=== PATIENT | female | born 1950 | race Caucasian/White ===

== ENCOUNTER 2017-12-29 07:53 | Inpatient (IN) | payer MEDICARE, MEDICAID ==
[~2017-12-29] VITALS: Ht 165.1 cm; Wt 67.0 kg
[~2017-12-29 07:53] MED LIST: BACL10TA14 PO; BECL8.7A7 INH; DOCU-28 PO; FLUT16SP26; GLIM1TAB46 PO; LEVO500T2 PO; LORA10TA7 PO; METF-438 PO; METO25TA6 PO; OMEP-50 PO; ONDA4TAB6 PO; ROSU20TA PO; TICA90TA PO
[2017-12-29] MEDS ORDERED: normal saline 1000ML IV soln IVB ONE (08:35)
[2017-12-29] MEDS ORDERED: ondansetron/PF 4mg/2ml inj IV ONE (08:35)
[2017-12-29] MEDS ORDERED: morphine 4 MG/ML inj SYRINge IV PRN (08:35)
[2017-12-29] MEDS ORDERED: methylPREDNISolone sod succ 125mg/2ml vial IV ONE (08:40)
[2017-12-29 08:54] LABS: BASOPHILS % (AUTO) 0.2 % (0-1); EOSINOPHILS # (AUTO) 0.1 X10'3 (0-0.9); EOSINOPHILS % (AUTO) 0.7 % (0-6); HEMATOCRIT 25.3 % (35.0-45.0); HEMOGLOBIN 7.9 g/dl (12.0-16.0); LYMPHOCYTES # (AUTO) 1.1 X10'3 (1.1-4.8); LYMPHOCYTES % (AUTO) 14.7 % (21-51); MEAN CORPUSCULAR HEMOGLOBIN 24.7 PG (27.0-31.0); MEAN CORPUSCULAR HGB CONC 31.2 % (33.0-36.5); MEAN CORPUSCULAR VOLUME 79.1 FL (78-98); MEAN PLATELET VOLUME 7.8 FL (7.4-10.4); MONOCYTES # (AUTO) 0.5 X10'3 (0-0.9); MONOCYTES % (AUTO) 7.2 % (2-12); NEUTROPHILS # (AUTO) 5.8 X10'3 (1.8-7.7); NEUTROPHILS % (AUTO) 77.2 % (42-75); PLATELET COUNT 230 X10'3 (140-440); WHITE BLOOD COUNT 7.5 X10'3 (4.5-11.0)
[2017-12-29] MEDS ORDERED: diphenhydrAMINE 50 mg/ml inj IV ONE (09:00)
[2017-12-29 09:02] LABS: INR 1.3 INR; PARTIAL THROMBOPLASTIN TIME 27 SECONDS (22-32); PROTHROMBIN TIME 13.4 SECONDS (9.0-12.0)
[2017-12-29 09:05] LABS: ALANINE AMINOTRANSFERASE 25 U/L (12-78); ALBUMIN 3.6 G/DL (3.4-5.0); ALKALINE PHOSPHATASE 78 IU/L (46-116); ANION GAP 14 (8-16); ASPARTATE AMINO TRANSFERASE 36 U/L (10-37); BILIRUBIN,TOTAL 1.2 MG/DL (0.1-1.0); BLOOD UREA NITROGEN 4 MG/DL (7-18); BUN/CREATININE RATIO 4.8 (6.6-38.0); CALCIUM 8.6 MG/DL (8.5-10.1); CHLORIDE 99 MMOL/L (99-107); CREATININE 0.83 MG/DL (0.40-0.90); GLUCOSE 102 MG/DL (70-104); POTASSIUM 3.3 MMOL/L (3.5-5.1); SODIUM 136 MMOL/L (135-145); TOTAL CARBON DIOXIDE 22.6 MMOL/L (24-32); TOTAL PROTEIN 7.3 G/DL (6.4-8.2); eGFR 69 ML/MIN
[2017-12-29 09:11] LABS: MAGNESIUM 1.2 MG/DL (1.5-2.4)
[2017-12-29] MEDS ORDERED: iohexol 350MG/ML 100ml bottle IV ONE (09:16)
[2017-12-29] MEDS: MESSAGE TO NURSING PO NR (10:00)
[2017-12-29] MEDS ORDERED: ASPI-611 PO (11:48)
[2017-12-29] MEDS ORDERED: METO-395 PO (11:48)
[2017-12-29] MEDS ORDERED: FENO160T13 PO (11:48)
[2017-12-29] MEDS ORDERED: ROSU20TA PO (11:48)
[2017-12-29] MEDS ORDERED: METH2.5T PO (11:48)
[2017-12-29] MEDS ORDERED: NITR0.4T SL (11:48)
[2017-12-29] MEDS ORDERED: ALBU18HF2 INH (11:52)
[2017-12-29] MEDS ORDERED: FLUT50BL NAS (11:52)
[2017-12-29] MEDS ORDERED: NITR0.4T51 SL (11:52)
[2017-12-29] MEDS ORDERED: LANTUS SQ (11:54)
[2017-12-29] MEDS ORDERED: LISI-642 PO (11:54)
[2017-12-29] MEDS ORDERED: TIOT4MIS3 INH (11:57)
[2017-12-29] MEDS ORDERED: CHOL50004 PO (11:57)
[2017-12-29] MEDS ORDERED: BACL10TA PO (11:57)
[2017-12-29] MEDS ORDERED: OMEP20TA5 PO (11:57)
[2017-12-29] MEDS ORDERED: dextrose ORAL solution 15 GM/59 ML bottle PO PRN ×2 (12:35)
[2017-12-29] MEDS ORDERED: magnesium Cl slow-release 64mg tablet PO PRN (12:35)
[2017-12-29] MEDS ORDERED: HYDROcodone/acetaminophen 5mg/325mg tablet PO PRN (12:35)
[2017-12-29] MEDS ORDERED: dextrose 50%-water 50ml dispensing syringe IV PRN ×2 (12:35)
[2017-12-29] MEDS ORDERED: acetaminophen 325mg tablet PO PRN (12:35)
[2017-12-29] MEDS ORDERED: MESSAGE TO PHARMACY PO ONE (12:35)
[2017-12-29] MEDS ORDERED: potassium Cl 20 mEq SR tablet PO PRN ×2 (12:35)
[2017-12-29] MEDS ORDERED: mag hydrox/Alum hydrox/simeth 30ml oral suspension PO PRN (12:35)
[2017-12-29] MEDS ORDERED: glucagon, human recombinant 1mg kit SUBCUT PRN (12:35)
[2017-12-29] MEDS ORDERED: magnesium 4gm in 100ml NS 100 ML IV PRN (12:35)
[2017-12-29] MEDS ORDERED: potassium Cl 40MEQ/NS 500ml 500 ML IV PRN ×2 (12:35)
[2017-12-29] MEDS ORDERED: magnesium hydroxide 30ml (MOM) UD suspension PO PRN (12:35)
[2017-12-29] MEDS ORDERED: magnesium 1gm/100ml D5W IVPB 100 ML IV PRN (12:35)
[2017-12-29] MEDS ORDERED: ondansetron/PF 4mg/2ml inj IV PRN (12:35)
[2017-12-29] MEDS ORDERED: nitroGLYCERIN 0.4mg SUBLingual tab SL PRN (12:40)
[2017-12-29] MEDS ORDERED: baclofen 10mg tablet PO PRN (12:40)
[2017-12-29] MEDS ORDERED: magnesium 2GM in 50ml NS 50 ML IV ONE (12:45)
[2017-12-29] MEDS: ROSUVASTATIN CALCIUM 20 MG PO SCH (13:15)
[2017-12-29 13:53] LABS: ANISOCYTOSIS 3+; PLATELET ESTIMATE NORMAL
[2017-12-29 13:54] LABS: POLYCHROMASIA 1+
[2017-12-29 13:55] LABS: HYPOCHROMASIA 3+; TARGET CELLS 1+
[2017-12-29 14:37] LABS: HEMOGLOBIN A1C 6.2 % (4.5-6.2)
[2017-12-29 16:12] VITALS: BP 151/55
[2017-12-29 19:00] VITALS: BP 135/75
[2017-12-29] MEDS: insulin Lispro (HumaLOG) vial - multi-dose SQ SCH ×2 (19:47→22:27)
[2017-12-29] MEDS: BUDESONIDE 0.25 MG/2 ML AMPUL.NEB IH SCH (20:00)
[2017-12-29] MEDS: insulin glargine (Lantus) pen - multi-dose SQ SCH ×2 (21:00→22:29)
[2017-12-29 23:00] VITALS: BP 121/68
[2017-12-30 03:00] VITALS: BP 128/73
[2017-12-30 06:14] LABS: BASOPHILS % (AUTO) 0.2 % (0-1); EOSINOPHILS # (AUTO) 0.1 X10'3 (0-0.9); EOSINOPHILS % (AUTO) 0.9 % (0-6); HEMATOCRIT 27.3 % (35.0-45.0); HEMOGLOBIN 8.4 g/dl (12.0-16.0); LYMPHOCYTES % (AUTO) 11.7 % (21-51); MEAN CORPUSCULAR HEMOGLOBIN 24.7 PG (27.0-31.0); MEAN CORPUSCULAR HGB CONC 30.9 % (33.0-36.5); MEAN PLATELET VOLUME 7.9 FL (7.4-10.4); MONOCYTES # (AUTO) 1.1 X10'3 (0-0.9); MONOCYTES % (AUTO) 12.6 % (2-12); NEUTROPHILS # (AUTO) 6.3 X10'3 (1.8-7.7); NEUTROPHILS % (AUTO) 74.6 % (42-75); PLATELET COUNT 241 X10'3 (140-440); RED BLOOD COUNT 3.41 X10'6 (4.20-5.60); RED CELL DISTRIBUTION WIDTH 27.6 % (11.5-14.5); WHITE BLOOD COUNT 8.4 X10'3 (4.5-11.0)
[2017-12-30 06:29] LABS: ALANINE AMINOTRANSFERASE 22 U/L (12-78); ALBUMIN 3.6 G/DL (3.4-5.0); ALBUMIN/GLOBULIN RATIO 0.9 (1.1-1.5); ALKALINE PHOSPHATASE 76 IU/L (46-116); ANION GAP 12 (8-16); ASPARTATE AMINO TRANSFERASE 43 U/L (10-37); BLOOD UREA NITROGEN 12 MG/DL (7-18); BUN/CREATININE RATIO 9.4 (6.6-38.0); CALCIUM 8.7 MG/DL (8.5-10.1); CHLORIDE 99 MMOL/L (99-107); CREATININE 1.27 MG/DL (0.40-0.90); GLUCOSE 204 MG/DL (70-104); MAGNESIUM 1.7 MG/DL (1.5-2.4); POTASSIUM 4.1 MMOL/L (3.5-5.1); SODIUM 135 MMOL/L (135-145); TOTAL CARBON DIOXIDE 24.4 MMOL/L (24-32); TOTAL PROTEIN 7.4 G/DL (6.4-8.2); eGFR 42 ML/MIN
[2017-12-30 06:56] VITALS: BP 118/53
[2017-12-30 07:27] LABS: PLATELET ESTIMATE NORMAL
[2017-12-30 07:28] LABS: ANISOCYTOSIS 3+; HYPOCHROMASIA 2+; POLYCHROMASIA 1+; TARGET CELLS FEW
[2017-12-30] MEDS: lisinopril 5mg tablet PO SCH (07:37)
[2017-12-30] MEDS: loratadine 10mg tablet PO SCH (07:37)
[2017-12-30] MEDS: aspirin 81mg tab.chew PO SCH (07:37)
[2017-12-30] MEDS: pantoprazole 40mg Tablet.DR PO SCH (07:37)
[2017-12-30] MEDS: enoxaparin 40mg/0.4ml syringe SUBCUT SCH (07:38)
[2017-12-30] MEDS: K and/or MAG REPLACEMENT MC SCH (08:00)
[2017-12-30] MEDS ORDERED: metoprolol succinate 25mg (24-HOUR) SR. Tablet PO SCH (08:00)
[2017-12-30] MEDS: BUDESONIDE 0.25 MG/2 ML AMPUL.NEB IH SCH ×2 (08:00→20:30)
[2017-12-30] MEDS ORDERED: fenofibrate 145mg tablet PO SCH (08:30)
[2017-12-30] MEDS: morphine 2 MG/ML inj. syringe IV PRN ×2 (09:01→18:05)
[2017-12-30] MEDS: ROSUVASTATIN CALCIUM 20 MG PO SCH (09:07)
[2017-12-30] MEDS: insulin Lispro (HumaLOG) vial - multi-dose SQ SCH (09:11)
[2017-12-30] MEDS: MESSAGE TO NURSING PO NR (10:19)
[2017-12-30 11:00] VITALS: BP 94/55
[2017-12-30] MEDS ORDERED: regadenoson 0.4mg/5ml syringe IV PRN (12:20)
[2017-12-30] MEDS ORDERED: aminophylline 250mg/10ml inj. IV PRN (12:20)
[2017-12-30 15:58] VITALS: BP 98/59
[2017-12-30 19:00] VITALS: BP 109/54
[2017-12-30] MEDS: insulin glargine (Lantus) pen - multi-dose SQ SCH ×2 (21:00→21:08)
[2017-12-30 23:00] VITALS: BP 93/57
[2017-12-31] VITALS (15 sets, daily range): BP systolic 84–116; BP diastolic 39–66
[2017-12-31] MEDS: morphine 2 MG/ML inj. syringe IV PRN ×2 (02:06→13:19)
[2017-12-31] MEDS ORDERED: metoprolol tartrate 25mg tablet PO ONE (02:35)
[2017-12-31] MEDS: metoprolol tartrate 25mg tablet PO SCH ×3 (02:42→20:51)
[2017-12-31 06:35] LABS: BASOPHILS % (AUTO) 0 % (0-1); EOSINOPHILS # (AUTO) 0.1 X10'3 (0-0.9); HEMATOCRIT 26.6 % (35.0-45.0); HEMOGLOBIN 8.2 g/dl (12.0-16.0); LYMPHOCYTES # (AUTO) 2.3 X10'3 (1.1-4.8); LYMPHOCYTES % (AUTO) 23.6 % (21-51); MEAN CORPUSCULAR HEMOGLOBIN 24.4 PG (27.0-31.0); MEAN CORPUSCULAR HGB CONC 30.9 % (33.0-36.5); MEAN CORPUSCULAR VOLUME 78.7 FL (78-98); MEAN PLATELET VOLUME 8.3 FL (7.4-10.4); MONOCYTES # (AUTO) 1.5 X10'3 (0-0.9); NEUTROPHILS # (AUTO) 5.9 X10'3 (1.8-7.7); NEUTROPHILS % (AUTO) 60.4 % (42-75); PLATELET COUNT 225 X10'3 (140-440); RED BLOOD COUNT 3.38 X10'6 (4.20-5.60); RED CELL DISTRIBUTION WIDTH 26.9 % (11.5-14.5); WHITE BLOOD COUNT 9.7 X10'3 (4.5-11.0)
[2017-12-31 06:52] LABS: ALANINE AMINOTRANSFERASE 201 U/L (12-78); ALBUMIN 3.4 G/DL (3.4-5.0); ALBUMIN/GLOBULIN RATIO 0.9 (1.1-1.5); ALKALINE PHOSPHATASE 78 IU/L (46-116); ANION GAP 8 (8-16); ASPARTATE AMINO TRANSFERASE 718 U/L (10-37); BILIRUBIN,TOTAL 1.3 MG/DL (0.1-1.0); BLOOD UREA NITROGEN 20 MG/DL (7-18); BUN/CREATININE RATIO 17.9 (6.6-38.0); CALCIUM 8.7 MG/DL (8.5-10.1); CHLORIDE 100 MMOL/L (99-107); CREATININE 1.12 MG/DL (0.40-0.90); GLUCOSE 64 MG/DL (70-104); MAGNESIUM 1.8 MG/DL (1.5-2.4); POTASSIUM 4.5 MMOL/L (3.5-5.1); SODIUM 133 MMOL/L (135-145); TOTAL CARBON DIOXIDE 24.8 MMOL/L (24-32); eGFR 49 ML/MIN
[2017-12-31 07:05] LABS: NUCLEATED RED BLOOD CELLS 1 /100WBC (0-0); TOTAL CELLS COUNTED 100
[2017-12-31 07:06] LABS: ANISOCYTOSIS 3+; ELLIPTOCYTES FEW; HYPOCHROMASIA 2+; PLATELET ESTIMATE NORMAL; POLYCHROMASIA 1+; TARGET CELLS FEW
[2017-12-31] MEDS ORDERED: metoprolol tartrate 25mg tablet PO SCH (08:00)
[2017-12-31] MEDS: K and/or MAG REPLACEMENT MC SCH (08:00)
[2017-12-31] MEDS: albuterol 2.5 MG/3 ML nebule NEB PRN (08:05)
[2017-12-31] MEDS: BUDESONIDE 0.25 MG/2 ML AMPUL.NEB IH SCH ×2 (08:05→20:27)
[2017-12-31 08:56] LABS: BILIRUBIN,DIRECT 0.9 MG/DL (0-0.3)
[2017-12-31] MEDS ORDERED: regadenoson 0.4mg/5ml syringe IV ONE (10:02)
[2017-12-31] MEDS ORDERED: aminophylline inj. 0 ML IV ONE (10:02)
[2017-12-31] MEDS: lisinopril 5mg tablet PO SCH (11:52)
[2017-12-31] MEDS: loratadine 10mg tablet PO SCH (11:52)
[2017-12-31] MEDS: pantoprazole 40mg Tablet.DR PO SCH (11:52)
[2017-12-31] MEDS: aspirin 81mg tab.chew PO SCH (11:52)
[2017-12-31] MEDS: enoxaparin 40mg/0.4ml syringe SUBCUT SCH (11:54)
[2017-12-31] MEDS: ROSUVASTATIN CALCIUM 20 MG PO SCH (11:56)
[2017-12-31 12:15] LABS: ALANINE AMINOTRANSFERASE 235 U/L (12-78); ALBUMIN 3.5 G/DL (3.4-5.0); ALKALINE PHOSPHATASE 84 IU/L (46-116); ASPARTATE AMINO TRANSFERASE 774 U/L (10-37); BILIRUBIN,TOTAL 1.4 MG/DL (0.1-1.0)
[2017-12-31] MEDS: insulin Lispro (HumaLOG) vial - multi-dose SQ SCH ×2 (15:15→18:53)
[2017-12-31] MEDS: insulin glargine (Lantus) pen - multi-dose SQ SCH (20:54)
[2018-01-01 03:00] VITALS: BP 90/43
[2018-01-01 06:00] VITALS: BP 120/59
[2018-01-01 07:25] LABS: BASOPHILS % (AUTO) 0.3 % (0-1); EOSINOPHILS # (AUTO) 0.1 X10'3 (0-0.9); EOSINOPHILS % (AUTO) 1.1 % (0-6); HEMATOCRIT 24.6 % (35.0-45.0); HEMOGLOBIN 7.6 g/dl (12.0-16.0); LYMPHOCYTES # (AUTO) 1.5 X10'3 (1.1-4.8); LYMPHOCYTES % (AUTO) 15.1 % (21-51); MEAN CORPUSCULAR HEMOGLOBIN 24.4 PG (27.0-31.0); MEAN CORPUSCULAR HGB CONC 30.9 % (33.0-36.5); MEAN CORPUSCULAR VOLUME 79.2 FL (78-98); MEAN PLATELET VOLUME 8.4 FL (7.4-10.4); MONOCYTES # (AUTO) 1.5 X10'3 (0-0.9); NEUTROPHILS # (AUTO) 6.8 X10'3 (1.8-7.7); NEUTROPHILS % (AUTO) 68.5 % (42-75); PLATELET COUNT 197 X10'3 (140-440); RED BLOOD COUNT 3.11 X10'6 (4.20-5.60); RED CELL DISTRIBUTION WIDTH 26.7 % (11.5-14.5)
[2018-01-01 07:52] LABS: ALANINE AMINOTRANSFERASE 319 U/L (12-78); ALBUMIN 3.1 G/DL (3.4-5.0); ALKALINE PHOSPHATASE 87 IU/L (46-116); ANION GAP 12 (8-16); ASPARTATE AMINO TRANSFERASE 908 U/L (10-37); BILIRUBIN,TOTAL 1.3 MG/DL (0.1-1.0); BLOOD UREA NITROGEN 19 MG/DL (7-18); BUN/CREATININE RATIO 18.1 (6.6-38.0); CALCIUM 8.4 MG/DL (8.5-10.1); CHLORIDE 98 MMOL/L (99-107); CREATININE 1.05 MG/DL (0.40-0.90); GLUCOSE 53 MG/DL (70-104); MAGNESIUM 1.6 MG/DL (1.5-2.4); SODIUM 135 MMOL/L (135-145); TOTAL CARBON DIOXIDE 25.1 MMOL/L (24-32); TOTAL PROTEIN 6.2 G/DL (6.4-8.2); eGFR 52 ML/MIN
[2018-01-01] MEDS: K and/or MAG REPLACEMENT MC SCH (08:00)
[2018-01-01] MEDS: BUDESONIDE 0.25 MG/2 ML AMPUL.NEB IH SCH ×2 (08:28→19:30)
[2018-01-01] MEDS: albuterol 2.5 MG/3 ML nebule NEB PRN ×2 (08:30→19:30)
[2018-01-01 08:38] LABS: ANISOCYTOSIS 3+; HYPOCHROMASIA 2+; PLATELET ESTIMATE NORMAL
[2018-01-01] MEDS: metoprolol tartrate 25mg tablet PO SCH ×2 (08:38→19:53)
[2018-01-01] MEDS: lisinopril 5mg tablet PO SCH (08:38)
[2018-01-01] MEDS: loratadine 10mg tablet PO SCH (08:38)
[2018-01-01 08:39] LABS: ELLIPTOCYTES FEW; POLYCHROMASIA 1+; TARGET CELLS FEW
[2018-01-01] MEDS: enoxaparin 40mg/0.4ml syringe SUBCUT SCH (08:39)
[2018-01-01] MEDS: pantoprazole 40mg Tablet.DR PO SCH (08:39)
[2018-01-01] MEDS: aspirin 81mg tab.chew PO SCH (08:39)
[2018-01-01] MEDS: ROSUVASTATIN CALCIUM 20 MG PO SCH (08:40)
[2018-01-01] MEDS: morphine 2 MG/ML inj. syringe IV PRN ×2 (08:41→14:59)
[2018-01-01 11:00] VITALS: BP 101/42
[2018-01-01 12:19] LABS: ACETAMINOPHEN < 2.0 UG/ML (10-30)
[2018-01-01 12:47] LABS: % IRON SATURATION 4 % (11-46); IRON 15 UG/DL (49-151); TOTAL IRON BINDING CAPACITY 421 UG/DL (259-388)
[2018-01-01 15:00] VITALS: BP 114/57
[2018-01-01 18:00] VITALS: BP 129/67
[2018-01-01] MEDS: insulin Lispro (HumaLOG) vial - multi-dose SQ SCH (18:33)
[2018-01-01 18:43] LABS: ALANINE AMINOTRANSFERASE 313 U/L (12-78); ALBUMIN 3.2 G/DL (3.4-5.0); ALKALINE PHOSPHATASE 93 IU/L (46-116); ASPARTATE AMINO TRANSFERASE 747 U/L (10-37); BILIRUBIN,TOTAL 1.2 MG/DL (0.1-1.0); TOTAL PROTEIN 6.3 G/DL (6.4-8.2)
[2018-01-01 18:45] LABS: BILIRUBIN,DIRECT 0.8 MG/DL (0-0.3)
[2018-01-01] MEDS: insulin glargine (Lantus) pen - multi-dose SQ SCH (20:42)
[2018-01-01 22:00] VITALS: BP 91/48
[2018-01-01] MEDS: diltiazem-NS 100mg/100ml 100 ML IV SCH (23:45)
[2018-01-02] VITALS (12 sets, daily range): BP systolic 102–134; BP diastolic 44–84
[2018-01-02 06:37] LABS: ALANINE AMINOTRANSFERASE 294 U/L (12-78); ALBUMIN 3.2 G/DL (3.4-5.0); ALBUMIN/GLOBULIN RATIO 0.9 (1.1-1.5); ALKALINE PHOSPHATASE 96 IU/L (46-116); ANION GAP 7 (8-16); ASPARTATE AMINO TRANSFERASE 546 U/L (10-37); BILIRUBIN,TOTAL 1.3 MG/DL (0.1-1.0); BLOOD UREA NITROGEN 14 MG/DL (7-18); BUN/CREATININE RATIO 14.4 (6.6-38.0); CALCIUM 8.4 MG/DL (8.5-10.1); CHLORIDE 98 MMOL/L (99-107); CREATININE 0.97 MG/DL (0.40-0.90); GLUCOSE 108 MG/DL (70-104); MAGNESIUM 1.6 MG/DL (1.5-2.4); SODIUM 132 MMOL/L (135-145); TOTAL CARBON DIOXIDE 26.6 MMOL/L (24-32); TOTAL PROTEIN 6.6 G/DL (6.4-8.2); eGFR 57 ML/MIN
[2018-01-02 06:40] LABS: ALANINE AMINOTRANSFERASE 299 U/L (12-78); ALBUMIN 3.2 G/DL (3.4-5.0); ALBUMIN/GLOBULIN RATIO 0.9 (1.1-1.5); ALKALINE PHOSPHATASE 94 IU/L (46-116); ASPARTATE AMINO TRANSFERASE 549 U/L (10-37); BILIRUBIN,DIRECT 0.9 MG/DL (0-0.3); BILIRUBIN,TOTAL 1.3 MG/DL (0.1-1.0); TOTAL PROTEIN 6.6 G/DL (6.4-8.2)
[2018-01-02 06:43] LABS: BASOPHILS % (AUTO) 0.3 % (0-1); EOSINOPHILS # (AUTO) 0.1 X10'3 (0-0.9); EOSINOPHILS % (AUTO) 1.3 % (0-6); HEMOGLOBIN 7.7 g/dl (12.0-16.0); LYMPHOCYTES # (AUTO) 1.1 X10'3 (1.1-4.8); LYMPHOCYTES % (AUTO) 15.3 % (21-51); MEAN CORPUSCULAR HEMOGLOBIN 24.2 PG (27.0-31.0); MEAN CORPUSCULAR HGB CONC 30.9 % (33.0-36.5); MEAN CORPUSCULAR VOLUME 78.3 FL (78-98); MEAN PLATELET VOLUME 8.6 FL (7.4-10.4); MONOCYTES # (AUTO) 0.6 X10'3 (0-0.9); MONOCYTES % (AUTO) 8.2 % (2-12); NEUTROPHILS # (AUTO) 5.2 X10'3 (1.8-7.7); NEUTROPHILS % (AUTO) 74.9 % (42-75); PLATELET COUNT 201 X10'3 (140-440); RED BLOOD COUNT 3.19 X10'6 (4.20-5.60); RED CELL DISTRIBUTION WIDTH 26.5 % (11.5-14.5)
[2018-01-02] MEDS: loratadine 10mg tablet PO SCH (07:21)
[2018-01-02] MEDS: pantoprazole 40mg Tablet.DR PO SCH (07:22)
[2018-01-02] MEDS: lisinopril 5mg tablet PO SCH (07:22)
[2018-01-02] MEDS: metoprolol tartrate 25mg tablet PO SCH ×2 (07:23→20:45)
[2018-01-02] MEDS: ROSUVASTATIN CALCIUM 20 MG PO SCH (07:25)
[2018-01-02] MEDS: enoxaparin 40mg/0.4ml syringe SUBCUT SCH (07:26)
[2018-01-02] MEDS: aspirin 81mg tab.chew PO SCH (07:30)
[2018-01-02 07:59] LABS: PLATELET ESTIMATE NORMAL
[2018-01-02 08:00] LABS: ANISOCYTOSIS 3+; HYPOCHROMASIA 1+; MICROCYTOSIS 1+; POLYCHROMASIA FEW
[2018-01-02] MEDS: K and/or MAG REPLACEMENT MC SCH (08:00)
[2018-01-02 08:01] LABS: TARGET CELLS FEW
[2018-01-02] MEDS: albuterol 2.5 MG/3 ML nebule NEB PRN ×2 (08:26→19:08)
[2018-01-02] MEDS: BUDESONIDE 0.25 MG/2 ML AMPUL.NEB IH SCH ×2 (08:26→19:09)
[2018-01-02] MEDS: insulin Lispro (HumaLOG) vial - multi-dose SQ SCH ×2 (09:15→12:44)
[2018-01-02] MEDS: morphine 2 MG/ML inj. syringe IV PRN (12:45)
[2018-01-02 18:00] LABS: ALANINE AMINOTRANSFERASE 234 U/L (12-78); ALBUMIN 3.2 G/DL (3.4-5.0); ALBUMIN/GLOBULIN RATIO 0.9 (1.1-1.5); ALKALINE PHOSPHATASE 98 IU/L (46-116); ASPARTATE AMINO TRANSFERASE 377 U/L (10-37); BILIRUBIN,DIRECT 0.9 MG/DL (0-0.3); BILIRUBIN,TOTAL 1.2 MG/DL (0.1-1.0); TOTAL PROTEIN 6.7 G/DL (6.4-8.2)
[2018-01-02] MEDS: diltiazem-NS 100mg/100ml 100 ML IV SCH (20:44)
[2018-01-02] MEDS: ferrous sulfate ER tablet 140 MG TABLET.ER PO SCH (20:45)
[2018-01-02] MEDS: insulin glargine (Lantus) pen - multi-dose SQ SCH (21:09)
[2018-01-03 01:00] VITALS: BP 110/61
[2018-01-03 02:00] VITALS: BP 119/62
[2018-01-03 03:00] VITALS: BP 114/88
[2018-01-03 04:00] VITALS: BP 110/68
[2018-01-03 07:00] VITALS: BP 119/53
[2018-01-03] MEDS: loratadine 10mg tablet PO SCH (07:07)
[2018-01-03] MEDS: pantoprazole 40mg Tablet.DR PO SCH (07:07)
[2018-01-03] MEDS: ferrous sulfate ER tablet 140 MG TABLET.ER PO SCH (07:08)
[2018-01-03 07:09] LABS: BASOPHILS % (AUTO) 0.3 % (0-1); EOSINOPHILS # (AUTO) 0.1 X10'3 (0-0.9); EOSINOPHILS % (AUTO) 1.8 % (0-6); HEMATOCRIT 25.4 % (35.0-45.0); LYMPHOCYTES # (AUTO) 1.1 X10'3 (1.1-4.8); LYMPHOCYTES % (AUTO) 17.7 % (21-51); MEAN CORPUSCULAR HEMOGLOBIN 24.5 PG (27.0-31.0); MEAN CORPUSCULAR HGB CONC 31.4 % (33.0-36.5); MEAN PLATELET VOLUME 8.4 FL (7.4-10.4); MONOCYTES # (AUTO) 0.6 X10'3 (0-0.9); MONOCYTES % (AUTO) 9.8 % (2-12); NEUTROPHILS # (AUTO) 4.3 X10'3 (1.8-7.7); NEUTROPHILS % (AUTO) 70.4 % (42-75); PLATELET COUNT 210 X10'3 (140-440); RED BLOOD COUNT 3.25 X10'6 (4.20-5.60); RED CELL DISTRIBUTION WIDTH 27.1 % (11.5-14.5); WHITE BLOOD COUNT 6.1 X10'3 (4.5-11.0)
[2018-01-03] MEDS: metoprolol tartrate 25mg tablet PO SCH (07:09)
[2018-01-03] MEDS: ROSUVASTATIN CALCIUM 20 MG PO SCH (07:09)
[2018-01-03] MEDS: enoxaparin 40mg/0.4ml syringe SUBCUT SCH (07:13)
[2018-01-03 07:39] LABS: ALANINE AMINOTRANSFERASE 200 U/L (12-78); ALBUMIN 3.4 G/DL (3.4-5.0); ALBUMIN/GLOBULIN RATIO 0.9 (1.1-1.5); ALKALINE PHOSPHATASE 96 IU/L (46-116); ANION GAP 10 (8-16); ASPARTATE AMINO TRANSFERASE 258 U/L (10-37); BILIRUBIN,TOTAL 1.6 MG/DL (0.1-1.0); BLOOD UREA NITROGEN 11 MG/DL (7-18); BUN/CREATININE RATIO 11.5 (6.6-38.0); CALCIUM 8.7 MG/DL (8.5-10.1); CHLORIDE 97 MMOL/L (99-107); CREATININE 0.96 MG/DL (0.40-0.90); GLUCOSE 105 MG/DL (70-104); MAGNESIUM 1.6 MG/DL (1.5-2.4); POTASSIUM 4.5 MMOL/L (3.5-5.1); SODIUM 133 MMOL/L (135-145); TOTAL CARBON DIOXIDE 26.2 MMOL/L (24-32); eGFR 58 ML/MIN
[2018-01-03] MEDS: K and/or MAG REPLACEMENT MC SCH ×2 (08:00→08:17)
[2018-01-03] MEDS: BUDESONIDE 0.25 MG/2 ML AMPUL.NEB IH SCH (08:24)
[2018-01-03] MEDS: albuterol 2.5 MG/3 ML nebule NEB PRN (08:24)
[2018-01-03] MEDS: aspirin 81mg tab.chew PO SCH (08:50)
[2018-01-03] MEDS: lisinopril 5mg tablet PO SCH (08:50)
[2018-01-03] MEDS: insulin Lispro (HumaLOG) vial - multi-dose SQ SCH (08:51)
[2018-01-03 09:00] VITALS: BP 122/51
[2018-01-03] MEDS ORDERED: FERR140T2 PO (10:16)
[2018-01-05 17:30] LABS: OCCULT BLOOD STOOL NEGATIVE (Neg)
== END 2018-01-03 12:05 | disposition home or self-care (01) | DRG 280 ==
LOC: ER 07:54 → ED HOLD 12:34 → EDBEDREQ 15:07 → PCU 3S 16:51
PROVIDERS: ADMIT Internal Medicine; ATTEND Internal Medicine
PROC: B32T1ZZ Computerized Tomography (CT Scan) of Left Pulmonary Artery using Low Osmolar Contrast (ICD-10-PCS; 2017-12-29)
PROC: B3201ZZ Computerized Tomography (CT Scan) of Thoracic Aorta using Low Osmolar Contrast (ICD-10-PCS; 2017-12-29)
PROC: B32S1ZZ Computerized Tomography (CT Scan) of Right Pulmonary Artery using Low Osmolar Contrast (ICD-10-PCS; 2017-12-29)
PROC: 4A02XM4 Measurement of Cardiac Total Activity, External Approach (ICD-10-PCS; principal; 2017-12-31)
PROC: 3E033HZ Introduction of Radioactive Substance into Peripheral Vein, Percutaneous Approach (ICD-10-PCS; 2017-12-31)
DX: I21.4 Non-ST elevation (NSTEMI) myocardial infarction (principal); I50.23 Acute on chronic systolic (congestive) heart failure; E11.9 Type 2 diabetes mellitus without complications; D50.9 Iron deficiency anemia, unspecified; E78.00 Pure hypercholesterolemia, unspecified; E78.5 Hyperlipidemia, unspecified; F17.210 Nicotine dependence, cigarettes, uncomplicated; I11.0 Hypertensive heart disease with heart failure; I25.10 Atherosclerotic heart disease of native coronary artery without angina pectoris; M79.3 Panniculitis, unspecified; G89.29 Other chronic pain; K64.4 Residual hemorrhoidal skin tags; R94.5 Abnormal results of liver function studies; T46.6X5A Adverse effect of antihyperlipidemic and antiarteriosclerotic drugs, initial encounter; J44.9 Chronic obstructive pulmonary disease, unspecified; I25.2 Old myocardial infarction; Z90.49 Acquired absence of other specified parts of digestive tract; Z90.710 Acquired absence of both cervix and uterus; Z88.0 Allergy status to penicillin; Z88.8 Allergy status to other drugs, medicaments and biological substances; Z91.041 Radiographic dye allergy status; Z79.899 Other long term (current) drug therapy; Z79.4 Long term (current) use of insulin; Z79.82 Long term (current) use of aspirin; Z86.73 Personal history of transient ischemic attack (TIA), and cerebral infarction without residual deficits; Z71.6 Tobacco abuse counseling; Y92.89 Other specified places as the place of occurrence of the external cause
CPT/HCPCS: 36415; 71045; 71275; 76700; 78452; 80053; 80076; 80329; 82248; 82272; 82948; 83036; 83540; 83550; 83735; 83880; 84484; 85025; 85610; 85730; 87070; 93005; 93017; 93306; 94640; 94760; 96374; 96375; 99285; A9500; J0280; J1200; J1650; J1815; J2270; J2405; J2930; J3475; J3490; J8610; Q9967

== ENCOUNTER 2019-01-02 13:17 | Outpatient (CLI) | payer OTHER, MEDICAID ==
[~2019-01-02 13:17] MED LIST changes: +ALBU18HF2 INH; +ASPI-611 PO; +BACL10TA PO; -BACL10TA14 PO; -DOCU-28 PO; +FERR140T2 PO; -FLUT16SP26; +FLUT50BL NAS; -GLIM1TAB46 PO; +LANTUS SQ; -LEVO500T2 PO; +LISI-642 PO; -METF-438 PO; +METH2.5T PO; +METO-395 PO; -METO25TA6 PO; +NITR0.4T51 SL; -OMEP-50 PO; +OMEP20TA5 PO; -ONDA4TAB6 PO; -ROSU20TA PO; -TICA90TA PO; +TIOT4MIS3 INH
== END 2019-01-02 23:59 | disposition home or self-care (01) ==
LOC: CARD DIAG 13:17
PROVIDERS: ATTEND Internal Medicine
DX: I08.3 Combined rheumatic disorders of mitral, aortic and tricuspid valves (principal); J90 Pleural effusion, not elsewhere classified; J96.01 Acute respiratory failure with hypoxia; I70.0 Atherosclerosis of aorta; I31.3 Pericardial effusion (noninflammatory); R18.8 Other ascites
CPT/HCPCS: 93306

== ENCOUNTER 2019-01-20 17:33 | Inpatient (IN) | payer MEDICARE, MEDICAID ==
[~2019-01-20] VITALS: Ht 162.6 cm; Wt 70.1 kg
[2019-01-20 19:02] LABS: BASOPHILS # (AUTO) 0.1 X10'3 (0-0.2); BASOPHILS % (AUTO) 0.8 % (0-1); EOSINOPHILS # (AUTO) 0.1 X10'3 (0-0.9); EOSINOPHILS % (AUTO) 1.6 % (0-6); HEMOGLOBIN 7.1 g/dl (12.0-16.0); LYMPHOCYTES # (AUTO) 0.7 X10'3 (1.1-4.8); LYMPHOCYTES % (AUTO) 10.6 % (21-51); MEAN CORPUSCULAR HGB CONC 33.1 g/dL (33.0-36.5); MEAN CORPUSCULAR VOLUME 93.6 FL (78-98); MEAN PLATELET VOLUME 5.7 FL (7.4-10.4); MONOCYTES # (AUTO) 0.4 X10'3 (0-0.9); MONOCYTES % (AUTO) 5.4 % (2-12); NEUTROPHILS # (AUTO) 5.3 X10'3 (1.8-7.7); NEUTROPHILS % (AUTO) 81.6 % (42-75); PLATELET COUNT 154 X10'3 (140-440); RED BLOOD COUNT 2.29 X10'6 (4.20-5.60); RED CELL DISTRIBUTION WIDTH 18.1 % (11.5-14.5); WHITE BLOOD COUNT 6.5 X10'3 (4.5-11.0)
[2019-01-20 19:13] LABS: HEMATOCRIT 21.5 % (35.0-45.0)
[2019-01-20 19:16] LABS: ALANINE AMINOTRANSFERASE 30 U/L (12-78); ALBUMIN 2.4 G/DL (3.4-5.0); ALBUMIN/GLOBULIN RATIO 0.5 (1.1-1.5); ALKALINE PHOSPHATASE 137 IU/L (46-116); ANION GAP 7 (8-16); ASPARTATE AMINO TRANSFERASE 24 U/L (10-37); BILIRUBIN,TOTAL 0.8 MG/DL (0.1-1.0); BLOOD UREA NITROGEN 16 MG/DL (7-18); BUN/CREATININE RATIO 20.5 (6.6-38.0); CALCIUM 8.2 MG/DL (8.5-10.1); CHLORIDE 91 MMOL/L (99-107); CREATININE 0.78 MG/DL (0.40-0.90); GLUCOSE 86 MG/DL (70-104); POTASSIUM 4.6 MMOL/L (3.5-5.1); SODIUM 124 MMOL/L (135-145); TOTAL CARBON DIOXIDE 26.1 MMOL/L (24-32); TOTAL PROTEIN 6.8 G/DL (6.4-8.2); eGFR 74 ML/MIN
--- NOTE | 2019-01-20 20:08 | NUR ---
in and out cath done with sterile technique, pt garcia well, 200ml of urine out, pt is wearing depends as she is incontinent of urine
--- NOTE | 2019-01-20 20:14 | NUR ---
spoke to dr. weiss, pt has 2 antibodies, tamie from lab working on getting blood, it will take a couple hours, MARCO castle notified as well.
[2019-01-20 20:32] LABS: OCCULT BLOOD STOOL NEGATIVE (Neg)
[2019-01-20] MEDS ORDERED: FERR142T14 (20:33)
[2019-01-20] MEDS ORDERED: POTA20TA19 PO (20:49)
[2019-01-20] MEDS ORDERED: METF-438 PO (20:49)
[2019-01-20] MEDS ORDERED: FURO-149 PO (20:49)
[2019-01-20] MEDS ORDERED: IPRA3AMP31 IH (20:49)
[2019-01-20] MEDS ORDERED: GABA-532 PO (20:49)
[2019-01-20] MEDS ORDERED: DOCU100C40 PO (20:49)
[2019-01-20] MEDS ORDERED: ASCO500C15 PO (20:49)
[2019-01-20] MEDS ORDERED: FERR325T32 PO (20:49)
[2019-01-20] MEDS ORDERED: FOLI1CAP7 PO (20:49)
[2019-01-20] MEDS ORDERED: ATOR40TA71 PO (20:49)
[2019-01-20] MEDS ORDERED: MELA3TAB64 PO (20:50)
[2019-01-20] MEDS ORDERED: magnesium 4gm in 100ml NS 100 ML IV PRN (21:15)
[2019-01-20] MEDS ORDERED: acetaminophen 325mg tablet PO PRN (21:15)
[2019-01-20] MEDS ORDERED: potassium Cl 20 mEq SR tablet PO PRN ×2 (21:15)
[2019-01-20] MEDS ORDERED: magnesium Cl slow-release 64mg tablet PO PRN (21:15)
[2019-01-20] MEDS ORDERED: potassium CL 10mEq/100ml bag 100 ML IV PRN ×2 (21:15)
[2019-01-20] MEDS ORDERED: magnesium 2GM in 50ml NS 50 ML IV PRN (21:15)
[2019-01-20] MEDS ORDERED: ondansetron/PF 4mg/2ml inj IV PRN (21:15)
[2019-01-20] MEDS ORDERED: nitroGLYCERIN 0.4mg SUBLingual tab SL PRN (21:30)
[2019-01-20] MEDS ORDERED: furosemide 10 MG/1 ML 10ml inj IV ONE (21:40)
--- NOTE | 2019-01-20 21:50 | NUR ---
Dr. Carpenter talking with pt and daughter about admission and reasons behind need for admission. pt currently on 8 liters o2 with rr 18. pt to have 1 unit prbcs transfused. Blood is delayed as pt has antibodies.
[2019-01-20 22:00] VITALS: BP 121/58
[2019-01-20 22:00] LABS: CLARITY,URINE CLEAR (Clear); COLOR,URINE YELLOW (Yellow); GLUCOSE, URINE NEGATIVE (Neg); KETONES,URINE NEGATIVE (Neg); LEUKOCYTE ESTERASE ,URINE NEGATIVE (Neg); NITRITES, URINE NEGATIVE (Neg); OCCULT BLOOD,URINE NEGATIVE (Neg); PROTEIN,URINE NEGATIVE (Neg); UROBILINOGEN,URINE 0.2 E.U/dL (0.2-1.0)
[2019-01-20 22:01] LABS: UA COLLECTION TYPE STRAIGHT CATH
--- NOTE | 2019-01-20 22:16 | NUR ---
Patient in room ED 15 to be transferred to [facility]. I have received report from MARCO Cabrera and had the opportunity to ask questions and assume patient care.
--- NOTE | 2019-01-20 22:49 | NUR ---
PAGER ID: [phone] MESSAGE: Patient Svetlana Hickman in room 3251S is requesting PRN Tylenol and gabapentin for pain. [facility] Beatriz [phone]
--- NOTE | 2019-01-20 23:30 | NUR ---
Patient's caregiver/daughter declined to complete DART admission assessment due to late night. Daughter stated she will return tomorrow and be able to complete assessment questions. Daughter also stated that she will return with specified home medication inhaler to be given as ordered.
[2019-01-20] MEDS ORDERED: gabapentin 300mg capsule PO ONE (23:50)
[2019-01-21] VITALS (18 sets, daily range): BP systolic 90–127; BP diastolic 42–86
[2019-01-21] MEDS: acetaminophen 325mg tablet PO PRN (00:44)
[2019-01-21 05:52] LABS: ALBUMIN 2.5 G/DL (3.4-5.0); ANION GAP 5 (8-16); BLOOD UREA NITROGEN 18 MG/DL (7-18); BUN/CREATININE RATIO 22.8 (6.6-38.0); CALCIUM 8.5 MG/DL (8.5-10.1); CHLORIDE 92 MMOL/L (99-107); CREATININE 0.79 MG/DL (0.40-0.90); GLUCOSE 136 MG/DL (70-104); MAGNESIUM 1.6 MG/DL (1.5-2.4); POTASSIUM 4.9 MMOL/L (3.5-5.1); SODIUM 125 MMOL/L (135-145); TOTAL CARBON DIOXIDE 27.6 MMOL/L (24-32); eGFR 73 ML/MIN
[2019-01-21 05:55] LABS: BASOPHILS % (AUTO) 0.4 % (0-1); EOSINOPHILS # (AUTO) 0.1 X10'3 (0-0.9); EOSINOPHILS % (AUTO) 1.9 % (0-6); HEMOGLOBIN 7.2 g/dl (12.0-16.0); LYMPHOCYTES # (AUTO) 0.6 X10'3 (1.1-4.8); LYMPHOCYTES % (AUTO) 9.9 % (21-51); MEAN CORPUSCULAR HEMOGLOBIN 31.3 PG (27.0-31.0); MEAN CORPUSCULAR HGB CONC 33.3 g/dL (33.0-36.5); MEAN PLATELET VOLUME 5.8 FL (7.4-10.4); MONOCYTES # (AUTO) 0.3 X10'3 (0-0.9); MONOCYTES % (AUTO) 5.8 % (2-12); NEUTROPHILS # (AUTO) 4.8 X10'3 (1.8-7.7); PLATELET COUNT 152 X10'3 (140-440); RED BLOOD COUNT 2.29 X10'6 (4.20-5.60); RED CELL DISTRIBUTION WIDTH 18.9 % (11.5-14.5); WHITE BLOOD COUNT 5.9 X10'3 (4.5-11.0)
[2019-01-21 06:13] LABS: HEMATOCRIT 21.5 % (35.0-45.0)
--- NOTE | 2019-01-21 06:14 | NUR ---
Problems reprioritized. Patient report given, questions answered & plan of care reviewed with MARCO Argueta.
--- NOTE | 2019-01-21 07:01 | NUR ---
Patient in room PCU 3028. I have received report from MARCO Henderson and had the opportunity to ask questions and assume patient care. Patient currently resting in bed, daughter at bedside, no acute distress, will continue to monitor.
--- NOTE | 2019-01-21 07:12 | NUR ---
PAGER ID: [phone] MESSAGE: MARCO Argueta, ext [phone], [phone], Gist, patient is diabetic but diabetic protocol has not been ordered, can I put it in? She is on metformin at home per daughter.
[2019-01-21] MEDS ORDERED: pantoprazole 40mg Tablet.DR PO SCH (07:30)
[2019-01-21] MEDS ORDERED: MESSAGE TO PHARMACY PO ONE (07:35)
[2019-01-21] MEDS ORDERED: dextrose 50%-water 50ml dispensing syringe IV PRN ×2 (07:35)
[2019-01-21] MEDS ORDERED: dextrose ORAL solution 15 GM/59 ML bottle PO PRN ×2 (07:35)
[2019-01-21] MEDS ORDERED: glucagon, human recombinant 1mg kit SUBCUT PRN (07:35)
[2019-01-21] MEDS: metoprolol succinate 25mg (24-HOUR) SR. Tablet PO SCH (07:49)
[2019-01-21] MEDS: lisinopril 10 MG tablet PO SCH (07:56)
[2019-01-21] MEDS: K and/or MAG REPLACEMENT MC SCH (07:56)
[2019-01-21] MEDS: furosemide 40mg/4ml inj IV SCH ×2 (07:58→21:22)
[2019-01-21 08:16] LABS: HEMOGLOBIN A1C 5.1 % (4.5-6.2)
[2019-01-21 09:37] LABS: % IRON SATURATION 11 % (11-46); IRON 34 UG/DL (49-151); TOTAL IRON BINDING CAPACITY 307 UG/DL (259-388)
[2019-01-21] MEDS ORDERED: ipratropium/albuterol 3ml nebule NEB PRN (10:00)
[2019-01-21] MEDS: iron sucrose complex injection 100 MG in normal saline 100ml IV soln 95 ML IV SCH (10:05)
[2019-01-21] MEDS: pantoprazole 40MG/NS 100ML BAG 100 ML IV SCH ×3 (11:00→23:08)
[2019-01-21] MEDS: morphine 2 MG/ML inj. syringe IV PRN (11:17)
--- NOTE | 2019-01-21 14:32 | NUR ---
PAGER ID: [phone] MESSAGE: MARCO Argueta, ext [phone], [phone], [facility], med rec completed, please address. Patient requesting her gabapentin
[2019-01-21] MEDS: ipratropium/albuterol 3ml nebule NEB SCH ×2 (15:38→20:24)
[2019-01-21] MEDS ORDERED: fentaNYL/PF 50MCG/1 ML 2ML syringe ONE (16:01)
[2019-01-21] MEDS ORDERED: MIDAZolam 5mg/5ml vial ONE (16:01)
[2019-01-21] MEDS ORDERED: LIDOcaine Viscous 15ml cup ONE (16:01)
[2019-01-21] MEDS ORDERED: baclofen 10mg tablet PO PRN (16:05)
--- NOTE | 2019-01-21 16:38 | NUR ---
patient to GI lab
--- NOTE | 2019-01-21 18:23 | NUR ---
Received report from GI lab, patient received 2 of versed and 25 of fentanyl during procedure, patient has gastritis but no active bleed, duodenum sample taken to send to pathology.
--- NOTE | 2019-01-21 18:29 | NUR ---
Problems reprioritized. Patient report given, questions answered & plan of care reviewed with MARCO Mosqueda. Patient not yet back on unit.
--- NOTE | 2019-01-21 19:01 | NUR ---
Patient in room PCU 3028. I have received report from Ellie LARA and had the opportunity to ask questions and assume patient care. pt just got back from GI lab, AAOx4, vitals sign WNL
[2019-01-21] MEDS: budesonide 0.5mg/2ml UD nebule IH SCH (20:24)
[2019-01-21] MEDS: insulin glargine (Lantus) pen - multi-dose SQ SCH (21:00)
[2019-01-21] MEDS: ascorbic acid 500mg tablet PO SCH (21:23)
[2019-01-21] MEDS: atorvastatin 20mg tablet PO SCH (21:23)
[2019-01-21] MEDS: Melatonin 3mg tablet PO SCH (21:23)
[2019-01-21] MEDS: gabapentin 300mg capsule PO SCH (23:06)
[2019-01-22] VITALS (10 sets, daily range): BP systolic 98–120; BP diastolic 41–99
[2019-01-22] MEDS: pantoprazole 40MG/NS 100ML BAG 100 ML IV SCH ×2 (01:00→06:28)
--- NOTE | 2019-01-22 02:20 | NUR ---
Started tranfusing 1 unit of blood, pt tolerating fine, Bp prior to transfusion was 91/41, after transfusion was 110/60
--- NOTE | 2019-01-22 04:29 | NUR ---
Left pupil did not react to light pt stated that due to stroke Addendum: 01/22/19 at 0431 by Jaylin Carrillo RN Amended: Links added.
--- NOTE | 2019-01-22 04:30 | NUR ---
pt Left eye did not react to light, pt stated that due to stroke she had in the past. pt has really bad vision Addendum: 01/22/19 at 0431 by Jaylin Carrillo RN Amended: Links added.
--- NOTE | 2019-01-22 06:33 | NUR ---
Problems reprioritized. Patient report given, questions answered & plan of care reviewed with Estephania LARA.
--- NOTE | 2019-01-22 06:41 | NUR ---
Patient in room PCU 3028. I have received report from Jaylin LARA and had the opportunity to ask questions and assume patient care. Patient awake in bed. No complaints at this time. All immediate needs met.
[2019-01-22] MEDS: ipratropium/albuterol 3ml nebule NEB SCH ×4 (06:57→20:55)
[2019-01-22] MEDS: budesonide 0.5mg/2ml UD nebule IH SCH ×2 (06:57→20:55)
[2019-01-22 07:03] LABS: BASOPHILS % (AUTO) 0.3 % (0-1); EOSINOPHILS # (AUTO) 0.1 X10'3 (0-0.9); EOSINOPHILS % (AUTO) 1.1 % (0-6); HEMATOCRIT 22.3 % (35.0-45.0); HEMOGLOBIN 7.6 g/dl (12.0-16.0); LYMPHOCYTES # (AUTO) 0.4 X10'3 (1.1-4.8); MEAN CORPUSCULAR HEMOGLOBIN 32.1 PG (27.0-31.0); MEAN CORPUSCULAR HGB CONC 34.3 g/dL (33.0-36.5); MEAN CORPUSCULAR VOLUME 93.4 FL (78-98); MEAN PLATELET VOLUME 5.9 FL (7.4-10.4); MONOCYTES # (AUTO) 0.3 X10'3 (0-0.9); MONOCYTES % (AUTO) 4.9 % (2-12); NEUTROPHILS # (AUTO) 5.6 X10'3 (1.8-7.7); NEUTROPHILS % (AUTO) 87.7 % (42-75); PLATELET COUNT 129 X10'3 (140-440); RED BLOOD COUNT 2.38 X10'6 (4.20-5.60); RED CELL DISTRIBUTION WIDTH 17.4 % (11.5-14.5); WHITE BLOOD COUNT 6.4 X10'3 (4.5-11.0)
[2019-01-22 07:09] LABS: ALBUMIN 2.4 G/DL (3.4-5.0); ANION GAP 5 (8-16); BLOOD UREA NITROGEN 21 MG/DL (7-18); BUN/CREATININE RATIO 29.2 (6.6-38.0); CALCIUM 8.4 MG/DL (8.5-10.1); CHLORIDE 93 MMOL/L (99-107); CREATININE 0.72 MG/DL (0.40-0.90); GLUCOSE 109 MG/DL (70-104); MAGNESIUM 1.5 MG/DL (1.5-2.4); POTASSIUM 5.1 MMOL/L (3.5-5.1); SODIUM 125 MMOL/L (135-145); TOTAL CARBON DIOXIDE 26.7 MMOL/L (24-32); eGFR 81 ML/MIN
[2019-01-22] MEDS ORDERED: VITAMIN B COMP W C PO SCH (08:00)
[2019-01-22] MEDS: K and/or MAG REPLACEMENT MC SCH (08:00)
[2019-01-22] MEDS ORDERED: atorvastatin 20mg tablet PO SCH (08:00)
[2019-01-22] MEDS ORDERED: FOLIC ACID PO SCH (08:00)
[2019-01-22] MEDS: metoprolol succinate 25mg (24-HOUR) SR. Tablet PO SCH (09:28)
[2019-01-22] MEDS: ascorbic acid 500mg tablet PO SCH ×2 (09:28→20:16)
[2019-01-22] MEDS: loratadine 10mg tablet PO SCH (09:29)
[2019-01-22] MEDS: gabapentin 300mg capsule PO SCH ×2 (09:29→17:26)
[2019-01-22] MEDS: lisinopril 10 MG tablet PO SCH (09:30)
--- NOTE | 2019-01-22 10:13 | NUR ---
Paged Dr. Porter: PAGER ID: [phone] MESSAGE: RE: Gist, Svetlana [phone]. Patient only has 1 IV and is a hard stick. Has protonix gtt. Needs IV iron. Is it ok to hold protonix for 30 minutes? Thank you. Estephania [phone]
--- NOTE | 2019-01-22 10:39 | NUR ---
Per Dr. Porter, discontinue protonix gtt. Protonix 40 mg PO daily. Start now.
--- NOTE | 2019-01-22 11:27 | NUR ---
DM consult: Patient's A1c is 5.1; no DM education warranted at this time. Will continue to follow. Addendum: 01/22/19 at [address] Amended: Links added.
[2019-01-22] MEDS: iron sucrose complex injection 100 MG in normal saline 100ml IV soln 95 ML IV SCH (12:35)
[2019-01-22] MEDS: pantoprazole 40mg Tablet.DR PO SCH (12:35)
[2019-01-22] MEDS: acetaminophen 325mg tablet PO PRN (14:55)
--- NOTE | 2019-01-22 18:13 | NUR ---
Patient in room PCU 3028. I have received report from luke LARA and had the opportunity to ask questions and assume patient care. pt eating dinner, sitting at the bed, IV SL, O2 on 2L
--- NOTE | 2019-01-22 18:15 | NUR ---
Problems reprioritized. Patient report given, questions answered & plan of care reviewed with Jaylin LARA. Patient stable at transfer of care.
[2019-01-22] MEDS: atorvastatin 20mg tablet PO SCH (20:17)
[2019-01-22] MEDS: Melatonin 3mg tablet PO SCH (20:17)
[2019-01-22] MEDS: insulin glargine (Lantus) pen - multi-dose SQ SCH (21:00)
[2019-01-23] VITALS (8 sets, daily range): BP systolic 90–117; BP diastolic 39–61
[2019-01-23] MEDS: gabapentin 300mg capsule PO SCH ×4 (00:49→23:57)
[2019-01-23 05:32] LABS: ALBUMIN 2.5 G/DL (3.4-5.0); ANION GAP 6 (8-16); BASOPHILS % (AUTO) 0.4 % (0-1); BLOOD UREA NITROGEN 23 MG/DL (7-18); CALCIUM 8.2 MG/DL (8.5-10.1); CHLORIDE 91 MMOL/L (99-107); CREATININE 0.82 MG/DL (0.40-0.90); EOSINOPHILS # (AUTO) 0.1 X10'3 (0-0.9); GLUCOSE 108 MG/DL (70-104); HEMATOCRIT 23.6 % (35.0-45.0); LYMPHOCYTES # (AUTO) 0.5 X10'3 (1.1-4.8); LYMPHOCYTES % (AUTO) 9.7 % (21-51); MAGNESIUM 1.5 MG/DL (1.5-2.4); MEAN CORPUSCULAR HEMOGLOBIN 31.6 PG (27.0-31.0); MEAN CORPUSCULAR HGB CONC 33.8 g/dL (33.0-36.5); MEAN CORPUSCULAR VOLUME 93.5 FL (78-98); MEAN PLATELET VOLUME 6.1 FL (7.4-10.4); MONOCYTES # (AUTO) 0.4 X10'3 (0-0.9); MONOCYTES % (AUTO) 8.1 % (2-12); NEUTROPHILS # (AUTO) 4.4 X10'3 (1.8-7.7); NEUTROPHILS % (AUTO) 79.8 % (42-75); PLATELET COUNT 125 X10'3 (140-440); POTASSIUM 5.7 MMOL/L (3.5-5.1); RED BLOOD COUNT 2.52 X10'6 (4.20-5.60); RED CELL DISTRIBUTION WIDTH 17.6 % (11.5-14.5); SODIUM 122 MMOL/L (135-145); WHITE BLOOD COUNT 5.5 X10'3 (4.5-11.0); eGFR 70 ML/MIN
--- NOTE | 2019-01-23 06:34 | NUR ---
Patient in room PCU 3028. I have received report from Jaylin LARA and had the opportunity to ask questions and assume patient care. Patient awake, sitting up, all needs met at this time.
--- NOTE | 2019-01-23 06:45 | NUR ---
Problems reprioritized. Patient report given, questions answered & plan of care reviewed with Ellie LARA.
--- NOTE | 2019-01-23 07:16 | NUR ---
Paged Dr Porter MESSAGE: Re: [facility] [id number], c/o chest pain, did stat EKG, ER signed okay, still c/o of chest pain, I will give a Nitro that is already ordered. Thank you Ellie
[2019-01-23] MEDS: loratadine 10mg tablet PO SCH (07:24)
[2019-01-23] MEDS: lisinopril 10 MG tablet PO SCH ×2 (07:32→08:00)
[2019-01-23] MEDS: metoprolol succinate 25mg (24-HOUR) SR. Tablet PO SCH (07:32)
[2019-01-23] MEDS: furosemide 40mg/4ml inj IV SCH (07:32)
[2019-01-23] MEDS: pantoprazole 40mg Tablet.DR PO SCH (07:32)
[2019-01-23] MEDS: ascorbic acid 500mg tablet PO SCH ×2 (07:51→21:14)
[2019-01-23] MEDS: K and/or MAG REPLACEMENT MC SCH (08:00)
[2019-01-23] MEDS: ipratropium/albuterol 3ml nebule NEB SCH ×4 (08:28→20:29)
[2019-01-23] MEDS: budesonide 0.5mg/2ml UD nebule IH SCH ×2 (08:28→20:29)
[2019-01-23] MEDS: iron sucrose complex injection 100 MG in normal saline 100ml IV soln 95 ML IV SCH (10:02)
[2019-01-23] MEDS ORDERED: albumin (human) 25% 100 ML IV solution IV ONE (12:25)
[2019-01-23 13:27] LABS: GLUCOSE,BODY FLUID 127 MG/DL; LDH,BODY FLUID 118 U/L; TOTAL PROTEIN,BODY FLUID 3.5 G/DL
[2019-01-23 13:33] LABS: LYMPHOCYTES,BODY FLUID 26 %; MONOCYTES,BODY FLUID 40 %; NEUTROPHILS,BODY FLUID 34 %
[2019-01-23 13:35] LABS: BF MESOTHELIAL CELLS FEW; BF RBC COUNT 264 /CU MM; BF WBC COUNT 146 /CU MM (0-1000); BFAPPEAR HAZY; BFCOLOR YELLOW; BFVOLUME 60 ML
[2019-01-23 14:32] LABS: ALANINE AMINOTRANSFERASE 21 U/L (12-78); ALBUMIN 3.2 G/DL (3.4-5.0); ALBUMIN/GLOBULIN RATIO 0.8 (1.1-1.5); ALKALINE PHOSPHATASE 117 IU/L (46-116); ANION GAP 7 (8-16); ASPARTATE AMINO TRANSFERASE 19 U/L (10-37); BILIRUBIN,TOTAL 0.9 MG/DL (0.1-1.0); BLOOD UREA NITROGEN 22 MG/DL (7-18); BUN/CREATININE RATIO 26.5 (6.6-38.0); CALCIUM 8.3 MG/DL (8.5-10.1); CHLORIDE 89 MMOL/L (99-107); CREATININE 0.83 MG/DL (0.40-0.90); GLUCOSE 142 MG/DL (70-104); POTASSIUM 5.4 MMOL/L (3.5-5.1); SODIUM 123 MMOL/L (135-145); TOTAL CARBON DIOXIDE 27.2 MMOL/L (24-32); TOTAL PROTEIN 7.4 G/DL (6.4-8.2); eGFR 69 ML/MIN
[2019-01-23] MEDS: acetaminophen 325mg tablet PO PRN (17:12)
--- NOTE | 2019-01-23 18:42 | NUR ---
Problems reprioritized. Patient report given, questions answered & plan of care reviewed with Jaylin LARA. All patient's needs met at this time.
[2019-01-23] MEDS: insulin Lispro (HumaLOG) vial - multi-dose SQ SCH (18:58)
[2019-01-23] MEDS: insulin glargine (Lantus) pen - multi-dose SQ SCH (21:00)
[2019-01-23] MEDS: atorvastatin 20mg tablet PO SCH (21:14)
[2019-01-23] MEDS: Melatonin 3mg tablet PO SCH (21:14)
[2019-01-24 03:00] VITALS: BP 95/46
[2019-01-24 05:04] LABS: BASOPHILS % (AUTO) 0.5 % (0-1); EOSINOPHILS # (AUTO) 0.1 X10'3 (0-0.9); EOSINOPHILS % (AUTO) 1.5 % (0-6); HEMATOCRIT 22.2 % (35.0-45.0); HEMOGLOBIN 7.5 g/dl (12.0-16.0); LYMPHOCYTES # (AUTO) 0.6 X10'3 (1.1-4.8); MEAN CORPUSCULAR HEMOGLOBIN 31.7 PG (27.0-31.0); MEAN CORPUSCULAR HGB CONC 33.7 g/dL (33.0-36.5); MEAN CORPUSCULAR VOLUME 93.8 FL (78-98); MONOCYTES # (AUTO) 0.5 X10'3 (0-0.9); MONOCYTES % (AUTO) 7.9 % (2-12); NEUTROPHILS # (AUTO) 4.5 X10'3 (1.8-7.7); NEUTROPHILS % (AUTO) 79.1 % (42-75); PLATELET COUNT 115 X10'3 (140-440); RED BLOOD COUNT 2.36 X10'6 (4.20-5.60); WHITE BLOOD COUNT 5.7 X10'3 (4.5-11.0)
[2019-01-24 05:22] LABS: ALBUMIN 2.5 G/DL (3.4-5.0); ANION GAP 6 (8-16); BLOOD UREA NITROGEN 27 MG/DL (7-18); BUN/CREATININE RATIO 27.8 (6.6-38.0); CHLORIDE 92 MMOL/L (99-107); CREATININE 0.97 MG/DL (0.40-0.90); GLUCOSE 82 MG/DL (70-104); MAGNESIUM 1.4 MG/DL (1.5-2.4); POTASSIUM 5.6 MMOL/L (3.5-5.1); SODIUM 124 MMOL/L (135-145); TOTAL CARBON DIOXIDE 25.9 MMOL/L (24-32); eGFR 57 ML/MIN
--- NOTE | 2019-01-24 06:20 | NUR ---
Patient in room PCU 3028. I have received report from MARCO Mosqueda and had the opportunity to ask questions and assume patient care.
--- NOTE | 2019-01-24 06:37 | NUR ---
Problems reprioritized. Patient report given, questions answered & plan of care reviewed with dae LARA.
[2019-01-24 07:00] VITALS: BP 90/40
[2019-01-24] MEDS: K and/or MAG REPLACEMENT MC SCH (08:00)
[2019-01-24] MEDS: budesonide 0.5mg/2ml UD nebule IH SCH ×2 (08:00→20:28)
[2019-01-24] MEDS: ipratropium/albuterol 3ml nebule NEB SCH ×4 (08:24→20:31)
[2019-01-24] MEDS ORDERED: albuterol 2.5 MG/3 ML nebule NEB ONE (08:30)
[2019-01-24] MEDS ORDERED: insulin regular, human 10 units/0.1 ml syringe IV ONE (08:30)
[2019-01-24] MEDS ORDERED: dextrose 50%-water 50ml dispensing syringe IV ONE (08:30)
[2019-01-24] MEDS: gabapentin 300mg capsule PO SCH ×3 (08:44→23:44)
[2019-01-24] MEDS: pantoprazole 40mg Tablet.DR PO SCH (08:44)
[2019-01-24] MEDS: furosemide 40mg/4ml inj IV SCH (08:44)
[2019-01-24] MEDS: metoprolol succinate 25mg (24-HOUR) SR. Tablet PO SCH (08:45)
[2019-01-24] MEDS: ascorbic acid 500mg tablet PO SCH ×2 (08:45→20:55)
[2019-01-24] MEDS: loratadine 10mg tablet PO SCH (08:45)
[2019-01-24] MEDS: iron sucrose complex injection 100 MG in normal saline 100ml IV soln 95 ML IV SCH (08:54)
[2019-01-24] MEDS ORDERED: sodium bicarbonate (0.9mEq/ml) 44.6 mEq/50ml syringe IV ONE (09:00)
[2019-01-24] MEDS ORDERED: calcium gluconate inj. 1 GM in normal saline 100ml IV soln 90 ML IV ONE (09:30)
[2019-01-24 13:34] LABS: ALBUMIN 2.7 G/DL (3.4-5.0); ANION GAP 4 (8-16); BLOOD UREA NITROGEN 30 MG/DL (7-18); BUN/CREATININE RATIO 36.6 (6.6-38.0); CALCIUM 8.6 MG/DL (8.5-10.1); CHLORIDE 92 MMOL/L (99-107); CREATININE 0.82 MG/DL (0.40-0.90); GLUCOSE 62 MG/DL (70-104); SODIUM 124 MMOL/L (135-145); TOTAL CARBON DIOXIDE 27.7 MMOL/L (24-32); eGFR 70 ML/MIN
--- NOTE | 2019-01-24 13:40 | NUR ---
Paged Dr. Porter regarding patients Mg level to place back on protocol. PAGER ID: [phone] MESSAGE: Rm [id number]. Gist. Mg was 1.4 this morning, can we place her back on the protocol? Her BMP results are in as well. Thank you. Mckenzie LARA x [phone]
[2019-01-24] MEDS ORDERED: magnesium 4gm in 100ml NS 100 ML IV PRN (13:45)
[2019-01-24] MEDS ORDERED: normal saline 1000ml 1,000 ML IV SCH (13:45)
[2019-01-24 15:00] VITALS: BP 93/41
--- NOTE | 2019-01-24 18:15 | NUR ---
Patient in room PCU 3028. I have received report from Lizette Ricks RN and had the opportunity to ask questions and assume patient care.
--- NOTE | 2019-01-24 18:43 | NUR ---
Problems reprioritized. Patient report given, questions answered & plan of care reviewed with MARCO Arellano and MARCO Christopher.
[2019-01-24 19:00] VITALS: BP 128/78
[2019-01-24] MEDS: Melatonin 3mg tablet PO SCH (20:55)
--- NOTE | 2019-01-24 20:55 | NUR ---
the patient requested 11 units instead of the 14 units of lantus.
[2019-01-24] MEDS: atorvastatin 20mg tablet PO SCH (20:56)
[2019-01-24] MEDS: insulin glargine (Lantus) pen - multi-dose SQ SCH (21:00)
[2019-01-24] MEDS: acetaminophen 325mg tablet PO PRN (21:04)
[2019-01-24 23:00] VITALS: BP 94/41
[2019-01-25 03:00] VITALS: BP 112/79
[2019-01-25 05:58] LABS: BASOPHILS % (AUTO) 0.6 % (0-1); EOSINOPHILS % (AUTO) 0.7 % (0-6); HEMATOCRIT 22.2 % (35.0-45.0); HEMOGLOBIN 7.5 g/dl (12.0-16.0); LYMPHOCYTES # (AUTO) 0.5 X10'3 (1.1-4.8); LYMPHOCYTES % (AUTO) 8.6 % (21-51); MEAN CORPUSCULAR HEMOGLOBIN 31.7 PG (27.0-31.0); MEAN CORPUSCULAR HGB CONC 33.6 g/dL (33.0-36.5); MEAN CORPUSCULAR VOLUME 94.6 FL (78-98); MEAN PLATELET VOLUME 6.1 FL (7.4-10.4); MONOCYTES # (AUTO) 0.5 X10'3 (0-0.9); MONOCYTES % (AUTO) 7.8 % (2-12); NEUTROPHILS # (AUTO) 5.1 X10'3 (1.8-7.7); NEUTROPHILS % (AUTO) 82.3 % (42-75); PLATELET COUNT 134 X10'3 (140-440); RED BLOOD COUNT 2.35 X10'6 (4.20-5.60); RED CELL DISTRIBUTION WIDTH 18.2 % (11.5-14.5); WHITE BLOOD COUNT 6.2 X10'3 (4.5-11.0)
[2019-01-25 06:02] LABS: ALBUMIN 2.5 G/DL (3.4-5.0); ANION GAP 5 (8-16); BLOOD UREA NITROGEN 31 MG/DL (7-18); BUN/CREATININE RATIO 33.3 (6.6-38.0); CALCIUM 8.2 MG/DL (8.5-10.1); CHLORIDE 92 MMOL/L (99-107); CREATININE 0.93 MG/DL (0.40-0.90); GLUCOSE 130 MG/DL (70-104); MAGNESIUM 2.1 MG/DL (1.5-2.4); POTASSIUM 5.3 MMOL/L (3.5-5.1); SODIUM 124 MMOL/L (135-145); eGFR 60 ML/MIN
--- NOTE | 2019-01-25 06:25 | NUR ---
Patient in room PCU 3028. I have received report from Eileen LARA and Candi LARA and had the opportunity to ask questions and assume patient care.
--- NOTE | 2019-01-25 06:40 | NUR ---
Problems reprioritized. Patient report given, questions answered & plan of care reviewed with MARCO Dennison and MARCO Bartlett orienteer.
[2019-01-25 07:00] VITALS: BP 102/40
[2019-01-25] MEDS: K and/or MAG REPLACEMENT MC SCH (07:08)
[2019-01-25] MEDS: ipratropium/albuterol 3ml nebule NEB SCH ×4 (07:28→20:09)
[2019-01-25] MEDS: budesonide 0.5mg/2ml UD nebule IH SCH ×2 (07:29→20:10)
[2019-01-25] MEDS ORDERED: furosemide 40mg tablet PO SCH (08:00)
[2019-01-25] MEDS: iron sucrose complex injection 100 MG in normal saline 100ml IV soln 95 ML IV SCH (08:53)
[2019-01-25] MEDS: metoprolol succinate 25mg (24-HOUR) SR. Tablet PO SCH (08:54)
[2019-01-25] MEDS: pantoprazole 40mg Tablet.DR PO SCH (08:55)
[2019-01-25] MEDS: gabapentin 300mg capsule PO SCH ×2 (08:55→16:29)
[2019-01-25] MEDS: ascorbic acid 500mg tablet PO SCH ×2 (08:55→20:05)
[2019-01-25] MEDS: loratadine 10mg tablet PO SCH (08:55)
[2019-01-25] MEDS: acetaminophen 325mg tablet PO PRN ×2 (09:08→21:08)
[2019-01-25 09:17] LABS: SODIUM,URINE RANDOM 18 MEQ/L
[2019-01-25 09:31] LABS: OSMOLALITY UA 198 MOSM/K (50-1400)
[2019-01-25] MEDS: insulin Lispro (HumaLOG) vial - multi-dose SQ SCH ×3 (09:33→19:17)
[2019-01-25 11:00] VITALS: BP 99/41
--- NOTE | 2019-01-25 11:32 | NUR ---
Initial: Pt admit with anemia with an unclear etiology and possible ascites. Pt s/p EGD which did not show any reason for the anemia per MD notes. Pt s/p paracentesis 01/23 with 4050 mL fluid removed. Pt with elevated potassium and hyponatremia even after receiving NS per MD note, nephrology consulted who suggests fluid restriction with salt liberalization. Heart healthy diet has been d/c'ed and pt on CHO controlled diet with 1.5L fluid restriction. Pt previously averaging 50-75% however most recent meal up to 75-100% meeting nutrient needs. LBM 01/24. No nutrition diagnosis at this time. Will continue to follow. Recommendations: 1) Continue CHO controlled diet with 1.5L fluid restrict per MD 2) Bowel care 3) Wt per rx Addendum: 01/25/19 at [address] Amended: Links added.
[2019-01-25 15:00] VITALS: BP 121/54
--- NOTE | 2019-01-25 18:10 | NUR ---
Problems reprioritized. Patient report given, questions answered & plan of care reviewed with MARCO Klein and MARCO Ring.
[2019-01-25 18:30] VITALS: BP 110/46
--- NOTE | 2019-01-25 18:31 | NUR ---
Patient in room PCU 3028. I have received report from Lizette LARA and Kailee LARA and had the opportunity to ask questions and assume patient care.
[2019-01-25] MEDS: Melatonin 3mg tablet PO SCH (20:05)
[2019-01-25] MEDS: atorvastatin 20mg tablet PO SCH (20:06)
[2019-01-25] MEDS: insulin glargine (Lantus) pen - multi-dose SQ SCH (21:00)
--- NOTE | 2019-01-25 21:15 | NUR ---
held 2100 Suha, 2100 BG 88 0700 bg 01/25/19 was 104
[2019-01-25 22:30] VITALS: BP 121/60
[2019-01-26] MEDS: gabapentin 300mg capsule PO SCH ×3 (00:05→16:15)
[2019-01-26 02:30] VITALS: BP 111/59
[2019-01-26 05:56] LABS: BASOPHILS % (AUTO) 0.5 % (0-1); EOSINOPHILS # (AUTO) 0.1 X10'3 (0-0.9); EOSINOPHILS % (AUTO) 1.1 % (0-6); HEMATOCRIT 22.9 % (35.0-45.0); HEMOGLOBIN 7.6 g/dl (12.0-16.0); LYMPHOCYTES # (AUTO) 0.5 X10'3 (1.1-4.8); LYMPHOCYTES % (AUTO) 10.7 % (21-51); MEAN CORPUSCULAR HEMOGLOBIN 31.5 PG (27.0-31.0); MEAN CORPUSCULAR HGB CONC 33.1 g/dL (33.0-36.5); MEAN CORPUSCULAR VOLUME 95.3 FL (78-98); MEAN PLATELET VOLUME 5.9 FL (7.4-10.4); MONOCYTES # (AUTO) 0.4 X10'3 (0-0.9); MONOCYTES % (AUTO) 8.9 % (2-12); NEUTROPHILS % (AUTO) 78.8 % (42-75); PLATELET COUNT 135 X10'3 (140-440); RED CELL DISTRIBUTION WIDTH 18.4 % (11.5-14.5)
[2019-01-26 06:00] VITALS: BP 113/50
[2019-01-26 06:08] LABS: ALANINE AMINOTRANSFERASE 17 U/L (12-78); ALBUMIN 2.5 G/DL (3.4-5.0); ALBUMIN/GLOBULIN RATIO 0.7 (1.1-1.5); ALKALINE PHOSPHATASE 101 IU/L (46-116); ANION GAP 7 (8-16); ASPARTATE AMINO TRANSFERASE 18 U/L (10-37); BILIRUBIN,TOTAL 0.7 MG/DL (0.1-1.0); BLOOD UREA NITROGEN 33 MG/DL (7-18); BUN/CREATININE RATIO 41.8 (6.6-38.0); CALCIUM 8.2 MG/DL (8.5-10.1); CHLORIDE 93 MMOL/L (99-107); CREATININE 0.79 MG/DL (0.40-0.90); GLUCOSE 88 MG/DL (70-104); POTASSIUM 5.5 MMOL/L (3.5-5.1); SODIUM 125 MMOL/L (135-145); TOTAL CARBON DIOXIDE 25.4 MMOL/L (24-32); TOTAL PROTEIN 6.2 G/DL (6.4-8.2); eGFR 73 ML/MIN
--- NOTE | 2019-01-26 06:12 | NUR ---
Problems reprioritized. Patient report given, questions answered & plan of care reviewed with Jesus Alberto LARA.
--- NOTE | 2019-01-26 06:27 | NUR ---
Patient in room PCU 3028. I have received report from MARCO Colin and had the opportunity to ask questions and assume patient care.
--- NOTE | 2019-01-26 06:28 | NUR ---
Orientee documentation: I have reviewed and agree with all interventions, assessments performed and documented by Jhonathan LARA.
[2019-01-26] MEDS: ipratropium/albuterol 3ml nebule NEB SCH ×4 (06:56→20:14)
[2019-01-26] MEDS: budesonide 0.5mg/2ml UD nebule IH SCH ×2 (06:57→20:15)
[2019-01-26] MEDS: K and/or MAG REPLACEMENT MC SCH (07:02)
[2019-01-26] MEDS: loratadine 10mg tablet PO SCH (07:18)
[2019-01-26] MEDS: pantoprazole 40mg Tablet.DR PO SCH (07:18)
[2019-01-26] MEDS: ascorbic acid 500mg tablet PO SCH ×2 (07:18→20:25)
[2019-01-26] MEDS: metoprolol succinate 25mg (24-HOUR) SR. Tablet PO SCH (07:18)
[2019-01-26] MEDS: iron sucrose complex injection 100 MG in normal saline 100ml IV soln 95 ML IV SCH (07:19)
[2019-01-26] MEDS ORDERED: albuterol 2.5 MG/3 ML nebule NEB ONE (09:20)
[2019-01-26] MEDS ORDERED: calcium gluconate inj. 1 GM in normal saline 100ml IV soln 90 ML IV ONE (09:20)
[2019-01-26] MEDS ORDERED: sodium bicarbonate (0.9mEq/ml) 44.6 mEq/50ml syringe IV ONE (09:20)
[2019-01-26] MEDS ORDERED: dextrose 50%-water 50ml dispensing syringe IV ONE (09:20)
[2019-01-26] MEDS ORDERED: insulin Lispro (HumaLOG) vial - multi-dose SQ SCH (09:20)
[2019-01-26] MEDS ORDERED: sodium bicarbonate (8.4%) inj. 1 MEQ/ML ML IV ONE (09:35)
--- NOTE | 2019-01-26 09:40 | NUR ---
PAGER ID: [phone] MESSAGE: [id number] [place] Gist: Were you also wanting her to receive to receive some insulin for her hyperkalemia? MARCO Granda Ext [phone]
[2019-01-26] MEDS ORDERED: insulin Lispro (HumaLOG) vial - multi-dose SQ STA (09:42)
[2019-01-26 11:00] VITALS: BP 106/44
--- NOTE | 2019-01-26 11:58 | NUR ---
Student documentation: I have reviewed interventions, assessments performed and documented by Remi Holliday [facility].
[2019-01-26] MEDS: sodium chloride 1gm tablet PO SCH ×3 (12:58→20:25)
[2019-01-26 15:00] VITALS: BP 114/47
[2019-01-26] MEDS: morphine 2 MG/ML inj. syringe IV PRN (16:32)
--- NOTE | 2019-01-26 18:14 | NUR ---
Problems reprioritized. Patient report given, questions answered & plan of care reviewed with MARCO Colin.
--- NOTE | 2019-01-26 18:29 | NUR ---
Patient in room PCU 3028. I have received report from Jesus Alberto LARA and had the opportunity to ask questions and assume patient care.
[2019-01-26 18:30] VITALS: BP 123/55
[2019-01-26] MEDS: Melatonin 3mg tablet PO SCH (20:25)
[2019-01-26] MEDS: furosemide 20MG tablet PO SCH (20:25)
[2019-01-26] MEDS: atorvastatin 20mg tablet PO SCH (20:25)
[2019-01-26] MEDS: insulin glargine (Lantus) pen - multi-dose SQ SCH (21:00)
[2019-01-26 22:30] VITALS: BP 132/56
[2019-01-27] MEDS: gabapentin 300mg capsule PO SCH ×2 (00:05→07:38)
[2019-01-27 02:46] VITALS: BP 116/54
[2019-01-27 05:29] LABS: BASOPHILS % (AUTO) 0.3 % (0-1); EOSINOPHILS % (AUTO) 0.6 % (0-6); HEMOGLOBIN 7.3 g/dl (12.0-16.0); LYMPHOCYTES # (AUTO) 0.4 X10'3 (1.1-4.8); LYMPHOCYTES % (AUTO) 8.3 % (21-51); MEAN CORPUSCULAR HEMOGLOBIN 32.1 PG (27.0-31.0); MEAN CORPUSCULAR HGB CONC 33.9 g/dL (33.0-36.5); MEAN CORPUSCULAR VOLUME 94.7 FL (78-98); MONOCYTES # (AUTO) 0.5 X10'3 (0-0.9); MONOCYTES % (AUTO) 10.6 % (2-12); NEUTROPHILS # (AUTO) 4.1 X10'3 (1.8-7.7); NEUTROPHILS % (AUTO) 80.2 % (42-75); PLATELET COUNT 133 X10'3 (140-440); RED BLOOD COUNT 2.29 X10'6 (4.20-5.60); RED CELL DISTRIBUTION WIDTH 19.3 % (11.5-14.5)
[2019-01-27 05:34] LABS: HEMATOCRIT 21.7 % (35.0-45.0)
[2019-01-27 05:53] LABS: ALANINE AMINOTRANSFERASE 20 U/L (12-78); ALBUMIN 2.6 G/DL (3.4-5.0); ALBUMIN/GLOBULIN RATIO 0.7 (1.1-1.5); ALKALINE PHOSPHATASE 100 IU/L (46-116); ANION GAP 8 (8-16); ASPARTATE AMINO TRANSFERASE 21 U/L (10-37); BILIRUBIN,TOTAL 0.7 MG/DL (0.1-1.0); BLOOD UREA NITROGEN 29 MG/DL (7-18); BUN/CREATININE RATIO 35.4 (6.6-38.0); CALCIUM 8.3 MG/DL (8.5-10.1); CHLORIDE 97 MMOL/L (99-107); CREATININE 0.82 MG/DL (0.40-0.90); GLUCOSE 126 MG/DL (70-104); MAGNESIUM 1.8 MG/DL (1.5-2.4); POTASSIUM 4.9 MMOL/L (3.5-5.1); SODIUM 131 MMOL/L (135-145); TOTAL CARBON DIOXIDE 26.2 MMOL/L (24-32); TOTAL PROTEIN 6.3 G/DL (6.4-8.2); eGFR 70 ML/MIN
[2019-01-27 06:00] VITALS: BP 100/50
--- NOTE | 2019-01-27 06:21 | NUR ---
Problems reprioritized. Patient report given, questions answered & plan of care reviewed with Jesi LARA.
--- NOTE | 2019-01-27 06:21 | NUR ---
Orientee documentation: I have reviewed and agree with all interventions, assessments performed and documented by Jhonathan LARA.
[2019-01-27 06:32] LABS: ANISOCYTOSIS 2+; HYPOCHROMASIA 1+; PLATELET ESTIMATE DECREASED; POLYCHROMASIA 1+
[2019-01-27 06:33] LABS: POIKILOCYTOSIS FEW
--- NOTE | 2019-01-27 06:40 | NUR ---
Patient in room PCU 3028. I have received report from Jhonathan LARA and Dixie RN and had the opportunity to ask questions and assume patient care.
[2019-01-27] MEDS: ipratropium/albuterol 3ml nebule NEB SCH ×2 (07:24→10:45)
[2019-01-27] MEDS: budesonide 0.5mg/2ml UD nebule IH SCH (07:24)
[2019-01-27] MEDS: metoprolol succinate 25mg (24-HOUR) SR. Tablet PO SCH (07:37)
[2019-01-27] MEDS: furosemide 20MG tablet PO SCH (07:37)
[2019-01-27] MEDS: ascorbic acid 500mg tablet PO SCH (07:37)
[2019-01-27] MEDS: loratadine 10mg tablet PO SCH (07:38)
[2019-01-27] MEDS: sodium chloride 1gm tablet PO SCH (07:38)
[2019-01-27] MEDS: pantoprazole 40mg Tablet.DR PO SCH (07:38)
[2019-01-27] MEDS: iron sucrose complex injection 100 MG in normal saline 100ml IV soln 95 ML IV SCH (07:42)
[2019-01-27] MEDS: K and/or MAG REPLACEMENT MC SCH (08:00)
--- NOTE | 2019-01-27 13:53 | NUR ---
PAGER ID: [phone] MESSAGE: [id number] [place], [place]: Pt is requesting for a prescription for sodium tablets for discharge. Thanks Jesi [phone] Addendum: 01/27/19 at 1418 by Nannette Nunez RN [phone] Received return call from Dr Hinkle, will place order for sodium tab prescription.
[2019-01-27] MEDS ORDERED: SODI1TAB2 PO (14:14)
--- NOTE | 2019-01-27 14:30 | NUR ---
pt is stable for discharge per md order, discharge instructions reviewed w/ pt and daughter and all questions answered, new medication prescription called into [facility] on [address] per pt preference, tele monitor 54 removed and returned, piv dc'ed and clean dry dressing in place, pt discharges from unit at 1420 to home w/ home health rn and pt, pt wheeled down to lobby with hospital staff and daughter to private vehicle, all belongings w/ pt at time of discharge.
[2019-01-29] MEDS ORDERED: POTA20TA19 PO (20:44)
== END 2019-01-27 14:13 | disposition home health service (06) | DRG 291 ==
LOC: ER 17:35 → ED HOLD 21:38 → EDBEDREQ 21:57 → PCU 3S 22:20
PROVIDERS: ADMIT Internal Medicine; ATTEND Family Medicine
PROC: 0DB98ZX Excision of Duodenum, Via Natural or Artificial Opening Endoscopic, Diagnostic (ICD-10-PCS; principal; 2019-01-21)
PROC: 30233N1 Transfusion of Nonautologous Red Blood Cells into Peripheral Vein, Percutaneous Approach (ICD-10-PCS; 2019-01-22)
PROC: 0W9G3ZZ Drainage of Peritoneal Cavity, Percutaneous Approach (ICD-10-PCS; 2019-01-23)
DX: I11.0 Hypertensive heart disease with heart failure (principal); J96.21 Acute and chronic respiratory failure with hypoxia; E87.1 Hypo-osmolality and hyponatremia; I48.20 Chronic atrial fibrillation, unspecified; R18.8 Other ascites; I50.23 Acute on chronic systolic (congestive) heart failure; D50.9 Iron deficiency anemia, unspecified; G89.29 Other chronic pain; M54.9 Dorsalgia, unspecified; J44.9 Chronic obstructive pulmonary disease, unspecified; E11.42 Type 2 diabetes mellitus with diabetic polyneuropathy; E78.00 Pure hypercholesterolemia, unspecified; E78.5 Hyperlipidemia, unspecified; E87.5 Hyperkalemia; Z90.49 Acquired absence of other specified parts of digestive tract; Z90.710 Acquired absence of both cervix and uterus; Z99.81 Dependence on supplemental oxygen; Z79.84 Long term (current) use of oral hypoglycemic drugs; Z88.8 Allergy status to other drugs, medicaments and biological substances; Z88.0 Allergy status to penicillin; Z79.899 Other long term (current) drug therapy; Z79.82 Long term (current) use of aspirin
CPT/HCPCS: 36415; 43239; 49083; 71045; 76700; 80048; 80053; 81003; 82088; 82272; 82945; 82948; 83036; 83540; 83550; 83615; 83735; 83880; 83930; 83935; 84132; 84133; 84157; 84300; 84484; 85025; 86870; 86885; 86900; 86901; 86902; 86905; 86920; 86922; 87070; 87075; 87081; 87102; 88108; 88305; 89051; 93005; 94640; 94760; 97110; 97112; 97116; 97162; 97530; 99152; 99291; A4620; C9113; G0378; J0610; J1756; J1815; J1940; J2250; J2270; J2405; J3010; J3475; J7030; J7040; J7626; P9016; P9047

== ENCOUNTER 2019-02-24 12:11 | Emergency (ER) | payer MEDICARE, MEDICAID ==
[~2019-02-24] VITALS: Ht 166.4 cm; Wt 66.0 kg
[~2019-02-24 12:11] MED LIST changes: +ASCO500C15 PO; +ATOR40TA71 PO; -FERR140T2 PO; +FERR142T14; +FOLI1CAP7 PO; +FURO-149 PO; +GABA-532 PO; +IPRA3AMP31 IH; -LANTUS SQ; -LISI-642 PO; +MELA3TAB64 PO; +METF-438 PO; -METH2.5T PO; +POTA20TA19 PO; +SODI1TAB2 PO
[2019-02-24] MEDS ORDERED: furosemide 40mg/4ml inj IV ONE (13:50)
[2019-02-24 14:15] LABS: BASOPHILS # (AUTO) 0.1 X10'3 (0-0.2); EOSINOPHILS % (AUTO) 0.1 % (0-6); HEMATOCRIT 29.2 % (35.0-45.0); HEMOGLOBIN 9.6 g/dl (12.0-16.0); LYMPHOCYTES # (AUTO) 0.9 X10'3 (1.1-4.8); LYMPHOCYTES % (AUTO) 17.8 % (21-51); MEAN CORPUSCULAR HEMOGLOBIN 30.1 PG (27.0-31.0); MEAN CORPUSCULAR HGB CONC 32.9 g/dL (33.0-36.5); MEAN CORPUSCULAR VOLUME 91.6 FL (78-98); MEAN PLATELET VOLUME 6.4 FL (7.4-10.4); MONOCYTES # (AUTO) 0.5 X10'3 (0-0.9); MONOCYTES % (AUTO) 9.7 % (2-12); NEUTROPHILS # (AUTO) 3.5 X10'3 (1.8-7.7); NEUTROPHILS % (AUTO) 71.4 % (42-75); PLATELET COUNT 164 X10'3 (140-440); RED BLOOD COUNT 3.19 X10'6 (4.20-5.60); RED CELL DISTRIBUTION WIDTH 17.3 % (11.5-14.5); WHITE BLOOD COUNT 4.9 X10'3 (4.5-11.0)
[2019-02-24 14:28] LABS: PARTIAL THROMBOPLASTIN TIME 29 SECONDS (22-32)
[2019-02-24 14:36] LABS: ALANINE AMINOTRANSFERASE 17 U/L (12-78); ALBUMIN 2.9 G/DL (3.4-5.0); ALBUMIN/GLOBULIN RATIO 0.7 (1.1-1.5); ALKALINE PHOSPHATASE 108 IU/L (46-116); ANION GAP 7 (8-16); ASPARTATE AMINO TRANSFERASE 18 U/L (10-37); BILIRUBIN,TOTAL 0.8 MG/DL (0.1-1.0); BLOOD UREA NITROGEN 14 MG/DL (7-18); BUN/CREATININE RATIO 16.3 (6.6-38.0); CALCIUM 8.9 MG/DL (8.5-10.1); CHLORIDE 101 MMOL/L (99-107); CREATININE 0.86 MG/DL (0.40-0.90); GLUCOSE 113 MG/DL (70-104); POTASSIUM 4.4 MMOL/L (3.5-5.1); SODIUM 136 MMOL/L (135-145); TOTAL CARBON DIOXIDE 27.9 MMOL/L (24-32); eGFR 66 ML/MIN
--- NOTE | 2019-02-24 17:13 | NUR ---
Paracentesis started by Dr. Blevins. Monitoring VS. Pt tolerating procedure well.
[2019-02-24 17:36] VITALS: BP 130/67
--- NOTE | 2019-02-24 17:36 | NUR ---
2.5 liters output from paracentesis. Dr. Blevins informed. Catheter removed, okayed by Dr. Blevins. Occlusive dressing placed after pressure held for a couple minutes.
--- NOTE | 2019-02-24 17:41 | NUR ---
PUIV dc'd and dressed. Pt getting dressed awaiting dc.
== END 2019-02-24 18:22 | disposition home or self-care (01) ==
LOC: ER 12:12
DX: R18.8 Other ascites (principal); I50.9 Heart failure, unspecified; I48.91 Unspecified atrial fibrillation; I11.0 Hypertensive heart disease with heart failure; E78.00 Pure hypercholesterolemia, unspecified; J44.9 Chronic obstructive pulmonary disease, unspecified; E11.9 Type 2 diabetes mellitus without complications; G89.29 Other chronic pain; F10.99 Alcohol use, unspecified with unspecified alcohol-induced disorder; Z90.49 Acquired absence of other specified parts of digestive tract; Z90.710 Acquired absence of both cervix and uterus; Z98.890 Other specified postprocedural states; Z88.0 Allergy status to penicillin; Z88.6 Allergy status to analgesic agent; Z88.8 Allergy status to other drugs, medicaments and biological substances; Z79.84 Long term (current) use of oral hypoglycemic drugs; Z79.899 Other long term (current) drug therapy; Z79.82 Long term (current) use of aspirin; Y90.9 Presence of alcohol in blood, level not specified
CPT/HCPCS: 36415; 49082; 71045; 80053; 82948; 83880; 84484; 85025; 85610; 85730; 93005; 96374; 99285; J1940; 99284

== ENCOUNTER 2019-03-20 08:20 | Day surgery (SDC) | payer MEDICARE, MEDICAID ==
[~2019-03-20] VITALS: Ht 165.1 cm; Wt 60.9 kg
[~2019-03-20 08:20] MED LIST changes: -POTA20TA19 PO; -SODI1TAB2 PO
[2019-03-20 08:32] VITALS: BP 123/61
[2019-03-20] MEDS ORDERED: normal saline 1000ml 1,000 ML IV PRN (08:50)
[2019-03-20] MEDS ORDERED: albumin 25% 100mL bottle x 1 IV PRN (08:50)
[2019-03-20] MEDS ORDERED: ACET325C6 PO (08:57)
[2019-03-20] MEDS ORDERED: POTA10TA19 PO (08:57)
[2019-03-20] MEDS ORDERED: MAGN500C16 PO (08:57)
[2019-03-20 09:17] VITALS: BP 128/84
[2019-03-20 09:30] VITALS: BP 123/68
[2019-03-20 09:45] VITALS: BP 115/69
== END 2019-03-20 09:53 | disposition home or self-care (01) ==
LOC: SSTAY O 08:20
PROVIDERS: ATTEND Radiology Vascular & Interventional Radiology
DX: R18.8 Other ascites (principal)
CPT/HCPCS: 49083; C1729; J7030

== ENCOUNTER 2019-03-30 06:41 | Day surgery (SDC) | payer MEDICARE, MEDICAID ==
[~2019-03-30] VITALS: Ht 166.4 cm; Wt 62.6 kg
[2019-03-30] VITALS (8 sets, daily range): BP systolic 120–132; BP diastolic 66–74
[~2019-03-30 06:41] MED LIST changes: +ACET325C6 PO; -IPRA3AMP31 IH; +MAGN500C16 PO; +POTA10TA19 PO
[2019-03-30] MEDS ORDERED: CLOP75TA15 PO (08:10)
[2019-03-30] MEDS ORDERED: ACET-812 PO (08:12)
[2019-03-30] MEDS ORDERED: albumin (human) 25% 100ml IV 100 ML IV ONE (09:22)
[2019-03-30] MEDS ORDERED: albumin 25% 100mL bottle x 1 IV PRN (09:30)
== END 2019-03-30 10:15 | disposition home or self-care (01) ==
LOC: SSTAY O 06:41
PROVIDERS: ATTEND Radiology Vascular & Interventional Radiology
DX: R18.8 Other ascites (principal); Z79.899 Other long term (current) drug therapy; Z79.82 Long term (current) use of aspirin
CPT/HCPCS: 49083; C1729; P9047

== ENCOUNTER 2019-04-13 06:29 | Day surgery (SDC) | payer MEDICARE, MEDICAID ==
[2019-04-13] VITALS (7 sets, daily range): BP systolic 119–138; BP diastolic 66–80
[~2019-04-13] VITALS: Ht 165.1 cm; Wt 63.9 kg
[~2019-04-13 06:29] MED LIST changes: +ACET-812 PO; -ACET325C6 PO; +CLOP75TA15 PO
[2019-04-13] MEDS ORDERED: albumin 25% 100mL bottle x 1 IV PRN (07:15)
[2019-04-13] MEDS ORDERED: normal saline 1000ml 1,000 ML IV PRN (07:15)
== END 2019-04-13 09:50 | disposition home or self-care (01) ==
LOC: SSTAY O 06:29
PROVIDERS: ATTEND Radiology Vascular & Interventional Radiology
DX: R18.8 Other ascites (principal)
CPT/HCPCS: 49083; C1729; P9047

== ENCOUNTER 2019-04-25 07:07 | Day surgery (SDC) | payer MEDICARE, MEDICAID ==
[~2019-04-25] VITALS: Ht 165.1 cm; Wt 63.9 kg
[2019-04-25 07:23] VITALS: BP 137/73
[2019-04-25 09:00] VITALS: BP 138/83
[2019-04-25 09:15] VITALS: BP 129/72
[2019-04-25] MEDS ORDERED: albumin 25% 100mL bottle x 1 IV PRN (09:20)
[2019-04-25 09:30] VITALS: BP 128/71
[2019-04-25 09:45] VITALS: BP 132/77
[2019-04-25 10:00] VITALS: BP 128/71
== END 2019-04-25 10:05 | disposition home or self-care (01) ==
LOC: SSTAY O 07:07
PROVIDERS: ATTEND Radiology Vascular & Interventional Radiology
DX: R18.8 Other ascites (principal); I48.91 Unspecified atrial fibrillation; I11.0 Hypertensive heart disease with heart failure; I50.9 Heart failure, unspecified; E78.00 Pure hypercholesterolemia, unspecified; J44.9 Chronic obstructive pulmonary disease, unspecified; E11.9 Type 2 diabetes mellitus without complications; G89.29 Other chronic pain; Z90.710 Acquired absence of both cervix and uterus; Z98.890 Other specified postprocedural states; Z72.89 Other problems related to lifestyle; Z88.8 Allergy status to other drugs, medicaments and biological substances; Z88.0 Allergy status to penicillin; Z79.899 Other long term (current) drug therapy; Z79.84 Long term (current) use of oral hypoglycemic drugs; Z79.82 Long term (current) use of aspirin
CPT/HCPCS: 49083; C1729; J2001; P9047

== ENCOUNTER 2019-05-09 07:44 | Day surgery (SDC) | payer MEDICARE, MEDICAID ==
[~2019-05-09] VITALS: Ht 165.1 cm; Wt 65.1 kg
[2019-05-09 08:35] VITALS: BP 158/87
[2019-05-09] MEDS ORDERED: albumin 25% 100mL bottle x 1 IV PRN (08:35)
[2019-05-09] MEDS ORDERED: normal saline 1000ml 1,000 ML IV PRN (08:40)
[2019-05-09] MEDS ORDERED: CHLO4TAB36 PO (08:53)
[2019-05-09] MEDS ORDERED: MV-M1TAB19 PO (08:53)
[2019-05-09] MEDS ORDERED: OXYGEN NASALCANN (08:53)
[2019-05-09 09:08] VITALS: BP 138/107
[2019-05-09 09:15] VITALS: BP 100/63
[2019-05-09 09:30] VITALS: BP 145/78
[2019-05-09 09:45] VITALS: BP 149/75
[2019-05-09 10:00] VITALS: BP 119/53
== END 2019-05-09 10:40 | disposition home or self-care (01) ==
LOC: SSTAY O 07:44
PROVIDERS: ATTEND Radiology Vascular & Interventional Radiology
DX: R18.8 Other ascites (principal); I48.91 Unspecified atrial fibrillation; I50.9 Heart failure, unspecified; E78.00 Pure hypercholesterolemia, unspecified; I11.0 Hypertensive heart disease with heart failure; J44.9 Chronic obstructive pulmonary disease, unspecified; E11.9 Type 2 diabetes mellitus without complications; G89.29 Other chronic pain; Z90.710 Acquired absence of both cervix and uterus; Z98.890 Other specified postprocedural states; Z72.89 Other problems related to lifestyle; Z88.8 Allergy status to other drugs, medicaments and biological substances; Z88.0 Allergy status to penicillin; Z79.84 Long term (current) use of oral hypoglycemic drugs; Z79.82 Long term (current) use of aspirin; Z79.899 Other long term (current) drug therapy
CPT/HCPCS: 49083; C1729; J2001; P9047

== ENCOUNTER 2019-05-18 07:03 | Day surgery (SDC) | payer MEDICARE, MEDICAID ==
[~2019-05-18] VITALS: Ht 165.1 cm; Wt 65.0 kg
[2019-05-18] VITALS (9 sets, daily range): BP systolic 119–137; BP diastolic 65–78
[~2019-05-18 07:03] MED LIST changes: -BECL8.7A7 INH; +CHLO4TAB36 PO; +MV-M1TAB19 PO; +OXYGEN NASALCANN
[2019-05-18] MEDS ORDERED: normal saline 1000ml 1,000 ML IV SCH (09:35)
[2019-05-18] MEDS ORDERED: albumin 25% 100mL bottle x 1 IV PRN (09:35)
== END 2019-05-18 10:30 | disposition home or self-care (01) ==
LOC: SSTAY O 07:03
PROVIDERS: ATTEND Radiology Vascular & Interventional Radiology
DX: R18.8 Other ascites (principal); R14.0 Abdominal distension (gaseous); I48.91 Unspecified atrial fibrillation; I11.0 Hypertensive heart disease with heart failure; I50.9 Heart failure, unspecified; E78.00 Pure hypercholesterolemia, unspecified; J44.9 Chronic obstructive pulmonary disease, unspecified; E11.9 Type 2 diabetes mellitus without complications; G89.29 Other chronic pain; Z98.890 Other specified postprocedural states; Z90.710 Acquired absence of both cervix and uterus; Z72.89 Other problems related to lifestyle; Z88.8 Allergy status to other drugs, medicaments and biological substances; Z88.0 Allergy status to penicillin; Z79.01 Long term (current) use of anticoagulants; Z79.84 Long term (current) use of oral hypoglycemic drugs; Z79.899 Other long term (current) drug therapy
CPT/HCPCS: 49083; C1729; J2001; P9047

== ENCOUNTER 2019-05-30 07:39 | Day surgery (SDC) | payer MEDICARE, MEDICAID ==
[~2019-05-30] VITALS: Ht 165.1 cm; Wt 62.4 kg
[~2019-05-30 07:39] MED LIST changes: +MELA3TAB39 PO; -MELA3TAB64 PO
[2019-05-30] MEDS ORDERED: normal saline 1000ml 1,000 ML IV PRN (08:15)
[2019-05-30] MEDS ORDERED: albumin 25% 100mL bottle x 1 IV PRN (08:15)
[2019-05-30 08:40] VITALS: BP 138/78
== END 2019-05-30 11:55 | disposition home or self-care (01) ==
LOC: SSTAY O 07:39
PROVIDERS: ATTEND Radiology Diagnostic Radiology
DX: R18.8 Other ascites (principal); I11.0 Hypertensive heart disease with heart failure; I50.9 Heart failure, unspecified; I48.91 Unspecified atrial fibrillation; E78.00 Pure hypercholesterolemia, unspecified; J44.9 Chronic obstructive pulmonary disease, unspecified; E11.9 Type 2 diabetes mellitus without complications; G89.29 Other chronic pain; M54.5 Low back pain; Z72.89 Other problems related to lifestyle; Z98.890 Other specified postprocedural states; Z90.710 Acquired absence of both cervix and uterus; Z88.0 Allergy status to penicillin; Z91.041 Radiographic dye allergy status; Z79.899 Other long term (current) drug therapy
CPT/HCPCS: 49083; C1729; P9047

== ENCOUNTER 2019-06-12 07:46 | Day surgery (SDC) | payer MEDICARE, MEDICAID ==
[~2019-06-12] VITALS: Ht 165.1 cm; Wt 60.4 kg
[2019-06-12] VITALS (9 sets, daily range): BP systolic 127–143; BP diastolic 69–81
[2019-06-12] MEDS ORDERED: normal saline 1000ml 1,000 ML IV PRN (08:05)
[2019-06-12] MEDS ORDERED: albumin 25% 100mL bottle x 1 IV PRN (08:05)
== END 2019-06-12 10:40 | disposition home or self-care (01) ==
LOC: SSTAY O 07:46 → MED 3N 07:50 → SSTAY O 10:40
PROVIDERS: ATTEND Radiology Diagnostic Radiology
DX: R18.8 Other ascites (principal); I48.91 Unspecified atrial fibrillation; E78.00 Pure hypercholesterolemia, unspecified; I11.0 Hypertensive heart disease with heart failure; I50.9 Heart failure, unspecified; E11.9 Type 2 diabetes mellitus without complications; J44.9 Chronic obstructive pulmonary disease, unspecified; G89.29 Other chronic pain; Z90.710 Acquired absence of both cervix and uterus; Z98.890 Other specified postprocedural states; Z72.89 Other problems related to lifestyle; Z88.8 Allergy status to other drugs, medicaments and biological substances; Z88.0 Allergy status to penicillin; Z79.01 Long term (current) use of anticoagulants; Z79.899 Other long term (current) drug therapy; Z79.82 Long term (current) use of aspirin
CPT/HCPCS: 49083; C1729; P9047; GO378

== ENCOUNTER 2019-06-26 07:28 | Day surgery (SDC) | payer MEDICARE, MEDICAID ==
[~2019-06-26] VITALS: Ht 165.1 cm; Wt 57.7 kg
[2019-06-26] VITALS (8 sets, daily range): BP systolic 128–144; BP diastolic 64–77
[~2019-06-26 07:28] MED LIST changes: -BACL10TA PO
[2019-06-26] MEDS ORDERED: albumin 25% 100mL bottle x 1 IV PRN (08:00)
[2019-06-26] MEDS ORDERED: SPIR50TA5 PO (08:14)
[2019-06-26 10:03] LABS: ALBUMIN,BODY FLUID 1.3 G/DL; LDH,BODY FLUID 96 U/L; TOTAL PROTEIN,BODY FLUID 3.2 G/DL
[2019-06-26 11:46] LABS: BF RBC COUNT 190 /CU MM; BF WBC COUNT 196 /CU MM (0-1000); BFAPPEAR HAZY; BFCOLOR YELLOW; BFVOLUME 50 ML; LYMPHOCYTES,BODY FLUID 27 %; MONOCYTES,BODY FLUID 39 %; NEUTROPHILS,BODY FLUID 34 %
[2019-06-26 11:47] LABS: BF MESOTHELIAL CELLS FEW
== END 2019-06-26 10:55 | disposition home or self-care (01) ==
LOC: SSTAY O 07:28 → MED 3N 07:35 → SSTAY O 10:55
PROVIDERS: ATTEND Radiology Diagnostic Radiology
DX: R18.8 Other ascites (principal); I48.91 Unspecified atrial fibrillation; I50.9 Heart failure, unspecified; E78.00 Pure hypercholesterolemia, unspecified; I11.0 Hypertensive heart disease with heart failure; J44.9 Chronic obstructive pulmonary disease, unspecified; E11.9 Type 2 diabetes mellitus without complications; G89.29 Other chronic pain; M54.9 Dorsalgia, unspecified; Z98.890 Other specified postprocedural states; Z90.710 Acquired absence of both cervix and uterus; Z72.89 Other problems related to lifestyle; Z79.899 Other long term (current) drug therapy; Z88.0 Allergy status to penicillin; Z79.82 Long term (current) use of aspirin; Z91.041 Radiographic dye allergy status
CPT/HCPCS: 49083; 82042; 83615; 84157; 87070; 89051; C1729; P9047; 88108; 88305

== ENCOUNTER 2019-07-14 06:40 | Day surgery (SDC) | payer MEDICARE, MEDICAID ==
[~2019-07-14] VITALS: Ht 165.1 cm; Wt 54.2 kg
[~2019-07-14 06:40] MED LIST changes: +SPIR50TA5 PO
[2019-07-14] MEDS ORDERED: albumin 25% 100mL bottle x 1 IV PRN (07:10)
[2019-07-14] MEDS ORDERED: normal saline 1000ml 1,000 ML IV PRN (07:15)
[2019-07-14 07:24] VITALS: BP 122/71
--- NOTE | 2019-07-14 09:30 | NUR ---
Ultrasound showed minimal fluid, patient procedure was cancelled per ANNE-MARIE Barroso. Patient left with daughter in stable condition, left using walker.
== END 2019-07-14 09:00 | disposition home or self-care (01) ==
LOC: U 06:40 → MED 3N 06:41 → U 09:00
PROVIDERS: ATTEND Radiology Vascular & Interventional Radiology
DX: R18.8 Other ascites (principal); R14.0 Abdominal distension (gaseous); I48.91 Unspecified atrial fibrillation; E78.00 Pure hypercholesterolemia, unspecified; I11.0 Hypertensive heart disease with heart failure; I50.9 Heart failure, unspecified; J44.9 Chronic obstructive pulmonary disease, unspecified; E11.9 Type 2 diabetes mellitus without complications; G89.29 Other chronic pain; Z98.890 Other specified postprocedural states; Z90.710 Acquired absence of both cervix and uterus; Z72.89 Other problems related to lifestyle; Z88.8 Allergy status to other drugs, medicaments and biological substances; Z88.0 Allergy status to penicillin; Z79.899 Other long term (current) drug therapy; Z79.01 Long term (current) use of anticoagulants; Z79.84 Long term (current) use of oral hypoglycemic drugs; Z79.82 Long term (current) use of aspirin
CPT/HCPCS: 76705

== ENCOUNTER 2019-09-01 06:20 | Day surgery (SDC) | payer MEDICARE, MEDICAID ==
[2019-09-01] VITALS (9 sets, daily range): BP systolic 120–161; BP diastolic 68–86
[~2019-09-01] VITALS: Ht 165.1 cm; Wt 61.7 kg
[2019-09-01] MEDS ORDERED: albumin 25% 100mL bottle x 1 IV PRN (06:35)
== END 2019-09-01 10:20 | disposition home or self-care (01) ==
LOC: SSTAY O 06:20
PROVIDERS: ATTEND Radiology Vascular & Interventional Radiology
DX: R18.8 Other ascites (principal); R14.0 Abdominal distension (gaseous); I48.91 Unspecified atrial fibrillation; E78.00 Pure hypercholesterolemia, unspecified; I11.0 Hypertensive heart disease with heart failure; I50.9 Heart failure, unspecified; J44.9 Chronic obstructive pulmonary disease, unspecified; E11.9 Type 2 diabetes mellitus without complications; G89.29 Other chronic pain; Z90.710 Acquired absence of both cervix and uterus; Z98.890 Other specified postprocedural states; Z72.89 Other problems related to lifestyle; Z88.8 Allergy status to other drugs, medicaments and biological substances; Z88.0 Allergy status to penicillin; Z79.01 Long term (current) use of anticoagulants; Z79.84 Long term (current) use of oral hypoglycemic drugs; Z79.82 Long term (current) use of aspirin; Z79.899 Other long term (current) drug therapy
CPT/HCPCS: 49083; P9047

== ENCOUNTER 2019-10-23 07:29 | Day surgery (SDC) | payer MEDICARE, MEDICAID ==
[2019-10-23] VITALS (9 sets, daily range): BP systolic 118–132; BP diastolic 61–71
[~2019-10-23] VITALS: Ht 165.1 cm; Wt 59.9 kg
[2019-10-23] MEDS ORDERED: albumin 25% 100mL bottle x 1 IV PRN (08:00)
[2019-10-23] MEDS ORDERED: normal saline 1000ml 1,000 ML IV PRN (08:00)
== END 2019-10-23 11:00 | disposition home or self-care (01) ==
LOC: SSTAY O 07:29
PROVIDERS: ATTEND Radiology Vascular & Interventional Radiology
DX: R18.8 Other ascites (principal); I11.0 Hypertensive heart disease with heart failure; I50.9 Heart failure, unspecified; E78.00 Pure hypercholesterolemia, unspecified; I48.91 Unspecified atrial fibrillation; J44.9 Chronic obstructive pulmonary disease, unspecified; E11.9 Type 2 diabetes mellitus without complications; G89.29 Other chronic pain; Z90.710 Acquired absence of both cervix and uterus; Z98.890 Other specified postprocedural states; Z72.89 Other problems related to lifestyle; Z79.82 Long term (current) use of aspirin; Z79.84 Long term (current) use of oral hypoglycemic drugs; Z79.899 Other long term (current) drug therapy; Z88.8 Allergy status to other drugs, medicaments and biological substances; Z88.0 Allergy status to penicillin
CPT/HCPCS: 49083; P9047

== ENCOUNTER 2019-12-08 08:02 | Day surgery (SDC) | payer MEDICARE, MEDICAID ==
[~2019-12-08] VITALS: Ht 165.1 cm; Wt 57.2 kg
[2019-12-08] VITALS (8 sets, daily range): BP systolic 107–122; BP diastolic 49–65
[2019-12-08] MEDS ORDERED: normal saline 1000ml 1,000 ML IV PRN (08:30)
[2019-12-08] MEDS ORDERED: albumin 25% 100mL bottle x 1 IV PRN (08:30)
== END 2019-12-08 11:35 | disposition home or self-care (01) ==
LOC: SSTAY O 08:02
PROVIDERS: ATTEND Radiology Diagnostic Radiology
DX: R18.8 Other ascites (principal); R14.0 Abdominal distension (gaseous); I48.91 Unspecified atrial fibrillation; I11.0 Hypertensive heart disease with heart failure; I50.9 Heart failure, unspecified; E78.00 Pure hypercholesterolemia, unspecified; J44.9 Chronic obstructive pulmonary disease, unspecified; E11.9 Type 2 diabetes mellitus without complications; G89.29 Other chronic pain; Z90.710 Acquired absence of both cervix and uterus; Z98.890 Other specified postprocedural states; Z72.89 Other problems related to lifestyle; Z88.8 Allergy status to other drugs, medicaments and biological substances; Z88.0 Allergy status to penicillin; Z79.82 Long term (current) use of aspirin; Z79.899 Other long term (current) drug therapy
CPT/HCPCS: 49083; P9047

== ENCOUNTER 2020-01-04 07:42 | Day surgery (SDC) | payer MEDICARE, MEDICAID ==
[~2020-01-04] VITALS: Ht 165.1 cm; Wt 58.9 kg
[2020-01-04] VITALS (8 sets, daily range): BP systolic 109–130; BP diastolic 56–70
[~2020-01-04 07:42] MED LIST changes: -ASCO500C15 PO; +ASCO500C18 PO
[2020-01-04] MEDS ORDERED: albumin 25% 100mL bottle x 1 IV PRN (08:05)
[2020-01-04] MEDS ORDERED: acetaminophen 325mg tablet PO PRN (08:20)
== END 2020-01-04 11:22 | disposition home or self-care (01) ==
LOC: SSTAY O 07:42
PROVIDERS: ATTEND Radiology Vascular & Interventional Radiology
DX: R18.8 Other ascites (principal); R14.0 Abdominal distension (gaseous); I48.91 Unspecified atrial fibrillation; I11.0 Hypertensive heart disease with heart failure; I50.9 Heart failure, unspecified; E78.00 Pure hypercholesterolemia, unspecified; J44.9 Chronic obstructive pulmonary disease, unspecified; E11.9 Type 2 diabetes mellitus without complications; G89.29 Other chronic pain; Z90.710 Acquired absence of both cervix and uterus; Z98.890 Other specified postprocedural states; Z79.899 Other long term (current) drug therapy; Z72.89 Other problems related to lifestyle; Z88.8 Allergy status to other drugs, medicaments and biological substances; Z88.0 Allergy status to penicillin; Z79.84 Long term (current) use of oral hypoglycemic drugs
CPT/HCPCS: 49083

== ENCOUNTER 2020-02-19 07:05 | Day surgery (SDC) | payer MEDICARE, MEDICAID ==
[~2020-02-19] VITALS: Ht 165.1 cm; Wt 60.6 kg
[2020-02-19 07:40] VITALS: BP 123/83
[2020-02-19] MEDS ORDERED: albumin 25% 100mL bottle x 1 IV PRN (07:45)
[2020-02-19 08:17] VITALS: BP 137/76
[2020-02-19 08:32] VITALS: BP 134/60
[2020-02-19 08:47] VITALS: BP 128/73
[2020-02-19] MEDS ORDERED: FLU VACC QS2020-21(6MOS UP)/PF 60 MCG/0.5 ML SYRINGE IMVAC ONE (09:11)
[2020-02-19 09:15] VITALS: BP 133/78
== END 2020-02-19 09:30 | disposition home or self-care (01) ==
LOC: SSTAY O 07:05
PROVIDERS: ATTEND Radiology Diagnostic Radiology
DX: R18.8 Other ascites (principal); Z23 Encounter for immunization; I48.91 Unspecified atrial fibrillation; I11.0 Hypertensive heart disease with heart failure; I50.9 Heart failure, unspecified; E78.00 Pure hypercholesterolemia, unspecified; J44.9 Chronic obstructive pulmonary disease, unspecified; E11.9 Type 2 diabetes mellitus without complications; G89.29 Other chronic pain; Z98.890 Other specified postprocedural states; Z90.710 Acquired absence of both cervix and uterus; Z72.89 Other problems related to lifestyle; Z88.0 Allergy status to penicillin; Z88.8 Allergy status to other drugs, medicaments and biological substances; Z79.899 Other long term (current) drug therapy; Z79.01 Long term (current) use of anticoagulants; Z79.82 Long term (current) use of aspirin
CPT/HCPCS: 49083; G0008; Q2039

== ENCOUNTER 2020-05-10 06:37 | Day surgery (SDC) | payer MEDICARE, MEDICAID ==
[~2020-05-10] VITALS: Ht 165.1 cm; Wt 57.0 kg
[2020-05-10] MEDS ORDERED: albumin 25% 100mL bottle x 1 IV PRN (07:05)
[2020-05-10 07:14] VITALS: BP 124/67
[2020-05-10 08:20] VITALS: BP 116/61
[2020-05-10 08:30] VITALS: BP 133/59
[2020-05-10 08:45] VITALS: BP 112/56
[2020-05-10 09:00] VITALS: BP 121/63
== END 2020-05-10 09:06 | disposition home or self-care (01) ==
LOC: SSTAY O 06:37
PROVIDERS: ATTEND Radiology Diagnostic Radiology
DX: R18.8 Other ascites (principal); I48.91 Unspecified atrial fibrillation; I11.0 Hypertensive heart disease with heart failure; I50.9 Heart failure, unspecified; E78.00 Pure hypercholesterolemia, unspecified; J44.9 Chronic obstructive pulmonary disease, unspecified; E11.9 Type 2 diabetes mellitus without complications; G89.29 Other chronic pain; Z90.710 Acquired absence of both cervix and uterus; Z98.890 Other specified postprocedural states; Z72.89 Other problems related to lifestyle; Z88.0 Allergy status to penicillin; Z88.8 Allergy status to other drugs, medicaments and biological substances; Z79.01 Long term (current) use of anticoagulants; Z79.899 Other long term (current) drug therapy; Z79.84 Long term (current) use of oral hypoglycemic drugs; Z79.82 Long term (current) use of aspirin; Z95.0 Presence of cardiac pacemaker
CPT/HCPCS: 49083

== ENCOUNTER 2020-09-20 15:06 | Inpatient (IN) | payer MEDICARE, MEDICAID ==
[~2020-09-20] VITALS: Ht 162.6 cm; Wt 68.9 kg
[2020-09-20] VITALS (7 sets, daily range): BP systolic 87–111; BP diastolic 28–47
[~2020-09-20 15:06] MED LIST changes: -FERR142T14; +FERR142T14 PO; +FLUT50BL IH; -FLUT50BL NAS
[2020-09-20] MEDS: normal saline 1000ML IV soln IVB ONE (15:55)
[2020-09-20] MEDS ORDERED: TETanus/Pertussis (Acell)/Diphther VAC/PF (Tdap-Adult) 0.5ml syringe IMVAC ONE (15:55)
[2020-09-20 16:25] LABS: BASOPHILS # (AUTO) 0.2 X10'3 (0-0.2); BASOPHILS % (AUTO) 1.7 % (0-1); EOSINOPHILS % (AUTO) 0 % (0-6); LYMPHOCYTES % (AUTO) 9.3 % (21-51); MEAN CORPUSCULAR HEMOGLOBIN 32.3 PG (27.0-31.0); MEAN CORPUSCULAR HGB CONC 33.9 g/dL (33.0-36.5); MEAN CORPUSCULAR VOLUME 95.2 FL (78-98); MEAN PLATELET VOLUME 6.6 FL (7.4-10.4); MONOCYTES # (AUTO) 0.5 X10'3 (0-0.9); MONOCYTES % (AUTO) 4.7 % (2-12); NEUTROPHILS # (AUTO) 9.1 X10'3 (1.8-7.7); NEUTROPHILS % (AUTO) 84.3 % (42-75); PLATELET COUNT 188 X10'3 (140-440); RED BLOOD COUNT 1.26 X10'6 (4.20-5.60); WHITE BLOOD COUNT 10.7 X10'3 (4.5-11.0)
[2020-09-20 16:32] LABS: HEMOGLOBIN 4.1 g/dl (12.0-16.0)
[2020-09-20 16:36] LABS: ALANINE AMINOTRANSFERASE 13 U/L (12-78); ALBUMIN 2.7 G/DL (3.4-5.0); ALBUMIN/GLOBULIN RATIO 0.8 (1.1-1.5); ALKALINE PHOSPHATASE 95 IU/L (46-116); ANION GAP 13 (8-16); ASPARTATE AMINO TRANSFERASE 12 U/L (10-37); BILIRUBIN,TOTAL 0.4 MG/DL (0.1-1.0); BLOOD UREA NITROGEN 58 MG/DL (7-18); BUN/CREATININE RATIO 36.9 (6.6-38.0); CALCIUM 7.8 MG/DL (8.5-10.1); CHLORIDE 91 MMOL/L (99-107); CREATININE 1.57 MG/DL (0.40-0.90); GLUCOSE 194 MG/DL (70-104); POTASSIUM 5.5 MMOL/L (3.5-5.1); SODIUM 125 MMOL/L (135-145); TOTAL CARBON DIOXIDE 20.8 MMOL/L (24-32); TOTAL PROTEIN 6.1 G/DL (6.4-8.2); eGFR 33 ML/MIN
[2020-09-20] MEDS ORDERED: octreotide 100mcg/1 ml ampule IV ONE (16:40)
[2020-09-20 16:42] LABS: LACTIC SEPSIS 5.8 MMOL/L (0.4-2.0)
[2020-09-20 16:42] LABS: CLARITY,URINE CLEAR (Clear); COLOR,URINE STRAW (Yellow); GLUCOSE, URINE NEGATIVE (Neg); KETONES,URINE NEGATIVE (Neg); LEUKOCYTE ESTERASE ,URINE NEGATIVE (Neg); NITRITES, URINE NEGATIVE (Neg); OCCULT BLOOD,URINE NEGATIVE (Neg); PROTEIN,URINE NEGATIVE (Neg); UA COLLECTION TYPE FOLEY CATH; UROBILINOGEN,URINE 0.2 E.U/dL (0.2-1.0)
[2020-09-20] MEDS ORDERED: tranexamic acid inj. 570 MG in normal saline 100ml IV soln 100 ML IV ONE (16:45)
--- NOTE | 2020-09-20 16:46 | NUR ---
ONE LITER OF NS GIVEN IN THE FIELD. SPOKE WITH DR. GONZALEZ, IF BP SYST DROPS BELOW 90 GIVE THE ONE LITER THAT HAS BEEN ORDERED.
--- NOTE | 2020-09-20 16:50 | NUR ---
RUBÉN DAUGHTER STATED, " PT FELL YESTERDAY AT HOME, WITNESSED FALL. DID NOT HIT HEAD, FELL ON KNEES AND HIT CHIN ON CARPET. " SKIN TEAR RIGHT ELBOW. PT ON BLOOD THINNERS, PLAVIX AND ASA.
[2020-09-20] MEDS ORDERED: phytonadione inj. 10 MG in normal saline 100ml IV soln 100 ML IV ONE (16:55)
--- NOTE | 2020-09-20 16:56 | NUR ---
INFORMED DR. GONZALEZ OF FALL YESTERDAY, PLEASE SEE NEW ORDERS.
[2020-09-20] MEDS ORDERED: human prothrombin complex-PCC 500 UNIT/20 ML VIAL IV ONE (17:00)
[2020-09-20 17:01] LABS: OCCULT BLOOD STOOL POSITIVE (Neg)
[2020-09-20] MEDS ORDERED: HUMAN PROTHROMBIN COMPLEX PCC IV ONE (17:05)
[2020-09-20 17:08] LABS: ANISOCYTOSIS 1+; PLATELET ESTIMATE NORMAL; POLYCHROMASIA 2+
[2020-09-20 17:11] LABS: PARTIAL THROMBOPLASTIN TIME 22 SECONDS (22-32)
--- NOTE | 2020-09-20 17:15 | NUR ---
PT VOMIT BRIGHT RED BLOOD WITH LARGE CLOTS. 200CC IN VOLUME. DR. GONZALEZ INFORMED.
[2020-09-20] MEDS ORDERED: pantoprazole 40MG/NS 100ML BAG 100 ML IV ONE (17:30)
[2020-09-20] MEDS ORDERED: magnesium Cl slow-release 64mg tablet PO PRN (17:35)
[2020-09-20] MEDS ORDERED: magnesium 4gm in 100ml NS 100 ML IV PRN (17:35)
[2020-09-20] MEDS ORDERED: sodium phosphate inj. 30 MMOL in dextrose 5%-water 250 ML IV PRN (17:35)
[2020-09-20] MEDS ORDERED: sodium phosphate inj. 15 MMOL in dextrose 5%-water 250 ML IV PRN (17:35)
[2020-09-20] MEDS ORDERED: magnesium hydroxide 30ml (MOM) UD suspension PO PRN (17:35)
[2020-09-20] MEDS: K, MAG and/or Phos replacement - Verify level? MC SCH (17:35)
[2020-09-20] MEDS ORDERED: LIDOcaine 2% 10ml TOPICAL JELLY (Urojet) TP ONE (17:35)
[2020-09-20] MEDS ORDERED: potassium Cl 20 mEq SR tablet PO PRN (17:35)
[2020-09-20] MEDS ORDERED: magnesium 2GM in 50ml NS 50 ML IV PRN (17:35)
--- NOTE | 2020-09-20 17:45 | NUR ---
TO CT SCAN WITH NURSE AND SUPERVISOR GRAIN AND YEAST [employer]ANTS VIA LYUBOV
--- NOTE | 2020-09-20 17:50 | NUR ---
TO CT VIA LYUBOV WITH RN
--- NOTE | 2020-09-20 18:04 | NUR ---
[address] SCAN
--- NOTE | 2020-09-20 18:15 | NUR ---
Patient in ER. I have received report from Margarita Pitts RN and had the opportunity to ask questions. Patient is still receiving care in the ER, awaiting call from ER for transfer.
--- NOTE | 2020-09-20 18:18 | NUR ---
DR GONZALEZ AT BEDSIDE FOR CENTRAL LINE PLACEMENT
[2020-09-20] MEDS ORDERED: midazolam 1 mg/ML 2ml injection ONE (18:58)
[2020-09-20] MEDS ORDERED: etomidate 2mg/ml inj. IV ONE ×2 (19:00→19:10)
[2020-09-20] MEDS ORDERED: methylPREDNISolone sod succ/PF 40mg inj. IV ONE (19:00)
[2020-09-20] MEDS ORDERED: diphenhydrAMINE 50 mg/ml inj IV ONE (19:00)
--- NOTE | 2020-09-20 19:02 | NUR ---
INTUBATION 20MG ETOMIDATE 1900 2 VERSED 1903 20MG ETOMIDATE 190
[2020-09-20] MEDS ORDERED: midazolam 1 mg/ML 2ml injection IV ONE (19:10)
[2020-09-20] MEDS ORDERED: midazolam 100mg in NS 100ml 100 ML IV PRN ×2 (19:10→19:12)
[2020-09-20] MEDS ORDERED: midazolam 1 mg/ML 2ml injection IV PRN (19:10)
--- NOTE | 2020-09-20 19:10 | NUR ---
UNABLE TO GET O2 READING
[2020-09-20] MEDS ORDERED: fentaNYL/PF 50MCG/1 ML 2ML syringe ONE (19:40)
[2020-09-20] MEDS ORDERED: LIDOcaine Viscous 15ml cup ONE (19:41)
[2020-09-20] MEDS ORDERED: MIDAZolam 1 MG/ML 5ML VIAL ONE (19:41)
--- NOTE | 2020-09-20 19:50 | NUR ---
GI LAB AT BEDSIDE FOR PROCEDURE
[2020-09-20 19:52] LABS: ABG HCO3 16.9 mmol/L (22.0-26.0); ABG PCO2 (T) 31.3 mmHg (32.0-45.0); ABG PO2 (T) 222.1 mmHg (75.0-100.0); ALLEN'S TEST POSITIVE; PATIENT TEMPERATURE 35.9; PEEP 5 cm H2O; RESPIRATORY RATE 16 b/min; TIDAL VOLUME 350 mL; TOTAL HEMOGLOBIN < 4.7 G/dl (12.0-16.0)
[2020-09-20] MEDS: midazolam 1 mg/ML 2ml injection IV PRN ×3 (19:55→21:49)
[2020-09-20] MEDS: mineral oil/petrolatum ophthal oint EACHEYE SCH (20:00)
--- NOTE | 2020-09-20 21:30 | NUR ---
Patient arrived via gurney with LITHOGRAPHIC ARTIST and RT at bedside. Patient transferred to ICU bed with slide board. Patient placed on conveyor monitor showing normal sinus rhythm with at rate in the 70's. Patient vital signs assessed. OG tube placed with positive placement. Patient with right IJ quad lumen central line. 18 ga IV saline lock to bilateral wrists. Pérez catheter in place. Core temp probe placed. 2 RN skin check completed. Foam dressing placed on coccyx. Pillows in place to off load pressure. SCD's placed. Patient is currently on the ventilator A/C VC FiO2 30% PEEP 5, respiratory rate 20, Patient has a 7.[address] secured at 22cm at the teeth. CVP zeroed and transduced to central line.
[2020-09-20] MEDS: ipratropium/albuterol 3ml nebule NEB SCH (23:15)
[2020-09-21] VITALS (34 sets, daily range): BP systolic 69–136; BP diastolic 33–73
[2020-09-21] MEDS: pantoprazole 40MG/NS 100ML BAG 100 ML IV SCH ×5 (01:07→20:42)
[2020-09-21] MEDS: mineral oil/petrolatum ophthal oint EACHEYE SCH ×4 (02:26→20:39)
[2020-09-21] MEDS: ipratropium/albuterol 3ml nebule NEB SCH ×5 (02:47→22:59)
[2020-09-21] MEDS: phenylephrine inj 50 MG in normal saline 250ml IV soln 245 ML IV SCH (02:50)
[2020-09-21 02:59] LABS: ABG BASE EXCESS -5.3 mmol/L (-2.0-2.0); ABG HCO3 19.9 mmol/L (22.0-26.0); ABG OXYGEN SATURATION 96.7 % (94-97); ABG PCO2 (T) 37.5 mmHg (32.0-45.0); ABG PO2 (T) 95.5 mmHg (75.0-100.0); ALLEN'S TEST POSITIVE; FCOHb 0.3 % (0.0-3.9); FMetHb 0.4 % (0.0-1.5); PATIENT TEMPERATURE 37.2; PEEP 5 cm H2O; RESPIRATORY RATE 16 b/min; TIDAL VOLUME 350 mL; TOTAL HEMOGLOBIN 7.9 G/dl (12.0-16.0)
[2020-09-21 03:36] LABS: BASOPHILS % (AUTO) 0.2 % (0-1); EOSINOPHILS % (AUTO) 0.1 % (0-6); LYMPHOCYTES # (AUTO) 0.7 X10'3 (1.1-4.8); LYMPHOCYTES % (AUTO) 7.2 % (21-51); MEAN CORPUSCULAR HEMOGLOBIN 30.3 PG (27.0-31.0); MEAN CORPUSCULAR HGB CONC 33.9 g/dL (33.0-36.5); MEAN CORPUSCULAR VOLUME 89.4 FL (78-98); MEAN PLATELET VOLUME 6.4 FL (7.4-10.4); MONOCYTES # (AUTO) 0.2 X10'3 (0-0.9); MONOCYTES % (AUTO) 1.8 % (2-12); NEUTROPHILS # (AUTO) 8.4 X10'3 (1.8-7.7); NEUTROPHILS % (AUTO) 90.7 % (42-75); PLATELET COUNT 157 X10'3 (140-440); RED BLOOD COUNT 2.32 X10'6 (4.20-5.60); RED CELL DISTRIBUTION WIDTH 15.2 % (11.5-14.5); WHITE BLOOD COUNT 9.3 X10'3 (4.5-11.0)
[2020-09-21 03:40] LABS: HEMATOCRIT 20.7 % (35.0-45.0)
[2020-09-21 03:49] LABS: PARTIAL THROMBOPLASTIN TIME 22 SECONDS (22-32)
[2020-09-21 04:02] LABS: ALANINE AMINOTRANSFERASE 23 U/L (12-78); ALBUMIN 2.9 G/DL (3.4-5.0); ALBUMIN/GLOBULIN RATIO 0.9 (1.1-1.5); ALKALINE PHOSPHATASE 91 IU/L (46-116); ANION GAP 12 (8-16); ASPARTATE AMINO TRANSFERASE 34 U/L (10-37); BILIRUBIN,TOTAL 0.7 MG/DL (0.1-1.0); BLOOD UREA NITROGEN 74 MG/DL (7-18); BUN/CREATININE RATIO 44.8 (6.6-38.0); CALCIUM 7.6 MG/DL (8.5-10.1); CHLORIDE 93 MMOL/L (99-107); CREATININE 1.65 MG/DL (0.40-0.90); GLUCOSE 233 MG/DL (70-104); MAGNESIUM 3.3 MG/DL (1.5-2.4); PHOSPHORUS 6.4 MG/DL (2.3-4.5); POTASSIUM 5.4 MMOL/L (3.5-5.1); SODIUM 126 MMOL/L (135-145); TOTAL CARBON DIOXIDE 20.6 MMOL/L (24-32); TOTAL PROTEIN 6.2 G/DL (6.4-8.2); eGFR 31 ML/MIN
[2020-09-21] MEDS ORDERED: glucagon, human recombinant 1mg kit SUBCUT PRN (04:25)
[2020-09-21] MEDS ORDERED: dextrose ORAL solution 15 GM/59 ML bottle PO PRN ×2 (04:25)
[2020-09-21] MEDS ORDERED: dextrose 50%-water 50ml dispensing syringe IV PRN ×2 (04:25)
--- NOTE | 2020-09-21 04:39 | NUR ---
Rounds with Dr. Bay: AM labs, ABG and care plan reviewed with MD. Current ventilator settings and vital signs reviewed. No additional blood transfusion at this time. Hgb 7 Hct 20.7. Will repeat labs at 0700: CBC, BMP, PHOS, Troponin. MD to place order for Hyperglycemic protocol, Blood glucose 237 with history of diabetes.
[2020-09-21] MEDS: dexmedetomidine inj. 400 MCG in normal saline 100ml IV soln 96 ML IV SCH ×2 (04:52→14:50)
--- NOTE | 2020-09-21 06:30 | NUR ---
Problems reprioritized. Patient report given, questions answered & plan of care reviewed with MARCO Pineda.
[2020-09-21] MEDS: K, MAG and/or Phos replacement - Verify level? MC SCH (07:25)
[2020-09-21 07:28] LABS: BASOPHILS % (AUTO) 0.1 % (0-1); EOSINOPHILS % (AUTO) 0 % (0-6); LYMPHOCYTES # (AUTO) 0.6 X10'3 (1.1-4.8); LYMPHOCYTES % (AUTO) 7.2 % (21-51); MEAN CORPUSCULAR HEMOGLOBIN 30.8 PG (27.0-31.0); MEAN CORPUSCULAR HGB CONC 34.2 g/dL (33.0-36.5); MEAN CORPUSCULAR VOLUME 90.2 FL (78-98); MEAN PLATELET VOLUME 6.5 FL (7.4-10.4); MONOCYTES # (AUTO) 0.2 X10'3 (0-0.9); MONOCYTES % (AUTO) 2.5 % (2-12); NEUTROPHILS % (AUTO) 90.2 % (42-75); PLATELET COUNT 154 X10'3 (140-440); RED BLOOD COUNT 2.19 X10'6 (4.20-5.60); RED CELL DISTRIBUTION WIDTH 15.4 % (11.5-14.5); WHITE BLOOD COUNT 8.9 X10'3 (4.5-11.0)
[2020-09-21 07:42] LABS: HEMATOCRIT 19.7 % (35.0-45.0); HEMOGLOBIN 6.7 g/dl (12.0-16.0)
[2020-09-21 08:29] LABS: ALBUMIN 2.8 G/DL (3.4-5.0); ANION GAP 14 (8-16); BLOOD UREA NITROGEN 75 MG/DL (7-18); BUN/CREATININE RATIO 45.7 (6.6-38.0); CALCIUM 7.5 MG/DL (8.5-10.1); CHLORIDE 94 MMOL/L (99-107); CREATININE 1.64 MG/DL (0.40-0.90); GLUCOSE 251 MG/DL (70-104); POTASSIUM 5.1 MMOL/L (3.5-5.1); SODIUM 127 MMOL/L (135-145); TOTAL CARBON DIOXIDE 19.3 MMOL/L (24-32); TROPONIN I 0.17 NG/ML (0.0-0.05); eGFR 31 ML/MIN
--- NOTE | 2020-09-21 09:42 | NUR ---
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 Pt intubated to protect airway d/t risk of hematemesis with aspiration per MD note. Pt documented with an OG tube in place, no TF consult at this time. TF recommendations below for if expected prolonged intubation and to receive nutrition support. IBW was used to calculate estimated nutrient needs as patient's weight likely fluctuates d/t ascites with h/o paracentesis. Pt with a low Koko of 12. Per physical assessment pt with no edema and an abrasion/skin tear to right elbow. Will continue to follow closely and make recommendations as appropriate. Recommendations: 1) IF TF, continuous Vital AF with goal rate of 55 mL/hr. To begin at 25 mL/hr and advance by 30 mL Q8H as tolerated to goal rate 2) IF TF, additional water flush per MD given low serum Na and fluid status with ascites/liver cirrhosis 3) IF TF, prealbumin q Wednesday/, daily weights 4) Routine bowel care 5) Once extubated advance to heart healthy diet as medically indicated; consider CHO controlled diet if BG levels remain elevated; Pt with h/o T2DM, most recent A1c in EMR is 5.1% 01/21/19 Addendum: 09/21/20 at [address]rade RD Amended: Links added.
[2020-09-21] MEDS: albuterol 2.5 MG/3 ML nebule NEB PRN ×2 (12:21→12:22)
[2020-09-21 12:51] LABS: HEMATOCRIT 25.2 % (35.0-45.0); HEMOGLOBIN 8.7 g/dl (12.0-16.0); MEAN CORPUSCULAR HEMOGLOBIN 31.6 PG (27.0-31.0); MEAN CORPUSCULAR HGB CONC 34.7 g/dL (33.0-36.5); MEAN CORPUSCULAR VOLUME 90.8 FL (78-98); MEAN PLATELET VOLUME 6.6 FL (7.4-10.4); PLATELET COUNT 150 X10'3 (140-440); RED BLOOD COUNT 2.77 X10'6 (4.20-5.60); RED CELL DISTRIBUTION WIDTH 15.7 % (11.5-14.5); WHITE BLOOD COUNT 10.4 X10'3 (4.5-11.0)
[2020-09-21] MEDS ORDERED: ALBUTEROL INHALER 1 PUFF/90 MCG INHALER IH PRN (13:55)
[2020-09-21] MEDS ORDERED: gabapentin 300mg capsule PO PRN (13:55)
[2020-09-21] MEDS ORDERED: normal saline 1000ml 1,000 ML IV ONE (14:50)
--- NOTE | 2020-09-21 15:00 | NUR ---
Dr. Greenwood asked for the Precedex to be turned off so that we can attempt to get weaning parameters on the patient. Primary RN alerted RT about the plan and the Precedex was turned off. RT placed the patient on Spontaneous at about 1345. Patient tolerated it for a short period of time however, around 1400 patient became tachycardic in the 120s, shortly after that patient went into afib RVR with rate in the 140s-150s. Precedex was turned back on and patient was put back on a rate on the vent at about 1415. Dr. Greenwood came to CICU and was alerted of the turn of events. Orders received to bolus patient 1L NS and to start Cardizem.
[2020-09-21] MEDS ORDERED: diltiazem-D5W 125mg/125ml 125 ML IV SCH (15:15)
[2020-09-21] MEDS: diltiazem-NS 100mg/100ml 100 ML IV SCH (16:02)
[2020-09-21 16:53] LABS: HEMATOCRIT 24.7 % (35.0-45.0); HEMOGLOBIN 8.4 g/dl (12.0-16.0); MEAN CORPUSCULAR HEMOGLOBIN 31.2 PG (27.0-31.0); MEAN CORPUSCULAR HGB CONC 34.1 g/dL (33.0-36.5); MEAN CORPUSCULAR VOLUME 91.6 FL (78-98); MEAN PLATELET VOLUME 6.4 FL (7.4-10.4); PLATELET COUNT 146 X10'3 (140-440); RED CELL DISTRIBUTION WIDTH 15.6 % (11.5-14.5)
[2020-09-21] MEDS ORDERED: sodium bicarbonate (8.4%) inj. 100 MEQ in sodium chloride 0.45% 1,000 ML IV ONE ×2 (16:55→18:00)
[2020-09-21] MEDS ORDERED: sodium bicarbonate (8.4%) inj. 100 MEQ in dextrose 5%-water 1,000 ML IV SCH (17:00)
[2020-09-21 17:09] LABS: OXYGEN SATURATION (MIXED VEN) 88.4 % (60-80); PO2 MIXED VENOUS (TEMP COR) 57.5 mmHg (35-46)
[2020-09-21 17:12] LABS: ABG BASE EXCESS -7.5 mmol/L (-2.0-2.0); ABG HCO3 17.3 mmol/L (22.0-26.0); ABG OXYGEN SATURATION 94.5 % (94-97); ABG PCO2 (T) 32.7 mmHg (32.0-45.0); ABG PO2 (T) 78.2 mmHg (75.0-100.0); ALLEN'S TEST POSITIVE; FCOHb 0.3 % (0.0-3.9); FLOW 35 L/min; FMetHb 0.4 % (0.0-1.5); FO2Hb 93.8 % (94-97); PATIENT TEMPERATURE 37.2; PEEP 30 cm H2O; RESPIRATORY RATE 18 b/min; TIDAL VOLUME 350 mL; TOTAL HEMOGLOBIN 10.3 G/dl (12.0-16.0)
--- NOTE | 2020-09-21 17:17 | NUR ---
Patient was started on the Cardizem however, her blood pressure could not tolerate it and was maintaining SBP in 70s and map of about 55. Patient heart rate still remained anywhere from 130-150. Precedex was reduced to help maintain the blood pressure however, this didn't have much effect. Dr. Greenwood called again regarding the current orders not helping. Orders to redraw electrolytes, H/H, ABG and mixed venous as well as bolus 2L 1/2 NS with 2 amp of bicarb.
[2020-09-21] MEDS: insulin Lispro (HumaLOG) vial - multi-dose SQ SCH (17:27)
[2020-09-21 17:37] LABS: ALBUMIN 2.6 G/DL (3.4-5.0); ANION GAP 12 (8-16); BLOOD UREA NITROGEN 71 MG/DL (7-18); BUN/CREATININE RATIO 47.3 (6.6-38.0); CALCIUM 7.1 MG/DL (8.5-10.1); CHLORIDE 98 MMOL/L (99-107); GLUCOSE 237 MG/DL (70-104); MAGNESIUM 3.1 MG/DL (1.5-2.4); PHOSPHORUS 5.7 MG/DL (2.3-4.5); POTASSIUM 4.2 MMOL/L (3.5-5.1); SODIUM 130 MMOL/L (135-145); TOTAL CARBON DIOXIDE 20.5 MMOL/L (24-32); eGFR 34 ML/MIN
--- NOTE | 2020-09-21 18:24 | NUR ---
Problems reprioritized. Patient report given, questions answered & plan of care reviewed with MARCO Jean Baptiste.
[2020-09-21] MEDS ORDERED: phenylephrine inj 50 MG in normal saline 250ml IV soln 250 ML IV SCH (18:45)
[2020-09-21] MEDS: budesonide 0.5mg/2ml UD nebule IH SCH (19:52)
[2020-09-21] MEDS: atorvastatin 20mg tablet PO SCH ×2 (20:38→21:02)
[2020-09-21] MEDS: ascorbic acid 500mg tablet PO SCH (20:39)
[2020-09-21] MEDS: FERROUS SULFATE 142 MG TABLET.ER (45mg elemental) PO SCH (20:40)
[2020-09-21] MEDS ORDERED: chlorpheniramine 4mg tablet PO SCH (21:00)
[2020-09-22] VITALS (24 sets, daily range): BP systolic 97–116; BP diastolic 40–65
[2020-09-22] MEDS: dexmedetomidine inj. 400 MCG in normal saline 100ml IV soln 96 ML IV SCH ×3 (02:54→20:08)
[2020-09-22] MEDS: pantoprazole 40MG/NS 100ML BAG 100 ML IV SCH ×5 (02:55→20:08)
[2020-09-22] MEDS: mineral oil/petrolatum ophthal oint EACHEYE SCH ×4 (02:57→20:09)
[2020-09-22] MEDS: ipratropium/albuterol 3ml nebule NEB SCH ×6 (03:01→23:00)
[2020-09-22 03:10] LABS: BASOPHILS % (AUTO) 0.1 % (0-1); EOSINOPHILS % (AUTO) 0 % (0-6); HEMATOCRIT 27.5 % (35.0-45.0); HEMOGLOBIN 9.5 g/dl (12.0-16.0); LYMPHOCYTES # (AUTO) 1.1 X10'3 (1.1-4.8); LYMPHOCYTES % (AUTO) 6.4 % (21-51); MEAN CORPUSCULAR HEMOGLOBIN 31.5 PG (27.0-31.0); MEAN CORPUSCULAR HGB CONC 34.4 g/dL (33.0-36.5); MEAN CORPUSCULAR VOLUME 91.6 FL (78-98); MEAN PLATELET VOLUME 6.4 FL (7.4-10.4); MONOCYTES # (AUTO) 1.6 X10'3 (0-0.9); MONOCYTES % (AUTO) 8.7 % (2-12); NEUTROPHILS # (AUTO) 15.3 X10'3 (1.8-7.7); NEUTROPHILS % (AUTO) 84.8 % (42-75); PLATELET COUNT 210 X10'3 (140-440); RED BLOOD COUNT 3.01 X10'6 (4.20-5.60); RED CELL DISTRIBUTION WIDTH 15.4 % (11.5-14.5); WHITE BLOOD COUNT 18.1 X10'3 (4.5-11.0)
[2020-09-22] MEDS ORDERED: acetaminophen 325mg/10.15ml oral unit dose solution PO PRN (03:10)
[2020-09-22 03:27] LABS: PARTIAL THROMBOPLASTIN TIME 20 SECONDS (22-32)
[2020-09-22 03:48] LABS: ALANINE AMINOTRANSFERASE 38 U/L (12-78); ALBUMIN 2.7 G/DL (3.4-5.0); ALBUMIN/GLOBULIN RATIO 0.8 (1.1-1.5); ALKALINE PHOSPHATASE 81 IU/L (46-116); ANION GAP 10 (8-16); ASPARTATE AMINO TRANSFERASE 45 U/L (10-37); BILIRUBIN,TOTAL 0.6 MG/DL (0.1-1.0); BLOOD UREA NITROGEN 58 MG/DL (7-18); BUN/CREATININE RATIO 47.9 (6.6-38.0); CALCIUM 7.4 MG/DL (8.5-10.1); CHLORIDE 100 MMOL/L (99-107); CREATININE 1.21 MG/DL (0.40-0.90); GLUCOSE 217 MG/DL (70-104); MAGNESIUM 2.6 MG/DL (1.5-2.4); POTASSIUM 3.4 MMOL/L (3.5-5.1); SODIUM 135 MMOL/L (135-145); TOTAL CARBON DIOXIDE 24.8 MMOL/L (24-32); eGFR 44 ML/MIN
[2020-09-22 04:09] LABS: ABG BASE EXCESS 1.6 mmol/L (-2.0-2.0); ABG HCO3 25.4 mmol/L (22.0-26.0); ABG OXYGEN SATURATION 92.7 % (94-97); ABG PCO2 (T) 38.2 mmHg (32.0-45.0); ABG PO2 (T) 68.1 mmHg (75.0-100.0); FCOHb 0.3 % (0.0-3.9); FMetHb 0.4 % (0.0-1.5); FO2Hb 92.1 % (94-97); PATIENT TEMPERATURE 37.8; PEEP 5 cm H2O; RESPIRATORY RATE 18 b/min; TIDAL VOLUME 350 mL; TOTAL HEMOGLOBIN 10.3 G/dl (12.0-16.0)
--- NOTE | 2020-09-22 06:00 | NUR ---
Patient in room CICU 2013. I have received report from Markel LARA and had the opportunity to ask questions and assume patient care.
[2020-09-22] MEDS: budesonide 0.5mg/2ml UD nebule IH SCH ×2 (07:48→19:03)
[2020-09-22] MEDS: ascorbic acid 500mg tablet PO SCH ×2 (08:00→20:09)
[2020-09-22] MEDS: loratadine 10mg tablet PO SCH (08:00)
[2020-09-22] MEDS: K, MAG and/or Phos replacement - Verify level? MC SCH (08:00)
[2020-09-22] MEDS: FERROUS SULFATE 142 MG TABLET.ER (45mg elemental) PO SCH ×2 (08:00→23:19)
[2020-09-22] MEDS: folic acid/vitamin B complex w/vitamin C 0.8mg tablet PO SCH (08:00)
[2020-09-22] MEDS: insulin Lispro (HumaLOG) vial - multi-dose SQ SCH ×3 (08:25→23:18)
[2020-09-22] MEDS: diltiazem-NS 100mg/100ml 100 ML IV SCH ×4 (08:33→20:07)
[2020-09-22] MEDS: potassium Cl 40MEQ/250ML bag 270 ML IV PRN (09:38)
[2020-09-22] MEDS ORDERED: amiodarone 150mg/dext, iso-os 100 ML IV ONE (11:05)
[2020-09-22] MEDS: amiodarone/D5 360MG/200ML BAG 200 ML IV SCH ×3 (11:54→20:06)
[2020-09-22] MEDS ORDERED: NORepinephrine 8mg/ 250ml NS 250 ML IV ONE (15:01)
[2020-09-22] MEDS: phenylephrine inj 50 MG in normal saline 250ml IV soln 245 ML IV SCH ×2 (15:13→20:09)
[2020-09-22] MEDS: cefepime 1GM/NS ADD-VANTAGE 100 ML IV SCH ×2 (17:14→20:08)
[2020-09-22] MEDS: vancomycin/NS 1 GM ADD-VANTAGE 250 ML IV SCH (17:53)
--- NOTE | 2020-09-22 18:25 | NUR ---
Problems reprioritized. Patient report given, questions answered & plan of care reviewed with MADDISON RN.
--- NOTE | 2020-09-22 18:30 | NUR ---
I have received report and assumed care of pt, Pt resting in bed Daughter at bedside.
[2020-09-23] VITALS (24 sets, daily range): BP systolic 87–123; BP diastolic 31–86
[2020-09-23] MEDS: mineral oil/petrolatum ophthal oint EACHEYE SCH ×4 (02:33→20:50)
[2020-09-23 02:51] LABS: BASOPHILS % (AUTO) 0.1 % (0-1); EOSINOPHILS % (AUTO) 0 % (0-6); HEMATOCRIT 27.9 % (35.0-45.0); HEMOGLOBIN 9.4 g/dl (12.0-16.0); LYMPHOCYTES # (AUTO) 0.9 X10'3 (1.1-4.8); LYMPHOCYTES % (AUTO) 5.5 % (21-51); MEAN CORPUSCULAR HEMOGLOBIN 31.1 PG (27.0-31.0); MEAN CORPUSCULAR HGB CONC 33.6 g/dL (33.0-36.5); MEAN CORPUSCULAR VOLUME 92.4 FL (78-98); MEAN PLATELET VOLUME 6.3 FL (7.4-10.4); MONOCYTES # (AUTO) 1.7 X10'3 (0-0.9); MONOCYTES % (AUTO) 10.6 % (2-12); NEUTROPHILS # (AUTO) 13.6 X10'3 (1.8-7.7); NEUTROPHILS % (AUTO) 83.8 % (42-75); PLATELET COUNT 216 X10'3 (140-440); RED BLOOD COUNT 3.02 X10'6 (4.20-5.60); WHITE BLOOD COUNT 16.3 X10'3 (4.5-11.0)
[2020-09-23 03:03] LABS: PARTIAL THROMBOPLASTIN TIME 26 SECONDS (22-32)
[2020-09-23 03:08] LABS: ALANINE AMINOTRANSFERASE 54 U/L (12-78); ALBUMIN 2.2 G/DL (3.4-5.0); ALBUMIN/GLOBULIN RATIO 0.6 (1.1-1.5); ALKALINE PHOSPHATASE 69 IU/L (46-116); ANION GAP 11 (8-16); ASPARTATE AMINO TRANSFERASE 51 U/L (10-37); BILIRUBIN,TOTAL 0.6 MG/DL (0.1-1.0); BLOOD UREA NITROGEN 38 MG/DL (7-18); BUN/CREATININE RATIO 36.9 (6.6-38.0); CALCIUM 7.6 MG/DL (8.5-10.1); CHLORIDE 109 MMOL/L (99-107); CREATININE 1.03 MG/DL (0.40-0.90); GLUCOSE 197 MG/DL (70-104); MAGNESIUM 2.3 MG/DL (1.5-2.4); PHOSPHORUS 2.9 MG/DL (2.3-4.5); POTASSIUM 3.7 MMOL/L (3.5-5.1); SODIUM 141 MMOL/L (135-145); TOTAL CARBON DIOXIDE 20.9 MMOL/L (24-32); TOTAL PROTEIN 5.6 G/DL (6.4-8.2); eGFR 53 ML/MIN
[2020-09-23] MEDS: ipratropium/albuterol 3ml nebule NEB SCH ×6 (03:16→22:52)
[2020-09-23] MEDS: insulin Lispro (HumaLOG) vial - multi-dose SQ SCH (03:17)
[2020-09-23] MEDS: pantoprazole 40MG/NS 100ML BAG 100 ML IV SCH ×2 (03:19→08:37)
[2020-09-23 04:36] LABS: ABG BASE EXCESS -4.1 mmol/L (-2.0-2.0); ABG OXYGEN SATURATION 89.8 % (94-97); ABG PCO2 (T) 29.7 mmHg (32.0-45.0); ABG PO2 (T) 62.1 mmHg (75.0-100.0); ALLEN'S TEST n; FCOHb 0.3 % (0.0-3.9); FMetHb 0.5 % (0.0-1.5); FO2Hb 89.1 % (94-97); PEEP 5 cm H2O; RESPIRATORY RATE 18 b/min; TIDAL VOLUME 350 mL; TOTAL HEMOGLOBIN 10.7 G/dl (12.0-16.0)
[2020-09-23] MEDS: amiodarone/D5 360MG/200ML BAG 200 ML IV SCH ×3 (05:17→17:25)
--- NOTE | 2020-09-23 06:15 | NUR ---
Patient in room CICU 2013. I have received report from MADDISON ,RN and had the opportunity to ask questions and assume patient care.
[2020-09-23] MEDS: diltiazem-NS 100mg/100ml 100 ML IV SCH ×3 (07:01→22:19)
[2020-09-23] MEDS: phenylephrine inj 50 MG in normal saline 250ml IV soln 245 ML IV SCH (07:01)
[2020-09-23] MEDS: budesonide 0.5mg/2ml UD nebule IH SCH ×2 (07:15→18:55)
[2020-09-23] MEDS: K, MAG and/or Phos replacement - Verify level? MC SCH (08:00)
[2020-09-23] MEDS: cefepime 1GM/NS ADD-VANTAGE 100 ML IV SCH ×2 (08:38→20:51)
[2020-09-23] MEDS: ascorbic acid 500mg tablet PO SCH (08:38)
[2020-09-23] MEDS: loratadine 10mg tablet PO SCH (08:38)
[2020-09-23] MEDS: vancomycin/NS 1 GM ADD-VANTAGE 250 ML IV SCH (08:38)
[2020-09-23] MEDS: folic acid/vitamin B complex w/vitamin C 0.8mg tablet PO SCH (08:43)
[2020-09-23] MEDS: FERROUS SULFATE 142 MG TABLET.ER (45mg elemental) PO SCH ×2 (08:43→20:49)
[2020-09-23 11:17] LABS: ISTAT K 5.4 mmol/L (3.5-5.1); ISTAT NA 122 mmol/L (135-145)
[2020-09-23 11:18] LABS: ISTAT ANION GAP 13 (8-12); ISTAT BUN 71 mg/dL (7-18); ISTAT CL 90 mmol/L (99-107); ISTAT CREATININE 1.6 mg/dL (0.6-1.1); ISTAT IONIZED CALCIUM 1.07 mmol/L (1.03-1.32); ISTAT TOTAL CO2 19 mmol/L (24-32); ISTAT eGFR 32 ML/MIN; POC BUN/CREATININE RATIO 44.4 (6.6-38.0)
--- NOTE | 2020-09-23 11:46 | NUR ---
TF Consult: Pt remains intubated w/ TF to start today per tube sizer and cutter operator. TF recs below using IBW to optimize nutrition status. Noted +12kg wt gain two day period w/ fluid balance not correlating; likely error w/ initial 49.1kg wt most accurate making BMI 19. No BM yet s/p endoscopy w/ old clot removal and cautery of recent bleed site per EMR. Will monitor for TF tolerance and adjustment needs. Recommendations: 1) Continuous TF per MD using Vital AF at 55 mL/hr goal; to provide 1320ml volume, 1584kcals, 1069ml free water, and 99g protein. 2) additional water flush per tube sizer and cutter operator given hx cirrhosis/ascites w/ paracentesis 3) prealbumin q Wednesday/, daily weights 4) Routine bowel care 5) Once extubated advance to heart healthy diet as medically indicated; consider CHO controlled diet if BG levels remain elevated; Pt with h/o T2DM, most recent A1c in EMR is 5.1% 01/21/19 Addendum: 09/23/20 at [address] Amended: Links added.
[2020-09-23] MEDS: dexmedetomidine inj. 400 MCG in normal saline 100ml IV soln 96 ML IV SCH ×2 (12:07→20:33)
[2020-09-23] MEDS: NORepinephrine 8mg/ 250ml NS 250 ML IV SCH (12:13)
[2020-09-23 13:12] LABS: PREALBUMIN 14.9 MG/DL (19-36)
[2020-09-23] MEDS ORDERED: dextrose ORAL solution 15 GM/59 ML bottle OGT PRN ×2 (13:14→13:15)
[2020-09-23] MEDS ORDERED: magnesium hydroxide 30ml (MOM) UD suspension OGT PRN (13:16)
[2020-09-23 15:12] LABS: H PYLORI ANTIBODY NEGATIVE (Neg)
[2020-09-23] MEDS: gabapentin 300mg capsule OGT PRN (17:02)
[2020-09-23] MEDS: metoprolol tartrate 1mg/ml inj IV PRN (17:39)
--- NOTE | 2020-09-23 18:19 | NUR ---
Problems reprioritized. Patient report given, questions answered & plan of care reviewed with MARCO Henderson.
--- NOTE | 2020-09-23 18:20 | NUR ---
Problems reprioritized. Patient report given, questions answered & plan of care reviewed with Beatriz LARA.
[2020-09-23] MEDS: pantoprazole 40 MG vial IV SCH (20:49)
[2020-09-23] MEDS: lactobacillus rhamnosus 10,000 MMU CELLS/CAPSULE OGT SCH (20:49)
[2020-09-23] MEDS: ascorbic acid 500mg tablet OGT SCH (20:49)
[2020-09-23] MEDS: atorvastatin 20mg tablet OGT SCH (20:50)
[2020-09-23] MEDS: insulin regular, human U-100 3ml vial - multi-dose SQ SCH (22:59)
[2020-09-24] VITALS (23 sets, daily range): BP systolic 93–143; BP diastolic 39–61
[2020-09-24] MEDS: amiodarone/D5 360MG/200ML BAG 200 ML IV SCH ×5 (00:39→22:43)
[2020-09-24] MEDS: mineral oil/petrolatum ophthal oint EACHEYE SCH ×4 (02:01→21:06)
[2020-09-24] MEDS: metoprolol tartrate 1mg/ml inj IV PRN (02:04)
[2020-09-24] MEDS: ipratropium/albuterol 3ml nebule NEB SCH ×6 (02:37→22:41)
[2020-09-24] MEDS: diltiazem-NS 100mg/100ml 100 ML IV SCH ×4 (03:23→22:33)
[2020-09-24] MEDS: NORepinephrine 8mg/ 250ml NS 250 ML IV SCH ×2 (03:23→18:25)
[2020-09-24] MEDS: insulin regular, human U-100 3ml vial - multi-dose SQ SCH ×4 (03:57→21:40)
[2020-09-24 04:00] LABS: ABG BASE EXCESS -5.2 mmol/L (-2.0-2.0); ABG HCO3 17.4 mmol/L (22.0-26.0); ABG OXYGEN SATURATION 93.3 % (94-97); ABG PCO2 (T) 25.9 mmHg (32.0-45.0); ABG PO2 (T) 69.3 mmHg (75.0-100.0); FCOHb 0.3 % (0.0-3.9); FMetHb 0.3 % (0.0-1.5); FO2Hb 92.7 % (94-97); PATIENT TEMPERATURE 38.3; PEEP 5 cm H2O; RESPIRATORY RATE 18 b/min; TIDAL VOLUME 350 mL; TOTAL HEMOGLOBIN 9.5 G/dl (12.0-16.0)
[2020-09-24 04:09] LABS: BASOPHILS % (AUTO) 0.1 % (0-1); EOSINOPHILS % (AUTO) 0 % (0-6); HEMATOCRIT 26.1 % (35.0-45.0); HEMOGLOBIN 8.7 g/dl (12.0-16.0); LYMPHOCYTES # (AUTO) 0.8 X10'3 (1.1-4.8); LYMPHOCYTES % (AUTO) 5.6 % (21-51); MEAN CORPUSCULAR HEMOGLOBIN 31.5 PG (27.0-31.0); MEAN CORPUSCULAR HGB CONC 33.1 g/dL (33.0-36.5); MEAN CORPUSCULAR VOLUME 95.1 FL (78-98); MEAN PLATELET VOLUME 6.7 FL (7.4-10.4); MONOCYTES # (AUTO) 1.6 X10'3 (0-0.9); MONOCYTES % (AUTO) 10.8 % (2-12); NEUTROPHILS % (AUTO) 83.5 % (42-75); PLATELET COUNT 173 X10'3 (140-440); RED BLOOD COUNT 2.75 X10'6 (4.20-5.60); RED CELL DISTRIBUTION WIDTH 16.9 % (11.5-14.5); WHITE BLOOD COUNT 14.3 X10'3 (4.5-11.0)
[2020-09-24 04:16] LABS: PARTIAL THROMBOPLASTIN TIME 27 SECONDS (22-32)
[2020-09-24 04:17] LABS: ALANINE AMINOTRANSFERASE 45 U/L (12-78); ALBUMIN/GLOBULIN RATIO 0.6 (1.1-1.5); ALKALINE PHOSPHATASE 69 IU/L (46-116); ANION GAP 11 (8-16); ASPARTATE AMINO TRANSFERASE 36 U/L (10-37); BILIRUBIN,TOTAL 0.8 MG/DL (0.1-1.0); BLOOD UREA NITROGEN 29 MG/DL (7-18); BUN/CREATININE RATIO 26.9 (6.6-38.0); CALCIUM 7.5 MG/DL (8.5-10.1); CHLORIDE 110 MMOL/L (99-107); CREATININE 1.08 MG/DL (0.40-0.90); GLUCOSE 290 MG/DL (70-104); MAGNESIUM 1.8 MG/DL (1.5-2.4); PHOSPHORUS 2.9 MG/DL (2.3-4.5); POTASSIUM 3.7 MMOL/L (3.5-5.1); SODIUM 141 MMOL/L (135-145); TOTAL CARBON DIOXIDE 20.2 MMOL/L (24-32); TOTAL PROTEIN 5.2 G/DL (6.4-8.2); eGFR 50 ML/MIN
[2020-09-24] MEDS ORDERED: potassium Cl 10 mEq/100mL bag IV ONE (04:40)
[2020-09-24] MEDS ORDERED: PHENYLephrine 10mg/ml inj. 100 MG in normal saline 250ml IV soln 240 ML IV SCH (04:40)
[2020-09-24] MEDS ORDERED: magnesium 2GM in 50ml NS 50 ML IV ONE (04:40)
[2020-09-24] MEDS: dexmedetomidine inj. 400 MCG in normal saline 100ml IV soln 96 ML IV SCH ×3 (04:50→21:07)
[2020-09-24] MEDS: acetaminophen 325mg/10.15ml oral unit dose solution OGT PRN ×2 (05:27→17:39)
[2020-09-24] MEDS: phenylephrine inj 50 MG in normal saline 250ml IV soln 245 ML IV SCH (05:50)
--- NOTE | 2020-09-24 06:20 | NUR ---
Patient in room CICU 2013. I have received report from Beatriz and had the opportunity to ask questions and assume patient care.
--- NOTE | 2020-09-24 06:20 | NUR ---
Patient in room CICU 2013. I have received report from MARCO Henderson and had the opportunity to ask questions and assume patient care.
--- NOTE | 2020-09-24 06:25 | NUR ---
Problems reprioritized. Patient report given, questions answered & plan of care reviewed with MARCO French.
[2020-09-24] MEDS: budesonide 0.5mg/2ml UD nebule IH SCH ×2 (07:19→19:17)
[2020-09-24] MEDS: FERROUS SULFATE 142 MG TABLET.ER (45mg elemental) PO SCH (08:00)
[2020-09-24] MEDS: K, MAG and/or Phos replacement - Verify level? MC SCH (08:00)
[2020-09-24] MEDS: cefepime 1GM/NS ADD-VANTAGE 100 ML IV SCH ×2 (08:47→21:06)
[2020-09-24] MEDS: vancomycin/NS 1 GM ADD-VANTAGE 250 ML IV SCH (08:47)
[2020-09-24] MEDS: pantoprazole 40 MG vial IV SCH ×2 (08:48→21:08)
[2020-09-24] MEDS: folic acid/vitamin B complex w/vitamin C 0.8mg tablet OGT SCH (08:48)
[2020-09-24] MEDS: lactobacillus rhamnosus 10,000 MMU CELLS/CAPSULE OGT SCH ×2 (08:49→21:08)
[2020-09-24] MEDS: ascorbic acid 500mg tablet OGT SCH ×2 (08:49→21:08)
[2020-09-24] MEDS: loratadine 10mg tablet OGT SCH (08:49)
[2020-09-24] MEDS ORDERED: ferrous sulfate 300mg/5ml UD oral liquid PO SCH ×2 (11:30→12:11)
[2020-09-24] MEDS: sennosides/docusate sodium tablet PO SCH ×2 (12:30→21:08)
[2020-09-24] MEDS: ferrous sulfate 300mg/5ml UD oral liquid NG SCH ×2 (12:31→21:16)
[2020-09-24] MEDS: gabapentin 300mg capsule OGT PRN (14:33)
--- NOTE | 2020-09-24 17:22 | NUR ---
0800 opens eyes when spoke to. not following commands 1000- critical care rounds, no patricia use levo, check ammonia level. 1100- squeezing hands and nodding appropriately to commands 1500- Dr Corona huang, patients daughter here. Patient remains febrile at 38.4, tylenol ordered for mild pain, patient has cirrhosis, refrain from using tylenol as much as possible. 1700- remains febrile, trying passive cooling, cool rags, fan and removed scd's.
[2020-09-24] MEDS: atorvastatin 20mg tablet OGT SCH (21:16)
[2020-09-24] MEDS: polyethylene glycol 3350 17gm powd pack PO SCH (21:18)
[2020-09-25] VITALS (24 sets, daily range): BP systolic 99–131; BP diastolic 48–62
[2020-09-25] MEDS: mineral oil/petrolatum ophthal oint EACHEYE SCH ×4 (02:11→20:55)
[2020-09-25] MEDS: insulin regular, human U-100 3ml vial - multi-dose SQ SCH ×4 (02:14→21:38)
[2020-09-25] MEDS: dexmedetomidine inj. 400 MCG in normal saline 100ml IV soln 96 ML IV SCH ×3 (02:31→21:39)
[2020-09-25] MEDS: gabapentin 300mg capsule OGT PRN (02:32)
[2020-09-25] MEDS: diltiazem-NS 100mg/100ml 100 ML IV SCH ×4 (02:32→21:51)
[2020-09-25] MEDS: ipratropium/albuterol 3ml nebule NEB SCH ×6 (02:40→23:24)
[2020-09-25 03:12] LABS: BASOPHILS % (AUTO) 0.2 % (0-1); EOSINOPHILS % (AUTO) 0.1 % (0-6); HEMATOCRIT 24.2 % (35.0-45.0); LYMPHOCYTES # (AUTO) 0.7 X10'3 (1.1-4.8); LYMPHOCYTES % (AUTO) 5.3 % (21-51); MEAN CORPUSCULAR HEMOGLOBIN 30.9 PG (27.0-31.0); MEAN CORPUSCULAR HGB CONC 33.2 g/dL (33.0-36.5); MEAN CORPUSCULAR VOLUME 92.8 FL (78-98); MEAN PLATELET VOLUME 6.7 FL (7.4-10.4); MONOCYTES # (AUTO) 1.3 X10'3 (0-0.9); MONOCYTES % (AUTO) 9.7 % (2-12); NEUTROPHILS # (AUTO) 11.4 X10'3 (1.8-7.7); NEUTROPHILS % (AUTO) 84.7 % (42-75); PLATELET COUNT 161 X10'3 (140-440); RED BLOOD COUNT 2.61 X10'6 (4.20-5.60); RED CELL DISTRIBUTION WIDTH 16.4 % (11.5-14.5); WHITE BLOOD COUNT 13.4 X10'3 (4.5-11.0)
[2020-09-25 03:14] LABS: PARTIAL THROMBOPLASTIN TIME 27 SECONDS (22-32)
[2020-09-25 03:22] LABS: ALANINE AMINOTRANSFERASE 114 U/L (12-78); ALBUMIN 1.8 G/DL (3.4-5.0); ALBUMIN/GLOBULIN RATIO 0.5 (1.1-1.5); ALKALINE PHOSPHATASE 74 IU/L (46-116); ANION GAP 11 (8-16); ASPARTATE AMINO TRANSFERASE 161 U/L (10-37); BILIRUBIN,TOTAL 0.7 MG/DL (0.1-1.0); BLOOD UREA NITROGEN 21 MG/DL (7-18); BUN/CREATININE RATIO 21.4 (6.6-38.0); CALCIUM 7.2 MG/DL (8.5-10.1); CHLORIDE 112 MMOL/L (99-107); CREATININE 0.98 MG/DL (0.40-0.90); GLUCOSE 209 MG/DL (70-104); MAGNESIUM 1.9 MG/DL (1.5-2.4); POTASSIUM 3.3 MMOL/L (3.5-5.1); SODIUM 142 MMOL/L (135-145); TOTAL CARBON DIOXIDE 19.4 MMOL/L (24-32); TOTAL PROTEIN 5.1 G/DL (6.4-8.2); eGFR 56 ML/MIN
[2020-09-25 03:56] LABS: ABG BASE EXCESS -5.7 mmol/L (-2.0-2.0); ABG HCO3 17.2 mmol/L (22.0-26.0); ABG OXYGEN SATURATION 94.5 % (94-97); ABG PCO2 (T) 26.3 mmHg (32.0-45.0); ABG PO2 (T) 75.2 mmHg (75.0-100.0); ALLEN'S TEST Modified; FCOHb 0.3 % (0.0-3.9); FMetHb 0.4 % (0.0-1.5); FO2Hb 93.8 % (94-97); PATIENT TEMPERATURE 37.9; PEEP 5 cm H2O; RESPIRATORY RATE 18 b/min; TIDAL VOLUME 350 mL; TOTAL HEMOGLOBIN 9.2 G/dl (12.0-16.0)
[2020-09-25] MEDS: amiodarone/D5 360MG/200ML BAG 200 ML IV SCH ×2 (05:49→09:32)
--- NOTE | 2020-09-25 06:30 | NUR ---
Patient in room CICU 2012. I have received report from the morning nurse and had the opportunity to ask questions and assume patient care.
--- NOTE | 2020-09-25 06:34 | NUR ---
Problems reprioritized. Patient report given, questions answered & plan of care reviewed with MARCO Otero and MARCO Abdalla.
[2020-09-25] MEDS ORDERED: VANCOMYCIN LEVEL IV ONE (07:30)
[2020-09-25] MEDS: budesonide 0.5mg/2ml UD nebule IH SCH ×2 (07:43→23:23)
[2020-09-25] MEDS ORDERED: spironolactone 25 MG tablet PO SCH (08:10)
[2020-09-25] MEDS: ferrous sulfate 300mg/5ml UD oral liquid NG SCH ×2 (08:19→21:00)
[2020-09-25] MEDS: ascorbic acid 500mg tablet OGT SCH ×2 (08:19→20:55)
[2020-09-25] MEDS: sennosides/docusate sodium tablet PO SCH ×2 (08:19→20:55)
[2020-09-25] MEDS: folic acid/vitamin B complex w/vitamin C 0.8mg tablet OGT SCH (08:20)
[2020-09-25] MEDS: furosemide 40mg/4ml inj IV SCH ×2 (08:20→20:55)
[2020-09-25] MEDS: pantoprazole 40 MG vial IV SCH ×2 (08:20→20:55)
[2020-09-25] MEDS: Neutra Phos packet PO PRN ×4 (08:20→17:31)
[2020-09-25] MEDS: potassium Cl 20 mEq SR tablet PO PRN ×2 (08:20→14:02)
[2020-09-25] MEDS: lactobacillus rhamnosus 10,000 MMU CELLS/CAPSULE OGT SCH ×2 (08:20→20:55)
[2020-09-25] MEDS: loratadine 10mg tablet OGT SCH (08:20)
[2020-09-25] MEDS: cefepime 1GM/NS ADD-VANTAGE 100 ML IV SCH ×2 (08:21→20:54)
[2020-09-25] MEDS: K, MAG and/or Phos replacement - Verify level? MC SCH (08:22)
[2020-09-25] MEDS: vancomycin/NS 1 GM ADD-VANTAGE 250 ML IV SCH (09:34)
--- NOTE | 2020-09-25 10:30 | NUR ---
1030- Rounds Tien LOWRY order hold on Statin due to liver function, Paracentesis due to ascites and distended abd. Start lantus per hyper/hypoglycemia protocol.
[2020-09-25] MEDS: amiodarone 200mg tablet PO SCH ×2 (11:57→20:55)
[2020-09-25] MEDS: enoxaparin 40mg/0.4ml syringe SQ SCH (11:58)
[2020-09-25 12:38] LABS: ISTAT GLUCOSE 188 mg/dL (70-105); ISTAT Hct < 15 %PCV (35-48)
[2020-09-25] MEDS: acetaminophen 325mg/10.15ml oral unit dose solution OGT PRN (14:03)
--- NOTE | 2020-09-25 15:40 | NUR ---
Tylenol 650mg dose given for temperature 38.1 post 80 minutes temperature 38.4 passive cooling initiated fan on, cool compress to forehead placed. Will continue to monitor.
--- NOTE | 2020-09-25 16:17 | NUR ---
MD ortiz notified of pt's temperature unresolved with fan and tylenol prn. telephone orders given for UA, sputuim culture, and blood cultures x2.
[2020-09-25 17:24] LABS: CLARITY,URINE CLOUDY (Clear); COLOR,URINE YELLOW (Yellow); GLUCOSE, URINE NEGATIVE (Neg); KETONES,URINE NEGATIVE (Neg); LEUKOCYTE ESTERASE ,URINE NEGATIVE (Neg); NITRITES, URINE NEGATIVE (Neg); OCCULT BLOOD,URINE TRACE-INTACT (Neg); PH,URINE 5.5 (4.8-8.0); PROTEIN,URINE 30 mg/dl (Neg); UA COLLECTION TYPE FOLEY CATH
[2020-09-25 17:45] LABS: BACTERIA,URINE 1+ /HPF (Neg); MUCUS STRANDS FEW /LPF (Neg); RBC,URINE 0-2 /HPF (0-2); SQUAMOUS EPITHELIAL CELL,UR FEW /LPF (FEW); WBC,URINE 0-4 /HPF (0-4)
[2020-09-25 17:46] LABS: COARSE GRANULAR CAST 0-3 /LPF (NEGATIVE); HYALINE CASTS 0-3 /LPF (NEGATIVE)
--- NOTE | 2020-09-25 18:15 | NUR ---
Patient in room CICU 2013. I have received report from Rm LARA and had the opportunity to ask questions and assume patient care.
--- NOTE | 2020-09-25 18:31 | NUR ---
Problems reprioritized. Patient report given, questions answered & plan of care reviewed with Mayte Stanley.
--- NOTE | 2020-09-25 20:18 | NUR ---
Patient's bllod sugar 61 and 69, 1/2 amp of D5 given, RN at bedside
[2020-09-25] MEDS: polyethylene glycol 3350 17gm powd pack PO SCH (20:56)
[2020-09-25] MEDS: spironolactone 25 MG tablet OGT SCH (20:56)
--- NOTE | 2020-09-25 23:00 | NUR ---
Received phone call from daughter Lily requesting update on patient's condition.
[2020-09-26] VITALS (24 sets, daily range): BP systolic 88–121; BP diastolic 44–60
[2020-09-26] MEDS: VANCOmycin 1250MG/NS 250ml Bag 250 ML IV SCH (01:27)
[2020-09-26] MEDS: mineral oil/petrolatum ophthal oint EACHEYE SCH ×4 (01:27→20:00)
[2020-09-26] MEDS: dexmedetomidine inj. 400 MCG in normal saline 100ml IV soln 96 ML IV SCH ×3 (02:20→22:44)
[2020-09-26] MEDS: ipratropium/albuterol 3ml nebule NEB SCH ×6 (03:06→23:24)
[2020-09-26 03:17] LABS: BASOPHILS % (AUTO) 0.2 % (0-1); EOSINOPHILS # (AUTO) 0.1 X10'3 (0-0.9); EOSINOPHILS % (AUTO) 0.5 % (0-6); HEMATOCRIT 23.7 % (35.0-45.0); HEMOGLOBIN 7.7 g/dl (12.0-16.0); LYMPHOCYTES # (AUTO) 0.6 X10'3 (1.1-4.8); LYMPHOCYTES % (AUTO) 4.7 % (21-51); MEAN CORPUSCULAR HEMOGLOBIN 30.4 PG (27.0-31.0); MEAN CORPUSCULAR HGB CONC 32.6 g/dL (33.0-36.5); MEAN CORPUSCULAR VOLUME 93.3 FL (78-98); MEAN PLATELET VOLUME 7.3 FL (7.4-10.4); MONOCYTES # (AUTO) 1.1 X10'3 (0-0.9); MONOCYTES % (AUTO) 8.3 % (2-12); NEUTROPHILS # (AUTO) 11.6 X10'3 (1.8-7.7); NEUTROPHILS % (AUTO) 86.3 % (42-75); PLATELET COUNT 145 X10'3 (140-440); RED BLOOD COUNT 2.54 X10'6 (4.20-5.60); RED CELL DISTRIBUTION WIDTH 16.6 % (11.5-14.5); WHITE BLOOD COUNT 13.4 X10'3 (4.5-11.0)
[2020-09-26 03:33] LABS: PARTIAL THROMBOPLASTIN TIME 23 SECONDS (22-32)
[2020-09-26 03:39] LABS: ALANINE AMINOTRANSFERASE 339 U/L (12-78); ALBUMIN 1.7 G/DL (3.4-5.0); ALBUMIN/GLOBULIN RATIO 0.5 (1.1-1.5); ALKALINE PHOSPHATASE 105 IU/L (46-116); ANION GAP 14 (8-16); ASPARTATE AMINO TRANSFERASE 491 U/L (10-37); BLOOD UREA NITROGEN 21 MG/DL (7-18); BUN/CREATININE RATIO 21.4 (6.6-38.0); CALCIUM 7.4 MG/DL (8.5-10.1); CHLORIDE 110 MMOL/L (99-107); CREATININE 0.98 MG/DL (0.40-0.90); GLUCOSE 113 MG/DL (70-104); MAGNESIUM 1.5 MG/DL (1.5-2.4); PHOSPHORUS 2.9 MG/DL (2.3-4.5); POTASSIUM 3.8 MMOL/L (3.5-5.1); PREALBUMIN 9.9 MG/DL (19-36); SODIUM 142 MMOL/L (135-145); TOTAL CARBON DIOXIDE 18.3 MMOL/L (24-32); TOTAL PROTEIN 5.3 G/DL (6.4-8.2); eGFR 56 ML/MIN
[2020-09-26 03:40] LABS: ABG BASE EXCESS -5.1 mmol/L (-2.0-2.0); ABG HCO3 18.1 mmol/L (22.0-26.0); ABG OXYGEN SATURATION 87.4 % (94-97); ABG PCO2 (T) 27.5 mmHg (32.0-45.0); ABG PO2 (T) 52.5 mmHg (75.0-100.0); ALLEN'S TEST POSITIVE; FCOHb 0.1 % (0.0-3.9); FMetHb 0.2 % (0.0-1.5); FO2Hb 87.1 % (94-97); PATIENT TEMPERATURE 37.5; PEEP 5 cm H2O; RESPIRATORY RATE 18 b/min; TIDAL VOLUME 350 mL; TOTAL HEMOGLOBIN 8.7 G/dl (12.0-16.0)
[2020-09-26] MEDS: insulin regular, human U-100 3ml vial - multi-dose SQ SCH ×4 (03:44→21:07)
[2020-09-26] MEDS: diltiazem-NS 100mg/100ml 100 ML IV SCH ×4 (03:49→20:27)
[2020-09-26] MEDS: phenylephrine inj 50 MG in normal saline 250ml IV soln 245 ML IV SCH (04:23)
--- NOTE | 2020-09-26 04:48 | NUR ---
Received phone call from daughter Lily requesting update on patient condition.
--- NOTE | 2020-09-26 06:20 | NUR ---
Problems reprioritized. Patient report given, questions answered & plan of care reviewed with Bubba LARA and Rm.
--- NOTE | 2020-09-26 06:49 | NUR ---
Patient in room CICU 2013. I have received report from Mayte Stanley and had the opportunity to ask questions and assume patient care.
[2020-09-26] MEDS: budesonide 0.5mg/2ml UD nebule IH SCH ×2 (07:18→18:50)
[2020-09-26] MEDS: folic acid/vitamin B complex w/vitamin C 0.8mg tablet OGT SCH (07:49)
[2020-09-26] MEDS: sennosides/docusate sodium tablet PO SCH ×2 (07:49→20:31)
[2020-09-26] MEDS: loratadine 10mg tablet OGT SCH (07:49)
[2020-09-26] MEDS: amiodarone 200mg tablet PO SCH ×2 (07:49→20:32)
[2020-09-26] MEDS: lactobacillus rhamnosus 10,000 MMU CELLS/CAPSULE OGT SCH ×2 (07:49→20:31)
[2020-09-26] MEDS: spironolactone 25 MG tablet OGT SCH ×2 (07:49→20:32)
[2020-09-26] MEDS: ascorbic acid 500mg tablet OGT SCH ×2 (07:49→20:32)
[2020-09-26] MEDS: ferrous sulfate 300mg/5ml UD oral liquid NG SCH (07:50)
[2020-09-26] MEDS: furosemide 40mg/4ml inj IV SCH ×3 (07:50→20:31)
[2020-09-26] MEDS: pantoprazole 40 MG vial IV SCH ×2 (07:50→20:31)
[2020-09-26] MEDS: cefepime 1GM/NS ADD-VANTAGE 100 ML IV SCH ×2 (07:50→20:31)
[2020-09-26] MEDS: K, MAG and/or Phos replacement - Verify level? MC SCH (07:51)
[2020-09-26] MEDS: NORepinephrine 8mg/ 250ml NS 250 ML IV SCH (09:20)
--- NOTE | 2020-09-26 09:45 | NUR ---
IR team arrived at bedside. Valentin phoned daughter Lily Parks at [phone] and obtained consent for paracentesis. Patient was scanned by Valentin, not enough fluid to safely drain. Primary RN aware.
[2020-09-26] MEDS: enoxaparin 40mg/0.4ml syringe SQ SCH (10:02)
[2020-09-26] MEDS: gabapentin 300mg capsule OGT PRN ×2 (10:07→22:32)
--- NOTE | 2020-09-26 11:30 | NUR ---
Pt's daughter called and this typewriter tester updated related to pt's paracentesis not being performed.
[2020-09-26 12:40] LABS: % IRON SATURATION 11 % (11-46); IRON 16 UG/DL (49-151)
[2020-09-26 12:42] LABS: TOTAL IRON BINDING CAPACITY 152 UG/DL (259-388)
[2020-09-26 12:52] LABS: FERRITIN 528 NG/ML (8-252)
--- NOTE | 2020-09-26 13:33 | NUR ---
Called MD Chauhan to report Lab values Iron 16, TIBC 152, Saturation 11% Ferritin 528. Orders given over the Phone Stop Ferrous sulfate oral, start Venofer 200mg IV piggyback daily x 5 days.
[2020-09-26] MEDS ORDERED: iron sucrose complex injection 200 MG in normal saline 100ml IV soln 100 ML IV ONE (14:00)
--- NOTE | 2020-09-26 18:16 | NUR ---
Problems reprioritized. Patient report given, questions answered & plan of care reviewed with Dipika Stanley.
--- NOTE | 2020-09-26 18:34 | NUR ---
[facility] I have received report from Rm LARA and had the opportunity to ask questions and assume patient care. Patient awake and alert, nods head appropriately to questions. Patient's daughter at bedside. Addendum: 09/26/20 at 1836 by Dipika Burrell RN Amended: Links added.
[2020-09-26] MEDS: polyethylene glycol 3350 17gm powd pack PO SCH (20:32)
[2020-09-27] VITALS (24 sets, daily range): BP systolic 100–123; BP diastolic 43–75
[2020-09-27] MEDS: diltiazem-NS 100mg/100ml 100 ML IV SCH ×5 (01:27→22:50)
[2020-09-27] MEDS: mineral oil/petrolatum ophthal oint EACHEYE SCH ×2 (01:42→07:14)
[2020-09-27] MEDS: furosemide 40mg/4ml inj IV SCH ×2 (01:48→07:13)
[2020-09-27] MEDS: VANCOmycin 1250MG/NS 250ml Bag 250 ML IV SCH (01:49)
[2020-09-27] MEDS: insulin regular, human U-100 3ml vial - multi-dose SQ SCH ×2 (02:14→08:23)
--- NOTE | 2020-09-27 02:26 | NUR ---
Patient appears to be resting comfortably. Tolerating SPONT setting on the ventilator. Sats maintained at 98% on 45% FiO2.
[2020-09-27] MEDS: ipratropium/albuterol 3ml nebule NEB SCH ×2 (02:52→06:57)
[2020-09-27 03:10] LABS: BASOPHILS % (AUTO) 0.2 % (0-1); EOSINOPHILS # (AUTO) 0.1 X10'3 (0-0.9); EOSINOPHILS % (AUTO) 0.8 % (0-6); HEMOGLOBIN 7.5 g/dl (12.0-16.0); LYMPHOCYTES # (AUTO) 0.8 X10'3 (1.1-4.8); LYMPHOCYTES % (AUTO) 6.3 % (21-51); MEAN CORPUSCULAR HEMOGLOBIN 30.1 PG (27.0-31.0); MEAN CORPUSCULAR HGB CONC 32.6 g/dL (33.0-36.5); MEAN CORPUSCULAR VOLUME 92.1 FL (78-98); MEAN PLATELET VOLUME 7.4 FL (7.4-10.4); MONOCYTES % (AUTO) 7.6 % (2-12); NEUTROPHILS # (AUTO) 10.7 X10'3 (1.8-7.7); NEUTROPHILS % (AUTO) 85.1 % (42-75); PLATELET COUNT 179 X10'3 (140-440); RED CELL DISTRIBUTION WIDTH 16.6 % (11.5-14.5); WHITE BLOOD COUNT 12.6 X10'3 (4.5-11.0)
[2020-09-27 03:13] LABS: ABG BASE EXCESS -3.8 mmol/L (-2.0-2.0); ABG HCO3 19.4 mmol/L (22.0-26.0); ABG OXYGEN SATURATION 94.8 % (94-97); ABG PCO2 (T) 29.3 mmHg (32.0-45.0); ABG PO2 (T) 75.1 mmHg (75.0-100.0); ALLEN'S TEST POSITIVE; FCOHb 0.3 % (0.0-3.9); FMetHb 0.4 % (0.0-1.5); FO2Hb 94.1 % (94-97); PATIENT TEMPERATURE 37.7; PEEP 5 cm H2O; TOTAL HEMOGLOBIN 8.9 G/dl (12.0-16.0)
[2020-09-27 03:22] LABS: PARTIAL THROMBOPLASTIN TIME 31 SECONDS (22-32)
[2020-09-27 03:28] LABS: ALANINE AMINOTRANSFERASE 285 U/L (12-78); ALBUMIN 1.7 G/DL (3.4-5.0); ALBUMIN/GLOBULIN RATIO 0.5 (1.1-1.5); ALKALINE PHOSPHATASE 193 IU/L (46-116); ANION GAP 15 (8-16); ASPARTATE AMINO TRANSFERASE 268 U/L (10-37); BILIRUBIN,TOTAL 0.8 MG/DL (0.1-1.0); BLOOD UREA NITROGEN 25 MG/DL (7-18); CALCIUM 7.6 MG/DL (8.5-10.1); CHLORIDE 107 MMOL/L (99-107); CREATININE 0.96 MG/DL (0.40-0.90); GLUCOSE 114 MG/DL (70-104); MAGNESIUM 1.2 MG/DL (1.5-2.4); PHOSPHORUS 2.8 MG/DL (2.3-4.5); POTASSIUM 3.4 MMOL/L (3.5-5.1); SODIUM 142 MMOL/L (135-145); TOTAL CARBON DIOXIDE 20.2 MMOL/L (24-32); TOTAL PROTEIN 5.4 G/DL (6.4-8.2); eGFR 58 ML/MIN
[2020-09-27] MEDS: NORepinephrine 8mg/ 250ml NS 250 ML IV SCH (04:53)
[2020-09-27] MEDS ORDERED: magnesium 2GM in 50ml NS 50 ML IV PRN (05:20)
[2020-09-27] MEDS ORDERED: magnesium 4gm in 100ml NS 100 ML IV PRN (05:20)
--- NOTE | 2020-09-27 06:08 | NUR ---
Problems reprioritized. Patient report given, questions answered & plan of care reviewed with Zain LARA.
[2020-09-27] MEDS: budesonide 0.5mg/2ml UD nebule IH SCH ×2 (06:57→20:53)
[2020-09-27] MEDS: spironolactone 25 MG tablet OGT SCH ×2 (07:12→20:14)
[2020-09-27] MEDS: ascorbic acid 500mg tablet OGT SCH ×2 (07:13→20:00)
[2020-09-27] MEDS: lactobacillus rhamnosus 10,000 MMU CELLS/CAPSULE OGT SCH ×2 (07:13→20:00)
[2020-09-27] MEDS: amiodarone 200mg tablet PO SCH ×2 (07:13→20:13)
[2020-09-27] MEDS: pantoprazole 40 MG vial IV SCH ×2 (07:14→19:54)
[2020-09-27] MEDS: gabapentin 300mg capsule OGT PRN (07:14)
[2020-09-27] MEDS: loratadine 10mg tablet OGT SCH (07:14)
[2020-09-27] MEDS: cefepime 1GM/NS ADD-VANTAGE 100 ML IV SCH (07:15)
[2020-09-27] MEDS: iron sucrose complex injection 200 MG in normal saline 100ml IV soln 100 ML IV SCH (07:15)
[2020-09-27] MEDS: folic acid/vitamin B complex w/vitamin C 0.8mg tablet OGT SCH (08:14)
[2020-09-27] MEDS: enoxaparin 40mg/0.4ml syringe SQ SCH (08:14)
[2020-09-27] MEDS: sennosides/docusate sodium tablet PO SCH ×2 (08:14→20:00)
[2020-09-27] MEDS: K, MAG and/or Phos replacement - Verify level? MC SCH (08:24)
[2020-09-27] MEDS ORDERED: GABAPENTIN 300 MG/6 ML oral SOLUTION cup OGT PRN (09:20)
[2020-09-27] MEDS ORDERED: lactulose 20gm/30ml cup PO PRN (10:40)
[2020-09-27] MEDS ORDERED: bisacodyl 10mg suppository rectal RC PRN (10:45)
[2020-09-27] MEDS: albuterol 2.5 MG/3 ML nebule NEB PRN ×2 (10:52→20:53)
--- NOTE | 2020-09-27 11:50 | NUR ---
Reassessment: Pt extubated this morning, to remain NPO until passes BSS. LBM 09/18 (nine days constipation), d/w MD and multidisciplinary team at critical care rounds. Pt started on routine Senna-S and Miralax 09/24, to begin routine Lactulose with PRN Dulcolax suppository today per MD. PRN MoM also available, not documented to be given. Will continue to follow closely and make recommendations as appropriate. Recommendations: 1) Advance to heart healthy CHO controlled diet as medically indicated pending BSS with ST 2) Monitor need for additional protein/ONS with diet advancement 3) Routine bowel care 4) Weekly scaled weights 5) New A1c given pt with h/o T2DM, most recent A1c in EMR is 5.1% 01/21/19 Addendum: 09/27/20 at [address] Amended: Links added.
[2020-09-27] MEDS: levoFLOXACIN-Levaquin 750MG/D5 150 ML IV SCH (13:10)
[2020-09-27] MEDS: furosemide 20 MG/2 ML vial IV SCH ×2 (15:02→19:54)
[2020-09-27 19:02] LABS: MAGNESIUM 2.6 MG/DL (1.5-2.4); POTASSIUM 3.8 MMOL/L (3.5-5.1)
[2020-09-27] MEDS: polyethylene glycol 3350 17gm powd pack PO SCH (21:00)
[2020-09-28] VITALS (19 sets, daily range): BP systolic 96–143; BP diastolic 45–69
[2020-09-28] MEDS: furosemide 20 MG/2 ML vial IV SCH ×4 (02:07→20:43)
[2020-09-28 03:11] LABS: BASOPHILS % (AUTO) 0.3 % (0-1); EOSINOPHILS % (AUTO) 0.2 % (0-6); HEMATOCRIT 22.8 % (35.0-45.0); HEMOGLOBIN 7.3 g/dl (12.0-16.0); LYMPHOCYTES # (AUTO) 0.7 X10'3 (1.1-4.8); LYMPHOCYTES % (AUTO) 4.7 % (21-51); MEAN CORPUSCULAR HEMOGLOBIN 30.4 PG (27.0-31.0); MEAN CORPUSCULAR HGB CONC 32.1 g/dL (33.0-36.5); MEAN CORPUSCULAR VOLUME 94.8 FL (78-98); MEAN PLATELET VOLUME 7.1 FL (7.4-10.4); MONOCYTES # (AUTO) 1.5 X10'3 (0-0.9); NEUTROPHILS # (AUTO) 12.7 X10'3 (1.8-7.7); NEUTROPHILS % (AUTO) 84.8 % (42-75); PLATELET COUNT 235 X10'3 (140-440); RED CELL DISTRIBUTION WIDTH 16.9 % (11.5-14.5)
[2020-09-28 03:17] LABS: PARTIAL THROMBOPLASTIN TIME 26 SECONDS (22-32)
[2020-09-28 03:27] LABS: ALANINE AMINOTRANSFERASE 203 U/L (12-78); ALBUMIN/GLOBULIN RATIO 0.5 (1.1-1.5); ALKALINE PHOSPHATASE 141 IU/L (46-116); ANION GAP 17 (8-16); ASPARTATE AMINO TRANSFERASE 86 U/L (10-37); BLOOD UREA NITROGEN 24 MG/DL (7-18); BUN/CREATININE RATIO 19.8 (6.6-38.0); CALCIUM 8.5 MG/DL (8.5-10.1); CHLORIDE 105 MMOL/L (99-107); CREATININE 1.21 MG/DL (0.40-0.90); GLUCOSE 105 MG/DL (70-104); MAGNESIUM 2.3 MG/DL (1.5-2.4); PHOSPHORUS 3.2 MG/DL (2.3-4.5); POTASSIUM 3.9 MMOL/L (3.5-5.1); SODIUM 141 MMOL/L (135-145); TOTAL CARBON DIOXIDE 18.7 MMOL/L (24-32); TOTAL PROTEIN 6.1 G/DL (6.4-8.2); eGFR 44 ML/MIN
[2020-09-28] MEDS: diltiazem-NS 100mg/100ml 100 ML IV SCH ×2 (05:56→10:50)
--- NOTE | 2020-09-28 06:04 | NUR ---
Problems reprioritized. Patient report given, questions answered & plan of care reviewed with abel-RN.
[2020-09-28] MEDS: enoxaparin 40mg/0.4ml syringe SQ SCH (07:28)
[2020-09-28] MEDS: ascorbic acid 500mg tablet OGT SCH ×2 (07:29→20:45)
[2020-09-28] MEDS: lactobacillus rhamnosus 10,000 MMU CELLS/CAPSULE OGT SCH ×2 (07:29→20:51)
[2020-09-28] MEDS: folic acid/vitamin B complex w/vitamin C 0.8mg tablet OGT SCH (07:29)
[2020-09-28] MEDS: pantoprazole 40 MG vial IV SCH ×2 (07:29→20:44)
[2020-09-28] MEDS: sennosides/docusate sodium tablet PO SCH ×2 (07:29→20:45)
[2020-09-28] MEDS: amiodarone 200mg tablet PO SCH ×2 (07:29→20:45)
[2020-09-28] MEDS: spironolactone 25 MG tablet OGT SCH ×2 (07:30→20:44)
[2020-09-28] MEDS: levoFLOXACIN-Levaquin 750MG/D5 150 ML IV SCH (07:31)
[2020-09-28] MEDS: loratadine 10mg tablet OGT SCH (07:31)
--- NOTE | 2020-09-28 08:50 | NUR ---
Patient in room CICU 2013. I have received report from MARCO Pittman and had the opportunity to ask questions and assume patient care.
[2020-09-28] MEDS: budesonide 0.5mg/2ml UD nebule IH SCH ×2 (09:34→20:12)
[2020-09-28] MEDS: albuterol 2.5 MG/3 ML nebule NEB PRN ×2 (09:35→20:12)
[2020-09-28] MEDS: K, MAG and/or Phos replacement - Verify level? MC SCH (09:57)
[2020-09-28] MEDS: iron sucrose complex injection 200 MG in normal saline 100ml IV soln 100 ML IV SCH (10:00)
--- NOTE | 2020-09-28 16:09 | NUR ---
Patient in room CICU 2013. I have received report from Florecita LARA and had the opportunity to ask questions and assume patient care.
--- NOTE | 2020-09-28 18:18 | NUR ---
Problems reprioritized. Patient report given, questions answered & plan of care reviewed with Mini RN at bedside.
[2020-09-28] MEDS: polyethylene glycol 3350 17gm powd pack PO SCH (20:43)
[2020-09-29] VITALS (9 sets, daily range): BP systolic 82–145; BP diastolic 40–68
[2020-09-29] MEDS ORDERED: furosemide 40mg/4ml inj IV ONE (00:25)
[2020-09-29] MEDS: furosemide 20 MG/2 ML vial IV SCH ×4 (00:32→19:57)
[2020-09-29] MEDS ORDERED: VANCOMYCIN LEVEL IV ONE (01:30)
[2020-09-29 01:36] LABS: ABG HCO3 18.6 mmol/L (22.0-26.0); ABG OXYGEN SATURATION 95.7 % (94-97); ABG PCO2 (T) 36.9 mmHg (32.0-45.0); ABG PO2 (T) 80.5 mmHg (75.0-100.0); ALLEN'S TEST POSITIVE; FCOHb 0.2 % (0.0-3.9); FMetHb 0.4 % (0.0-1.5); FO2Hb 95.1 % (94-97); PATIENT TEMPERATURE 36.7; TOTAL HEMOGLOBIN 8.1 G/dl (12.0-16.0)
--- NOTE | 2020-09-29 04:04 | NUR ---
O2 Sat spot check was 79% on 5L. Non-rebreather applied and O2 Sat 89%. RT notified and deep suction was requested. Order received from Dr. Herrmann. Deep suction attempted with positive effect. O2Sat still 89-90%. Per respiratory lasixs and Bi-pap were recommended. Dr. Jules notified and orders were received for Bi-pap and one time lasixs 40mg. Scheduled lasixs held. Pt now on Bi-pap 99%. Pt in NAD, will continue to monitor.
--- NOTE | 2020-09-29 06:05 | NUR ---
Patient in room PCU 3013. I have received report from Mini LARA at bedside and had the opportunity to ask questions and assume patient care.
[2020-09-29 06:25] LABS: BASOPHILS % (AUTO) 0 % (0-1); EOSINOPHILS % (AUTO) 0 % (0-6); HEMATOCRIT 23.1 % (35.0-45.0); HEMOGLOBIN 7.4 g/dl (12.0-16.0); LYMPHOCYTES # (AUTO) 0.7 X10'3 (1.1-4.8); LYMPHOCYTES % (AUTO) 3.8 % (21-51); MEAN CORPUSCULAR HEMOGLOBIN 30.1 PG (27.0-31.0); MEAN CORPUSCULAR HGB CONC 32.1 g/dL (33.0-36.5); MEAN CORPUSCULAR VOLUME 93.8 FL (78-98); MEAN PLATELET VOLUME 6.4 FL (7.4-10.4); MONOCYTES # (AUTO) 1.6 X10'3 (0-0.9); MONOCYTES % (AUTO) 8.6 % (2-12); NEUTROPHILS # (AUTO) 16.7 X10'3 (1.8-7.7); NEUTROPHILS % (AUTO) 87.6 % (42-75); PLATELET COUNT 309 X10'3 (140-440); RED BLOOD COUNT 2.46 X10'6 (4.20-5.60); RED CELL DISTRIBUTION WIDTH 16.8 % (11.5-14.5); WHITE BLOOD COUNT 19.1 X10'3 (4.5-11.0)
[2020-09-29 06:34] LABS: ALANINE AMINOTRANSFERASE 142 U/L (12-78); ALBUMIN 2.3 G/DL (3.4-5.0); ALBUMIN/GLOBULIN RATIO 0.5 (1.1-1.5); ALKALINE PHOSPHATASE 149 IU/L (46-116); ANION GAP 12 (8-16); ASPARTATE AMINO TRANSFERASE 37 U/L (10-37); BILIRUBIN,TOTAL 0.8 MG/DL (0.1-1.0); BLOOD UREA NITROGEN 33 MG/DL (7-18); BUN/CREATININE RATIO 19.4 (6.6-38.0); CALCIUM 8.7 MG/DL (8.5-10.1); CHLORIDE 106 MMOL/L (99-107); GLUCOSE 189 MG/DL (70-104); MAGNESIUM 2.1 MG/DL (1.5-2.4); POTASSIUM 4.3 MMOL/L (3.5-5.1); SODIUM 138 MMOL/L (135-145); TOTAL PROTEIN 6.6 G/DL (6.4-8.2); eGFR 30 ML/MIN
[2020-09-29] MEDS: K, MAG and/or Phos replacement - Verify level? MC SCH (06:53)
[2020-09-29 07:10] LABS: ANISOCYTOSIS 1+; PLATELET ESTIMATE NORMAL; POLYCHROMASIA 1+
[2020-09-29] MEDS: albuterol 2.5 MG/3 ML nebule NEB PRN ×3 (07:21→19:24)
[2020-09-29] MEDS: budesonide 0.5mg/2ml UD nebule IH SCH ×2 (07:21→19:24)
[2020-09-29] MEDS: iron sucrose complex injection 200 MG in normal saline 100ml IV soln 100 ML IV SCH (08:03)
[2020-09-29] MEDS: pantoprazole 40 MG vial IV SCH ×2 (08:03→19:57)
[2020-09-29] MEDS: ascorbic acid 500mg tablet OGT SCH ×2 (08:10→19:57)
[2020-09-29] MEDS: folic acid/vitamin B complex w/vitamin C 0.8mg tablet OGT SCH (08:11)
[2020-09-29] MEDS: sennosides/docusate sodium tablet PO SCH ×2 (08:11→19:57)
[2020-09-29] MEDS: spironolactone 25 MG tablet OGT SCH ×2 (08:11→19:57)
[2020-09-29] MEDS: lactobacillus rhamnosus 10,000 MMU CELLS/CAPSULE OGT SCH ×2 (08:11→19:56)
[2020-09-29] MEDS: amiodarone 200mg tablet PO SCH ×2 (08:11→19:57)
[2020-09-29] MEDS: loratadine 10mg tablet OGT SCH (08:11)
[2020-09-29] MEDS: enoxaparin 40mg/0.4ml syringe SQ SCH (08:12)
[2020-09-29] MEDS: insulin Lispro (HumaLOG) vial - multi-dose SQ SCH (13:06)
--- NOTE | 2020-09-29 17:51 | NUR ---
Paged Dr. Palmer regarding High Flow Nasal Canula. PAGER ID: [phone] MESSAGE: PCU rm 13B Svetlana Hickman Needs order for High Flow nasal canula. She is placed on High Flow Nasal Canula when eating and off BIPAP. Thank you, Kimi LARA [phone]
--- NOTE | 2020-09-29 18:00 | NUR ---
Problems reprioritized. Patient report given, questions answered & plan of care reviewed with Mini RN at bedside.
[2020-09-29] MEDS: gabapentin 300mg capsule OGT PRN (19:56)
[2020-09-29] MEDS: polyethylene glycol 3350 17gm powd pack PO SCH (19:57)
[2020-09-29] MEDS ORDERED: epiNEPHrine 5 MG in NS 250ml IV.SOLN IV SCH (20:40)
[2020-09-29 20:58] LABS: ABG BASE EXCESS -16.3 mmol/L (-2.0-2.0); ABG HCO3 15.1 mmol/L (22.0-26.0); ABG OXYGEN SATURATION 92.3 % (94-97); ABG PCO2 (T) 69.5 mmHg (32.0-45.0); ABG PO2 (T) 95.4 mmHg (75.0-100.0); ALLEN'S TEST POSITIVE; FCOHb 0.3 % (0.0-3.9); FMetHb 0.5 % (0.0-1.5); FO2Hb 91.6 % (94-97); PEEP 5 cm H2O; RESPIRATORY RATE 20 b/min; TIDAL VOLUME 400 mL; TOTAL HEMOGLOBIN 8.5 G/dl (12.0-16.0)
--- NOTE | 2020-09-29 21:19 | NUR ---
After medication administration with applesauce, pt lips became blue, pt non-responsive, and pulseless. Code blue called and CPR began at 2013. ACLS utilized. Pt intubated and ROSC achieved. Pt transferred to . Handoff given to Litzy Story RN. Lily, daughter notified at 2109.
--- NOTE | 2020-09-29 21:28 | NUR ---
Pt Daughter Lily can be reached at [phone].
[2020-09-29 21:31] LABS: EOSINOPHILS % (AUTO) 0.1 % (0-6); HEMOGLOBIN 7.5 g/dl (12.0-16.0); LYMPHOCYTES # (AUTO) 1.9 X10'3 (1.1-4.8)
[2020-09-29 21:33] LABS: BASOPHILS % (AUTO) 0.2 % (0-1); MEAN CORPUSCULAR HEMOGLOBIN 30.3 PG (27.0-31.0); MEAN CORPUSCULAR HGB CONC 29.8 g/dL (33.0-36.5); MEAN CORPUSCULAR VOLUME 101.6 FL (78-98); MEAN PLATELET VOLUME 6.5 FL (7.4-10.4); MONOCYTES # (AUTO) 1.1 X10'3 (0-0.9); MONOCYTES % (AUTO) 6.4 % (2-12); NEUTROPHILS % (AUTO) 82.3 % (42-75); PLATELET COUNT 286 X10'3 (140-440); RED BLOOD COUNT 2.46 X10'6 (4.20-5.60); RED CELL DISTRIBUTION WIDTH 17.8 % (11.5-14.5)
[2020-09-29 21:38] LABS: PARTIAL THROMBOPLASTIN TIME 44 SECONDS (22-32)
[2020-09-29 21:40] LABS: ALBUMIN/GLOBULIN RATIO 0.5 (1.1-1.5); ANION GAP 15 (8-16); ASPARTATE AMINO TRANSFERASE 39 U/L (10-37); BILIRUBIN,TOTAL 0.5 MG/DL (0.1-1.0); BLOOD UREA NITROGEN 37 MG/DL (7-18); BUN/CREATININE RATIO 17.7 (6.6-38.0); CALCIUM 10.4 MG/DL (8.5-10.1); CHLORIDE 110 MMOL/L (99-107); CREATININE 2.09 MG/DL (0.40-0.90); GLUCOSE 225 MG/DL (70-104); POTASSIUM 5.4 MMOL/L (3.5-5.1); SODIUM 145 MMOL/L (135-145); TOTAL CARBON DIOXIDE 20.3 MMOL/L (24-32); TOTAL PROTEIN 5.9 G/DL (6.4-8.2); eGFR 23 ML/MIN
[2020-09-29 21:41] LABS: ALANINE AMINOTRANSFERASE 108 U/L (12-78); ALKALINE PHOSPHATASE 135 IU/L (46-116)
[2020-09-29 21:43] LABS: MAGNESIUM 2.4 MG/DL (1.5-2.4); PHOSPHORUS 7.4 MG/DL (2.3-4.5); TROPONIN I 0.09 NG/ML (0.0-0.05)
[2020-09-29] MEDS ORDERED: dexmedetomidin/NS 400mcg/100ml 100 ML IV PRN (21:45)
[2020-09-29] MEDS ORDERED: FENTANYL-0.9 % NACL/PF 100 ML IV PRN (21:45)
[2020-09-29] MEDS ORDERED: phenylephrine inj 50 MG in normal saline 250ml IV soln 245 ML IV PRN (21:45)
[2020-09-29 21:56] LABS: ANISOCYTOSIS 1+; NUCLEATED RED BLOOD CELLS 7 /100WBC (0-0); PLATELET ESTIMATE NORMAL; TOTAL CELLS COUNTED 100
[2020-09-29 21:57] LABS: BURR CELLS FEW; ELLIPTOCYTES FEW; POLYCHROMASIA FEW
[2020-09-29 22:01] LABS: ABG BASE EXCESS -10.8 mmol/L (-2.0-2.0); ABG HCO3 15.2 mmol/L (22.0-26.0); ABG PCO2 (T) 34.1 mmHg (32.0-45.0); ABG PO2 (T) 81.1 mmHg (75.0-100.0); ALLEN'S TEST POSITIVE; FCOHb 0.3 % (0.0-3.9); FMetHb 0.4 % (0.0-1.5); FO2Hb 94.3 % (94-97); PEEP 5 cm H2O; RESPIRATORY RATE 20 b/min; TIDAL VOLUME 400 mL; TOTAL HEMOGLOBIN 7.9 G/dl (12.0-16.0)
[2020-09-29] MEDS ORDERED: vancomycin/NS 1 GM ADD-VANTAGE 250 ML IV ONE (22:15)
--- NOTE | 2020-09-29 22:23 | NUR ---
[id number] Received pt from PCU, CN, Respitory, and primary RN at bedside pt placed on monitor and ventilator. Pt does not respond to verbal or tactial stimuli, pt is in a rapid afib rate 150-180's epi drip in place and turned off, blood work sent to lab, Dr. Morrison called updated on pts condition new orders received to start vasopressin to keep MAP greater then 60, if vasopressin unaffected start phenylephrine. Amiodarone started per md orders for rapid afib. Pt's daughter and grandson in to see pt.
[2020-09-29] MEDS: vasopressin inj. 40 UNIT in normal saline 50ml IV soln 38 ML IV SCH (22:45)
[2020-09-29] MEDS: FENTANYL-0.9 % NACL/PF 100 ML IV PRN (22:46)
[2020-09-29] MEDS: dexmedetomidin/NS 400mcg/100ml 100 ML IV PRN (22:50)
[2020-09-29] MEDS: amiodarone/D5 360MG/200ML BAG 200 ML IV SCH (23:10)
[2020-09-29] MEDS: meropenem inj 500 MG in normal saline 100ml IV soln 100 ML IV SCH (23:30)
--- NOTE | 2020-09-29 23:41 | NUR ---
late entry per Dr. Morrison ok to use CVL, it is out about 3 inches but still in ok place to use
[2020-09-30] VITALS (24 sets, daily range): BP systolic 75–159; BP diastolic 45–81
--- NOTE | 2020-09-30 00:05 | NUR ---
Dr. Morrison called again updated on pts condition and low to no urine output , no new orders at this time
[2020-09-30 02:55] LABS: EOSINOPHILS % (AUTO) 0 % (0-6)
[2020-09-30 02:57] LABS: BASOPHILS % (AUTO) 0.1 % (0-1); LYMPHOCYTES # (AUTO) 0.8 X10'3 (1.1-4.8); LYMPHOCYTES % (AUTO) 4.2 % (21-51); MEAN CORPUSCULAR HEMOGLOBIN 30.8 PG (27.0-31.0); MEAN CORPUSCULAR HGB CONC 31.8 g/dL (33.0-36.5); MEAN CORPUSCULAR VOLUME 97.1 FL (78-98); MEAN PLATELET VOLUME 6.7 FL (7.4-10.4); MONOCYTES # (AUTO) 1.6 X10'3 (0-0.9); MONOCYTES % (AUTO) 8.3 % (2-12); NEUTROPHILS # (AUTO) 17.1 X10'3 (1.8-7.7); NEUTROPHILS % (AUTO) 87.4 % (42-75); PLATELET COUNT 291 X10'3 (140-440); RED BLOOD COUNT 2.25 X10'6 (4.20-5.60); RED CELL DISTRIBUTION WIDTH 17.7 % (11.5-14.5); WHITE BLOOD COUNT 19.6 X10'3 (4.5-11.0)
[2020-09-30 03:10] LABS: ALANINE AMINOTRANSFERASE 121 U/L (12-78); ALBUMIN 1.9 G/DL (3.4-5.0); ALBUMIN/GLOBULIN RATIO 0.5 (1.1-1.5); ALKALINE PHOSPHATASE 123 IU/L (46-116); ANION GAP 17 (8-16); ASPARTATE AMINO TRANSFERASE 78 U/L (10-37); BILIRUBIN,TOTAL 1.1 MG/DL (0.1-1.0); BLOOD UREA NITROGEN 41 MG/DL (7-18); BUN/CREATININE RATIO 19.7 (6.6-38.0); CALCIUM 8.7 MG/DL (8.5-10.1); CHLORIDE 109 MMOL/L (99-107); CREATININE 2.08 MG/DL (0.40-0.90); GLUCOSE 183 MG/DL (70-104); MAGNESIUM 2.1 MG/DL (1.5-2.4); PHOSPHORUS 5.4 MG/DL (2.3-4.5); POTASSIUM 4.8 MMOL/L (3.5-5.1); PREALBUMIN 8.6 MG/DL (19-36); SODIUM 142 MMOL/L (135-145); TOTAL CARBON DIOXIDE 16.4 MMOL/L (24-32); TOTAL PROTEIN 5.6 G/DL (6.4-8.2); eGFR 24 ML/MIN
[2020-09-30 03:17] LABS: HEMATOCRIT 21.8 % (35.0-45.0); HEMOGLOBIN 6.9 g/dl (12.0-16.0)
[2020-09-30] MEDS: albuterol 2.5 MG/3 ML nebule NEB PRN ×2 (03:31→20:27)
[2020-09-30 03:41] LABS: ABG BASE EXCESS -9.1 mmol/L (-2.0-2.0); ABG HCO3 15.1 mmol/L (22.0-26.0); ABG OXYGEN SATURATION 98.4 % (94-97); ABG PCO2 (T) 26.4 mmHg (32.0-45.0); ALLEN'S TEST POSITIVE; FCOHb 0.3 % (0.0-3.9); FMetHb 0.3 % (0.0-1.5); FO2Hb 97.8 % (94-97); PATIENT TEMPERATURE 37.1; PEEP 6 cm H2O; RESPIRATORY RATE 20 b/min; TIDAL VOLUME 400 mL; TOTAL HEMOGLOBIN 7.8 G/dl (12.0-16.0)
[2020-09-30] MEDS: vasopressin inj. 40 UNIT in normal saline 50ml IV soln 38 ML IV SCH (05:17)
[2020-09-30] MEDS: amiodarone/D5 360MG/200ML BAG 200 ML IV SCH ×4 (05:18→21:24)
[2020-09-30 06:10] LABS: EOSINOPHILS % (AUTO) 0 % (0-6); MEAN PLATELET VOLUME 6.8 FL (7.4-10.4); NEUTROPHILS # (AUTO) 17.7 X10'3 (1.8-7.7); RED BLOOD COUNT 2.67 X10'6 (4.20-5.60); WHITE BLOOD COUNT 20.1 X10'3 (4.5-11.0)
--- NOTE | 2020-09-30 06:11 | NUR ---
report given to rec rn plan of care reviewed
[2020-09-30 06:12] LABS: BASOPHILS % (AUTO) 0.1 % (0-1); HEMOGLOBIN 8.2 g/dl (12.0-16.0); LYMPHOCYTES % (AUTO) 5.1 % (21-51); MEAN CORPUSCULAR HEMOGLOBIN 30.7 PG (27.0-31.0); MEAN CORPUSCULAR HGB CONC 31.5 g/dL (33.0-36.5); MEAN CORPUSCULAR VOLUME 97.3 FL (78-98); MONOCYTES # (AUTO) 1.4 X10'3 (0-0.9); MONOCYTES % (AUTO) 6.8 % (2-12); PLATELET COUNT 325 X10'3 (140-440); RED CELL DISTRIBUTION WIDTH 17.6 % (11.5-14.5)
--- NOTE | 2020-09-30 06:51 | NUR ---
Patient in room ICU 2042. I have received report from Litzy Bradley RN and had the opportunity to ask questions and assume patient care. Addendum: 09/30/20 at 0652 by Mavis Sandoval RN Amended: Links added.
--- NOTE | 2020-09-30 07:57 | NUR ---
Turned pt. and peeled back foam dressing on sacrum. DTI noticed. Pic obtained per policy, broker in charge aware. CVL out and bed soaked. All linen changed. Dr. Heredia aware. PICC ordered and consent signed. 22G PIV placed to right hand for now. Not able to infuse all necessary gtts now. aware. PICC RN Rita rose.
[2020-09-30] MEDS ORDERED: levoFLOXACIN-Levaquin 750MG/D5 150 ML IV SCH (08:00)
[2020-09-30] MEDS: folic acid/vitamin B complex w/vitamin C 0.8mg tablet OGT SCH (08:00)
[2020-09-30] MEDS: K, MAG and/or Phos replacement - Verify level? MC SCH (08:00)
[2020-09-30] MEDS: budesonide 0.5mg/2ml UD nebule IH SCH ×2 (08:10→20:27)
[2020-09-30] MEDS: insulin Lispro (HumaLOG) vial - multi-dose SQ SCH ×3 (08:13→22:25)
[2020-09-30 08:30] LABS: ANISOCYTOSIS 1+; NUCLEATED RED BLOOD CELLS 7 /100WBC (0-0); PLATELET ESTIMATE NORMAL; POLYCHROMASIA FEW; SCHISTOCYTES FEW; TOTAL CELLS COUNTED 100
[2020-09-30 08:32] LABS: BURR CELLS FEW
[2020-09-30] MEDS: pantoprazole 40 MG vial IV SCH ×2 (08:35→20:16)
[2020-09-30] MEDS: loratadine 10mg tablet OGT SCH (08:36)
[2020-09-30] MEDS: ascorbic acid 500mg tablet OGT SCH ×2 (08:36→20:15)
[2020-09-30] MEDS: sennosides/docusate sodium tablet PO SCH ×2 (08:36→20:15)
[2020-09-30] MEDS: enoxaparin 30mg/0.3ml syringe SUBCUT SCH (08:36)
[2020-09-30] MEDS: lactobacillus rhamnosus 10,000 MMU CELLS/CAPSULE OGT SCH ×2 (08:36→20:15)
[2020-09-30] MEDS: iron sucrose complex injection 200 MG in normal saline 100ml IV soln 100 ML IV SCH (08:52)
[2020-09-30] MEDS: meropenem inj 500 MG in normal saline 100ml IV soln 100 ML IV SCH (09:54)
[2020-09-30] MEDS ORDERED: albumin (Human) 5% 250ml 250 ML IV ONE ×2 (09:55)
--- NOTE | 2020-09-30 09:57 | NUR ---
DR. Heredia notified that pt. is not making urine. Orders received.
--- NOTE | 2020-09-30 11:45 | NUR ---
F/u 09/30: Pt intubated s/p code last night per RN. MAP 91 this AM w/ OG in place; TF recs below in case prolonged intubation. Noted LBM 09/18 12 days constipation receiving routine senna, miralax HS, and PRN lactulose available last given 09/28 per EMR. Will continue to monitor for nutrition support needs on vent. Recommendations: 1) IF TF per MD; Vital AF at 60mL/hr goal; to provide 1440ml volume, 1728kcals, 1166ml free water, and 108g protein. 2) IF TF; additional water flush per merchandise director given hx cirrhosis/ascites w/ paracentesis 3) IF TF; prealbumin q Wednesday/, daily weights 4) Routine bowel care; 12 days constipation 5) New A1c given pt with h/o T2DM, most recent A1c in EMR is 5.1% 01/21/19 Addendum: 09/30/20 at [address] Amended: Links added.
[2020-09-30] MEDS ORDERED: NORepinephrine 8mg/ 250ml NS 250 ML IV ONE (12:47)
[2020-09-30] MEDS: dexmedetomidin/NS 400mcg/100ml 100 ML IV PRN (13:03)
[2020-09-30] MEDS: FENTANYL-0.9 % NACL/PF 100 ML IV PRN (14:08)
[2020-09-30] MEDS: normal saline 1000ml 1,000 ML IV SCH (16:38)
--- NOTE | 2020-09-30 18:11 | NUR ---
Problems reprioritized. Patient report given, questions answered & plan of care reviewed with Litzy Bradley RN.
--- NOTE | 2020-09-30 18:30 | NUR ---
I have received report and assumed care of pt, pt resting in bed, rise and fall of chest cavity equile and symmetrical, family at bedside, assessment complete. Pt does not appear to respond to daughters verbal nor tactile stimuli, she does spontaneously open her eyes.
--- NOTE | 2020-09-30 18:50 | NUR ---
all vasoactive medication via CVL
--- NOTE | 2020-09-30 19:30 | NUR ---
I have received report and assumed care of pt, Pt resting in bed rise and fall of chest cavity equile and symmetrical, daughter at bedside, pt does not appear to be responding to the daughters verbal stimuli, Levophed drip in place to keep MAP greater then 60, light dose of fentanyl drip in place for pain control post CPR and chronic pain. Amiodarone drip in place for arrhythmia prevention.
[2020-09-30] MEDS: cefepime 1GM/NS ADD-VANTAGE 100 ML IV SCH (20:15)
[2020-09-30] MEDS: polyethylene glycol 3350 17gm powd pack PO SCH (21:23)
--- NOTE | 2020-09-30 21:29 | NUR ---
pedal pulses are Doppler only bilateral. pt remains on Levophed to keep MAP greater then 60, low dose fentanyl for pain post CPR and chronic pain. Amiodarone drip in place for arrhythmia control.
[2020-09-30] MEDS ORDERED: gelatin sponge, absorbable (Gelfoam 12-7MM) sponge TP ONE (22:25)
[2020-09-30] MEDS: vancomycin inj 500 MG in normal saline 100ml IV soln 100 ML IV SCH (22:30)
[2020-10-01] VITALS (27 sets, daily range): BP systolic 82–121; BP diastolic 46–67
[2020-10-01] MEDS: normal saline 1000ml 1,000 ML IV SCH ×3 (01:19→20:37)
[2020-10-01] MEDS: insulin Lispro (HumaLOG) vial - multi-dose SQ SCH ×2 (02:13→08:22)
[2020-10-01] MEDS: mineral oil/petrolatum ophthal oint EACHEYE SCH ×4 (02:14→20:38)
[2020-10-01] MEDS: dexmedetomidin/NS 400mcg/100ml 100 ML IV PRN ×2 (02:15→22:12)
[2020-10-01 02:36] LABS: BASOPHILS % (AUTO) 0.2 % (0-1); EOSINOPHILS % (AUTO) 0.1 % (0-6); HEMATOCRIT 22.2 % (35.0-45.0); LYMPHOCYTES # (AUTO) 1.7 X10'3 (1.1-4.8); LYMPHOCYTES % (AUTO) 8.1 % (21-51); MEAN CORPUSCULAR HEMOGLOBIN 30.6 PG (27.0-31.0); MEAN CORPUSCULAR HGB CONC 31.7 g/dL (33.0-36.5); MEAN CORPUSCULAR VOLUME 96.6 FL (78-98); MEAN PLATELET VOLUME 6.6 FL (7.4-10.4); MONOCYTES # (AUTO) 1.3 X10'3 (0-0.9); MONOCYTES % (AUTO) 5.9 % (2-12); NEUTROPHILS # (AUTO) 18.2 X10'3 (1.8-7.7); NEUTROPHILS % (AUTO) 85.7 % (42-75); PLATELET COUNT 326 X10'3 (140-440); RED CELL DISTRIBUTION WIDTH 18.1 % (11.5-14.5); WHITE BLOOD COUNT 21.2 X10'3 (4.5-11.0)
[2020-10-01 02:59] LABS: ALANINE AMINOTRANSFERASE 402 U/L (12-78); ALBUMIN 2.3 G/DL (3.4-5.0); ALBUMIN/GLOBULIN RATIO 0.6 (1.1-1.5); ALKALINE PHOSPHATASE 111 IU/L (46-116); ASPARTATE AMINO TRANSFERASE 334 U/L (10-37); BILIRUBIN,TOTAL 1.2 MG/DL (0.1-1.0); BLOOD UREA NITROGEN 52 MG/DL (7-18); BUN/CREATININE RATIO 21.8 (6.6-38.0); CALCIUM 7.8 MG/DL (8.5-10.1); CREATININE 2.39 MG/DL (0.40-0.90); GLUCOSE 176 MG/DL (70-104); MAGNESIUM 1.9 MG/DL (1.5-2.4); PHOSPHORUS 4.2 MG/DL (2.3-4.5); TOTAL CARBON DIOXIDE 18.3 MMOL/L (24-32); TOTAL PROTEIN 5.9 G/DL (6.4-8.2); eGFR 20 ML/MIN
[2020-10-01 03:02] LABS: ABG BASE EXCESS -8.2 mmol/L (-2.0-2.0); ABG HCO3 16.8 mmol/L (22.0-26.0); ABG PCO2 (T) 32.7 mmHg (32.0-45.0); ABG PO2 (T) 123.7 mmHg (75.0-100.0); ALLEN'S TEST POSITIVE; FCOHb 0.3 % (0.0-3.9); FMetHb 0.5 % (0.0-1.5); FO2Hb 97.2 % (94-97); PATIENT TEMPERATURE 37.4; PEEP 5 cm H2O; RESPIRATORY RATE 20 b/min; TIDAL VOLUME 400 mL; TOTAL HEMOGLOBIN 7.9 G/dl (12.0-16.0)
[2020-10-01 03:13] LABS: ANION GAP 17 (8-16); CHLORIDE 110 MMOL/L (99-107); POTASSIUM 3.7 MMOL/L (3.5-5.1); SODIUM 145 MMOL/L (135-145)
[2020-10-01 03:59] LABS: BANDS% (MANUAL) 9 % (0-10); LYMPHOCYTES % (MANUAL) 15 % (21-51); METAMYLEOCYTES% (MANUAL) 2 % (0-0); MONOCYTES % (MANUAL) 3 % (2-12); NEUTROPHILS % (MANUAL) 71 % (42-75); TOTAL CELLS COUNTED 100
[2020-10-01 04:00] LABS: ANISOCYTOSIS 2+; PLATELET ESTIMATE NORMAL
[2020-10-01] MEDS: amiodarone/D5 360MG/200ML BAG 200 ML IV SCH ×4 (04:35→21:46)
--- NOTE | 2020-10-01 04:36 | NUR ---
Rounded with Dr. Morrison reviewed plan of care, labs, and vasoactive medication new orders received to turn NS down to 75 ml/hr.
--- NOTE | 2020-10-01 05:17 | NUR ---
attempt to turn off Levophed pts heart rate dropped to 60 bp 84/48, Levophed restarted see IV flow sheet for titration
--- NOTE | 2020-10-01 06:08 | NUR ---
report given to receiving rn plan of care reviewed
--- NOTE | 2020-10-01 06:30 | NUR ---
Patient in room ICU 2042. I have received report from Litzy Bradley RN and had the opportunity to ask questions and assume patient care with sven Mobley RN.
[2020-10-01] MEDS: albuterol 2.5 MG/3 ML nebule NEB PRN ×2 (07:44→20:27)
[2020-10-01] MEDS: budesonide 0.5mg/2ml UD nebule IH SCH ×2 (07:44→20:27)
[2020-10-01] MEDS: cefepime 1GM/NS ADD-VANTAGE 100 ML IV SCH ×2 (07:56→20:36)
[2020-10-01] MEDS: sennosides/docusate sodium tablet PO SCH (07:57)
[2020-10-01] MEDS: loratadine 10mg tablet OGT SCH (07:57)
[2020-10-01] MEDS: ascorbic acid 500mg tablet OGT SCH ×2 (07:57→17:10)
[2020-10-01] MEDS: pantoprazole 40 MG vial IV SCH (07:57)
[2020-10-01] MEDS: lactobacillus rhamnosus 10,000 MMU CELLS/CAPSULE OGT SCH ×2 (07:57→20:35)
[2020-10-01] MEDS: enoxaparin 30mg/0.3ml syringe SUBCUT SCH (07:58)
[2020-10-01] MEDS: folic acid/vitamin B complex w/vitamin C 0.8mg tablet OGT SCH (08:06)
[2020-10-01] MEDS: K, MAG and/or Phos replacement - Verify level? MC SCH (08:06)
[2020-10-01] MEDS: iron sucrose complex injection 200 MG in normal saline 100ml IV soln 100 ML IV SCH (09:35)
[2020-10-01] MEDS ORDERED: albumin (Human) 5% 250ml 250 ML IV ONE (10:25)
--- NOTE | 2020-10-01 11:11 | NUR ---
TF Consult: Trickle TF to start today per diabetes education coordinator. Noted LBM remains 09/18 receiving routine senna and miralax HS. PRN lactulose available last given 09/28; lactulose to change to routine at this time per MD. Will monitor for TF tolerance w/ significant constipation. Recommendations: 1) Trickle TF per MD using Vital AF at 20mL/hr goal; to provide 480ml volume, 576kcals, 389ml free water, and 36g protein. 2) Once TF to advance; Vital AF at 60mL/hr goal; to provide 1440ml volume, 1728kcals, 1166ml free water, and 108g protein. 3) Once TF advances; consider 100ml Q4H free water for 1ml/kcal w/ serum Na 145 and cirrhosis/ascites hx; adjust per diabetes education coordinator recs 4) prealbumin q Wednesday/, daily weights 5) Routine bowel care; 13 days constipation 6) New A1c given pt with h/o T2DM, most recent A1c in EMR is 5.1% 01/21/19 Addendum: 10/01/20 at [address] Amended: Links added.
[2020-10-01] MEDS: lactulose 20gm/30ml cup PO SCH ×3 (14:00→20:35)
[2020-10-01] MEDS: insulin regular, human U-100 3ml vial - multi-dose SQ SCH ×2 (14:27→20:34)
[2020-10-01] MEDS: FENTANYL-0.9 % NACL/PF 100 ML IV PRN (15:54)
[2020-10-01] MEDS ORDERED: furosemide 40mg/4ml inj IV ONE (17:10)
[2020-10-01] MEDS ORDERED: normal saline 1000ml 1,000 ML IV ONE (17:10)
[2020-10-01] MEDS ORDERED: normal saline 1000ml 1,000 ML IVB ONE (17:15)
--- NOTE | 2020-10-01 17:17 | NUR ---
Remains intubated and on fentanyl and precedex drips. Dr. Heredia updated to decreased urine output. Orders received. Dr. Pantoja at bedside, orders received. Received 1 unit PRBC's for Hgb of 7. Informed MD of change in patient antibodies per blood bank. Started trickle tube feeds at 20ml/hr.
--- NOTE | 2020-10-01 18:15 | NUR ---
Patient in room ICU 2042. I have received report from MARCO Nuñez and had the opportunity to ask questions and assume patient care. Patient intubated/sedated with daughter at bedside, I will continue to monitor.
[2020-10-01] MEDS: sennosides/docusate sodium tablet OGT SCH (20:35)
[2020-10-01] MEDS: famotidine/PF 10 mg/ml inj IV SCH (20:35)
[2020-10-01] MEDS: heparin, porcine 5000 units/ml vial SQ SCH (20:36)
[2020-10-01] MEDS: polyethylene glycol 3350 17gm powd pack PO SCH (20:38)
[2020-10-01 22:53] LABS: TOTAL PROTEIN,URINE RANDOM 76.9 MG/DL
[2020-10-01 23:12] LABS: CLARITY,URINE CLOUDY (Clear); COLOR,URINE YELLOW (Yellow); GLUCOSE, URINE NEGATIVE (Neg); KETONES,URINE NEGATIVE (Neg); LEUKOCYTE ESTERASE ,URINE SMALL (Neg); NITRITES, URINE NEGATIVE (Neg); OCCULT BLOOD,URINE MODERATE (Neg); PH,URINE 5.5 (4.8-8.0); PROTEIN,URINE 30 mg/dl (Neg); UROBILINOGEN,URINE 0.2 E.U/dL (0.2-1.0)
[2020-10-01 23:14] LABS: UA COLLECTION TYPE FOLEY CATH
[2020-10-01 23:26] LABS: SQUAMOUS EPITHELIAL CELL,UR MODERATE /LPF (FEW)
[2020-10-01 23:28] LABS: BACTERIA,URINE FEW /HPF (Neg); MUCUS STRANDS FEW /LPF (Neg)
[2020-10-02] VITALS (23 sets, daily range): BP systolic 87–127; BP diastolic 46–70
[2020-10-02] MEDS: vancomycin inj 500 MG in normal saline 100ml IV soln 100 ML IV SCH (00:26)
[2020-10-02] MEDS: normal saline 1000ml 1,000 ML IV SCH ×4 (01:08→17:24)
[2020-10-02] MEDS: lactulose 20gm/30ml cup PO SCH ×4 (02:33→20:53)
[2020-10-02] MEDS: mineral oil/petrolatum ophthal oint EACHEYE SCH ×4 (02:34→20:53)
[2020-10-02] MEDS: insulin regular, human U-100 3ml vial - multi-dose SQ SCH ×4 (02:35→21:54)
[2020-10-02 02:56] LABS: HEMOGLOBIN 8.1 g/dl (12.0-16.0); MONOCYTES # (AUTO) 0.8 X10'3 (0-0.9); WHITE BLOOD COUNT 18.5 X10'3 (4.5-11.0)
[2020-10-02 03:00] LABS: BASOPHILS % (AUTO) 0.2 % (0-1); EOSINOPHILS % (AUTO) 0.2 % (0-6); HEMATOCRIT 25.5 % (35.0-45.0); LYMPHOCYTES % (AUTO) 5.3 % (21-51); MEAN CORPUSCULAR HEMOGLOBIN 30.3 PG (27.0-31.0); MEAN CORPUSCULAR HGB CONC 31.7 g/dL (33.0-36.5); MEAN CORPUSCULAR VOLUME 95.4 FL (78-98); MEAN PLATELET VOLUME 6.6 FL (7.4-10.4); MONOCYTES % (AUTO) 4.4 % (2-12); NEUTROPHILS # (AUTO) 16.6 X10'3 (1.8-7.7); NEUTROPHILS % (AUTO) 89.9 % (42-75); PLATELET COUNT 248 X10'3 (140-440); RED BLOOD COUNT 2.67 X10'6 (4.20-5.60); RED CELL DISTRIBUTION WIDTH 18.1 % (11.5-14.5)
[2020-10-02 03:05] LABS: ABG HCO3 14.3 mmol/L (22.0-26.0); ABG OXYGEN SATURATION 97.3 % (94-97); ABG PCO2 (T) 31.2 mmHg (32.0-45.0); ABG PO2 (T) 108.5 mmHg (75.0-100.0); ALLEN'S TEST POSITIVE; FCOHb 0.3 % (0.0-3.9); FMetHb 0.5 % (0.0-1.5); FO2Hb 96.5 % (94-97); PEEP 5 cm H2O; RESPIRATORY RATE 20 b/min; TIDAL VOLUME 400 mL
[2020-10-02 03:23] LABS: ALANINE AMINOTRANSFERASE 342 U/L (12-78); ALBUMIN 2.3 G/DL (3.4-5.0); ALBUMIN/GLOBULIN RATIO 0.7 (1.1-1.5); ALKALINE PHOSPHATASE 110 IU/L (46-116); ASPARTATE AMINO TRANSFERASE 203 U/L (10-37); BILIRUBIN,TOTAL 1.3 MG/DL (0.1-1.0); BLOOD UREA NITROGEN 52 MG/DL (7-18); BUN/CREATININE RATIO 19.8 (6.6-38.0); CALCIUM 7.7 MG/DL (8.5-10.1); CREATININE 2.62 MG/DL (0.40-0.90); GLUCOSE 174 MG/DL (70-104); MAGNESIUM 1.9 MG/DL (1.5-2.4); PHOSPHORUS 4.2 MG/DL (2.3-4.5); TOTAL CARBON DIOXIDE 16.9 MMOL/L (24-32); TOTAL PROTEIN 5.7 G/DL (6.4-8.2); eGFR 18 ML/MIN
[2020-10-02 03:44] LABS: ANION GAP 17 (8-16); CHLORIDE 114 MMOL/L (99-107); POTASSIUM 3.4 MMOL/L (3.5-5.1); SODIUM 148 MMOL/L (135-145)
[2020-10-02 04:08] LABS: PLATELET ESTIMATE NORMAL
[2020-10-02 04:09] LABS: ANISOCYTOSIS 2+; HYPOCHROMASIA 1+
[2020-10-02 04:10] LABS: BURR CELLS 1+
[2020-10-02 04:22] LABS: UA EOSINOPHILS NO EOS /HPF
[2020-10-02] MEDS: acetaminophen 325mg/10.15ml oral unit dose solution OGT PRN (04:46)
[2020-10-02] MEDS: amiodarone/D5 360MG/200ML BAG 200 ML IV SCH ×4 (04:51→23:03)
--- NOTE | 2020-10-02 06:00 | NUR ---
Patient in room ICU 2042. I have received report from Sachi LARA and had the opportunity to ask questions and assume patient care.
[2020-10-02] MEDS: K, MAG and/or Phos replacement - Verify level? MC SCH (08:00)
[2020-10-02] MEDS ORDERED: iron sucrose complex injection 200 MG in normal saline 100ml IV soln 100 ML IV SCH (08:00)
[2020-10-02] MEDS: budesonide 0.5mg/2ml UD nebule IH SCH ×2 (08:39→19:27)
[2020-10-02] MEDS: cefepime 1GM/NS ADD-VANTAGE 100 ML IV SCH ×2 (09:20→20:53)
[2020-10-02] MEDS: lactobacillus rhamnosus 10,000 MMU CELLS/CAPSULE OGT SCH ×2 (09:21→20:54)
[2020-10-02] MEDS: sennosides/docusate sodium tablet OGT SCH ×2 (09:21→20:54)
[2020-10-02] MEDS: heparin, porcine 5000 units/ml vial SQ SCH ×2 (09:21→21:49)
[2020-10-02] MEDS: folic acid/vitamin B complex w/vitamin C 0.8mg tablet OGT SCH (09:22)
[2020-10-02] MEDS: loratadine 10mg tablet OGT SCH (09:25)
[2020-10-02] MEDS: famotidine/PF 10 mg/ml inj IV SCH ×2 (09:25→20:54)
[2020-10-02] MEDS: ascorbic acid 500mg tablet OGT SCH (09:25)
[2020-10-02] MEDS ORDERED: NORepinephrine inj. 8 MG in dextrose 5%-water 242 ML IV SCH (10:25)
[2020-10-02] MEDS ORDERED: albumin (human) 25% 100 ML IV solution IV ONE ×2 (10:25→13:25)
[2020-10-02] MEDS: potassium Cl 40MEQ/250ML bag 270 ML IV PRN (10:46)
[2020-10-02] MEDS: NORepinephrine 8mg/ 250ml NS 250 ML IV SCH (11:08)
--- NOTE | 2020-10-02 11:23 | NUR ---
Updated daughter Lily on patients condition and informed her that MRI is ordered for today.
--- NOTE | 2020-10-02 11:31 | NUR ---
F/u 10/02: TF to advance to goal per manager hospitality; updated TF Recs below. LBM still 09/18 14 days constipation receiving lactulose Q6H, senna, and miralax w/ trickle TF GRV's WNL. Will monitor for TF tolerance and adjustment needs as medically indicated. Recommendations: 1) Continuous TF per MD using Vital AF at 60mL/hr goal; to provide 1440ml volume, 1728kcals, 1166ml free water, and 108g protein. 2) additional water flush 100ml Q4H for 1ml/kcal w/ serum Na 148 and cirrhosis/ascites hx; adjust per manager hospitality recs 3) prealbumin q Wednesday/, daily weights 4) Routine bowel care; 14 days constipation 5) New A1c given pt with h/o T2DM, most recent A1c in EMR is 5.1% 01/21/19 Addendum: 10/02/20 at [address] Amended: Links added.
[2020-10-02 12:03] LABS: HEMOGLOBIN A1C 5.9 % (4.5-6.2)
[2020-10-02] MEDS ORDERED: POTASSIUM BICARB 20meq eff tab 20 MEQ TABLET.EFF OGT PRN ×2 (12:35)
--- NOTE | 2020-10-02 15:00 | NUR ---
Zari Bautista at bedside, Dr. Heredia discussed MRI results with Lily.
[2020-10-02] MEDS: dexmedetomidin/NS 400mcg/100ml 100 ML IV PRN (17:24)
--- NOTE | 2020-10-02 18:28 | NUR ---
Problems reprioritized. Patient report given, questions answered & plan of care reviewed with Negrita LARA.
--- NOTE | 2020-10-02 18:30 | NUR ---
Patient in room ICU 2042. I have received report from Liliana LARA and had the opportunity to ask questions and assume patient care.
[2020-10-02] MEDS: albuterol 2.5 MG/3 ML nebule NEB PRN (19:27)
[2020-10-02] MEDS: polyethylene glycol 3350 17gm powd pack PO SCH (20:54)
[2020-10-02] MEDS ORDERED: VANCOMYCIN LEVEL IV ONE (22:30)
[2020-10-03] VITALS (24 sets, daily range): BP systolic 88–116; BP diastolic 48–62
[2020-10-03] MEDS: normal saline 1000ml 1,000 ML IV SCH (00:45)
[2020-10-03] MEDS: lactulose 20gm/30ml cup PO SCH ×4 (02:23→20:37)
[2020-10-03] MEDS: mineral oil/petrolatum ophthal oint EACHEYE SCH ×4 (02:23→20:37)
[2020-10-03] MEDS: amiodarone/D5 360MG/200ML BAG 200 ML IV SCH ×4 (02:24→23:19)
[2020-10-03] MEDS: insulin regular, human U-100 3ml vial - multi-dose SQ SCH ×2 (02:27→08:21)
[2020-10-03 02:58] LABS: ABG BASE EXCESS -15.2 mmol/L (-2.0-2.0); ABG HCO3 11.8 mmol/L (22.0-26.0); ABG OXYGEN SATURATION 91.2 % (94-97); ABG PCO2 (T) 32.4 mmHg (32.0-45.0); ABG PO2 (T) 72.5 mmHg (75.0-100.0); ALLEN'S TEST POSITIVE; FCOHb 0.9 % (0.0-3.9); FMetHb 0.3 % (0.0-1.5); FO2Hb 90.1 % (94-97); PATIENT TEMPERATURE 37.7; PEEP 5 cm H2O; RESPIRATORY RATE 20 b/min; TIDAL VOLUME 400 mL; TOTAL HEMOGLOBIN 9.3 G/dl (12.0-16.0)
[2020-10-03 03:00] LABS: BASOPHILS # (AUTO) 0.1 X10'3 (0-0.2); EOSINOPHILS # (AUTO) 0.1 X10'3 (0-0.9); EOSINOPHILS % (AUTO) 0.3 % (0-6); HEMOGLOBIN 8.3 g/dl (12.0-16.0); LYMPHOCYTES # (AUTO) 0.6 X10'3 (1.1-4.8)
[2020-10-03 03:02] LABS: BASOPHILS % (AUTO) 0.5 % (0-1); HEMATOCRIT 26.6 % (35.0-45.0); LYMPHOCYTES % (AUTO) 3.1 % (21-51); MEAN CORPUSCULAR HEMOGLOBIN 30.3 PG (27.0-31.0); MEAN CORPUSCULAR HGB CONC 31.1 g/dL (33.0-36.5); MEAN CORPUSCULAR VOLUME 97.4 FL (78-98); MEAN PLATELET VOLUME 6.6 FL (7.4-10.4); MONOCYTES # (AUTO) 0.7 X10'3 (0-0.9); MONOCYTES % (AUTO) 3.5 % (2-12); NEUTROPHILS # (AUTO) 18.5 X10'3 (1.8-7.7); NEUTROPHILS % (AUTO) 92.6 % (42-75); PLATELET COUNT 210 X10'3 (140-440); RED BLOOD COUNT 2.73 X10'6 (4.20-5.60); RED CELL DISTRIBUTION WIDTH 19.3 % (11.5-14.5)
[2020-10-03 03:20] LABS: ALANINE AMINOTRANSFERASE 360 U/L (12-78); ALBUMIN 2.3 G/DL (3.4-5.0); ALBUMIN/GLOBULIN RATIO 0.6 (1.1-1.5); ALKALINE PHOSPHATASE 119 IU/L (46-116); ANION GAP 17 (8-16); ASPARTATE AMINO TRANSFERASE 207 U/L (10-37); BILIRUBIN,TOTAL 1.3 MG/DL (0.1-1.0); BLOOD UREA NITROGEN 55 MG/DL (7-18); BUN/CREATININE RATIO 17.6 (6.6-38.0); CALCIUM 7.9 MG/DL (8.5-10.1); CHLORIDE 113 MMOL/L (99-107); CREATININE 3.13 MG/DL (0.40-0.90); GLUCOSE 144 MG/DL (70-104); MAGNESIUM 1.8 MG/DL (1.5-2.4); PHOSPHORUS 4.6 MG/DL (2.3-4.5); POTASSIUM 3.8 MMOL/L (3.5-5.1); PREALBUMIN 10.1 MG/DL (19-36); SODIUM 145 MMOL/L (135-145); TOTAL CARBON DIOXIDE 15.1 MMOL/L (24-32); TOTAL PROTEIN 6.2 G/DL (6.4-8.2); eGFR 15 ML/MIN
[2020-10-03 03:59] LABS: PLATELET ESTIMATE NORMAL; POLYCHROMASIA 1+
[2020-10-03 04:00] LABS: ANISOCYTOSIS 2+; BURR CELLS 2+; SCHISTOCYTES 1+
[2020-10-03] MEDS: FENTANYL-0.9 % NACL/PF 100 ML IV PRN (04:27)
[2020-10-03] MEDS: sodium bicarbonate (8.4%) inj. 150 MEQ in dextrose 5%-water 1,000 ML IV SCH ×2 (04:58→16:34)
--- NOTE | 2020-10-03 06:44 | NUR ---
Patient in room ICU 2042. I have received report from Negrita LARA and had the opportunity to ask questions and assume patient care.
--- NOTE | 2020-10-03 06:44 | NUR ---
Problems reprioritized. Patient report given, questions answered & plan of care reviewed with Ameya LARA.
[2020-10-03] MEDS: NORepinephrine 8mg/ 250ml NS 250 ML IV SCH (07:44)
[2020-10-03] MEDS: iron sucrose complex injection 200 MG in normal saline 100ml IV soln 90 ML IV SCH (07:46)
[2020-10-03] MEDS: lactobacillus rhamnosus 10,000 MMU CELLS/CAPSULE OGT SCH ×2 (07:46→20:37)
[2020-10-03] MEDS: cefepime 1GM/NS ADD-VANTAGE 100 ML IV SCH ×2 (07:46→20:36)
[2020-10-03] MEDS: sennosides/docusate sodium tablet OGT SCH ×2 (07:46→20:37)
[2020-10-03] MEDS: loratadine 10mg tablet OGT SCH (07:47)
[2020-10-03] MEDS: famotidine/PF 10 mg/ml inj IV SCH (07:47)
[2020-10-03] MEDS: ascorbic acid 500mg tablet OGT SCH (07:47)
[2020-10-03] MEDS: dexmedetomidin/NS 400mcg/100ml 100 ML IV PRN (07:56)
[2020-10-03] MEDS: K, MAG and/or Phos replacement - Verify level? MC SCH (08:00)
[2020-10-03] MEDS: heparin, porcine 5000 units/ml vial SQ SCH ×2 (08:00→20:00)
[2020-10-03] MEDS ORDERED: vancomycin/NS 1 GM ADD-VANTAGE 250 ML IV PRN (08:30)
[2020-10-03] MEDS: budesonide 0.5mg/2ml UD nebule IH SCH ×2 (08:49→19:08)
[2020-10-03] MEDS ORDERED: FOLI0.4T14 PO (08:53)
[2020-10-03] MEDS: folic acid 1mg tablet OGT SCH (10:52)
--- NOTE | 2020-10-03 12:05 | NUR ---
F/u 10/03: Pt TF advanced to 60ml/hr goal yesterday but then decreased to 40ml/hr last night w/ GRVs 300-425ml. Pt BM last night per RN though stool size not documented; RN today reports was normal sized BM. Pt GRV likely impacted by prior 15 days constipation receiving routine lactulose Q6H, senna, and miralax. Pt A1C results 5.9 per EMR. Will monitor for TF tolerance and advancement this admit. Recommendations: 1) Continuous TF per MD using Vital AF at 60mL/hr goal; to provide 1440ml volume, 1728kcals, 1166ml free water, and 108g protein. 2) additional water flush 100ml Q4H for 1ml/kcal w/ serum Na 148 and cirrhosis/ascites hx; adjust per director of residence life recs 3) prealbumin q Wednesday/, daily weights 4) Routine bowel care; 15 days prior constipation w/ BM of unknown size x1 since Addendum: 10/03/20 at [address] Amended: Links added. Addendum: 10/03/20 at [address] *CORRECTION: F/u 10/03: Pt TF advanced to 60ml/hr goal yesterday but then decreased to 40ml/hr last night w/ GRVs 300-425ml. Pt BM last night per RN though stool size not documented; RN today reports was normal sized BM. Pt GRV likely impacted by prior 15 days constipation receiving routine lactulose Q6H, senna, and miralax. Pt A1C results 5.9 per EMR. Noted pt started on Nabicarb/dex at 100ml/hr providing additional 408kcals/day; updated recs below. Will monitor for TF tolerance and advancement this admit. Recommendations: 1) Continuous TF per MD using Vital AF at 60mL/hr goal; to provide 1440ml volume, 1728kcals, 1166ml free water, and 108g protein. 2) IF pt to continue receiving sodium bicarb w/ D5 at 100ml/hr providing extra 408kcals/day; adjust TF to Vital AF at 50ml/hr goal 3) additional water flush 100ml Q4H for 1ml/kcal w/ serum Na 148 and cirrhosis/ascites hx; adjust per director of residence life recs 4) prealbumin q Wednesday/, daily weights 5) Routine bowel care; 15 days prior constipation w/ BM of unknown size x1 since
--- NOTE | 2020-10-03 12:36 | NUR ---
notified MD that patient's OGT placement was good, patient continued to have high residuals and patient placed on low intermittent suction.
--- NOTE | 2020-10-03 18:30 | NUR ---
Patient in room ICU 2042. I have received report from Ameya LARA and had the opportunity to ask questions and assume patient care.
[2020-10-03] MEDS: albuterol 2.5 MG/3 ML nebule NEB PRN (19:08)
[2020-10-03] MEDS: polyethylene glycol 3350 17gm powd pack PO SCH (20:37)
[2020-10-04] VITALS (22 sets, daily range): BP systolic 87–121; BP diastolic 51–75
[2020-10-04] MEDS: dexmedetomidin/NS 400mcg/100ml 100 ML IV PRN ×2 (00:17→15:11)
[2020-10-04 02:37] LABS: ABG BASE EXCESS -7.8 mmol/L (-2.0-2.0); ABG HCO3 17.6 mmol/L (22.0-26.0); ABG OXYGEN SATURATION 94.2 % (94-97); ABG PCO2 (T) 35.2 mmHg (32.0-45.0); ABG PO2 (T) 73.6 mmHg (75.0-100.0); ALLEN'S TEST POSITIVE; FCOHb 0.5 % (0.0-3.9); FMetHb 0.3 % (0.0-1.5); FO2Hb 93.4 % (94-97); PATIENT TEMPERATURE 37.1; PEEP 5 cm H2O; RESPIRATORY RATE 20 b/min; TIDAL VOLUME 400 mL; TOTAL HEMOGLOBIN 9.2 G/dl (12.0-16.0)
[2020-10-04] MEDS: VANCOMYCIN LEVEL IV SCH (03:00)
[2020-10-04] MEDS: lactulose 20gm/30ml cup PO SCH ×4 (03:11→20:29)
[2020-10-04] MEDS: mineral oil/petrolatum ophthal oint EACHEYE SCH ×4 (03:11→20:29)
[2020-10-04] MEDS: sodium bicarbonate (8.4%) inj. 150 MEQ in dextrose 5%-water 1,000 ML IV SCH ×2 (04:17→15:18)
[2020-10-04] MEDS: amiodarone/D5 360MG/200ML BAG 200 ML IV SCH ×3 (04:17→15:13)
[2020-10-04] MEDS: FENTANYL-0.9 % NACL/PF 100 ML IV PRN (04:17)
[2020-10-04 04:24] LABS: BASOPHILS # (AUTO) 0.1 X10'3 (0-0.2); BASOPHILS % (AUTO) 0.3 % (0-1); EOSINOPHILS # (AUTO) 0.1 X10'3 (0-0.9); EOSINOPHILS % (AUTO) 0.6 % (0-6); HEMATOCRIT 26.6 % (35.0-45.0); HEMOGLOBIN 8.5 g/dl (12.0-16.0); LYMPHOCYTES # (AUTO) 0.6 X10'3 (1.1-4.8); LYMPHOCYTES % (AUTO) 2.5 % (21-51); MEAN CORPUSCULAR HEMOGLOBIN 30.8 PG (27.0-31.0); MEAN CORPUSCULAR HGB CONC 31.9 g/dL (33.0-36.5); MEAN CORPUSCULAR VOLUME 96.6 FL (78-98); MONOCYTES # (AUTO) 0.8 X10'3 (0-0.9); MONOCYTES % (AUTO) 3.6 % (2-12); NEUTROPHILS # (AUTO) 20.8 X10'3 (1.8-7.7); PLATELET COUNT 186 X10'3 (140-440); RED BLOOD COUNT 2.76 X10'6 (4.20-5.60); RED CELL DISTRIBUTION WIDTH 18.6 % (11.5-14.5); WHITE BLOOD COUNT 22.4 X10'3 (4.5-11.0)
[2020-10-04 04:39] LABS: ALANINE AMINOTRANSFERASE 239 U/L (12-78); ALBUMIN 1.9 G/DL (3.4-5.0); ALBUMIN/GLOBULIN RATIO 0.5 (1.1-1.5); ALKALINE PHOSPHATASE 107 IU/L (46-116); ANION GAP 11 (8-16); ASPARTATE AMINO TRANSFERASE 76 U/L (10-37); BILIRUBIN,TOTAL 1.2 MG/DL (0.1-1.0); BLOOD UREA NITROGEN 57 MG/DL (7-18); BUN/CREATININE RATIO 15.5 (6.6-38.0); CALCIUM 7.7 MG/DL (8.5-10.1); CHLORIDE 110 MMOL/L (99-107); CREATININE 3.67 MG/DL (0.40-0.90); GLUCOSE 154 MG/DL (70-104); MAGNESIUM 1.8 MG/DL (1.5-2.4); PHOSPHORUS 4.8 MG/DL (2.3-4.5); POTASSIUM 3.8 MMOL/L (3.5-5.1); SODIUM 142 MMOL/L (135-145); TOTAL CARBON DIOXIDE 20.6 MMOL/L (24-32); TOTAL PROTEIN 5.7 G/DL (6.4-8.2); eGFR 12 ML/MIN
[2020-10-04 04:43] LABS: VANCOMYCIN,TROUGH 22.3 UG/ML (6.0-14.0)
[2020-10-04 04:45] LABS: PLATELET ESTIMATE NORMAL
[2020-10-04 04:46] LABS: ANISOCYTOSIS 2+; BURR CELLS 1+; HYPOCHROMASIA 1+; SCHISTOCYTES 1+
[2020-10-04] MEDS: NORepinephrine 8mg/ 250ml NS 250 ML IV SCH (04:48)
--- NOTE | 2020-10-04 06:42 | NUR ---
Problems reprioritized. Patient report given, questions answered & plan of care reviewed with Ameya LARA.
[2020-10-04] MEDS: cefepime 1GM/NS ADD-VANTAGE 100 ML IV SCH ×2 (07:34→20:29)
[2020-10-04] MEDS: iron sucrose complex injection 200 MG in normal saline 100ml IV soln 90 ML IV SCH (07:34)
[2020-10-04] MEDS: famotidine/PF 10 mg/ml inj IV SCH (07:34)
[2020-10-04] MEDS: folic acid 1mg tablet OGT SCH (07:46)
[2020-10-04] MEDS: ascorbic acid 500mg tablet OGT SCH (07:46)
[2020-10-04] MEDS: sennosides/docusate sodium tablet OGT SCH ×2 (07:46→20:30)
[2020-10-04] MEDS: lactobacillus rhamnosus 10,000 MMU CELLS/CAPSULE OGT SCH ×2 (07:46→20:30)
[2020-10-04] MEDS: loratadine 10mg tablet OGT SCH (07:46)
[2020-10-04] MEDS: heparin, porcine 5000 units/ml vial SQ SCH ×2 (08:00→20:29)
[2020-10-04] MEDS: K, MAG and/or Phos replacement - Verify level? MC SCH (08:00)
[2020-10-04] MEDS: budesonide 0.5mg/2ml UD nebule IH SCH ×2 (10:59→20:40)
[2020-10-04] MEDS: insulin Lispro (HumaLOG) vial - multi-dose SQ SCH (15:01)
[2020-10-04] MEDS ORDERED: NORepinephrine 8mg/ 250ml NS 250 ML IV ONE (15:45)
--- NOTE | 2020-10-04 18:39 | NUR ---
Patient report given, questions answered & plan of care reviewed with Joselyn LARA.
[2020-10-04] MEDS: polyethylene glycol 3350 17gm powd pack PO SCH (20:29)
[2020-10-04] MEDS: albuterol 2.5 MG/3 ML nebule NEB PRN (20:40)
[2020-10-05] VITALS (18 sets, daily range): BP systolic 92–119; BP diastolic 51–80
[2020-10-05] MEDS: FENTANYL-0.9 % NACL/PF 100 ML IV PRN ×2 (01:46→21:35)
[2020-10-05 02:43] LABS: ABG BASE EXCESS -4.1 mmol/L (-2.0-2.0); ABG HCO3 20.8 mmol/L (22.0-26.0); ABG OXYGEN SATURATION 95.2 % (94-97); ABG PCO2 (T) 36.9 mmHg (32.0-45.0); ABG PO2 (T) 79.1 mmHg (75.0-100.0); ALLEN'S TEST POSITIVE; FCOHb 0.5 % (0.0-3.9); FMetHb 0.2 % (0.0-1.5); FO2Hb 94.5 % (94-97); PATIENT TEMPERATURE 36.9; PEEP 5 cm H2O; RESPIRATORY RATE 20 b/min; TIDAL VOLUME 400 mL; TOTAL HEMOGLOBIN 9.6 G/dl (12.0-16.0)
[2020-10-05] MEDS: insulin regular, human U-100 3ml vial - multi-dose SQ SCH (02:45)
[2020-10-05] MEDS: lactulose 20gm/30ml cup PO SCH ×4 (02:47→20:30)
[2020-10-05] MEDS: amiodarone/D5 360MG/200ML BAG 200 ML IV SCH ×5 (02:47→23:51)
[2020-10-05] MEDS: sodium bicarbonate (8.4%) inj. 150 MEQ in dextrose 5%-water 1,000 ML IV SCH ×2 (02:49→15:18)
[2020-10-05] MEDS: mineral oil/petrolatum ophthal oint EACHEYE SCH ×4 (02:51→20:28)
[2020-10-05] MEDS: VANCOMYCIN LEVEL IV SCH (03:00)
[2020-10-05 06:44] LABS: BASOPHILS # (AUTO) 0.1 X10'3 (0-0.2); BASOPHILS % (AUTO) 0.4 % (0-1); EOSINOPHILS # (AUTO) 0.1 X10'3 (0-0.9); EOSINOPHILS % (AUTO) 0.7 % (0-6); HEMATOCRIT 24.7 % (35.0-45.0); HEMOGLOBIN 8.1 g/dl (12.0-16.0); LYMPHOCYTES # (AUTO) 0.6 X10'3 (1.1-4.8); LYMPHOCYTES % (AUTO) 3.3 % (21-51); MEAN CORPUSCULAR HEMOGLOBIN 30.5 PG (27.0-31.0); MEAN CORPUSCULAR HGB CONC 32.9 g/dL (33.0-36.5); MEAN CORPUSCULAR VOLUME 92.8 FL (78-98); MONOCYTES # (AUTO) 0.8 X10'3 (0-0.9); MONOCYTES % (AUTO) 4.3 % (2-12); NEUTROPHILS # (AUTO) 16.8 X10'3 (1.8-7.7); NEUTROPHILS % (AUTO) 91.3 % (42-75); PLATELET COUNT 139 X10'3 (140-440); RED BLOOD COUNT 2.66 X10'6 (4.20-5.60); RED CELL DISTRIBUTION WIDTH 20.6 % (11.5-14.5); WHITE BLOOD COUNT 18.4 X10'3 (4.5-11.0)
[2020-10-05 06:57] LABS: PARTIAL THROMBOPLASTIN TIME 49 SECONDS (22-32)
[2020-10-05 07:05] LABS: ALANINE AMINOTRANSFERASE 131 U/L (12-78); ALBUMIN 1.5 G/DL (3.4-5.0); ALBUMIN/GLOBULIN RATIO 0.4 (1.1-1.5); ALKALINE PHOSPHATASE 106 IU/L (46-116); ANION GAP 12 (8-16); ASPARTATE AMINO TRANSFERASE 28 U/L (10-37); BILIRUBIN,TOTAL 0.9 MG/DL (0.1-1.0); BLOOD UREA NITROGEN 59 MG/DL (7-18); BUN/CREATININE RATIO 14.6 (6.6-38.0); CALCIUM 7.1 MG/DL (8.5-10.1); CHLORIDE 102 MMOL/L (99-107); CREATININE 4.05 MG/DL (0.40-0.90); GLUCOSE 384 MG/DL (70-104); MAGNESIUM 1.8 MG/DL (1.5-2.4); POTASSIUM 3.3 MMOL/L (3.5-5.1); SODIUM 140 MMOL/L (135-145); TOTAL CARBON DIOXIDE 25.7 MMOL/L (24-32); TOTAL PROTEIN 5.2 G/DL (6.4-8.2); eGFR 11 ML/MIN
[2020-10-05] MEDS: cefepime 1GM/NS ADD-VANTAGE 100 ML IV SCH ×2 (07:12→20:23)
[2020-10-05] MEDS: iron sucrose complex injection 200 MG in normal saline 100ml IV soln 90 ML IV SCH (07:12)
[2020-10-05] MEDS: folic acid 1mg tablet OGT SCH (07:13)
[2020-10-05] MEDS: famotidine/PF 10 mg/ml inj IV SCH (07:13)
[2020-10-05] MEDS: sennosides/docusate sodium tablet OGT SCH ×2 (07:13→20:30)
[2020-10-05] MEDS: loratadine 10mg tablet OGT SCH (07:13)
[2020-10-05] MEDS: lactobacillus rhamnosus 10,000 MMU CELLS/CAPSULE OGT SCH ×2 (07:13→20:29)
[2020-10-05] MEDS: ascorbic acid 500mg tablet OGT SCH (07:13)
[2020-10-05 07:14] LABS: ANISOCYTOSIS 3+; PLATELET ESTIMATE DECREASED; POIKILOCYTOSIS 1+
[2020-10-05] MEDS: heparin, porcine 5000 units/ml vial SQ SCH ×3 (07:44→20:31)
[2020-10-05] MEDS: K, MAG and/or Phos replacement - Verify level? MC SCH (08:00)
[2020-10-05] MEDS: insulin Lispro (HumaLOG) vial - multi-dose SQ SCH ×3 (08:29→21:01)
--- NOTE | 2020-10-05 08:33 | NUR ---
MD at bedside aware of patient's labs and updated on patient's condition. Orders received to restart tube feed at trickle rate and Mag Citrate. MD aware of continued decrease of Urine output.
[2020-10-05] MEDS ORDERED: magnesium citrate 296ml oral solution PO ONE (08:35)
[2020-10-05] MEDS: budesonide 0.5mg/2ml UD nebule IH SCH ×2 (09:03→20:49)
[2020-10-05] MEDS: albuterol 2.5 MG/3 ML nebule NEB PRN ×2 (09:03→20:49)
[2020-10-05] MEDS ORDERED: calcium chloride inj. 1,000 MG in normal saline 100ml IV soln 100 ML IV PRN (10:00)
[2020-10-05] MEDS ORDERED: sodium phosphate inj. 30 MMOL in normal saline 250ml IV soln 250 ML IV PRN (10:00)
[2020-10-05] MEDS ORDERED: Duosol 4k/NO Calcium 5,000 ML HE SCH (10:00)
[2020-10-05] MEDS ORDERED: potassium Cl 40MEQ/250ML bag 270 ML IV PRN (10:00)
[2020-10-05] MEDS: dexmedetomidin/NS 400mcg/100ml 100 ML IV PRN (10:01)
--- NOTE | 2020-10-05 10:03 | NUR ---
Reassessment: Pt remains intubated and nonresponsive with MRI showing anoxic brain injury per MD note. Patient placed on low intermittent suction 10/03 d/t high gastric residuals per chicken picker. TF resumed today at a trickle of 20 mL/hr per MD. Pt continues receiving Nabicarb/dex at 100 mL/hr providing additional 408 kcal/day. TF advancement recommendations below for once MD okays advancing goal rate. LBM 10/03, pt receiving routine bowel care and to receive one time dose of Mag Citrate today. Will continue to follow closely. Recommendations: 1) Continuous trickle TF via OG tube per MD using Vital AF at 20 mL/hr. To provide 480 mL total volume/day, 576 kcal, 36 g protein, and 389 mL water 2) If MD okays advancing TF rate, recommend continuous TF with 60mL/hr goal; to provide 1440 mL total volume/day, 1728 kcal, 1166 mL water, and 108 g protein 3) IF pt to continue receiving sodium bicarb w/ D5 at 100ml/hr providing extra 408kcals/day; adjust TF to Vital AF at 50ml/hr goal 4) Additional 100 mL water flush Q4H for 1 Ml/kcal; monitor serum Na and fluid retention status with cirrhosis/ascites hx; adjust per stove mounter recs 5) prealbumin q Wednesday/, daily weights 6) Routine bowel care; 15 days prior constipation w/ BM of unknown size x1 since Addendum: 10/05/20 at [address] Amended: Links added.
[2020-10-05 11:39] LABS: BASOPHILS % (AUTO) 0.2 % (0-1); EOSINOPHILS # (AUTO) 0.2 X10'3 (0-0.9); EOSINOPHILS % (AUTO) 0.9 % (0-6); HEMATOCRIT 26.3 % (35.0-45.0); HEMOGLOBIN 8.7 g/dl (12.0-16.0); LYMPHOCYTES # (AUTO) 0.6 X10'3 (1.1-4.8); MEAN CORPUSCULAR HEMOGLOBIN 31.2 PG (27.0-31.0); MEAN CORPUSCULAR VOLUME 94.5 FL (78-98); MEAN PLATELET VOLUME 6.9 FL (7.4-10.4); MONOCYTES # (AUTO) 1.1 X10'3 (0-0.9); MONOCYTES % (AUTO) 5.3 % (2-12); NEUTROPHILS # (AUTO) 18.5 X10'3 (1.8-7.7); NEUTROPHILS % (AUTO) 90.6 % (42-75); PLATELET COUNT 139 X10'3 (140-440); RED BLOOD COUNT 2.79 X10'6 (4.20-5.60); RED CELL DISTRIBUTION WIDTH 20.8 % (11.5-14.5); WHITE BLOOD COUNT 20.4 X10'3 (4.5-11.0)
[2020-10-05 11:52] LABS: ALBUMIN 1.6 G/DL (3.4-5.0); ANION GAP 13 (8-16); BLOOD UREA NITROGEN 63 MG/DL (7-18); BUN/CREATININE RATIO 14.7 (6.6-38.0); CHLORIDE 103 MMOL/L (99-107); CREATININE 4.28 MG/DL (0.40-0.90); GLUCOSE 219 MG/DL (70-104); MAGNESIUM 1.9 MG/DL (1.5-2.4); PHOSPHORUS 5.2 MG/DL (2.3-4.5); POTASSIUM 3.4 MMOL/L (3.5-5.1); SODIUM 137 MMOL/L (135-145); TOTAL CARBON DIOXIDE 20.6 MMOL/L (24-32); eGFR 10 ML/MIN
[2020-10-05] MEDS: citrate dextrose 1000ml IV sol 1,000 ML IV PRN ×3 (12:48→22:46)
[2020-10-05] MEDS: calcium chloride inj. 10,000 MG in normal saline 500ml IV soln 400 ML IV PRN (12:54)
[2020-10-05] MEDS: Duosol 4k/NO Calcium 5,000 ML HE SCH ×3 (12:59→13:01)
[2020-10-05 13:10] LABS: ABG HCO3 20.2 mmol/L (22.0-26.0); ABG OXYGEN SATURATION 92.1 % (94-97); ABG PCO2 (T) 36.4 mmHg (32.0-45.0); ABG PO2 (T) 65.6 mmHg (75.0-100.0); ALLEN'S TEST POSITIVE; FCOHb 0.2 % (0.0-3.9); FMetHb 0.3 % (0.0-1.5); FO2Hb 91.6 % (94-97); PATIENT TEMPERATURE 36.1; PEEP 5 cm H2O; RESPIRATORY RATE 20 b/min; TIDAL VOLUME 400 mL; TOTAL HEMOGLOBIN 10.2 G/dl (12.0-16.0)
[2020-10-05 13:19] LABS: BASOPHILS % (AUTO) 0.3 % (0-1); EOSINOPHILS % (AUTO) 0.4 % (0-6); HEMATOCRIT 27.9 % (35.0-45.0); HEMOGLOBIN 9.2 g/dl (12.0-16.0); LYMPHOCYTES # (AUTO) 0.4 X10'3 (1.1-4.8); LYMPHOCYTES % (AUTO) 4.2 % (21-51); MEAN CORPUSCULAR HEMOGLOBIN 31.4 PG (27.0-31.0); MEAN CORPUSCULAR HGB CONC 33.1 g/dL (33.0-36.5); MEAN CORPUSCULAR VOLUME 94.9 FL (78-98); MEAN PLATELET VOLUME 7.3 FL (7.4-10.4); MONOCYTES # (AUTO) 0.2 X10'3 (0-0.9); NEUTROPHILS # (AUTO) 9.9 X10'3 (1.8-7.7); NEUTROPHILS % (AUTO) 93.1 % (42-75); PLATELET COUNT 114 X10'3 (140-440); RED BLOOD COUNT 2.94 X10'6 (4.20-5.60); WHITE BLOOD COUNT 10.6 X10'3 (4.5-11.0)
--- NOTE | 2020-10-05 13:30 | NUR ---
Jonna and Dr. Heredia at bedside. Orders to hold tube feed until tomorrow. Possibly start TPN if unable to tolerate tube feed tomorrow.
[2020-10-05 13:31] LABS: ALBUMIN 1.6 G/DL (3.4-5.0); ANION GAP 16 (8-16); BLOOD UREA NITROGEN 59 MG/DL (7-18); BUN/CREATININE RATIO 14.6 (6.6-38.0); CHLORIDE 103 MMOL/L (99-107); CREATININE 4.04 MG/DL (0.40-0.90); GLUCOSE 191 MG/DL (70-104); MAGNESIUM 1.9 MG/DL (1.5-2.4); PHOSPHORUS 4.9 MG/DL (2.3-4.5); POTASSIUM 3.4 MMOL/L (3.5-5.1); SODIUM 141 MMOL/L (135-145); TOTAL CARBON DIOXIDE 21.9 MMOL/L (24-32); eGFR 11 ML/MIN
--- NOTE | 2020-10-05 13:45 | NUR ---
patient's temperature 35.9C margaret hugger placed on patient.
[2020-10-05 14:24] LABS: BASOPHILS % (AUTO) 0.3 % (0-1); EOSINOPHILS # (AUTO) 0.1 X10'3 (0-0.9); EOSINOPHILS % (AUTO) 0.5 % (0-6); HEMATOCRIT 26.3 % (35.0-45.0); HEMOGLOBIN 8.5 g/dl (12.0-16.0); LYMPHOCYTES # (AUTO) 0.3 X10'3 (1.1-4.8); LYMPHOCYTES % (AUTO) 2.3 % (21-51); MEAN CORPUSCULAR HEMOGLOBIN 30.6 PG (27.0-31.0); MEAN CORPUSCULAR HGB CONC 32.3 g/dL (33.0-36.5); MEAN CORPUSCULAR VOLUME 94.5 FL (78-98); MEAN PLATELET VOLUME 7.2 FL (7.4-10.4); MONOCYTES # (AUTO) 0.4 X10'3 (0-0.9); MONOCYTES % (AUTO) 2.5 % (2-12); NEUTROPHILS # (AUTO) 14.4 X10'3 (1.8-7.7); NEUTROPHILS % (AUTO) 94.4 % (42-75); PLATELET COUNT 99 X10'3 (140-440); RED BLOOD COUNT 2.78 X10'6 (4.20-5.60); RED CELL DISTRIBUTION WIDTH 22.9 % (11.5-14.5); WHITE BLOOD COUNT 15.2 X10'3 (4.5-11.0)
[2020-10-05 14:40] LABS: ALBUMIN 1.5 G/DL (3.4-5.0); ANION GAP 14 (8-16); BLOOD UREA NITROGEN 57 MG/DL (7-18); BUN/CREATININE RATIO 14.7 (6.6-38.0); CHLORIDE 105 MMOL/L (99-107); CREATININE 3.88 MG/DL (0.40-0.90); GLUCOSE 197 MG/DL (70-104); MAGNESIUM 1.9 MG/DL (1.5-2.4); PHOSPHORUS 4.8 MG/DL (2.3-4.5); POTASSIUM 3.4 MMOL/L (3.5-5.1); SODIUM 141 MMOL/L (135-145); TOTAL CARBON DIOXIDE 21.6 MMOL/L (24-32); eGFR 11 ML/MIN
[2020-10-05 15:24] LABS: BASOPHILS % (AUTO) 0.1 % (0-1); EOSINOPHILS # (AUTO) 0.1 X10'3 (0-0.9); EOSINOPHILS % (AUTO) 0.3 % (0-6); HEMOGLOBIN 8.5 g/dl (12.0-16.0); LYMPHOCYTES # (AUTO) 0.4 X10'3 (1.1-4.8); MEAN CORPUSCULAR HEMOGLOBIN 30.3 PG (27.0-31.0); MEAN CORPUSCULAR HGB CONC 32.6 g/dL (33.0-36.5); MEAN PLATELET VOLUME 6.9 FL (7.4-10.4); MONOCYTES # (AUTO) 0.8 X10'3 (0-0.9); MONOCYTES % (AUTO) 4.3 % (2-12); NEUTROPHILS # (AUTO) 17.9 X10'3 (1.8-7.7); NEUTROPHILS % (AUTO) 93.3 % (42-75); PLATELET COUNT 106 X10'3 (140-440); RED CELL DISTRIBUTION WIDTH 22.8 % (11.5-14.5); WHITE BLOOD COUNT 19.2 X10'3 (4.5-11.0)
[2020-10-05 15:36] LABS: ALBUMIN 1.5 G/DL (3.4-5.0); ANION GAP 10 (8-16); BLOOD UREA NITROGEN 56 MG/DL (7-18); BUN/CREATININE RATIO 14.7 (6.6-38.0); CHLORIDE 103 MMOL/L (99-107); GLUCOSE 199 MG/DL (70-104); MAGNESIUM 1.8 MG/DL (1.5-2.4); PHOSPHORUS 4.6 MG/DL (2.3-4.5); POTASSIUM 3.2 MMOL/L (3.5-5.1); SODIUM 135 MMOL/L (135-145); TOTAL CARBON DIOXIDE 22.4 MMOL/L (24-32); eGFR 12 ML/MIN
[2020-10-05 16:26] LABS: BASOPHILS % (AUTO) 0.1 % (0-1); EOSINOPHILS # (AUTO) 0.1 X10'3 (0-0.9); EOSINOPHILS % (AUTO) 0.4 % (0-6); HEMATOCRIT 26.4 % (35.0-45.0); HEMOGLOBIN 8.6 g/dl (12.0-16.0); LYMPHOCYTES # (AUTO) 0.5 X10'3 (1.1-4.8); LYMPHOCYTES % (AUTO) 2.2 % (21-51); MEAN CORPUSCULAR HEMOGLOBIN 30.4 PG (27.0-31.0); MEAN CORPUSCULAR HGB CONC 32.6 g/dL (33.0-36.5); MEAN CORPUSCULAR VOLUME 93.2 FL (78-98); MEAN PLATELET VOLUME 7.2 FL (7.4-10.4); MONOCYTES # (AUTO) 0.8 X10'3 (0-0.9); MONOCYTES % (AUTO) 3.7 % (2-12); NEUTROPHILS # (AUTO) 19.7 X10'3 (1.8-7.7); NEUTROPHILS % (AUTO) 93.6 % (42-75); PLATELET COUNT 105 X10'3 (140-440); RED BLOOD COUNT 2.84 X10'6 (4.20-5.60); RED CELL DISTRIBUTION WIDTH 22.3 % (11.5-14.5); WHITE BLOOD COUNT 21.1 X10'3 (4.5-11.0)
[2020-10-05 16:39] LABS: ALBUMIN 1.6 G/DL (3.4-5.0); ANION GAP 13 (8-16); BLOOD UREA NITROGEN 55 MG/DL (7-18); BUN/CREATININE RATIO 14.5 (6.6-38.0); CHLORIDE 105 MMOL/L (99-107); GLUCOSE 198 MG/DL (70-104); MAGNESIUM 1.8 MG/DL (1.5-2.4); PHOSPHORUS 4.5 MG/DL (2.3-4.5); POTASSIUM 3.3 MMOL/L (3.5-5.1); SODIUM 141 MMOL/L (135-145); TOTAL CARBON DIOXIDE 22.8 MMOL/L (24-32); eGFR 12 ML/MIN
[2020-10-05] MEDS: NORepinephrine 8mg/ 250ml NS 250 ML IV SCH ×2 (17:20→22:56)
--- NOTE | 2020-10-05 18:29 | NUR ---
Patient report given, questions answered & plan of care reviewed with Emma LARA.
--- NOTE | 2020-10-05 18:30 | NUR ---
Patient in room ICU 2042. I have received report from Bhavna LARA and had the opportunity to ask questions and assume patient care. Pt intubated, minimally responsive to stimuli, will open eyes and peak pressure vent. CVVH running. Daughter currently at bedside.
[2020-10-05] MEDS ORDERED: potassium Cl 20mEq/100mL bag 100 ML IV ONE (19:25)
[2020-10-05] MEDS: polyethylene glycol 3350 17gm powd pack PO SCH (20:30)
[2020-10-05 22:53] LABS: BASOPHILS % (AUTO) 0.2 % (0-1); EOSINOPHILS # (AUTO) 0.1 X10'3 (0-0.9); EOSINOPHILS % (AUTO) 0.7 % (0-6); HEMATOCRIT 27.3 % (35.0-45.0); HEMOGLOBIN 8.8 g/dl (12.0-16.0); LYMPHOCYTES # (AUTO) 0.6 X10'3 (1.1-4.8); LYMPHOCYTES % (AUTO) 2.8 % (21-51); MEAN CORPUSCULAR HEMOGLOBIN 30.4 PG (27.0-31.0); MEAN CORPUSCULAR HGB CONC 32.2 g/dL (33.0-36.5); MEAN CORPUSCULAR VOLUME 94.5 FL (78-98); MEAN PLATELET VOLUME 7.3 FL (7.4-10.4); MONOCYTES % (AUTO) 5.1 % (2-12); NEUTROPHILS # (AUTO) 18.4 X10'3 (1.8-7.7); NEUTROPHILS % (AUTO) 91.2 % (42-75); PLATELET COUNT 96 X10'3 (140-440); RED BLOOD COUNT 2.88 X10'6 (4.20-5.60); RED CELL DISTRIBUTION WIDTH 23.5 % (11.5-14.5); WHITE BLOOD COUNT 20.2 X10'3 (4.5-11.0)
[2020-10-05 23:01] LABS: ALBUMIN 1.6 G/DL (3.4-5.0); ANION GAP 12 (8-16); BLOOD UREA NITROGEN 46 MG/DL (7-18); BUN/CREATININE RATIO 13.9 (6.6-38.0); CHLORIDE 104 MMOL/L (99-107); CREATININE 3.32 MG/DL (0.40-0.90); GLUCOSE 161 MG/DL (70-104); MAGNESIUM 1.8 MG/DL (1.5-2.4); PHOSPHORUS 3.6 MG/DL (2.3-4.5); POTASSIUM 3.8 MMOL/L (3.5-5.1); SODIUM 141 MMOL/L (135-145); TOTAL CARBON DIOXIDE 25.5 MMOL/L (24-32); eGFR 14 ML/MIN
[2020-10-05] MEDS ORDERED: potassium Cl 20 mEq/100mL bag IV ONE (23:50)
[2020-10-06] VITALS (24 sets, daily range): BP systolic 90–125; BP diastolic 49–69
[2020-10-06 00:08] LABS: PLATELET ESTIMATE DECREASED
[2020-10-06] MEDS: Duosol 4k/NO Calcium 5,000 ML HE SCH ×6 (00:15→10:49)
--- NOTE | 2020-10-06 01:18 | NUR ---
Some issues with CVVH machine. Currently running but several Pressure and Air in line alarms that were difficult to clear.
[2020-10-06] MEDS: mineral oil/petrolatum ophthal oint EACHEYE SCH ×4 (02:20→20:27)
[2020-10-06] MEDS: lactulose 20gm/30ml cup PO SCH ×4 (02:20→20:27)
[2020-10-06] MEDS: insulin Lispro (HumaLOG) vial - multi-dose SQ SCH ×2 (02:22→20:37)
[2020-10-06] MEDS: sodium bicarbonate (8.4%) inj. 150 MEQ in dextrose 5%-water 1,000 ML IV SCH ×3 (02:59→23:36)
[2020-10-06] MEDS: dexmedetomidin/NS 400mcg/100ml 100 ML IV PRN ×2 (02:59→14:54)
[2020-10-06] MEDS: VANCOMYCIN LEVEL IV SCH (03:00)
[2020-10-06 04:03] LABS: ABG BASE EXCESS 1.5 mmol/L (-2.0-2.0); ABG HCO3 25.6 mmol/L (22.0-26.0); ABG OXYGEN SATURATION 96.4 % (94-97); ABG PCO2 (T) 37.4 mmHg (32.0-45.0); ALLEN'S TEST Modified; FCOHb 0.9 % (0.0-3.9); FMetHb 1.1 % (0.0-1.5); FO2Hb 94.5 % (94-97); PATIENT TEMPERATURE 36.4; PEEP 5 cm H2O; RESPIRATORY RATE 20 b/min; TIDAL VOLUME 400 mL; TOTAL HEMOGLOBIN 9.1 G/dl (12.0-16.0)
[2020-10-06] MEDS: amiodarone/D5 360MG/200ML BAG 200 ML IV SCH ×3 (04:33→14:33)
[2020-10-06] MEDS: citrate dextrose 1000ml IV sol 1,000 ML IV PRN ×5 (04:33→21:17)
[2020-10-06 04:40] LABS: BASOPHILS # (AUTO) 0.1 X10'3 (0-0.2); BASOPHILS % (AUTO) 0.3 % (0-1); EOSINOPHILS # (AUTO) 0.2 X10'3 (0-0.9); HEMATOCRIT 25.2 % (35.0-45.0); HEMOGLOBIN 8.1 g/dl (12.0-16.0); LYMPHOCYTES # (AUTO) 0.7 X10'3 (1.1-4.8); LYMPHOCYTES % (AUTO) 3.9 % (21-51); MEAN CORPUSCULAR HEMOGLOBIN 30.4 PG (27.0-31.0); MEAN CORPUSCULAR HGB CONC 32.1 g/dL (33.0-36.5); MEAN CORPUSCULAR VOLUME 94.8 FL (78-98); MEAN PLATELET VOLUME 7.6 FL (7.4-10.4); MONOCYTES # (AUTO) 1.2 X10'3 (0-0.9); MONOCYTES % (AUTO) 6.8 % (2-12); PLATELET COUNT 88 X10'3 (140-440); RED BLOOD COUNT 2.66 X10'6 (4.20-5.60); RED CELL DISTRIBUTION WIDTH 23.5 % (11.5-14.5); WHITE BLOOD COUNT 18.2 X10'3 (4.5-11.0)
[2020-10-06 04:41] LABS: PARTIAL THROMBOPLASTIN TIME 58 SECONDS (22-32)
[2020-10-06 04:44] LABS: ALANINE AMINOTRANSFERASE 96 U/L (12-78); ALBUMIN 1.4 G/DL (3.4-5.0); ALBUMIN/GLOBULIN RATIO 0.4 (1.1-1.5); ALKALINE PHOSPHATASE 119 IU/L (46-116); ANION GAP 11 (8-16); ASPARTATE AMINO TRANSFERASE 29 U/L (10-37); BILIRUBIN,TOTAL 0.9 MG/DL (0.1-1.0); BLOOD UREA NITROGEN 41 MG/DL (7-18); BUN/CREATININE RATIO 13.4 (6.6-38.0); CHLORIDE 103 MMOL/L (99-107); CREATININE 3.07 MG/DL (0.40-0.90); GLUCOSE 140 MG/DL (70-104); MAGNESIUM 1.7 MG/DL (1.5-2.4); PHOSPHORUS 3.3 MG/DL (2.3-4.5); POTASSIUM 3.4 MMOL/L (3.5-5.1); SODIUM 142 MMOL/L (135-145); TOTAL CARBON DIOXIDE 27.9 MMOL/L (24-32); TOTAL PROTEIN 5.1 G/DL (6.4-8.2); VANCOMYCIN,TROUGH 13.6 UG/ML (6.0-14.0); eGFR 15 ML/MIN
[2020-10-06] MEDS: magnesium 4gm in 100ml NS 100 ML IV PRN (05:44)
[2020-10-06] MEDS ORDERED: vancomycin/NS 1 GM ADD-VANTAGE 250 ML IV ONE (06:20)
--- NOTE | 2020-10-06 06:22 | NUR ---
Discussed in rounds with Dr Bay, new orders. Giving Vanco dose, replacing Lytes.
--- NOTE | 2020-10-06 06:23 | NUR ---
Problems reprioritized. Patient report given, questions answered & plan of care reviewed with Mavis LARA.
[2020-10-06 06:38] LABS: PLATELET ESTIMATE DECREASED; POLYCHROMASIA 1+
[2020-10-06 06:39] LABS: ACANTHOCYTES FEW; ANISOCYTOSIS 3+; BURR CELLS FEW; STOMATOCYTES FEW; TEAR DROP CELLS 1+
--- NOTE | 2020-10-06 06:54 | NUR ---
Patient in room ICU 2042. I have received report from Emma LARA and had the opportunity to ask questions and assume patient care. Addendum: 10/06/20 at 0654 by Mavis Sandoval RN Amended: Links added.
[2020-10-06] MEDS: lactobacillus rhamnosus 10,000 MMU CELLS/CAPSULE OGT SCH ×2 (07:25→20:27)
[2020-10-06] MEDS: famotidine/PF 10 mg/ml inj IV SCH (07:25)
[2020-10-06] MEDS: cefepime 1GM/NS ADD-VANTAGE 100 ML IV SCH ×2 (07:25→20:27)
[2020-10-06] MEDS: ascorbic acid 500mg tablet OGT SCH (07:25)
[2020-10-06] MEDS: folic acid 1mg tablet OGT SCH (07:25)
[2020-10-06] MEDS: sennosides/docusate sodium tablet OGT SCH ×2 (07:25→18:54)
[2020-10-06] MEDS: loratadine 10mg tablet OGT SCH (07:26)
[2020-10-06] MEDS: K, MAG and/or Phos replacement - Verify level? MC SCH (07:27)
[2020-10-06] MEDS: albuterol 2.5 MG/3 ML nebule NEB PRN ×2 (07:40→21:07)
[2020-10-06] MEDS: budesonide 0.5mg/2ml UD nebule IH SCH ×2 (07:40→21:07)
--- NOTE | 2020-10-06 08:30 | NUR ---
Wound pics taken per policy.
--- NOTE | 2020-10-06 09:15 | NUR ---
CVVH down at 0900. HD nurse paged.
--- NOTE | 2020-10-06 09:36 | NUR ---
Pt. has had multiple BMs and a lot of flatus. Too thick to place a rectal tube though.
[2020-10-06] MEDS: potassium Cl 40MEQ/250ML bag 270 ML IV PRN (09:40)
[2020-10-06] MEDS: iron sucrose complex injection 200 MG in normal saline 100ml IV soln 90 ML IV SCH (09:41)
--- NOTE | 2020-10-06 10:00 | NUR ---
F/u 10/06: Noted all pt TF diets have been cancelled in EMR, TF off, and no GRV's documented since 10/03 2.5 days. BEBE d/w RN who reports TF off at night r/t TF in pt mouth. BEBE d/w RN recommends corpak for post-pyloric to optimize EN tolerance if MD agreeable since pt now on CVVH. Recommendations: 1) IF TF consider corpak for post-pyloric feeds. IF MD okay to restart TF and pt remains on sodium/bicarb/dex at 100ml/hr; recommend Vital AF at 55mL/hr on while on CVVH; to provide 1320mL total volume/day, 1584kcal, 1069mL water, and 99g protein. Unable to meet protein needs on CVVH. 2) IF pt off sodium bicarb/dex at 100ml/hr; advance TF to Vital AF at 70mL/hr on while on CVVH; to provide 1680mL total volume/day, 2016 kcal, 1361mL water, and 126g protein 3) Additional 100 mL water flush Q4H for 1 Ml/kcal; monitor serum Na and fluid retention status with cirrhosis/ascites hx; adjust per insurance investigator recs 4) prealbumin q Wednesday/, daily weights 5) Routine bowel care; 15 days prior constipation w/ BM of unknown size x1 since Addendum: 10/06/20 at [address] Amended: Links added.
[2020-10-06] MEDS ORDERED: albumin (Human) 5% 250ml 250 ML IV ONE (10:15)
[2020-10-06] MEDS: NORepinephrine 8mg/ 250ml NS 250 ML IV SCH (10:18)
[2020-10-06 10:28] LABS: ALBUMIN 1.4 G/DL (3.4-5.0); ANION GAP 11 (8-16); BASOPHILS # (AUTO) 0.1 X10'3 (0-0.2); BASOPHILS % (AUTO) 0.4 % (0-1); BLOOD UREA NITROGEN 39 MG/DL (7-18); BUN/CREATININE RATIO 13.6 (6.6-38.0); CHLORIDE 103 MMOL/L (99-107); CREATININE 2.86 MG/DL (0.40-0.90); EOSINOPHILS # (AUTO) 0.2 X10'3 (0-0.9); EOSINOPHILS % (AUTO) 0.9 % (0-6); GLUCOSE 197 MG/DL (70-104); HEMATOCRIT 22.7 % (35.0-45.0); HEMOGLOBIN 7.3 g/dl (12.0-16.0); LYMPHOCYTES # (AUTO) 0.8 X10'3 (1.1-4.8); LYMPHOCYTES % (AUTO) 4.9 % (21-51); MAGNESIUM 2.1 MG/DL (1.5-2.4); MEAN CORPUSCULAR HEMOGLOBIN 30.4 PG (27.0-31.0); MEAN CORPUSCULAR HGB CONC 32.2 g/dL (33.0-36.5); MEAN CORPUSCULAR VOLUME 94.3 FL (78-98); MEAN PLATELET VOLUME 7.3 FL (7.4-10.4); MONOCYTES # (AUTO) 1.2 X10'3 (0-0.9); MONOCYTES % (AUTO) 7.5 % (2-12); NEUTROPHILS # (AUTO) 14.3 X10'3 (1.8-7.7); NEUTROPHILS % (AUTO) 86.3 % (42-75); PHOSPHORUS 3.1 MG/DL (2.3-4.5); PLATELET COUNT 62 X10'3 (140-440); POTASSIUM 3.6 MMOL/L (3.5-5.1); RED BLOOD COUNT 2.41 X10'6 (4.20-5.60); RED CELL DISTRIBUTION WIDTH 22.8 % (11.5-14.5); SODIUM 141 MMOL/L (135-145); TOTAL CARBON DIOXIDE 26.6 MMOL/L (24-32); WHITE BLOOD COUNT 16.6 X10'3 (4.5-11.0); eGFR 16 ML/MIN
[2020-10-06] MEDS: calcium chloride inj. 10,000 MG in normal saline 500ml IV soln 400 ML IV PRN (10:40)
--- NOTE | 2020-10-06 10:42 | NUR ---
Dr. Jeter here. Will increase BFR to 350 on CVVH.
--- NOTE | 2020-10-06 11:02 | NUR ---
CVVH being set up now.
--- NOTE | 2020-10-06 11:39 | NUR ---
CVVH up and running again. Citrate was infusing into PICC instead of in CVVH line. Both Calcium Citrate and Calcium Chloride infusing in CVVH lines, not PICC as instructed by NIGEL Manzano.
[2020-10-06] MEDS ORDERED: potassium Cl 40MEQ/250ML bag 270 ML IV PRN (11:50)
[2020-10-06] MEDS ORDERED: citrate dextrose 1000ml IV sol 1,000 ML IV PRN (11:50)
--- NOTE | 2020-10-06 14:02 | NUR ---
Liquid stool now. Order for rectal tube obtained.
[2020-10-06] MEDS: FENTANYL-0.9 % NACL/PF 100 ML IV PRN (14:47)
--- NOTE | 2020-10-06 15:27 | NUR ---
CVVH machine tempermental with turning pt. Lines switched.
--- NOTE | 2020-10-06 16:25 | NUR ---
Dtr. Lily gold. Writing RN's name, pt's weight and current vital signs on a notepad.
[2020-10-06 16:38] LABS: ALBUMIN 1.7 G/DL (3.4-5.0); ANION GAP 12 (8-16); BLOOD UREA NITROGEN 34 MG/DL (7-18); BUN/CREATININE RATIO 12.8 (6.6-38.0); CHLORIDE 100 MMOL/L (99-107); CREATININE 2.66 MG/DL (0.40-0.90); GLUCOSE 217 MG/DL (70-104); PHOSPHORUS 2.8 MG/DL (2.3-4.5); POTASSIUM 3.4 MMOL/L (3.5-5.1); SODIUM 140 MMOL/L (135-145); eGFR 18 ML/MIN
[2020-10-06 16:39] LABS: BASOPHILS % (AUTO) 0.3 % (0-1); EOSINOPHILS # (AUTO) 0.1 X10'3 (0-0.9); EOSINOPHILS % (AUTO) 0.8 % (0-6); HEMATOCRIT 22.2 % (35.0-45.0); HEMOGLOBIN 7.1 g/dl (12.0-16.0); LYMPHOCYTES # (AUTO) 0.7 X10'3 (1.1-4.8); LYMPHOCYTES % (AUTO) 5.1 % (21-51); MEAN CORPUSCULAR HGB CONC 32.2 g/dL (33.0-36.5); MEAN CORPUSCULAR VOLUME 93.4 FL (78-98); MEAN PLATELET VOLUME 7.6 FL (7.4-10.4); MONOCYTES # (AUTO) 1.1 X10'3 (0-0.9); MONOCYTES % (AUTO) 8.2 % (2-12); NEUTROPHILS # (AUTO) 11.9 X10'3 (1.8-7.7); NEUTROPHILS % (AUTO) 85.6 % (42-75); PLATELET COUNT 61 X10'3 (140-440); RED BLOOD COUNT 2.38 X10'6 (4.20-5.60); WHITE BLOOD COUNT 13.9 X10'3 (4.5-11.0)
--- NOTE | 2020-10-06 17:12 | NUR ---
Two grandsons just visited briefly with pt.
--- NOTE | 2020-10-06 18:12 | NUR ---
Problems reprioritized. Patient report given, questions answered & plan of care reviewed with Emma LARA.
--- NOTE | 2020-10-06 18:30 | NUR ---
Patient in room ICU 2042. I have received report from Mavis LARA and had the opportunity to ask questions and assume patient care. CVVH alarming frequently. Pt with eyes open more often. More irregular breathing pattern with peak pressuring. Awaiting blood products, replacing K+.
[2020-10-06] MEDS: polyethylene glycol 3350 17gm powd pack PO SCH (20:27)
[2020-10-06 22:47] LABS: ALBUMIN 1.8 G/DL (3.4-5.0); ANION GAP 13 (8-16); BLOOD UREA NITROGEN 31 MG/DL (7-18); BUN/CREATININE RATIO 12.6 (6.6-38.0); CHLORIDE 104 MMOL/L (99-107); CREATININE 2.46 MG/DL (0.40-0.90); GLUCOSE 172 MG/DL (70-104); MAGNESIUM 1.9 MG/DL (1.5-2.4); PHOSPHORUS 2.6 MG/DL (2.3-4.5); SODIUM 145 MMOL/L (135-145); TOTAL CARBON DIOXIDE 28.3 MMOL/L (24-32); eGFR 19 ML/MIN
[2020-10-06 22:58] LABS: BASOPHILS # (AUTO) 0.1 X10'3 (0-0.2); BASOPHILS % (AUTO) 0.4 % (0-1); EOSINOPHILS % (AUTO) 0.2 % (0-6); HEMATOCRIT 24.2 % (35.0-45.0); HEMOGLOBIN 7.7 g/dl (12.0-16.0); LYMPHOCYTES # (AUTO) 0.7 X10'3 (1.1-4.8); LYMPHOCYTES % (AUTO) 4.9 % (21-51); MEAN CORPUSCULAR HEMOGLOBIN 30.6 PG (27.0-31.0); MEAN CORPUSCULAR VOLUME 95.6 FL (78-98); MEAN PLATELET VOLUME 8.2 FL (7.4-10.4); MONOCYTES # (AUTO) 1.1 X10'3 (0-0.9); MONOCYTES % (AUTO) 7.9 % (2-12); NEUTROPHILS # (AUTO) 12.1 X10'3 (1.8-7.7); NEUTROPHILS % (AUTO) 86.6 % (42-75); PLATELET COUNT 71 X10'3 (140-440); RED BLOOD COUNT 2.53 X10'6 (4.20-5.60); RED CELL DISTRIBUTION WIDTH 23.5 % (11.5-14.5)
[2020-10-07] VITALS (30 sets, daily range): BP systolic 83–124; BP diastolic 48–72
[2020-10-07] MEDS: Duosol 4k/NO Calcium 5,000 ML HE SCH ×5 (00:19→16:24)
[2020-10-07] MEDS: citrate dextrose 1000ml IV sol 1,000 ML IV PRN ×4 (00:21→11:28)
[2020-10-07] MEDS: lactulose 20gm/30ml cup PO SCH ×4 (01:37→20:21)
[2020-10-07] MEDS: amiodarone/D5 360MG/200ML BAG 200 ML IV SCH ×4 (01:37→18:19)
[2020-10-07] MEDS: mineral oil/petrolatum ophthal oint EACHEYE SCH ×4 (01:37→20:21)
[2020-10-07] MEDS: insulin Lispro (HumaLOG) vial - multi-dose SQ SCH (01:54)
[2020-10-07 03:45] LABS: ABG BASE EXCESS 4.6 mmol/L (-2.0-2.0); ABG HCO3 26.6 mmol/L (22.0-26.0); ABG PCO2 (T) 28.7 mmHg (32.0-45.0); ABG PO2 (T) 82.9 mmHg (75.0-100.0); ALLEN'S TEST Modified; FCOHb 0.1 % (0.0-3.9); FMetHb 0.2 % (0.0-1.5); FO2Hb 96.7 % (94-97); PATIENT TEMPERATURE 36.1; PEEP 5 cm H2O; RESPIRATORY RATE 20 b/min; TIDAL VOLUME 400 mL; TOTAL HEMOGLOBIN 9.2 G/dl (12.0-16.0)
[2020-10-07] MEDS: VANCOMYCIN LEVEL IV SCH (04:00)
[2020-10-07] MEDS: calcium chloride inj. 10,000 MG in normal saline 500ml IV soln 400 ML IV PRN ×2 (04:24→18:26)
[2020-10-07 04:29] LABS: BASOPHILS % (AUTO) 0.2 % (0-1); EOSINOPHILS # (AUTO) 0.1 X10'3 (0-0.9); EOSINOPHILS % (AUTO) 0.5 % (0-6); HEMATOCRIT 26.8 % (35.0-45.0); HEMOGLOBIN 8.7 g/dl (12.0-16.0); LYMPHOCYTES # (AUTO) 0.8 X10'3 (1.1-4.8); LYMPHOCYTES % (AUTO) 6.2 % (21-51); MEAN CORPUSCULAR HEMOGLOBIN 31.1 PG (27.0-31.0); MEAN CORPUSCULAR HGB CONC 32.5 g/dL (33.0-36.5); MEAN CORPUSCULAR VOLUME 95.6 FL (78-98); MEAN PLATELET VOLUME 7.8 FL (7.4-10.4); MONOCYTES # (AUTO) 1.2 X10'3 (0-0.9); MONOCYTES % (AUTO) 8.9 % (2-12); NEUTROPHILS # (AUTO) 11.3 X10'3 (1.8-7.7); NEUTROPHILS % (AUTO) 84.2 % (42-75); PLATELET COUNT 64 X10'3 (140-440); RED BLOOD COUNT 2.81 X10'6 (4.20-5.60); RED CELL DISTRIBUTION WIDTH 21.5 % (11.5-14.5); WHITE BLOOD COUNT 13.4 X10'3 (4.5-11.0)
[2020-10-07 04:45] LABS: PARTIAL THROMBOPLASTIN TIME 47 SECONDS (22-32)
[2020-10-07 04:52] LABS: ALANINE AMINOTRANSFERASE 75 U/L (12-78); ALBUMIN 1.7 G/DL (3.4-5.0); ALBUMIN/GLOBULIN RATIO 0.5 (1.1-1.5); ALKALINE PHOSPHATASE 139 IU/L (46-116); ANION GAP 13 (8-16); ASPARTATE AMINO TRANSFERASE 34 U/L (10-37); BILIRUBIN,TOTAL 1.1 MG/DL (0.1-1.0); BLOOD UREA NITROGEN 28 MG/DL (7-18); BUN/CREATININE RATIO 12.6 (6.6-38.0); CALCIUM 9.6 MG/DL (8.5-10.1); CHLORIDE 106 MMOL/L (99-107); CREATININE 2.22 MG/DL (0.40-0.90); GLUCOSE 137 MG/DL (70-104); PHOSPHORUS 2.4 MG/DL (2.3-4.5); POTASSIUM 3.6 MMOL/L (3.5-5.1); SODIUM 147 MMOL/L (135-145); TOTAL CARBON DIOXIDE 27.7 MMOL/L (24-32); TOTAL PROTEIN 5.1 G/DL (6.4-8.2); eGFR 22 ML/MIN
[2020-10-07 04:59] LABS: ABG BASE EXCESS 4.7 mmol/L (-2.0-2.0); ABG HCO3 27.8 mmol/L (22.0-26.0); ABG OXYGEN SATURATION 98.1 % (94-97); ABG PCO2 (T) 34.7 mmHg (32.0-45.0); ALLEN'S TEST Modified; FCOHb 0.3 % (0.0-3.9); FMetHb 0.1 % (0.0-1.5); FO2Hb 97.7 % (94-97); PATIENT TEMPERATURE 36.5; PEEP 5 cm H2O; RESPIRATORY RATE 16 b/min; TIDAL VOLUME 400 mL; TOTAL HEMOGLOBIN 10.4 G/dl (12.0-16.0)
[2020-10-07 05:29] LABS: MAGNESIUM 1.9 MG/DL (1.5-2.4); PREALBUMIN 8.7 MG/DL (19-36)
[2020-10-07] MEDS ORDERED: PERFLUTREN PROTEIN-A MICROSPHR (Optison) 0.22 MG/ML 3ML VIAL IV ONE (06:10)
--- NOTE | 2020-10-07 06:30 | NUR ---
Patient in room ICU 2042. I have received report from Emma LARA and had the opportunity to ask questions and assume patient care.
--- NOTE | 2020-10-07 06:40 | NUR ---
Problems reprioritized. Patient report given, questions answered & plan of care reviewed with Shalini LARA.
[2020-10-07] MEDS: budesonide 0.5mg/2ml UD nebule IH SCH ×2 (07:05→19:13)
[2020-10-07] MEDS: albuterol 2.5 MG/3 ML nebule NEB PRN ×2 (07:05→19:13)
--- NOTE | 2020-10-07 07:11 | NUR ---
Patient in room ICU 2042. I have received report from Emma LARA and had the opportunity to ask questions and assume patient care. Patient laying in bed vent 35% fio2 peep of 5, cvvh running to Gisselle jung, ordered drips running to upper arm picc, patino and rectal tube to gravity, OG to low intermitted suction
[2020-10-07] MEDS: ascorbic acid 500mg tablet OGT SCH (07:46)
[2020-10-07] MEDS: sennosides/docusate sodium tablet OGT SCH ×2 (07:46→20:00)
[2020-10-07] MEDS: lactobacillus rhamnosus 10,000 MMU CELLS/CAPSULE OGT SCH ×2 (07:46→20:21)
[2020-10-07] MEDS: folic acid 1mg tablet OGT SCH (07:47)
[2020-10-07] MEDS: loratadine 10mg tablet OGT SCH (07:48)
[2020-10-07] MEDS: cefepime 1GM/NS ADD-VANTAGE 100 ML IV SCH ×2 (07:48→20:21)
[2020-10-07] MEDS: K, MAG and/or Phos replacement - Verify level? MC SCH (08:00)
[2020-10-07] MEDS ORDERED: famotidine/PF 10 mg/ml inj IV SCH (08:00)
[2020-10-07] MEDS ORDERED: heparin, porcine 5000 units/ml vial SQ SCH (08:00)
[2020-10-07] MEDS: heparin, porcine 5000 units/ml vial SQ SCH (08:00)
[2020-10-07] MEDS: FENTANYL-0.9 % NACL/PF 100 ML IV PRN (08:04)
[2020-10-07] MEDS: iron sucrose complex injection 200 MG in normal saline 100ml IV soln 90 ML IV SCH (08:43)
[2020-10-07] MEDS: dexmedetomidin/NS 400mcg/100ml 100 ML IV PRN (08:49)
[2020-10-07] MEDS: insulin regular, human U-100 3ml vial - multi-dose SQ SCH ×2 (09:11→15:15)
[2020-10-07] MEDS: potassium Cl 40MEQ/250ML bag 270 ML IV PRN ×2 (09:44→23:53)
--- NOTE | 2020-10-07 10:19 | NUR ---
Rounds: Dr. Heredia held heparin, tube feed restart. RD recommended 10 cc/hr restart.
[2020-10-07 11:56] LABS: ALBUMIN 1.5 G/DL (3.4-5.0); ANION GAP 7 (8-16); BLOOD UREA NITROGEN 20 MG/DL (7-18); BUN/CREATININE RATIO 9.9 (6.6-38.0); CALCIUM 10.2 MG/DL (8.5-10.1); CHLORIDE 107 MMOL/L (99-107); CREATININE 2.03 MG/DL (0.40-0.90); GLUCOSE 119 MG/DL (70-104); MAGNESIUM 1.8 MG/DL (1.5-2.4); PHOSPHORUS 2.5 MG/DL (2.3-4.5); POTASSIUM 4.2 MMOL/L (3.5-5.1); SODIUM 145 MMOL/L (135-145); TOTAL CARBON DIOXIDE 31.3 MMOL/L (24-32); eGFR 24 ML/MIN
[2020-10-07 12:25] LABS: BASOPHILS % (AUTO) 0.2 % (0-1); EOSINOPHILS # (AUTO) 0.1 X10'3 (0-0.9); EOSINOPHILS % (AUTO) 0.8 % (0-6); HEMATOCRIT 28.2 % (35.0-45.0); HEMOGLOBIN 9.2 g/dl (12.0-16.0); LYMPHOCYTES # (AUTO) 0.9 X10'3 (1.1-4.8); LYMPHOCYTES % (AUTO) 7.4 % (21-51); MEAN CORPUSCULAR HEMOGLOBIN 30.8 PG (27.0-31.0); MEAN CORPUSCULAR HGB CONC 32.5 g/dL (33.0-36.5); MEAN CORPUSCULAR VOLUME 94.8 FL (78-98); MEAN PLATELET VOLUME 8.9 FL (7.4-10.4); MONOCYTES # (AUTO) 1.2 X10'3 (0-0.9); MONOCYTES % (AUTO) 9.8 % (2-12); NEUTROPHILS % (AUTO) 81.8 % (42-75); PLATELET COUNT 64 X10'3 (140-440); RED BLOOD COUNT 2.97 X10'6 (4.20-5.60); RED CELL DISTRIBUTION WIDTH 20.2 % (11.5-14.5); WHITE BLOOD COUNT 12.2 X10'3 (4.5-11.0)
--- NOTE | 2020-10-07 12:41 | NUR ---
TF Consult: Pt TF to restart this AM per bone grinder; updated recs below given pt needs on CVVH. Will start at 10ml/hr given hx intolerance and advance as tolerated. Pt has rectal tube in place w/ -300ml output per EMR. Will continue to monitor for TF tolerance and advancement. Recommendations: 1) Consider corpak for post-pyloric feeds to optimize EN tolerance. Continuous TF per MD using Vital AF at 70mL/hr goal on while on CVVH; to provide 1680mL total volume/day, 2016 kcal, 1361mL water, and 126g protein 2) IF continued TF intolerance consider corpak for post-pyloric feeds 3) Additional water flush per bone grinder on CVVH 4) prealbumin q Wednesday/, daily weights 5) Routine bowel care Addendum: 10/07/20 at [address] Amended: Links added. Addendum: 10/07/20 at [address] Recommendations: 1) Continuous TF per MD using Vital AF at 70mL/hr goal on while on CVVH; to provide 1680mL total volume/day, 2016 kcal, 1361mL water, and 126g protein 2) IF continued TF intolerance consider corpak for post-pyloric feeds
[2020-10-07 14:41] LABS: ANISOCYTOSIS 3+; PLATELET ESTIMATE DECREASED
[2020-10-07 14:42] LABS: BURR CELLS 1+; HYPOCHROMASIA 1+; SCHISTOCYTES FEW
[2020-10-07 16:27] LABS: BASOPHILS # (AUTO) 0.1 X10'3 (0-0.2); BASOPHILS % (AUTO) 0.7 % (0-1); EOSINOPHILS # (AUTO) 0.1 X10'3 (0-0.9); EOSINOPHILS % (AUTO) 0.9 % (0-6); HEMATOCRIT 29.1 % (35.0-45.0); HEMOGLOBIN 9.6 g/dl (12.0-16.0); LYMPHOCYTES # (AUTO) 0.8 X10'3 (1.1-4.8); LYMPHOCYTES % (AUTO) 5.7 % (21-51); MEAN CORPUSCULAR HGB CONC 32.9 g/dL (33.0-36.5); MEAN CORPUSCULAR VOLUME 94.1 FL (78-98); MONOCYTES # (AUTO) 1.4 X10'3 (0-0.9); NEUTROPHILS # (AUTO) 11.9 X10'3 (1.8-7.7); NEUTROPHILS % (AUTO) 82.7 % (42-75); PLATELET COUNT 63 X10'3 (140-440); RED BLOOD COUNT 3.09 X10'6 (4.20-5.60); RED CELL DISTRIBUTION WIDTH 19.4 % (11.5-14.5); WHITE BLOOD COUNT 14.4 X10'3 (4.5-11.0)
[2020-10-07 16:35] LABS: ALBUMIN 1.6 G/DL (3.4-5.0); ANION GAP 9 (8-16); BLOOD UREA NITROGEN 21 MG/DL (7-18); BUN/CREATININE RATIO 10.4 (6.6-38.0); CHLORIDE 107 MMOL/L (99-107); CREATININE 2.01 MG/DL (0.40-0.90); GLUCOSE 148 MG/DL (70-104); MAGNESIUM 1.8 MG/DL (1.5-2.4); PHOSPHORUS 2.3 MG/DL (2.3-4.5); POTASSIUM 4.1 MMOL/L (3.5-5.1); SODIUM 148 MMOL/L (135-145); TOTAL CARBON DIOXIDE 32.4 MMOL/L (24-32); eGFR 25 ML/MIN
[2020-10-07] MEDS: NORepinephrine 8mg/ 250ml NS 250 ML IV SCH (17:04)
--- NOTE | 2020-10-07 18:08 | NUR ---
Problems reprioritized. Patient report given, questions answered & plan of care reviewed with Donna LARA.
--- NOTE | 2020-10-07 18:29 | NUR ---
Problems reprioritized. Patient report given, questions answered & plan of care reviewed with Emma LARA.
--- NOTE | 2020-10-07 18:30 | NUR ---
Patient in room ICU 2042. I have received report from Shalini LARA and had the opportunity to ask questions and assume patient care.
--- NOTE | 2020-10-07 20:00 | NUR ---
Discussed with daughter reflexes vs purposeful movement. Also discussed terminal clerk care if she decides to Trach and continue support. Answered questions. Pt was more "awake" last night and was peak pressuring vent and causing CVVH machine to stop frequently. Tonight less eye opening and coughing. Reduced the Fentanyl and Precedex by half.
[2020-10-07] MEDS: polyethylene glycol 3350 17gm powd pack PO SCH (20:21)
[2020-10-07 22:34] LABS: BASOPHILS # (AUTO) 0.1 X10'3 (0-0.2); BASOPHILS % (AUTO) 0.5 % (0-1); EOSINOPHILS # (AUTO) 0.1 X10'3 (0-0.9); EOSINOPHILS % (AUTO) 0.3 % (0-6); HEMATOCRIT 31.7 % (35.0-45.0); HEMOGLOBIN 10.5 g/dl (12.0-16.0); LYMPHOCYTES # (AUTO) 0.8 X10'3 (1.1-4.8); LYMPHOCYTES % (AUTO) 5.2 % (21-51); MEAN CORPUSCULAR HEMOGLOBIN 31.3 PG (27.0-31.0); MEAN CORPUSCULAR VOLUME 94.9 FL (78-98); MEAN PLATELET VOLUME 8.3 FL (7.4-10.4); MONOCYTES # (AUTO) 1.5 X10'3 (0-0.9); MONOCYTES % (AUTO) 9.9 % (2-12); NEUTROPHILS # (AUTO) 13.2 X10'3 (1.8-7.7); NEUTROPHILS % (AUTO) 84.1 % (42-75); RED BLOOD COUNT 3.34 X10'6 (4.20-5.60); WHITE BLOOD COUNT 15.7 X10'3 (4.5-11.0)
[2020-10-07 22:37] LABS: ALBUMIN 1.7 G/DL (3.4-5.0); ANION GAP 9 (8-16); BLOOD UREA NITROGEN 17 MG/DL (7-18); BUN/CREATININE RATIO 9.1 (6.6-38.0); CHLORIDE 106 MMOL/L (99-107); CREATININE 1.86 MG/DL (0.40-0.90); GLUCOSE 133 MG/DL (70-104); MAGNESIUM 1.7 MG/DL (1.5-2.4); POTASSIUM 3.9 MMOL/L (3.5-5.1); SODIUM 150 MMOL/L (135-145); TOTAL CARBON DIOXIDE 34.9 MMOL/L (24-32); eGFR 27 ML/MIN
[2020-10-07] MEDS: magnesium 4gm in 100ml NS 100 ML IV PRN (22:56)
[2020-10-07 23:11] LABS: ABG BASE EXCESS 10.6 mmol/L (-2.0-2.0); ABG HCO3 33.2 mmol/L (22.0-26.0); ABG OXYGEN SATURATION 92.4 % (94-97); ABG PCO2 (T) 35.8 mmHg (32.0-45.0); ABG PO2 (T) 56.2 mmHg (75.0-100.0); ALLEN'S TEST Modified; FCOHb 0.7 % (0.0-3.9); FMetHb 0.3 % (0.0-1.5); FO2Hb 91.5 % (94-97); PATIENT TEMPERATURE 36.5; PEEP 5 cm H2O; RESPIRATORY RATE 14 b/min; TIDAL VOLUME 400 mL
[2020-10-07 23:20] LABS: PLATELET COUNT 78 X10'3 (140-440)
--- NOTE | 2020-10-07 23:27 | NUR ---
Pt's CO2 on chem panel increasing, ABG done to correlate. Results called to Dr Pantoja and was told to turn Citrate infusion off at this time.
[2020-10-07 23:58] LABS: ANISOCYTOSIS 2+; PLATELET ESTIMATE DECREASED
[2020-10-08] VITALS (24 sets, daily range): BP systolic 83–155; BP diastolic 57–92
[2020-10-08] MEDS: Duosol 4k/NO Calcium 5,000 ML HE SCH ×3 (00:52→07:28)
[2020-10-08] MEDS: mineral oil/petrolatum ophthal oint EACHEYE SCH ×4 (02:01→20:40)
[2020-10-08] MEDS: lactulose 20gm/30ml cup PO SCH ×4 (02:01→20:39)
[2020-10-08] MEDS: amiodarone/D5 360MG/200ML BAG 200 ML IV SCH (02:02)
[2020-10-08] MEDS: insulin regular, human U-100 3ml vial - multi-dose SQ SCH ×3 (02:30→20:45)
--- NOTE | 2020-10-08 03:00 | NUR ---
Fentanyl and Precedex turned off at 0100. Pt has no resistance to range of motion, no grimacing noted. Heart rate and blood pressure up with sedation off. No issues with vent or CVVH with meds off.
[2020-10-08 04:00] LABS: ABG BASE EXCESS 9.8 mmol/L (-2.0-2.0); ABG OXYGEN SATURATION 97.2 % (94-97); ABG PO2 (T) 86.7 mmHg (75.0-100.0); ALLEN'S TEST Modified; FMetHb 0.2 % (0.0-1.5); PATIENT TEMPERATURE 36.8; PEEP 5 cm H2O; RESPIRATORY RATE 14 b/min; TIDAL VOLUME 400 mL; TOTAL HEMOGLOBIN 11.4 G/dl (12.0-16.0)
[2020-10-08 04:28] LABS: BASOPHILS # (AUTO) 0.1 X10'3 (0-0.2); BASOPHILS % (AUTO) 0.3 % (0-1); EOSINOPHILS % (AUTO) 0.2 % (0-6); HEMATOCRIT 33.2 % (35.0-45.0); HEMOGLOBIN 10.8 g/dl (12.0-16.0); LYMPHOCYTES # (AUTO) 0.8 X10'3 (1.1-4.8); LYMPHOCYTES % (AUTO) 4.5 % (21-51); MEAN CORPUSCULAR HEMOGLOBIN 31.1 PG (27.0-31.0); MEAN CORPUSCULAR HGB CONC 32.4 g/dL (33.0-36.5); MEAN CORPUSCULAR VOLUME 95.7 FL (78-98); MEAN PLATELET VOLUME 8.3 FL (7.4-10.4); MONOCYTES # (AUTO) 1.7 X10'3 (0-0.9); NEUTROPHILS # (AUTO) 14.6 X10'3 (1.8-7.7); PLATELET COUNT 87 X10'3 (140-440); RED BLOOD COUNT 3.46 X10'6 (4.20-5.60); RED CELL DISTRIBUTION WIDTH 19.5 % (11.5-14.5); WHITE BLOOD COUNT 17.2 X10'3 (4.5-11.0)
[2020-10-08 04:34] LABS: PARTIAL THROMBOPLASTIN TIME 32 SECONDS (22-32)
[2020-10-08 04:36] LABS: ALANINE AMINOTRANSFERASE 77 U/L (12-78); ALBUMIN 1.9 G/DL (3.4-5.0); ALBUMIN/GLOBULIN RATIO 0.5 (1.1-1.5); ALKALINE PHOSPHATASE 183 IU/L (46-116); ANION GAP 9 (8-16); ASPARTATE AMINO TRANSFERASE 51 U/L (10-37); BILIRUBIN,TOTAL 1.8 MG/DL (0.1-1.0); BLOOD UREA NITROGEN 18 MG/DL (7-18); BUN/CREATININE RATIO 9.7 (6.6-38.0); CALCIUM 11.2 MG/DL (8.5-10.1); CHLORIDE 108 MMOL/L (99-107); CREATININE 1.86 MG/DL (0.40-0.90); GLUCOSE 125 MG/DL (70-104); MAGNESIUM 2.7 MG/DL (1.5-2.4); PHOSPHORUS 3.5 MG/DL (2.3-4.5); POTASSIUM 4.6 MMOL/L (3.5-5.1); SODIUM 149 MMOL/L (135-145); TOTAL CARBON DIOXIDE 32.1 MMOL/L (24-32); TOTAL PROTEIN 5.9 G/DL (6.4-8.2); VANCOMYCIN,TROUGH 12.4 UG/ML (6.0-14.0); eGFR 27 ML/MIN
[2020-10-08] MEDS: VANCOMYCIN LEVEL IV SCH (06:00)
--- NOTE | 2020-10-08 06:25 | NUR ---
Amio gtt stopped after rounds. Sinus tach with ore frequent ectopy with Precedex and Fentanyl off. Blood pressure elevated, pt remains unresponsive.
--- NOTE | 2020-10-08 06:27 | NUR ---
Problems reprioritized. Patient report given, questions answered & plan of care reviewed with Shalini LARA.
--- NOTE | 2020-10-08 06:56 | NUR ---
Patient in room ICU 2042. I have received report from Emma LARA and had the opportunity to ask questions and assume patient care. Patient laying in bed, CVVH running to R tariq jung, drips running as ordered to R upper arm picc, patient being ventilated by mechanical ventilator, Fio2 35% peep of 5. Pérez and rectal tube in place draining to gravity
--- NOTE | 2020-10-08 06:59 | NUR ---
Patient in room ICU 2042. I have received report from Emma and had the opportunity to ask questions and assume patient care.
[2020-10-08] MEDS: lactobacillus rhamnosus 10,000 MMU CELLS/CAPSULE OGT SCH ×2 (08:05→20:39)
[2020-10-08] MEDS: sennosides/docusate sodium tablet OGT SCH ×2 (08:05→20:39)
[2020-10-08] MEDS: cefepime 1GM/NS ADD-VANTAGE 100 ML IV SCH ×2 (08:05→20:39)
[2020-10-08] MEDS: ascorbic acid 500mg tablet OGT SCH (08:06)
[2020-10-08] MEDS: amiodarone 200mg tablet OGT SCH (08:06)
[2020-10-08] MEDS: loratadine 10mg tablet OGT SCH (08:07)
[2020-10-08] MEDS: folic acid 1mg tablet OGT SCH (08:09)
[2020-10-08] MEDS: budesonide 0.5mg/2ml UD nebule IH SCH ×2 (08:25→19:25)
[2020-10-08] MEDS: K, MAG and/or Phos replacement - Verify level? MC SCH (08:57)
--- NOTE | 2020-10-08 09:01 | NUR ---
Dr Pantoja by to round on patient, updated him on the families wishes to continue care, he stated to stop the CVVH and switch to intermittent hemodialysis starting tomorrow
[2020-10-08] MEDS ORDERED: heparin 1,000 units/ml 10ml inj HE ONE ×2 (09:05)
--- NOTE | 2020-10-08 10:10 | NUR ---
Rounds note reviewed, labs, systems, meds and current plan of care. per Dr. Heredia and Jadyn there will be a family meeting to discuss trach, peg and equipment operator intermodal yard placement. Per dietary increase tube feeds 20ml/hr as long as tolerated , per Dr. Heredia add 300ml Q4 H2O flushes. No other new orders at this time
--- NOTE | 2020-10-08 11:00 | NUR ---
CVVH taken down as ordered by Klaus Loera catheter hep locked per Dialysis orders
[2020-10-08] MEDS: iron sucrose complex injection 200 MG in normal saline 100ml IV soln 90 ML IV SCH (11:34)
[2020-10-08] MEDS: NORepinephrine 8mg/ 250ml NS 250 ML IV SCH (14:08)
--- NOTE | 2020-10-08 14:12 | NUR ---
Dr Heredia at bedside. KUB taken with increasing abdomen size. Pt turned. No s/s of discomfort. Nail bed test by Shalini LARA with no obvious withdrawal of hand and no change in HR/RR or BP.
--- NOTE | 2020-10-08 15:09 | NUR ---
Daughter at bedside BP cuff moved to left arm as Rt ankle use was contributing to edema/weeping tissue at lower rt leg. Daughter noted BP cuff had been moved. I explained it was moved to "rest" the leg. She states that pt has a blockage to Rt arm and BP are lower on that arm. Current BP is noted. If it becomes an issue we'll reevaluate and move as needed. She agreed that the Rt leg skin needed the BP somewhere else also. Discussed with Shalini LARA who's in agreement.
--- NOTE | 2020-10-08 15:32 | NUR ---
[facility] RN, Raudel & Chloe here. Skin issue discussed. Coccyx would discussed - not preventable based on pts condition, CVVH and vasoactive meds required to maintain CVVH. Pt still very edematious at lower extremities. Upper extremeities edema much improved with 2 pillow elevation. HD cath remains at Rt groin. HD planned for tomorrow. Addendum: 10/08/20 at 1536 by Gregory Snyder RN Amended: Links added.
--- NOTE | 2020-10-08 15:37 | NUR ---
Nutrition Consult "evaluation of matt shakes" from [facility] RN: Pt has notable stage II PU to sacrum w/ DTI to surrounding area per WOC note. 300ml Q6H free water to start today per footwear factory worker request at rounds. BEBE recommends Matt packet ONS BID for wound healing needs; recs below. Recommendations: 1) Continuous TF per MD using Vital AF at 70mL/hr goal on while on CVVH; to provide 1680mL total volume/day, 2016 kcal, 1361mL water, and 126g protein 2) Matt ONS packet BID for wound healing. To administer; mix one packet Matt w/ minimum 120ml free water and flush tube w/ 30ml before/after administration. 3) IF continued TF intolerance consider corpak for post-pyloric feeds 4) Additional water 300ml Q6H per footwear factory worker 5) prealbumin q Wednesday/, daily weights 6) Routine bowel care Addendum: 10/08/20 at [address] Amended: Links added.
--- NOTE | 2020-10-08 16:29 | NUR ---
Daughter at bedside Explained tube feed residuals & what that is for. Residuals had black or dark brn flecks. Dr. Heredia aware.
--- NOTE | 2020-10-08 18:35 | NUR ---
Patient in room ICU 2042. I have received report from Gregory LARA and Shalini LARA and had the opportunity to ask questions and assume patient care. Addendum: 10/08/20 at 1849 by Dipika Burrell RN Amended: Links added.
[2020-10-08] MEDS: albuterol 2.5 MG/3 ML nebule NEB PRN (19:25)
[2020-10-08] MEDS: ARGININE/GLUTAMINE/CALCIUM BMB (JUVEN 19.3GM PKT) 1 EACH POWD.PACK PO SCH (20:00)
[2020-10-08] MEDS: polyethylene glycol 3350 17gm powd pack PO SCH (20:39)
--- NOTE | 2020-10-08 21:15 | NUR ---
Patient's grandson Ralph called. Explained to him that he was not currently listed on the contact list, so health information regarding his grandmother could not be relayed to him. Explained that his mother would have to call and give permission for him to be given information. He stated that he planned to visit tomorrow to help his mother Lily with making decisions regarding the patient's plan of care. access services assistant consult ordered.
[2020-10-09] VITALS (23 sets, daily range): BP systolic 79–111; BP diastolic 52–74
--- NOTE | 2020-10-09 00:29 | NUR ---
Patient's daughter called, explained to her that there were no changes at this time. She asked for the patient's current hemoglobin, explained that the RN is unable to give lab results over the phone. She expressed concerns about the blood pressure cuff being on the patient's left upper arm, stating that the patient had a blockage in that arm that sometimes made the cuff read low. Explained that if that became the case, it would be moved to get a more accurate reading, but was currently reading correctly. Will continue to monitor closely.
[2020-10-09] MEDS: lactulose 20gm/30ml cup PO SCH ×4 (02:28→20:00)
[2020-10-09] MEDS: mineral oil/petrolatum ophthal oint EACHEYE SCH ×4 (02:28→21:22)
[2020-10-09 03:13] LABS: BASOPHILS # (AUTO) 0.1 X10'3 (0-0.2); BASOPHILS % (AUTO) 0.3 % (0-1); EOSINOPHILS % (AUTO) 0.1 % (0-6); HEMATOCRIT 33.6 % (35.0-45.0); HEMOGLOBIN 10.7 g/dl (12.0-16.0); LYMPHOCYTES # (AUTO) 1.3 X10'3 (1.1-4.8); LYMPHOCYTES % (AUTO) 6.7 % (21-51); MEAN CORPUSCULAR HEMOGLOBIN 30.9 PG (27.0-31.0); MEAN CORPUSCULAR HGB CONC 31.8 g/dL (33.0-36.5); MEAN CORPUSCULAR VOLUME 97.2 FL (78-98); MEAN PLATELET VOLUME 8.5 FL (7.4-10.4); MONOCYTES # (AUTO) 2.2 X10'3 (0-0.9); NEUTROPHILS # (AUTO) 16.5 X10'3 (1.8-7.7); NEUTROPHILS % (AUTO) 81.9 % (42-75); PLATELET COUNT 124 X10'3 (140-440); RED BLOOD COUNT 3.46 X10'6 (4.20-5.60); RED CELL DISTRIBUTION WIDTH 20.1 % (11.5-14.5); WHITE BLOOD COUNT 20.1 X10'3 (4.5-11.0)
[2020-10-09 03:23] LABS: PARTIAL THROMBOPLASTIN TIME 31 SECONDS (22-32)
[2020-10-09 03:31] LABS: ABG BASE EXCESS 2.9 mmol/L (-2.0-2.0); ABG HCO3 24.6 mmol/L (22.0-26.0); ABG PCO2 (T) 29.1 mmHg (32.0-45.0); ABG PO2 (T) 71.4 mmHg (75.0-100.0); ALLEN'S TEST Modified; FCOHb 0.4 % (0.0-3.9); FMetHb 0.3 % (0.0-1.5); FO2Hb 94.3 % (94-97); PATIENT TEMPERATURE 37.3; PEEP 5 cm H2O; RESPIRATORY RATE 14 b/min; TIDAL VOLUME 400 mL; TOTAL HEMOGLOBIN 11.5 G/dl (12.0-16.0)
[2020-10-09 03:36] LABS: ALANINE AMINOTRANSFERASE 67 U/L (12-78); ALBUMIN 1.8 G/DL (3.4-5.0); ALBUMIN/GLOBULIN RATIO 0.4 (1.1-1.5); ALKALINE PHOSPHATASE 193 IU/L (46-116); ANION GAP 7 (8-16); ASPARTATE AMINO TRANSFERASE 46 U/L (10-37); BILIRUBIN,TOTAL 1.4 MG/DL (0.1-1.0); BLOOD UREA NITROGEN 22 MG/DL (7-18); BUN/CREATININE RATIO 9.7 (6.6-38.0); CALCIUM 10.7 MG/DL (8.5-10.1); CHLORIDE 107 MMOL/L (99-107); CREATININE 2.26 MG/DL (0.40-0.90); GLUCOSE 78 MG/DL (70-104); PHOSPHORUS 3.4 MG/DL (2.3-4.5); POTASSIUM 4.2 MMOL/L (3.5-5.1); SODIUM 144 MMOL/L (135-145); TOTAL CARBON DIOXIDE 29.6 MMOL/L (24-32); eGFR 21 ML/MIN
[2020-10-09 04:09] LABS: MAGNESIUM 2.8 MG/DL (1.5-2.4)
--- NOTE | 2020-10-09 04:15 | NUR ---
Patient's daughter called again, asked if patient was opening her eyes. Explained that there have been no apparent changes to patient's condition.
[2020-10-09 04:33] LABS: PLATELET ESTIMATE DECREASED
[2020-10-09 04:34] LABS: ANISOCYTOSIS 3+; HYPOCHROMASIA 1+
--- NOTE | 2020-10-09 04:48 | NUR ---
Residual:500mLs. Tube feeding paused x1 hour per policy. Abdomen distended, firm. Passing gas. Will restart in one hour at half rate per policy.
--- NOTE | 2020-10-09 06:30 | NUR ---
Problems reprioritized. Patient report given, questions answered & plan of care reviewed with Gregory LARA and Shalini RN.
[2020-10-09] MEDS ORDERED: dextrose ORAL solution 15 GM/59 ML bottle PO PRN ×2 (07:35)
[2020-10-09] MEDS ORDERED: dextrose 50%-water 50ml dispensing syringe IV PRN ×2 (07:35)
[2020-10-09] MEDS: cefepime 1GM/NS ADD-VANTAGE 100 ML IV SCH ×2 (07:37→21:22)
[2020-10-09] MEDS ORDERED: heparin 1,000unit/ml 10ml vial 10 ML IV ONE (08:00)
[2020-10-09] MEDS: ARGININE/GLUTAMINE/CALCIUM BMB (JUVEN 19.3GM PKT) 1 EACH POWD.PACK PO SCH ×2 (08:00→20:00)
[2020-10-09] MEDS ORDERED: heparin 1,000 units/ml 10ml inj HE ONE ×2 (08:00)
[2020-10-09] MEDS ORDERED: EPOETIN ALFA-EPBX 20,000 UNIT/ML 1 ML MDV IV ONE (08:00)
[2020-10-09] MEDS: K, MAG and/or Phos replacement - Verify level? MC SCH (08:00)
[2020-10-09] MEDS ORDERED: normal saline 1000ml 250 ML IV PRN (08:00)
[2020-10-09] MEDS: amiodarone 200mg tablet OGT SCH (08:01)
[2020-10-09] MEDS: budesonide 0.5mg/2ml UD nebule IH SCH ×2 (08:01→19:02)
[2020-10-09] MEDS: sennosides/docusate sodium tablet OGT SCH ×2 (08:01→20:00)
[2020-10-09] MEDS: folic acid 1mg tablet OGT SCH (08:01)
[2020-10-09] MEDS: loratadine 10mg tablet OGT SCH (08:01)
[2020-10-09] MEDS: lactobacillus rhamnosus 10,000 MMU CELLS/CAPSULE OGT SCH ×2 (08:01→20:00)
[2020-10-09] MEDS: iron sucrose complex injection 200 MG in normal saline 100ml IV soln 90 ML IV SCH (08:01)
[2020-10-09] MEDS: ascorbic acid 500mg tablet OGT SCH (08:02)
[2020-10-09] MEDS: Dextrose 10%-water IV solution 1,000 ML IV SCH (08:25)
[2020-10-09] MEDS: albuterol 2.5 MG/3 ML nebule NEB PRN (08:29)
[2020-10-09] MEDS: NORepinephrine 8mg/ 250ml NS 250 ML IV SCH (11:12)
--- NOTE | 2020-10-09 17:43 | NUR ---
Dr. Wetzel had a long conversation with the daughter. Results were to have a neuro consult on this pt and follow their recommendations for testing if indicated. The daughter's concerned about petroleum terminal plant operator care options being out of area. The conversation was amiable. MD asked her to have one the RNs evaluate any purposeful movement pt was making in order to validate it as well. About 5:30 she asked me to see her open her eyes purposefully. I went to bedside and watched pts eyes open as daughter was rubbing her chest. I asked her to try that without rubbing her chest. Pt did not open her eyes to daughters voice when she was not rubbing pts chest. Daughter stated/questioned that pts eyes were opening because she was rubbing her chest. I told her yes. We both attempted to get her to open eyes to to verbal command and pt did not open her eyes.
--- NOTE | 2020-10-09 18:25 | NUR ---
Patient in room ICU 2042. I have received report from Gregory LARA and Shalini LARA and had the opportunity to ask questions and assume patient care. Addendum: 10/09/20 at 2218 by Dipika Burrell RN Amended: Links added.
[2020-10-09] MEDS: polyethylene glycol 3350 17gm powd pack PO SCH (21:00)
[2020-10-09] MEDS: insulin regular, human U-100 3ml vial - multi-dose SQ SCH (21:27)
[2020-10-10] VITALS (24 sets, daily range): BP systolic 117–145; BP diastolic 43–122
[2020-10-10] MEDS: lactulose 20gm/30ml cup PO SCH ×4 (00:51→20:00)
--- NOTE | 2020-10-10 00:52 | NUR ---
Patient's daughter called, asked if the patient had opened her eyes. Explained that there had been no changes to patient's condition. She asked if patient's blood pressure had gotten low, stated that vital signs were the stable at this time. Also asked if patient had a bowel movement, explained that the patient was having small amounts of loose stool.
[2020-10-10] MEDS: mineral oil/petrolatum ophthal oint EACHEYE SCH ×4 (02:15→20:00)
[2020-10-10] MEDS: insulin regular, human U-100 3ml vial - multi-dose SQ SCH (02:17)
[2020-10-10 02:34] LABS: HEMATOCRIT 30.6 % (35.0-45.0); HEMOGLOBIN 9.9 g/dl (12.0-16.0); LYMPHOCYTES # (AUTO) 1.5 X10'3 (1.1-4.8); NEUTROPHILS # (AUTO) 13.8 X10'3 (1.8-7.7); RED BLOOD COUNT 3.22 X10'6 (4.20-5.60)
[2020-10-10 02:35] LABS: BASOPHILS # (AUTO) 0.1 X10'3 (0-0.2); BASOPHILS % (AUTO) 0.4 % (0-1); EOSINOPHILS % (AUTO) 0.2 % (0-6); LYMPHOCYTES % (AUTO) 8.6 % (21-51); MEAN CORPUSCULAR HEMOGLOBIN 30.6 PG (27.0-31.0); MEAN CORPUSCULAR HGB CONC 32.2 g/dL (33.0-36.5); MEAN CORPUSCULAR VOLUME 95.1 FL (78-98); MEAN PLATELET VOLUME 8.4 FL (7.4-10.4); MONOCYTES % (AUTO) 11.6 % (2-12); NEUTROPHILS % (AUTO) 79.2 % (42-75); PLATELET COUNT 121 X10'3 (140-440); RED CELL DISTRIBUTION WIDTH 19.9 % (11.5-14.5); WHITE BLOOD COUNT 17.4 X10'3 (4.5-11.0)
[2020-10-10 02:59] LABS: ALBUMIN 1.5 G/DL (3.4-5.0); ANION GAP 6 (8-16); BLOOD UREA NITROGEN 23 MG/DL (7-18); BUN/CREATININE RATIO 9.5 (6.6-38.0); CALCIUM 9.3 MG/DL (8.5-10.1); CHLORIDE 103 MMOL/L (99-107); CREATININE 2.41 MG/DL (0.40-0.90); GLUCOSE 101 MG/DL (70-104); MAGNESIUM 2.4 MG/DL (1.5-2.4); POTASSIUM 3.5 MMOL/L (3.5-5.1); SODIUM 144 MMOL/L (135-145); eGFR 20 ML/MIN
[2020-10-10 03:30] LABS: ABG BASE EXCESS 12.6 mmol/L (-2.0-2.0); ABG HCO3 35.3 mmol/L (22.0-26.0); ABG OXYGEN SATURATION 94.9 % (94-97); ABG PCO2 (T) 38.8 mmHg (32.0-45.0); ABG PO2 (T) 72.4 mmHg (75.0-100.0); ALLEN'S TEST POSITIVE; FCOHb 0.2 % (0.0-3.9); FMetHb 0.2 % (0.0-1.5); FO2Hb 94.5 % (94-97); PATIENT TEMPERATURE 37.4; PEEP 5 cm H2O; RESPIRATORY RATE 14 b/min; TIDAL VOLUME 400 mL; TOTAL HEMOGLOBIN 10.4 G/dl (12.0-16.0)
[2020-10-10 03:47] LABS: PLATELET ESTIMATE DECREASED
[2020-10-10 03:48] LABS: ANISOCYTOSIS 2+
[2020-10-10] MEDS: Dextrose 10%-water IV solution 1,000 ML IV SCH ×2 (04:24→22:26)
--- NOTE | 2020-10-10 05:44 | NUR ---
Dr. Cosby updated on patient's condition during rounds. Orders received.
--- NOTE | 2020-10-10 06:28 | NUR ---
Problems reprioritized. Patient report given, questions answered & plan of care reviewed with Margarita LARA.
--- NOTE | 2020-10-10 06:30 | NUR ---
Patient in room ICU 2042. I have received report from KAY and had the opportunity to ask questions and assume patient care.
[2020-10-10] MEDS: K, MAG and/or Phos replacement - Verify level? MC SCH (08:00)
[2020-10-10] MEDS: ARGININE/GLUTAMINE/CALCIUM BMB (JUVEN 19.3GM PKT) 1 EACH POWD.PACK PO SCH ×2 (08:00→20:00)
[2020-10-10] MEDS: NORepinephrine 8mg/ 250ml NS 250 ML IV SCH (08:16)
[2020-10-10] MEDS: budesonide 0.5mg/2ml UD nebule IH SCH ×2 (08:40→20:48)
[2020-10-10] MEDS: sennosides/docusate sodium tablet OGT SCH ×2 (08:47→20:00)
[2020-10-10] MEDS: amiodarone 200mg tablet OGT SCH (08:48)
[2020-10-10] MEDS: folic acid 1mg tablet OGT SCH (08:48)
[2020-10-10] MEDS: lactobacillus rhamnosus 10,000 MMU CELLS/CAPSULE OGT SCH ×2 (08:48→20:00)
[2020-10-10] MEDS: loratadine 10mg tablet OGT SCH (08:48)
[2020-10-10] MEDS: cefepime 1GM/NS ADD-VANTAGE 100 ML IV SCH ×2 (08:49→21:38)
[2020-10-10] MEDS: iron sucrose complex injection 200 MG in normal saline 100ml IV soln 90 ML IV SCH (08:49)
[2020-10-10] MEDS: ascorbic acid 500mg tablet OGT SCH (08:49)
--- NOTE | 2020-10-10 10:00 | NUR ---
BS READING AT 40- REPEATED TO 45- D50W GIVEN 50CC- REPEAT AT 160- UPDATE TO MD- WILL CONTINUE WITH D50W FOR NOW. PT OPENS EYES TO CARE- NO OTHER RESPONSE.PUPILS SLUGGISH
[2020-10-10] MEDS ORDERED: famotidine 10mg/ml inj IV SCH (10:58)
--- NOTE | 2020-10-10 11:48 | NUR ---
F/u 10/10: Pt TF since 10/08 w/ NG to suction -2880ml output past 24 hours w/ last GRV check 10/09 AM 500ml. Receiving D10 at 50ml/hr for low GLU this AM per RN providing 408 kcals/day. Pending f/u family meeting to determine code status per drywall carrier at rounds. Pt rectal tube removed w/ last significant BM 10/08 -200ml receiving routine senna, miralax, and lactulose per EMR. Pt now off CVVH on scheduled HD per MD. Will continue to monitor for TF restart and tolerance as well as bowel regularity. IF continued elevated GRV's consider post-pyloric to optimize EN tolerance on vent. Recommendations: 1) Continuous TF per MD using Vital AF at 70mL/hr goal on while on CVVH; to provide 1680mL total volume/day, 2016 kcal, 1361mL water, and 126g protein 2) IF pt to remain off CVVH on HD and able to tolerating TF advancement to goal; recommend Vital AF at 60ml/hr providing 1440ml volume, 1728 kcals, 1166ml free water, and 108g protein. 3) Roni ONS packet BID for wound healing. To administer; mix one packet Roni w/ minimum 120ml free water and flush tube w/ 30ml before/after administration. 4) IF continued TF intolerance consider corpak for post-pyloric feeds 5) Additional water flush per drywall carrier on HD 6) prealbumin q Wednesday/, daily weights 7) Routine bowel care Addendum: 10/10/20 at [address] Amended: Links added.
--- NOTE | 2020-10-10 12:00 | NUR ---
NEURO CONSULT DONE- MD SPOKE WITH DGHTR AND GRANDSON AT LENGTH. PT WITH LIQUID STOOLS. MIN OUTPUT. EPISODE OF VTACH SUSTAINED WHEN TURNED TO RT SIDE. SR TO ST TO AFIB. AWARE,
--- NOTE | 2020-10-10 15:01 | NUR ---
DISCUSSED CARBS OF D10W WITH PHARMACY- NO NEED TO CALCUALTE IN. USE HUMULIN IF COVERAGE NEEDED.
--- NOTE | 2020-10-10 18:30 | NUR ---
Patient in room ICU 2042. I have received report from Margarita LARA and had the opportunity to ask questions and assume patient care. Addendum: 10/10/20 at 2007 by Dipika Burrell RN Amended: Links added.
[2020-10-10] MEDS: polyethylene glycol 3350 17gm powd pack PO SCH (20:39)
[2020-10-10] MEDS: albuterol 2.5 MG/3 ML nebule NEB PRN (20:48)
[2020-10-11] VITALS (25 sets, daily range): BP systolic 94–142; BP diastolic 45–61
[2020-10-11] MEDS: lactulose 20gm/30ml cup PO SCH ×4 (02:00→19:46)
[2020-10-11] MEDS: mineral oil/petrolatum ophthal oint EACHEYE SCH ×4 (02:00→20:16)
[2020-10-11 02:52] LABS: ABG BASE EXCESS 26.6 mmol/L (-2.0-2.0); ABG HCO3 49.6 mmol/L (22.0-26.0); ABG OXYGEN SATURATION 93.3 % (94-97); ABG PCO2 (T) 43.4 mmHg (32.0-45.0); ABG PO2 (T) 58.4 mmHg (75.0-100.0); FCOHb 0.3 % (0.0-3.9); FMetHb 0.2 % (0.0-1.5); FO2Hb 92.8 % (94-97); PATIENT TEMPERATURE 37.3; PEEP 5 cm H2O; RESPIRATORY RATE 14 b/min; TIDAL VOLUME 400 mL; TOTAL HEMOGLOBIN 10.8 G/dl (12.0-16.0)
[2020-10-11 02:56] LABS: BASOPHILS % (AUTO) 0.3 % (0-1); EOSINOPHILS % (AUTO) 0.2 % (0-6); HEMATOCRIT 30.5 % (35.0-45.0); MEAN CORPUSCULAR HEMOGLOBIN 31.2 PG (27.0-31.0); MEAN CORPUSCULAR HGB CONC 32.8 g/dL (33.0-36.5); MEAN CORPUSCULAR VOLUME 95.3 FL (78-98); MEAN PLATELET VOLUME 8.1 FL (7.4-10.4); MONOCYTES # (AUTO) 1.4 X10'3 (0-0.9); MONOCYTES % (AUTO) 9.4 % (2-12); NEUTROPHILS % (AUTO) 83.1 % (42-75); PLATELET COUNT 134 X10'3 (140-440); RED BLOOD COUNT 3.19 X10'6 (4.20-5.60); RED CELL DISTRIBUTION WIDTH 20.1 % (11.5-14.5); WHITE BLOOD COUNT 14.4 X10'3 (4.5-11.0)
[2020-10-11 03:15] LABS: ALANINE AMINOTRANSFERASE 38 U/L (12-78); ALBUMIN 1.5 G/DL (3.4-5.0); ALBUMIN/GLOBULIN RATIO 0.4 (1.1-1.5); ALKALINE PHOSPHATASE 169 IU/L (46-116); ANION GAP 0 (8-16); ASPARTATE AMINO TRANSFERASE 25 U/L (10-37); BILIRUBIN,TOTAL 1.1 MG/DL (0.1-1.0); BLOOD UREA NITROGEN 31 MG/DL (7-18); BUN/CREATININE RATIO 9.9 (6.6-38.0); CALCIUM 8.8 MG/DL (8.5-10.1); CHLORIDE 101 MMOL/L (99-107); CREATININE 3.13 MG/DL (0.40-0.90); GLUCOSE 195 MG/DL (70-104); MAGNESIUM 2.7 MG/DL (1.5-2.4); SODIUM 145 MMOL/L (135-145); TOTAL PROTEIN 5.3 G/DL (6.4-8.2); eGFR 15 ML/MIN
[2020-10-11 03:18] LABS: POTASSIUM 2.7 MMOL/L (3.5-5.1); TOTAL CARBON DIOXIDE 43.9 MMOL/L (24-32)
--- NOTE | 2020-10-11 03:36 | NUR ---
Dr. Liao updated of patient's current status and labs including critical values. No new orders at this time.
[2020-10-11 03:56] LABS: ANISOCYTOSIS 3+; PLATELET ESTIMATE NORMAL
[2020-10-11 03:57] LABS: ELLIPTOCYTES 1+; STOMATOCYTES 1+
--- NOTE | 2020-10-11 04:54 | NUR ---
Updated Dr. Cosby of patient's current status including labs and latest ABG. Orders received.
[2020-10-11] MEDS: NORepinephrine 8mg/ 250ml NS 250 ML IV SCH (05:20)
[2020-10-11 05:30] LABS: ABG BASE EXCESS 21.5 mmol/L (-2.0-2.0); ABG HCO3 44.2 mmol/L (22.0-26.0); ABG OXYGEN SATURATION 87.4 % (94-97); ABG PCO2 (T) 41.3 mmHg (32.0-45.0); ABG PO2 (T) 47.5 mmHg (75.0-100.0); FCOHb 0.3 % (0.0-3.9); FMetHb 0.3 % (0.0-1.5); FO2Hb 86.9 % (94-97); PATIENT TEMPERATURE 37.3; PEEP 5 cm H2O; RESPIRATORY RATE 14 b/min; TIDAL VOLUME 400 mL; TOTAL HEMOGLOBIN 10.4 G/dl (12.0-16.0)
[2020-10-11] MEDS ORDERED: potassium Cl 20 mEq/100mL bag IV ONE (05:30)
[2020-10-11] MEDS ORDERED: potassium CL 20mEq in D5-1/2NS 1,000 ML IV SCH (05:30)
[2020-10-11] MEDS ORDERED: potassium Cl 20mEq/100mL bag 100 ML IV ONE (05:33)
--- NOTE | 2020-10-11 06:28 | NUR ---
Problems reprioritized. Patient report given, questions answered & plan of care reviewed with Margarita LARA.
--- NOTE | 2020-10-11 06:30 | NUR ---
Patient in room ICU 2042. I have received report from altaf and had the opportunity to ask questions and assume patient care.
[2020-10-11] MEDS: K, MAG and/or Phos replacement - Verify level? MC SCH (08:00)
[2020-10-11] MEDS ORDERED: EPOETIN ALFA-EPBX 20,000 UNIT/ML 1 ML MDV IV ONE (08:00)
[2020-10-11] MEDS: sennosides/docusate sodium tablet OGT SCH ×2 (08:00→19:46)
[2020-10-11] MEDS: famotidine/PF 10 mg/ml inj IV SCH (08:00)
[2020-10-11] MEDS ORDERED: normal saline 1000ml 250 ML IV PRN (08:00)
[2020-10-11] MEDS ORDERED: heparin 1,000 units/ml 10ml inj HE ONE ×2 (08:00)
[2020-10-11] MEDS: ARGININE/GLUTAMINE/CALCIUM BMB (JUVEN 19.3GM PKT) 1 EACH POWD.PACK PO SCH ×2 (08:00→19:47)
[2020-10-11] MEDS: cefepime 1GM/NS ADD-VANTAGE 100 ML IV SCH ×3 (08:06→20:15)
[2020-10-11] MEDS: iron sucrose complex injection 200 MG in normal saline 100ml IV soln 90 ML IV SCH (08:06)
[2020-10-11] MEDS: loratadine 10mg tablet OGT SCH (08:06)
[2020-10-11] MEDS: ascorbic acid 500mg tablet OGT SCH (08:07)
[2020-10-11] MEDS: lactobacillus rhamnosus 10,000 MMU CELLS/CAPSULE OGT SCH ×2 (08:07→20:16)
[2020-10-11] MEDS: amiodarone 200mg tablet OGT SCH (08:07)
[2020-10-11] MEDS: folic acid 1mg tablet OGT SCH (08:07)
--- NOTE | 2020-10-11 09:00 | NUR ---
pt with unchanged neuro status- opens eyes with care0 doesnt focus or obey commands. occ twitching of toes. large ogt output- dark - but flushed wong/clear with sediment.md aware bs 177, will hold off coverage as restarting post dc of d10.
[2020-10-11] MEDS: albuterol 2.5 MG/3 ML nebule NEB PRN ×2 (09:38→20:49)
[2020-10-11] MEDS: budesonide 0.5mg/2ml UD nebule IH SCH ×2 (09:38→20:49)
--- NOTE | 2020-10-11 11:05 | NUR ---
TPN consult: Pt remains NPO at this time, to begin TPN with minimal lipids per MD at critical care rounds. Pt with a PICC line in place. TPN recommendations below have been d/w clinical pharmacist and will provide minimum amount of lipids (8.3% kcal from lipids). Pt currently on HD, recommend non-electrolyte formula. Pt with low serum K of 2.7 MMOL/L today, receiving routine K replacement. Will continue to follow closely. Recommendations: 1) Continuous 2:1 Clinimix non-E 07/27 with goal rate of 90 mL/hr with additional 70 mL 20% intralipids at 5.83 mL/hr for 12 hours. In total to provide 2230 mL total volume/day, 1674 kcal, 108 g protein, 324 g dextrose (3.33 mg/kg/min dext load), and 14 g lipids (8.3% kcal from lipids) 2) Prealbumin and TG q Wednesday/ 3) Daily weights 4) IF to restart TF, continuous Vital AF with goal rate of 60 mL/hr to provide 1440 mL total volume/day, 1728 kcal, 1166 mL water, and 108 g protein. 5) IF TF, additional water flush per MD given HD 6) IF TF and okay to have additional water, Roni ONS packet BID for wound healing. To administer; mix one packet Roni with 120 mL water and flush tube with 20 mL water before/after administration of Roni 7) Routine bowel care Addendum: 10/11/20 at [address] Amended: Links added.
--- NOTE | 2020-10-11 12:00 | NUR ---
hd complete as unable to finish with line as kinking- 807cc removed. dialysis nurse notified dr molina. He spoke with dr singh, who will put in another erich if necessary. k2.7, then 2.9 post k rider replacement. hd adjusted for 2.9 to bring wnl.
[2020-10-11] MEDS ORDERED: magnesium 2GM in 50ml NS 50 ML IV PRN (13:55)
[2020-10-11] MEDS ORDERED: Dextrose 10%-water IV solution 1,000 ML IV PRN (13:55)
[2020-10-11] MEDS ORDERED: magnesium 4gm in 100ml NS 100 ML IV PRN (13:55)
[2020-10-11] MEDS ORDERED: magnesium Cl slow-release 64mg tablet PO PRN (13:55)
--- NOTE | 2020-10-11 17:31 | NUR ---
dr singh spoke with [facility] re neurologist report- no change in code status. blood sugar 124 for 1400, so hasnt remet scale. d51/2ns dcd at [address] molina orders.
--- NOTE | 2020-10-11 18:33 | NUR ---
Patient in room ICU 2042. I have received report from MARCO Avila and had the opportunity to ask questions and assume patient care.
[2020-10-11] MEDS: polyethylene glycol 3350 17gm powd pack PO SCH (19:47)
[2020-10-11] MEDS ORDERED: [UNRECOGNIZED DRUG - REMARK] IV SCH ×4 (20:00)
[2020-10-11] MEDS ORDERED: [UNRECOGNIZED DRUG - REMARK] IV SCH ×4 (20:00)
[2020-10-11] MEDS: fat emulsion 20% inj. 100 ML IV SCH (20:15)
[2020-10-12] VITALS (24 sets, daily range): BP systolic 99–131; BP diastolic 43–69
[2020-10-12] MEDS: mineral oil/petrolatum ophthal oint EACHEYE SCH ×4 (02:00→20:10)
[2020-10-12] MEDS: lactulose 20gm/30ml cup PO SCH ×4 (02:00→20:00)
[2020-10-12] MEDS: NORepinephrine 8mg/ 250ml NS 250 ML IV SCH ×2 (02:24→23:28)
[2020-10-12 03:26] LABS: ABG BASE EXCESS 21.7 mmol/L (-2.0-2.0); ABG HCO3 45.2 mmol/L (22.0-26.0); ABG OXYGEN SATURATION 95.2 % (94-97); ABG PCO2 (T) 45.1 mmHg (32.0-45.0); ABG PO2 (T) 73.4 mmHg (75.0-100.0); FMetHb 0.2 % (0.0-1.5); PEEP 5 cm H2O; RESPIRATORY RATE 14 b/min; TIDAL VOLUME 400 mL; TOTAL HEMOGLOBIN 10.6 G/dl (12.0-16.0)
[2020-10-12 04:00] LABS: BASOPHILS # (AUTO) 0.1 X10'3 (0-0.2); BASOPHILS % (AUTO) 0.4 % (0-1); EOSINOPHILS # (AUTO) 0.1 X10'3 (0-0.9); EOSINOPHILS % (AUTO) 0.4 % (0-6); HEMOGLOBIN 9.8 g/dl (12.0-16.0); LYMPHOCYTES % (AUTO) 7.3 % (21-51); MEAN CORPUSCULAR HGB CONC 31.7 g/dL (33.0-36.5); MEAN CORPUSCULAR VOLUME 97.5 FL (78-98); MEAN PLATELET VOLUME 8.6 FL (7.4-10.4); MONOCYTES # (AUTO) 1.3 X10'3 (0-0.9); NEUTROPHILS # (AUTO) 11.7 X10'3 (1.8-7.7); NEUTROPHILS % (AUTO) 82.9 % (42-75); PLATELET COUNT 126 X10'3 (140-440); RED BLOOD COUNT 3.18 X10'6 (4.20-5.60); RED CELL DISTRIBUTION WIDTH 20.6 % (11.5-14.5); WHITE BLOOD COUNT 14.2 X10'3 (4.5-11.0)
[2020-10-12 04:14] LABS: ALANINE AMINOTRANSFERASE 34 U/L (12-78); ALBUMIN 1.4 G/DL (3.4-5.0); ALBUMIN/GLOBULIN RATIO 0.4 (1.1-1.5); ALKALINE PHOSPHATASE 152 IU/L (46-116); ANION GAP 4 (8-16); ASPARTATE AMINO TRANSFERASE 22 U/L (10-37); BLOOD UREA NITROGEN 28 MG/DL (7-18); BUN/CREATININE RATIO 9.1 (6.6-38.0); CALCIUM 8.3 MG/DL (8.5-10.1); CHLORIDE 100 MMOL/L (99-107); CREATININE 3.07 MG/DL (0.40-0.90); GLUCOSE 189 MG/DL (70-104); MAGNESIUM 2.5 MG/DL (1.5-2.4); SODIUM 148 MMOL/L (135-145); TOTAL PROTEIN 5.4 G/DL (6.4-8.2); eGFR 15 ML/MIN
[2020-10-12 04:17] LABS: POTASSIUM 2.8 MMOL/L (3.5-5.1)
[2020-10-12 04:18] LABS: TOTAL CARBON DIOXIDE 43.7 MMOL/L (24-32)
[2020-10-12] MEDS ORDERED: potassium Cl 20 mEq/100mL bag IV ONE ×4 (04:45→15:00)
--- NOTE | 2020-10-12 04:50 | NUR ---
Rounds with Dr. Whaley. Critical K of 2.8 and CO2 43.7. Addressed gastric output and stool amount. MD to place order for K replacement x1.
--- NOTE | 2020-10-12 06:24 | NUR ---
Problems reprioritized. Patient report given, questions answered & plan of care reviewed with MARCO Avila.
[2020-10-12 06:56] LABS: PHOSPHORUS 3.4 MG/DL (2.3-4.5); PREALBUMIN 12.3 MG/DL (19-36); TRIGLYCERIDES 130 MG/DL (20-135)
[2020-10-12] MEDS ORDERED: normal saline 500ml IV soln 500 ML IV ONE (07:30)
[2020-10-12] MEDS: sennosides/docusate sodium tablet OGT SCH ×2 (08:00→20:00)
[2020-10-12] MEDS: ARGININE/GLUTAMINE/CALCIUM BMB (JUVEN 19.3GM PKT) 1 EACH POWD.PACK PO SCH ×2 (08:00→20:00)
[2020-10-12] MEDS: K, MAG and/or Phos replacement - Verify level? MC SCH (08:00)
[2020-10-12] MEDS: amiodarone 200mg tablet OGT SCH (09:15)
[2020-10-12] MEDS: famotidine/PF 10 mg/ml inj IV SCH (09:15)
[2020-10-12] MEDS: cefepime 1GM/NS ADD-VANTAGE 100 ML IV SCH ×2 (09:15→20:10)
[2020-10-12] MEDS: loratadine 10mg tablet OGT SCH (09:15)
[2020-10-12] MEDS: folic acid 1mg tablet OGT SCH (09:16)
[2020-10-12] MEDS: gabapentin 300mg capsule OGT PRN (09:16)
[2020-10-12] MEDS: lactobacillus rhamnosus 10,000 MMU CELLS/CAPSULE OGT SCH ×2 (09:16→20:10)
[2020-10-12] MEDS: ascorbic acid 500mg tablet OGT SCH (09:16)
[2020-10-12] MEDS: budesonide 0.5mg/2ml UD nebule IH SCH ×2 (09:54→20:46)
[2020-10-12] MEDS: albuterol 2.5 MG/3 ML nebule NEB PRN ×2 (09:54→17:32)
--- NOTE | 2020-10-12 10:00 | NUR ---
dr singh in- updated. 500 ccns given as bolus. no change in neuro status
[2020-10-12] MEDS: iron sucrose complex injection 200 MG in normal saline 100ml IV soln 90 ML IV SCH (11:02)
--- NOTE | 2020-10-12 15:00 | NUR ---
k rechecked after replacement- 3.0- md notified. new orders received. hyperglycemic orders resumed- discussed lantus with md- ordered.
[2020-10-12] MEDS ORDERED: ascorbic acid 500mg tablet OGT SCH (15:08)
[2020-10-12] MEDS ORDERED: tPA-cathflo 2 MG/2 ml IV flush IVF ONE (15:50)
[2020-10-12] MEDS: potassium Cl 20mEq/100mL bag 100 ML IV SCH ×2 (15:58→17:17)
--- NOTE | 2020-10-12 17:30 | NUR ---
pt sats to 88, volumes down, peak pressures high- rt here- little sx, different modes tried- unsuccessful. dr yanes here- cxr done- he felt about the same, ett in good position. placed on back- pt able to tolerated back to simv again. update to paulino.
--- NOTE | 2020-10-12 18:30 | NUR ---
Patient in room ICU 2042. I have received report from MARCO Avila and had the opportunity to ask questions and assume patient care.
--- NOTE | 2020-10-12 18:36 | NUR ---
Patient in room ICU 2042. I have received report from MARCO Avila and had the opportunity to ask questions and assume patient care.
--- NOTE | 2020-10-12 19:43 | NUR ---
Dr. Tapia called re restart of Heparin SQ 5,000 units. Medication was previously on a hold, it has reached the stop date of the hold. Addressed recent gastric output with rust colored, currently gastric output is clear yellow. current labs reviewed. Per okay to give med.
[2020-10-12] MEDS: fat emulsion 20% inj. 100 ML IV SCH (20:10)
[2020-10-12] MEDS: polyethylene glycol 3350 17gm powd pack PO SCH (20:12)
[2020-10-12] MEDS: heparin, porcine 5000 units/ml vial SQ SCH (20:12)
[2020-10-12] MEDS: insulin regular, human U-100 3ml vial - multi-dose SQ SCH (20:50)
[2020-10-12] MEDS: insulin glargine (Lantus) pen - multi-dose SQ SCH (20:52)
[2020-10-13] VITALS (24 sets, daily range): BP systolic 79–136; BP diastolic 33–61
[2020-10-13 01:22] LABS: BASOPHILS % (AUTO) 0.3 % (0-1); EOSINOPHILS # (AUTO) 0.1 X10'3 (0-0.9); EOSINOPHILS % (AUTO) 0.7 % (0-6); HEMATOCRIT 27.9 % (35.0-45.0); HEMOGLOBIN 8.9 g/dl (12.0-16.0); LYMPHOCYTES # (AUTO) 1.2 X10'3 (1.1-4.8); LYMPHOCYTES % (AUTO) 7.7 % (21-51); MEAN CORPUSCULAR HEMOGLOBIN 30.6 PG (27.0-31.0); MEAN CORPUSCULAR VOLUME 95.6 FL (78-98); MEAN PLATELET VOLUME 8.7 FL (7.4-10.4); MONOCYTES # (AUTO) 0.9 X10'3 (0-0.9); MONOCYTES % (AUTO) 5.4 % (2-12); NEUTROPHILS # (AUTO) 13.6 X10'3 (1.8-7.7); NEUTROPHILS % (AUTO) 85.9 % (42-75); PLATELET COUNT 109 X10'3 (140-440); RED BLOOD COUNT 2.91 X10'6 (4.20-5.60); RED CELL DISTRIBUTION WIDTH 20.6 % (11.5-14.5); WHITE BLOOD COUNT 15.9 X10'3 (4.5-11.0)
[2020-10-13 01:42] LABS: ALANINE AMINOTRANSFERASE 26 U/L (12-78); ALBUMIN 1.3 G/DL (3.4-5.0); ALBUMIN/GLOBULIN RATIO 0.4 (1.1-1.5); ALKALINE PHOSPHATASE 148 IU/L (46-116); ASPARTATE AMINO TRANSFERASE 18 U/L (10-37); BILIRUBIN,TOTAL 0.8 MG/DL (0.1-1.0); BLOOD UREA NITROGEN 43 MG/DL (7-18); BUN/CREATININE RATIO 11.7 (6.6-38.0); CALCIUM 7.7 MG/DL (8.5-10.1); CHLORIDE 100 MMOL/L (99-107); CREATININE 3.68 MG/DL (0.40-0.90); GLUCOSE 248 MG/DL (70-104); MAGNESIUM 2.2 MG/DL (1.5-2.4); PHOSPHORUS 2.6 MG/DL (2.3-4.5); POTASSIUM 3.2 MMOL/L (3.5-5.1); SODIUM 146 MMOL/L (135-145); eGFR 12 ML/MIN
[2020-10-13] MEDS: lactulose 20gm/30ml cup PO SCH ×3 (02:00→14:08)
[2020-10-13 02:35] LABS: TOTAL CARBON DIOXIDE 45.8 MMOL/L (24-32)
[2020-10-13 02:41] LABS: ANION GAP 0 (8-16)
[2020-10-13] MEDS: mineral oil/petrolatum ophthal oint EACHEYE SCH ×4 (02:48→20:36)
[2020-10-13] MEDS: [UNRECOGNIZED DRUG - REMARK] IV SCH ×4 (02:49)
[2020-10-13 03:44] LABS: ABG BASE EXCESS 21.4 mmol/L (-2.0-2.0); ABG HCO3 45.2 mmol/L (22.0-26.0); ABG OXYGEN SATURATION 95.7 % (94-97); ABG PCO2 (T) 46.3 mmHg (32.0-45.0); ABG PO2 (T) 76.5 mmHg (75.0-100.0); FCOHb 0.3 % (0.0-3.9); FMetHb 0.2 % (0.0-1.5); FO2Hb 95.2 % (94-97); RESPIRATORY RATE 14 b/min; TIDAL VOLUME 400 mL; TOTAL HEMOGLOBIN 10.3 G/dl (12.0-16.0)
--- NOTE | 2020-10-13 04:34 | NUR ---
Rounds with Dr. Fonseca. Critical values CO2 45.8 and K 3.2. MD to place order for potassium replacement.
[2020-10-13] MEDS ORDERED: Potassium Cl inj 40 MEQ in normal saline 250ml IV soln 250 ML IV ONE (04:35)
--- NOTE | 2020-10-13 06:34 | NUR ---
Problems reprioritized. Patient report given, questions answered & plan of care reviewed with MARCO Loya.
--- NOTE | 2020-10-13 07:00 | NUR ---
Patient in room ICU 2042. I have received report from Lesa LARA and had the opportunity to ask questions and assume patient care.
[2020-10-13] MEDS: K, MAG and/or Phos replacement - Verify level? MC SCH (08:00)
[2020-10-13] MEDS: ARGININE/GLUTAMINE/CALCIUM BMB (JUVEN 19.3GM PKT) 1 EACH POWD.PACK PO SCH ×2 (08:00→20:00)
[2020-10-13] MEDS: cefepime 1GM/NS ADD-VANTAGE 100 ML IV SCH ×2 (08:02→20:36)
[2020-10-13] MEDS: iron sucrose complex injection 200 MG in normal saline 100ml IV soln 90 ML IV SCH (08:02)
[2020-10-13] MEDS: loratadine 10mg tablet OGT SCH (08:03)
[2020-10-13] MEDS: folic acid 1mg tablet OGT SCH (08:03)
[2020-10-13] MEDS: heparin, porcine 5000 units/ml vial SQ SCH ×2 (08:03→20:43)
[2020-10-13] MEDS: lactobacillus rhamnosus 10,000 MMU CELLS/CAPSULE OGT SCH (08:04)
[2020-10-13] MEDS: famotidine/PF 10 mg/ml inj IV SCH (08:04)
[2020-10-13] MEDS: amiodarone 200mg tablet OGT SCH (08:04)
[2020-10-13] MEDS: sennosides/docusate sodium tablet OGT SCH (08:05)
[2020-10-13] MEDS: insulin regular, human U-100 3ml vial - multi-dose SQ SCH ×2 (08:09→20:50)
[2020-10-13] MEDS: amiodarone/D5 360MG/200ML BAG 200 ML IV SCH ×3 (08:25→20:35)
[2020-10-13] MEDS ORDERED: tPA-cathflo 2 MG/2 ml IV flush IVF ONE (09:15)
[2020-10-13] MEDS: albuterol 2.5 MG/3 ML nebule NEB PRN ×2 (09:25→21:02)
[2020-10-13] MEDS: budesonide 0.5mg/2ml UD nebule IH SCH ×2 (09:26→21:02)
--- NOTE | 2020-10-13 17:13 | NUR ---
Daughter bedside with other visitor
--- NOTE | 2020-10-13 17:21 | NUR ---
EEG will be first thing in the morning, EEG only available for stat EEG's at this time
--- NOTE | 2020-10-13 18:00 | NUR ---
Called Dr Porras in regards to patients declining blood pressure. He stated to start levophed and maintain a map of 60
--- NOTE | 2020-10-13 18:30 | NUR ---
Patient in room ICU 2042. I have received report from MARCO Loya and had the opportunity to ask questions and assume patient care.
--- NOTE | 2020-10-13 18:35 | NUR ---
Problems reprioritized. Patient report given, questions answered & plan of care reviewed with Vilma Stanley.
[2020-10-13] MEDS: fat emulsion 20% inj. 100 ML IV SCH (20:27)
[2020-10-13] MEDS: NORepinephrine 8mg/ 250ml NS 250 ML IV SCH (20:32)
[2020-10-13] MEDS: polyethylene glycol 3350 17gm powd pack PO SCH (20:43)
[2020-10-13] MEDS: insulin glargine (Lantus) pen - multi-dose SQ SCH (20:52)
[2020-10-14] VITALS (23 sets, daily range): BP systolic 96–131; BP diastolic 40–96
[2020-10-14] MEDS: [UNRECOGNIZED DRUG - REMARK] IV SCH ×8 (00:29→20:11)
[2020-10-14] MEDS: mineral oil/petrolatum ophthal oint EACHEYE SCH ×4 (02:18→20:12)
[2020-10-14] MEDS: insulin regular, human U-100 3ml vial - multi-dose SQ SCH ×3 (02:21→14:15)
[2020-10-14 02:35] LABS: BASOPHILS # (AUTO) 0.1 X10'3 (0-0.2); BASOPHILS % (AUTO) 0.3 % (0-1); EOSINOPHILS # (AUTO) 0.2 X10'3 (0-0.9); EOSINOPHILS % (AUTO) 1.1 % (0-6); HEMATOCRIT 27.8 % (35.0-45.0); HEMOGLOBIN 8.9 g/dl (12.0-16.0); LYMPHOCYTES # (AUTO) 1.3 X10'3 (1.1-4.8); LYMPHOCYTES % (AUTO) 6.4 % (21-51); MEAN CORPUSCULAR HEMOGLOBIN 31.3 PG (27.0-31.0); MEAN CORPUSCULAR HGB CONC 32.2 g/dL (33.0-36.5); MEAN CORPUSCULAR VOLUME 97.2 FL (78-98); MEAN PLATELET VOLUME 8.6 FL (7.4-10.4); MONOCYTES # (AUTO) 1.3 X10'3 (0-0.9); MONOCYTES % (AUTO) 6.4 % (2-12); NEUTROPHILS # (AUTO) 17.7 X10'3 (1.8-7.7); NEUTROPHILS % (AUTO) 85.8 % (42-75); PLATELET COUNT 109 X10'3 (140-440); RED BLOOD COUNT 2.86 X10'6 (4.20-5.60); RED CELL DISTRIBUTION WIDTH 20.6 % (11.5-14.5); WHITE BLOOD COUNT 20.6 X10'3 (4.5-11.0)
[2020-10-14] MEDS: amiodarone/D5 360MG/200ML BAG 200 ML IV SCH ×4 (02:37→19:02)
[2020-10-14 02:58] LABS: ALANINE AMINOTRANSFERASE 25 U/L (12-78); ALBUMIN 1.3 G/DL (3.4-5.0); ALBUMIN/GLOBULIN RATIO 0.3 (1.1-1.5); ALKALINE PHOSPHATASE 156 IU/L (46-116); ANION GAP 1 (8-16); ASPARTATE AMINO TRANSFERASE 28 U/L (10-37); BILIRUBIN,TOTAL 0.7 MG/DL (0.1-1.0); BLOOD UREA NITROGEN 62 MG/DL (7-18); BUN/CREATININE RATIO 14.2 (6.6-38.0); CALCIUM 7.6 MG/DL (8.5-10.1); CHLORIDE 96 MMOL/L (99-107); CREATININE 4.37 MG/DL (0.40-0.90); GLUCOSE 182 MG/DL (70-104); MAGNESIUM 2.2 MG/DL (1.5-2.4); PHOSPHORUS 2.1 MG/DL (2.3-4.5); PREALBUMIN 12.9 MG/DL (19-36); SODIUM 142 MMOL/L (135-145); TOTAL PROTEIN 5.4 G/DL (6.4-8.2); TRIGLYCERIDES 111 MG/DL (20-135); eGFR 10 ML/MIN
[2020-10-14 03:00] LABS: TOTAL CARBON DIOXIDE 44.9 MMOL/L (24-32)
[2020-10-14 03:33] LABS: ANISOCYTOSIS 3+; PLATELET ESTIMATE DECREASED; STOMATOCYTES 1+; TOTAL CELLS COUNTED 100
[2020-10-14 03:39] LABS: ABG BASE EXCESS 22.2 mmol/L (-2.0-2.0); ABG HCO3 46.2 mmol/L (22.0-26.0); ABG OXYGEN SATURATION 94.3 % (94-97); ABG PCO2 (T) 49.2 mmHg (32.0-45.0); ABG PO2 (T) 68.1 mmHg (75.0-100.0); FCOHb 0.3 % (0.0-3.9); FMetHb 0.1 % (0.0-1.5); FO2Hb 93.9 % (94-97); PATIENT TEMPERATURE 37.2; PEEP 5 cm H2O; RESPIRATORY RATE 14 b/min; TIDAL VOLUME 400 mL; TOTAL HEMOGLOBIN 9.2 G/dl (12.0-16.0)
--- NOTE | 2020-10-14 06:14 | NUR ---
Problems reprioritized. Patient report given, questions answered & plan of care reviewed with MARCO Loya.
--- NOTE | 2020-10-14 06:57 | NUR ---
Patient in room ICU 2042. I have received report from Vilma LARA and had the opportunity to ask questions and assume patient care.
[2020-10-14] MEDS: budesonide 0.5mg/2ml UD nebule IH SCH ×2 (07:10→21:02)
[2020-10-14] MEDS: iron sucrose complex injection 200 MG in normal saline 100ml IV soln 90 ML IV SCH (07:21)
[2020-10-14] MEDS: famotidine/PF 10 mg/ml inj IV SCH (07:21)
[2020-10-14] MEDS: cefepime 1GM/NS ADD-VANTAGE 100 ML IV SCH ×2 (07:22→20:13)
[2020-10-14] MEDS: ARGININE/GLUTAMINE/CALCIUM BMB (JUVEN 19.3GM PKT) 1 EACH POWD.PACK PO SCH (08:00)
[2020-10-14] MEDS: K, MAG and/or Phos replacement - Verify level? MC SCH (08:00)
[2020-10-14] MEDS ORDERED: EPOETIN ALFA-EPBX 20,000 UNIT/ML 1 ML MDV IV ONE (09:55)
[2020-10-14] MEDS ORDERED: albumin (human) 25% 100ml IV 100 ML IV PRN (09:55)
[2020-10-14] MEDS ORDERED: heparin 1,000unit/ml 10ml vial 10 ML IV ONE (09:55)
[2020-10-14] MEDS ORDERED: heparin 1,000 units/ml 10ml inj HE ONE ×2 (10:00)
[2020-10-14] MEDS: heparin, porcine 5000 units/ml vial SQ SCH ×2 (10:40→20:12)
--- NOTE | 2020-10-14 11:41 | NUR ---
F/u 10/14: Pt TPN at goal w/ noted K of 2.7 prior to initiation on HD w/ K increased to 3.0 this AM; electrolyte replacement per napper fixer recs. LBM 10/12 small BM's per EMR s/p CT abdomen showing ascites, anasarca, pleural effusions, and third spacing per CT note. Will continue to monitor for PN tolerance and changes in code status. Recommendations: 1) Continuous 2:1 Clinimix non-E 07/27 with goal rate of 90 mL/hr with additional 70 mL 20% intralipids at 5.83 mL/hr for 12 hours. In total to provide 2230 mL total volume/day, 1674 kcal, 108 g protein, 324 g dextrose (3.33 mg/kg/min dext load), and 14 g lipids (8.3% kcal from lipids) 2) Prealbumin and TG q Wednesday/ 3) Daily weights 4) IF to restart TF, continuous Vital AF with goal rate of 60 mL/hr to provide 1440 mL total volume/day, 1728 kcal, 1166 mL water, and 108 g protein. 5) IF TF, additional water flush per MD given HD 6) IF TF and okay to have additional water, Roni ONS packet BID for wound healing. To administer; mix one packet Roni with 120 mL water and flush tube with 20 mL water before/after administration of Roni 7) Routine bowel care Addendum: 10/14/20 at [address] Amended: Links added.
--- NOTE | 2020-10-14 15:55 | NUR ---
Daughter visit: Daughter at beside. Questions answered.
--- NOTE | 2020-10-14 16:00 | NUR ---
Patients daughter bedside
[2020-10-14] MEDS: NORepinephrine 8mg/ 250ml NS 250 ML IV SCH (17:36)
--- NOTE | 2020-10-14 18:23 | NUR ---
Problems reprioritized. Patient report given, questions answered & plan of care reviewed with Litzy Bradley RN.
--- NOTE | 2020-10-14 19:34 | NUR ---
I have received report and assumed care of pt. Pt resting in bed rise and fall of chest cavity equile and symmetrical. Assessment complete, Pt does not seem to respond to verbal or tactical stimuli. TPN in place for nutritional support.
[2020-10-14] MEDS ORDERED: metoclopramide 5 mg/ml inj IV PRN (20:00)
[2020-10-14] MEDS: fat emulsion 20% inj. 100 ML IV SCH (20:11)
[2020-10-14] MEDS: polyethylene glycol 3350 17gm powd pack PO SCH (20:12)
[2020-10-14] MEDS: albuterol 2.5 MG/3 ML nebule NEB PRN (21:02)
[2020-10-14] MEDS: insulin glargine (Lantus) pen - multi-dose SQ SCH (21:11)
--- NOTE | 2020-10-14 23:29 | NUR ---
Hs cares complete pt opened eyes while repositioning in bed, did not try to track with eyes or lights. no facial grimacing noted with HS care.
[2020-10-15] VITALS (24 sets, daily range): BP systolic 93–132; BP diastolic 34–66
--- NOTE | 2020-10-15 | NUR ---
Tube feeding residulas appear to be completely undigested, spoke to Dr. Jules will not increase tube feeding
[2020-10-15] MEDS: ARGININE/GLUTAMINE/CALCIUM BMB (JUVEN 19.3GM PKT) 1 EACH POWD.PACK PO SCH ×3 (00:30→20:15)
[2020-10-15] MEDS: insulin regular, human U-100 3ml vial - multi-dose SQ SCH ×4 (01:50→20:45)
--- NOTE | 2020-10-15 02:00 | NUR ---
no changes in pt noted
[2020-10-15 02:30] LABS: BASOPHILS # (AUTO) 0.1 X10'3 (0-0.2); BASOPHILS % (AUTO) 0.3 % (0-1); EOSINOPHILS # (AUTO) 0.2 X10'3 (0-0.9); EOSINOPHILS % (AUTO) 1.3 % (0-6); HEMATOCRIT 25.1 % (35.0-45.0); LYMPHOCYTES # (AUTO) 1.2 X10'3 (1.1-4.8); LYMPHOCYTES % (AUTO) 7.1 % (21-51); MEAN CORPUSCULAR HEMOGLOBIN 31.1 PG (27.0-31.0); MEAN CORPUSCULAR VOLUME 97.2 FL (78-98); MEAN PLATELET VOLUME 8.8 FL (7.4-10.4); NEUTROPHILS # (AUTO) 14.9 X10'3 (1.8-7.7); NEUTROPHILS % (AUTO) 85.3 % (42-75); RED BLOOD COUNT 2.58 X10'6 (4.20-5.60); RED CELL DISTRIBUTION WIDTH 20.6 % (11.5-14.5); WHITE BLOOD COUNT 17.4 X10'3 (4.5-11.0)
[2020-10-15 02:41] LABS: ALANINE AMINOTRANSFERASE 27 U/L (12-78); ALBUMIN 1.2 G/DL (3.4-5.0); ALBUMIN/GLOBULIN RATIO 0.3 (1.1-1.5); ALKALINE PHOSPHATASE 142 IU/L (46-116); ANION GAP 5 (8-16); ASPARTATE AMINO TRANSFERASE 31 U/L (10-37); BILIRUBIN,TOTAL 0.6 MG/DL (0.1-1.0); BLOOD UREA NITROGEN 43 MG/DL (7-18); BUN/CREATININE RATIO 14.1 (6.6-38.0); CALCIUM 7.2 MG/DL (8.5-10.1); CHLORIDE 96 MMOL/L (99-107); CREATININE 3.04 MG/DL (0.40-0.90); GLUCOSE 233 MG/DL (70-104); PHOSPHORUS 1.3 MG/DL (2.3-4.5); POTASSIUM 3.3 MMOL/L (3.5-5.1); SODIUM 135 MMOL/L (135-145); TOTAL CARBON DIOXIDE 34.1 MMOL/L (24-32); eGFR 15 ML/MIN
[2020-10-15] MEDS: amiodarone/D5 360MG/200ML BAG 200 ML IV SCH ×4 (02:53→20:14)
[2020-10-15] MEDS: mineral oil/petrolatum ophthal oint EACHEYE SCH ×4 (03:06→20:15)
[2020-10-15 03:23] LABS: ANISOCYTOSIS 3+; PLATELET ESTIMATE DECREASED
[2020-10-15 03:25] LABS: PLATELET COUNT 84 X10'3 (140-440)
[2020-10-15 03:25] LABS: ABG BASE EXCESS 11.2 mmol/L (-2.0-2.0); ABG OXYGEN SATURATION 97.4 % (94-97); ABG PCO2 (T) 42.2 mmHg (32.0-45.0); ABG PO2 (T) 89.8 mmHg (75.0-100.0); FCOHb 0.3 % (0.0-3.9); FMetHb 0.2 % (0.0-1.5); FO2Hb 96.9 % (94-97); PATIENT TEMPERATURE 36.7; PEEP 5 cm H2O; RESPIRATORY RATE 14 b/min; TIDAL VOLUME 400 mL; TOTAL HEMOGLOBIN 9.2 G/dl (12.0-16.0)
--- NOTE | 2020-10-15 06:35 | NUR ---
Patient in room ICU 2042. I have received report from Urmila LARA and had the opportunity to ask questions and assume patient care.
[2020-10-15] MEDS: famotidine/PF 10 mg/ml inj IV SCH (07:37)
[2020-10-15] MEDS: cefepime 1GM/NS ADD-VANTAGE 100 ML IV SCH ×2 (07:37→20:17)
[2020-10-15] MEDS: iron sucrose complex injection 200 MG in normal saline 100ml IV soln 90 ML IV SCH (07:37)
[2020-10-15] MEDS: heparin, porcine 5000 units/ml vial SQ SCH (07:38)
[2020-10-15] MEDS: K, MAG and/or Phos replacement - Verify level? MC SCH (08:00)
[2020-10-15] MEDS: budesonide 0.5mg/2ml UD nebule IH SCH ×2 (09:02→20:32)
--- NOTE | 2020-10-15 10:29 | NUR ---
Rounds note; Reviewed systems, labs, RX and current status. Per Dr. Greenwood he would like a family meeting tomorrow 10/16/20 at 11am with all family and friends to discuss the further plan of care. Stop TPN once this bag runs out and start tube feed at 20mls/hr and re-asses tolerance tomorrow. HD tomorrow without heparin, stop sub Q heparin. Change to protonix in light of the decreased platelet count. No other new orders
--- NOTE | 2020-10-15 11:21 | NUR ---
TF Consult: Pt TPN to stop once current bag empties and trickle TF to run at 20ml/hr per singeing torch operator. Pt OG suction down to 350 past 24 hours from prior [id number]. TF recs below given needs on vent/HD. Rectal bag in place w/ last significant BM 10/12x7 moderate though no volume noted. Pt senna and lactulose stopped only receiving miralax HS for bowel care. Will monitor for TF adjustment needs and tolerance on vent. Recommendations: 1) Continuous TF per MD using Vital AF at 20mL/hr; to provide 480mL total volume/day, 576 kcal, 389mL water, and 36g protein. 2) IF TF to advance; Vital AF with goal rate of 60 mL/hr to provide 1440 mL total volume/day, 1728 kcal, 1166 mL water, and 108 g protein. 3) additional water flush per MD given HD 4) IF TF to advance and okay to have additional water, Roni ONS packet BID for wound healing. To administer; mix one packet Roni with 120 mL water and flush tube with 20 mL water before/after administration of Roni 5) Prealbumin and TG q Wednesday/; daily wts 6) Routine bowel care 7) IF return to PN; Continuous 2:1 Clinimix non-E 07/27 with goal rate of 90 mL/hr with additional 70 mL 20% intralipids at 5.83 mL/hr for 12 hours. In total to provide 2230 mL total volume/day, 1674 kcal, 108 g protein, 324 g dextrose (3.33 mg/kg/min dext load), and 14 g lipids (8.3% kcal from lipids) Addendum: 10/15/20 at [address] Amended: Links added.
[2020-10-15] MEDS: NORepinephrine 8mg/ 250ml NS 250 ML IV SCH (14:40)
--- NOTE | 2020-10-15 18:35 | NUR ---
I have received report and assumed care of pt. Pt resting in bed rise and fall of chest cavity equile and symmetrical, pt does not appear to respond to verbal or tactile stimuli including but not limited to deep pain stimuli. Pt turned side to side to maintain skin integrity. Wound care orders in place and followed/ pedal pulses are Doppler. Tube feeding in place for nutritional support. Assessment complete
--- NOTE | 2020-10-15 19:40 | NUR ---
Hs cares complete no neurological recognition noted
[2020-10-15] MEDS: pantoprazole 40 MG vial IV SCH (20:15)
[2020-10-15] MEDS: polyethylene glycol 3350 17gm powd pack PO SCH (20:15)
[2020-10-15] MEDS: albuterol 2.5 MG/3 ML nebule NEB PRN (20:32)
[2020-10-15] MEDS: insulin glargine (Lantus) pen - multi-dose SQ SCH (20:43)
[2020-10-16] VITALS (20 sets, daily range): BP systolic 90–127; BP diastolic 42–61
--- NOTE | 2020-10-16 00:05 | NUR ---
pt changed multiple times for thin burgundy stool around fecal containment device wound care orders followed
[2020-10-16] MEDS: insulin regular, human U-100 3ml vial - multi-dose SQ SCH ×2 (02:52→08:17)
[2020-10-16] MEDS: mineral oil/petrolatum ophthal oint EACHEYE SCH ×4 (02:55→21:15)
--- NOTE | 2020-10-16 04:15 | NUR ---
no changes in pts condition noted
[2020-10-16] MEDS: amiodarone/D5 360MG/200ML BAG 200 ML IV SCH ×4 (07:19→18:47)
[2020-10-16] MEDS: pantoprazole 40 MG vial IV SCH ×2 (07:52→21:15)
[2020-10-16] MEDS: cefepime 1GM/NS ADD-VANTAGE 100 ML IV SCH (07:52)
[2020-10-16] MEDS: K, MAG and/or Phos replacement - Verify level? MC SCH (08:00)
[2020-10-16] MEDS: ARGININE/GLUTAMINE/CALCIUM BMB (JUVEN 19.3GM PKT) 1 EACH POWD.PACK PO SCH ×2 (08:00→20:00)
[2020-10-16] MEDS: budesonide 0.5mg/2ml UD nebule IH SCH ×2 (09:00→19:12)
[2020-10-16] MEDS: albuterol 2.5 MG/3 ML nebule NEB PRN (11:40)
[2020-10-16] MEDS: NORepinephrine 8mg/ 250ml NS 250 ML IV SCH (11:44)
--- NOTE | 2020-10-16 11:48 | NUR ---
Family Meeting Dr. Greenwood lead family meeting. Explained pts worsening condition based on repeated CT & EEGs. They agreed to make her a no code and once additional family here to move to comfort care. Daughter, grandson & cousin were present along with SS and CM staff.
[2020-10-16 13:37] LABS: HBSAG SCREEN Negative (Negative)
--- NOTE | 2020-10-16 18:10 | NUR ---
Problems reprioritized. Patient report given, questions answered & plan of care reviewed with Luba LARA.
[2020-10-16] MEDS: polyethylene glycol 3350 17gm powd pack PO SCH (21:00)
[2020-10-16] MEDS: insulin glargine (Lantus) pen - multi-dose SQ SCH (21:00)
[2020-10-16] MEDS: atorvastatin 20mg tablet OGT SCH (21:00)
[2020-10-17] VITALS (13 sets, daily range): BP systolic 107–128; BP diastolic 52–63
[2020-10-17] MEDS: mineral oil/petrolatum ophthal oint EACHEYE SCH ×4 (02:00→20:46)
[2020-10-17] MEDS: amiodarone/D5 360MG/200ML BAG 200 ML IV SCH (04:21)
--- NOTE | 2020-10-17 06:30 | NUR ---
Problems reprioritized. Patient report given, questions answered & plan of care reviewed with HOA LARA.
--- NOTE | 2020-10-17 07:57 | NUR ---
Noted patient's code status has been made DNR with comfort care. TF discontinued and pt NPO. COREYM 10/14. Will continue to follow per LOS. Recommendations: 1) Bowel care per comfort care measures Addendum: 10/17/20 at [address] Amended: Links added.
[2020-10-17] MEDS: NORepinephrine 8mg/ 250ml NS 250 ML IV SCH (08:48)
[2020-10-17] MEDS: budesonide 0.5mg/2ml UD nebule IH SCH (09:45)
[2020-10-17] MEDS: albuterol 2.5 MG/3 ML nebule NEB PRN (09:45)
[2020-10-17] MEDS: atorvastatin 20mg tablet OGT SCH (20:27)
[2020-10-18] MEDS: mineral oil/petrolatum ophthal oint EACHEYE SCH ×4 (02:47→19:57)
[2020-10-18] MEDS: morphine 10mg/ml inj. IV PRN ×2 (04:00→18:02)
[2020-10-18] MEDS: NORepinephrine 8mg/ 250ml NS 250 ML IV SCH (05:52)
[2020-10-18 08:00] VITALS: BP 107/41
--- NOTE | 2020-10-18 15:32 | NUR ---
pacemaker rep here to deactivate AICD/pacer per Dr. Greenwood. Family will be here to withdraw care/extubate today.
[2020-10-18] MEDS: atorvastatin 20mg tablet OGT SCH (19:56)
[2020-10-18 22:00] VITALS: BP 107/41
[2020-10-19] MEDS: morphine 10mg/ml inj. IV PRN ×4 (01:39→17:23)
[2020-10-19] MEDS: mineral oil/petrolatum ophthal oint EACHEYE SCH ×4 (01:39→20:00)
[2020-10-19] MEDS: NORepinephrine 8mg/ 250ml NS 250 ML IV SCH (02:56)
[2020-10-19 08:00] VITALS: BP 143/66
[2020-10-19 15:00] VITALS: BP 129/69
--- NOTE | 2020-10-19 18:47 | NUR ---
Patient in room [facility]. I have received report from Magaly LARA and had the opportunity to ask questions and assume patient care.
[2020-10-20] MEDS: mineral oil/petrolatum ophthal oint EACHEYE SCH ×4 (02:00→20:00)
[2020-10-20] MEDS: morphine 10mg/ml inj. IV PRN ×5 (02:15→19:38)
[2020-10-20] MEDS: LORazepam 2 mg/ml vial IV PRN ×3 (04:39→19:38)
--- NOTE | 2020-10-20 06:36 | NUR ---
Patient in room [facility]. I have received report from LALA LARA and had the opportunity to ask questions and assume patient care.
--- NOTE | 2020-10-20 07:00 | NUR ---
Problems reprioritized. Patient report given, questions answered & plan of care reviewed with Kenneth RN.
[2020-10-20 07:24] VITALS: BP 142/83
[2020-10-20] MEDS ORDERED: scopolamine 1mg/72 hr patch TD SCH (15:20)
--- NOTE | 2020-10-20 18:00 | NUR ---
Patient in room [facility] 351. I have received report from Kenneth LARA and had the opportunity to ask questions and assume patient care.
--- NOTE | 2020-10-20 18:25 | NUR ---
Problems reprioritized. Patient report given, questions answered & plan of care reviewed with Lillie LARA.
--- NOTE | 2020-10-20 20:06 | NUR ---
patient was observed to stop breathing at 2005 EKG strip run no heart beat recorded. family present in room. patient pronounced 2005.
--- NOTE | 2020-10-20 23:05 | NUR ---
[facility] contacted patients lines DC'd. family awaiting arrival of mortician.
--- NOTE | 2020-10-20 23:10 | NUR ---
RN IS TO DOCUMENT YES TO ALL APPLICABLE AREAS Pronouncement of : 1. Time Physician Notified:2009 2. Date of :10/20/20 3. Time of : 2005 4. DNR/Withdraw life support documented:yes 5. Monitor strip has been placed on chart:yes 6. Assessment process is of one-minute duration and includes following criteria: a) Patient is unresponsive to all stimuli: yes b) Pupils fixed and non-reactive:yes c) Auscultation of precordium reveals absence of heart tones:yes d) Auscultation of lungs reveals absence of breath sounds:yes e) Absence of blood pressure / all vital signs:yes f) QRS complexes are not present on monitor / EKG strip:yes g) Pacer spikes without capture:no 4. Comments:
--- NOTE | 2020-10-21 00:24 | NUR ---
Awaiting mortician, report given to Bernadette LARA
== END 2020-10-20 20:05 | DRG 207 ==
LOC: ER 15:06 → ED HOLD 21:32 → CICU 2S 22:00 → PCU 3S 09-28 17:00 → ICU 2S 09-29 20:50 → SUR 3N 10-19 15:11
PROVIDERS: ADMIT Internal Medicine Critical Care Medicine; ATTEND Internal Medicine Critical Care Medicine
PROC: 5A1955Z Respiratory Ventilation, Greater than 96 Consecutive Hours (ICD-10-PCS; 2020-09-20)
PROC: 0BH17EZ Insertion of Endotracheal Airway into Trachea, Via Natural or Artificial Opening (ICD-10-PCS; 2020-09-20)
PROC: 3E0234Z Introduction of Serum, Toxoid and Vaccine into Muscle, Percutaneous Approach (ICD-10-PCS; 2020-09-20)
PROC: 30233N1 Transfusion of Nonautologous Red Blood Cells into Peripheral Vein, Percutaneous Approach (ICD-10-PCS; 2020-09-20)
PROC: 02HV33Z Insertion of Infusion Device into Superior Vena Cava, Percutaneous Approach (ICD-10-PCS; 2020-09-20)
PROC: B548ZZA Ultrasonography of Superior Vena Cava, Guidance (ICD-10-PCS; 2020-09-20)
PROC: 0W3P8ZZ Control Bleeding in Gastrointestinal Tract, Via Natural or Artificial Opening Endoscopic (ICD-10-PCS; 2020-09-20)
PROC: 5A1955Z Respiratory Ventilation, Greater than 96 Consecutive Hours (ICD-10-PCS; principal; 2020-09-29)
PROC: 0BH17EZ Insertion of Endotracheal Airway into Trachea, Via Natural or Artificial Opening (ICD-10-PCS; 2020-09-29)
PROC: 5A09357 Assistance with Respiratory Ventilation, Less than 24 Consecutive Hours, Continuous Positive Airway Pressure (ICD-10-PCS; 2020-09-29)
PROC: 5A12012 Performance of Cardiac Output, Single, Manual (ICD-10-PCS; 2020-09-29)
PROC: 02HV33Z Insertion of Infusion Device into Superior Vena Cava, Percutaneous Approach (ICD-10-PCS; 2020-09-30)
PROC: B548ZZA Ultrasonography of Superior Vena Cava, Guidance (ICD-10-PCS; 2020-09-30)
PROC: 4A10X4Z Monitoring of Central Nervous Electrical Activity, External Approach (ICD-10-PCS; 2020-10-03)
PROC: 06HY33Z Insertion of Infusion Device into Lower Vein, Percutaneous Approach (ICD-10-PCS; 2020-10-05)
PROC: 5A1D90Z Performance of Urinary Filtration, Continuous, Greater than 18 hours Per Day (ICD-10-PCS; 2020-10-05)
PROC: 5A1D90Z Performance of Urinary Filtration, Continuous, Greater than 18 hours Per Day (ICD-10-PCS; 2020-10-06)
PROC: 5A1D90Z Performance of Urinary Filtration, Continuous, Greater than 18 hours Per Day (ICD-10-PCS; 2020-10-07)
PROC: 5A1D90Z Performance of Urinary Filtration, Continuous, Greater than 18 hours Per Day (ICD-10-PCS; 2020-10-08)
PROC: 5A1D70Z Performance of Urinary Filtration, Intermittent, Less than 6 Hours Per Day (ICD-10-PCS; 2020-10-09)
PROC: 5A1D70Z Performance of Urinary Filtration, Intermittent, Less than 6 Hours Per Day (ICD-10-PCS; 2020-10-11)
PROC: 4A10X4Z Monitoring of Central Nervous Electrical Activity, External Approach (ICD-10-PCS; 2020-10-14)
PROC: 5A1D70Z Performance of Urinary Filtration, Intermittent, Less than 6 Hours Per Day (ICD-10-PCS; 2020-10-14)
DX: J96.21 Acute and chronic respiratory failure with hypoxia (principal); K26.4 Chronic or unspecified duodenal ulcer with hemorrhage; I50.23 Acute on chronic systolic (congestive) heart failure; J15.211 Pneumonia due to Methicillin susceptible Staphylococcus aureus; N17.0 Acute kidney failure with tubular necrosis; G93.1 Anoxic brain damage, not elsewhere classified; E87.1 Hypo-osmolality and hyponatremia; J44.0 Chronic obstructive pulmonary disease with (acute) lower respiratory infection; D62 Acute posthemorrhagic anemia; E87.4 Mixed disorder of acid-base balance; E46 Unspecified protein-calorie malnutrition; Z99.11 Dependence on respirator [ventilator] status; K56.7 Ileus, unspecified; E87.3 Alkalosis; K92.0 Hematemesis; J96.22 Acute and chronic respiratory failure with hypercapnia; E11.22 Type 2 diabetes mellitus with diabetic chronic kidney disease; E78.00 Pure hypercholesterolemia, unspecified; I12.9 Hypertensive chronic kidney disease with stage 1 through stage 4 chronic kidney disease, or unspecified chronic kidney disease; G89.29 Other chronic pain; K59.00 Constipation, unspecified; M54.9 Dorsalgia, unspecified; R57.8 Other shock; I46.9 Cardiac arrest, cause unspecified; I25.10 Atherosclerotic heart disease of native coronary artery without angina pectoris; R14.0 Abdominal distension (gaseous); N18.30 Chronic kidney disease, stage 3 unspecified; R53.81 Other malaise; B96.1 Klebsiella pneumoniae [K. pneumoniae] as the cause of diseases classified elsewhere; B95.61 Methicillin susceptible Staphylococcus aureus infection as the cause of diseases classified elsewhere; I48.91 Unspecified atrial fibrillation; E87.6 Hypokalemia; Z66 Do not resuscitate; E11.65 Type 2 diabetes mellitus with hyperglycemia; E87.5 Hyperkalemia; F17.200 Nicotine dependence, unspecified, uncomplicated; K70.31 Alcoholic cirrhosis of liver with ascites; K72.90 Hepatic failure, unspecified without coma; Z51.5 Encounter for palliative care; Z78.1 Physical restraint status; Z79.82 Long term (current) use of aspirin; Z90.710 Acquired absence of both cervix and uterus; Z23 Encounter for immunization; Z88.0 Allergy status to penicillin; Z88.8 Allergy status to other drugs, medicaments and biological substances; Z79.899 Other long term (current) drug therapy; Z68.26 Body mass index [BMI] 26.0-26.9, adult
CPT/HCPCS: 36415; 36430; 36556; 36573; 36600; 43227; 43255; 70450; 70551; 71045; 74018; 74176; 76705; 80047; 80048; 80053; 80069; 80202; 81001; 81003; 82140; 82272; 82330; 82570; 82728; 82803; 82810; 82948; 83036; 83540; 83550; 83605; 83735; 84100; 84132; 84134; 84145; 84156; 84300; 84436; 84443; 84478; 84480; 84484; 85007; 85008; 85018; 85025; 85027; 85384; 85610; 85730; 86078; 86677; 86870; 86880; 86885; 86900; 86901; 86902; 86905; 86922; 87040; 87070; 87077; 87081; 87186; 87207; 87340; 90471; 90715; 90935; 92508; 92616; 92950; 93005; 94002; 94003; 94640; 94660; 94760; 94799; 95816; 96361; 96365; 96367; 96368; 96375; 97116; 97161; 97530; 99152; 99153; 99291; 99292; C1769; C9113; C9132; E1594; G0257; G0378; J0692; J1200; J1644; J1650; J1756; J1815; J1940; J1956; J2060; J2185; J2250; J2270; J2354; J2370; J2920; J2997; J3010; J3370; J3430; J3475; J3480; J3490; J7030; J7040; J7050; J7626; P9016; P9045; P9047; Q4081